=== PATIENT | female | born 1945 | race Caucasian/White ===

== ENCOUNTER 2016-10-07 13:51 | Emergency (ER) | payer MEDICARE ==
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
[2016-10-07] MEDS ORDERED: Sodium Chloride 0.9% 1,000 ML IV ONE (14:32)
[2016-10-07] MEDS ORDERED: Famotidine 20 MG/2 ML SDV IVPUSH ONE (14:32)
[2016-10-07 15:17] LABS: CHLORIDE,CL 100 mmol/L (98-110); SODIUM,NA 145 mmol/L (136-146)
[2016-10-07] MEDS ORDERED: Potassium Chloride 10% 20 MEQ/15 ML Soln 30 ML UD Cup PO ONE (15:39)
[2016-10-07] MEDS ORDERED: Potassium Chloride 20 MEQ Tab.ER PO ONE (15:46)
[2016-10-07] MEDS ORDERED: NS + KCl 20mEq/L 1,000 ML IV SCH (15:49)
[2016-10-07 18:32] VITALS: BP 179/102
--- NOTE | 2016-10-09 17:41 | CT ---
EXAM DATE: 10/07/16 PATIENT'S AGE: 71 Patient: LIANG STRONG Facility: [place], [place] Site . Site : 1945 Study: CT Abdomen/Pelvis [id number]/25/2017 3:21:50 PM Ordering Physician: Doctor Costa Final Report: Indication: Abdominal pain. Technique: A CT volumetric acquisition was performed of the abdomen and pelvis without IV contrast. Comparison: CT abdomen pelvis dated 05/19/2016. Findings: CT images demonstrate pulmonary hyperinflation. There is minimal pleural and parenchymal scarring within the inferior lingula. Lung bases are otherwise clear. Within the abdomen there is continued evidence of generalized hepatic steatosis. The spleen appears of normal size. There is no evidence mass effect or inflammation within the pancreas or stomach. The patient again has multiple small calcified stones within the gallbladder but there is no evidence of acute inflammation within the gallbladder wall or bile duct dilatation. Extensive atherosclerotic calcifications are evident within the abdominal aorta and iliac arteries. There is no evidence of aneurysm or vascular dissection. The unenhanced kidneys reveal a stable 3 mm calculus within the mid left kidney as well as a small cortical cyst laterally within the mid left kidney. There is no evidence of hydronephrosis. The small intestine appears normal. The lower pelvis is obscured secondary to spray artifact from bilateral hip arthroplasties. There are no suspicious pelvic masses. Impression: 1. Cholelithiasis but without evidence of acute cholecystitis or bile duct dilatation. 2. Generalized hepatic steatosis. Dictated by Ronaldo Blake MD @ Oct 07 2016 4:00PM (Electronic Signature) Report Signed by Proxy and Original Signed Document filed in the Medical Record. [facility] DIVISIONAddie
--- NOTE | 2016-10-09 17:42 | CR ---
EXAM DATE: 10/07/16 PATIENT'S AGE: 71 Patient: LIANG STRONG Facility: [place], [place] Site . Site : 1945 Study: XRay Chest [id number]/25/2017 3:31:12 PM Ordering Physician: Doctor Costa Final Report: INDICATION: Abdominal pain. COMPARISON: none TECHNIQUE: Two view chest. FINDINGS: There is pulmonary hyperinflation reflecting underlying COPD. Old appearing compression changes are within the lower thoracic spine. There is no evidence of a new infiltrate or suspicious mass. The heart, mediastinum and pulmonary vessels are of normal size. There is no evidence of pleural fluid. IMPRESSION: COPD Dictated by Ronaldo Blake MD @ Oct 07 2016 4:00PM (Electronic Signature) Report Signed by Proxy and Original Signed Document filed in the Medical Record. [facility]
== END 2016-10-07 18:33 | disposition home or self-care (01) ==
LOC: MW.ED 13:51
DX: K80.20 Calculus of gallbladder without cholecystitis without obstruction (principal); E87.6 Hypokalemia; F10.10 Alcohol abuse, uncomplicated; I10 Essential (primary) hypertension; K21.9 Gastro-esophageal reflux disease without esophagitis; G89.29 Other chronic pain; R10.9 Unspecified abdominal pain; M54.9 Dorsalgia, unspecified; F32.9 Major depressive disorder, single episode, unspecified; F41.9 Anxiety disorder, unspecified; M81.0 Age-related osteoporosis without current pathological fracture; Z79.899 Other long term (current) drug therapy; F17.200 Nicotine dependence, unspecified, uncomplicated
CPT/HCPCS: 36415; 71020; 74176; 80053; 81001; 83690; 83735; 85025; 85610; 96361; 96365; 96366; 96375; 99285; A9270; J3480; J7040; 93005; 99284

== ENCOUNTER 2016-10-10 10:43 | Inpatient (IN) | payer MEDICARE ==
[2016-10-10] MEDS ORDERED: Ondansetron 4 MG/2 ML SDV IVPUSH ONE (11:01)
[2016-10-10] MEDS ORDERED: Sodium Chloride 0.9% 1,000 ML IV ONE ×2 (11:01→14:40)
[2016-10-10] MEDS ORDERED: Morphine 2 MG/ML Syringe IVPUSH ONE (11:01)
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
[2016-10-10 11:57] LABS: CHLORIDE,CL 104 mmol/L (98-110); SODIUM,NA 142 mmol/L (136-146)
--- NOTE | 2016-10-10 12:02 | CR ---
EXAMINATION: Portable chest radiograph. HISTORY: Shortness of breath. FINDINGS: The trachea is midline. The cardiomediastinal silhouette is within normal limits. No pulmonary infil trates, effusions or pneumothorax. Osseous structures appear osteopenic. IMPRESSION: No acute cardiopulmonary process.
[2016-10-10] MEDS ORDERED: Potassium Chloride 20 MEQ Tab.ER PO ONE ×2 (12:06→12:56)
[2016-10-10] MEDS ORDERED: Dextrose 5%-0.9% NaCl with KCl 1,000 ML IV SCH (12:15)
[2016-10-10] MEDS ORDERED: Potassium Chloride 10% 20 MEQ/15 ML Soln 30 ML UD Cup PO ONE (12:56)
[2016-10-10] MEDS ORDERED: HYDROmorphone 2 MG/ML Syringe IVPUSH ONE (13:18)
[2016-10-10] MEDS ORDERED: Albuterol/Ipratropium 3.0-0.5 MG/3 ML Neb Soln NEB PRN (14:41)
[2016-10-10] MEDS ORDERED: Sodium Chloride 0.9% 1,000 ML IV SCH (14:45)
[2016-10-10] MEDS ORDERED: Magnesium Sulfate/Water 4 GM in Premix Bag 1 BAG IV ONE (14:51)
[2016-10-10] MEDS ORDERED: LORazepam 2 MG/ML MDV IVPUSH PRN (14:54)
[2016-10-10] MEDS ORDERED: Metoprolol Tartrate 5 MG in Sodium Chloride 0.9% 50 ML IV PRN (14:55)
[2016-10-10] MEDS ORDERED: Metoprolol Tartrate 5 MG/5 ML SDV IVPUSH PRN (14:56)
[2016-10-10] MEDS ORDERED: Thiamine 200 MG/2 ML MDV IV SCH (15:00)
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
[2016-10-10] MEDS ORDERED: SODIUM CHLORIDE IV SCH (15:15)
[2016-10-10] MEDS ORDERED: POTASSIUM PHOSPHATES IV SCH (15:15)
[2016-10-10] MEDS: Folic Acid 50 MG/10 ML MDV SUBCUT SCH (15:19)
[2016-10-10] MEDS: Pantoprazole 40 MG in Sodium Chloride 0.9% 10 ML IVPUSH SCH (15:35)
[2016-10-10] MEDS: HYDROmorphone 2 MG/ML Syringe IVPUSH PRN ×3 (15:38→21:51)
[2016-10-10] MEDS ORDERED: Magnesium Sulfate/Water 0 ML ONE (15:49)
[2016-10-10] MEDS: Thiamine 100 MG in Sodium Chloride 0.9% 50 ML IV SCH (15:58)
[2016-10-10] MEDS: SODIUM CHLORIDE IV SCH (16:07)
[2016-10-10] MEDS: POTASSIUM PHOSPHATES IV SCH (16:07)
[2016-10-10] MEDS: Sodium Chloride 0.9% 1,000 ML IV SCH (16:07)
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
[2016-10-10] MEDS: Temazepam 15 MG Cap PO PRN (21:51)
[2016-10-11] MEDS: SODIUM CHLORIDE IV SCH (02:31)
[2016-10-11] MEDS: POTASSIUM PHOSPHATES IV SCH (02:31)
[2016-10-11] MEDS: Sodium Chloride 0.9% 1,000 ML IV SCH ×4 (05:29→17:50)
[2016-10-11 05:40] LABS: CHLORIDE,CL 114 mmol/L (98-110); SODIUM,NA 144 mmol/L (136-146)
[2016-10-11] MEDS: Folic Acid 50 MG/10 ML MDV SUBCUT SCH (08:06)
[2016-10-11] MEDS ORDERED: Calcium Carbonate 500 MG Tab.Chew PO ONE (08:25)
[2016-10-11] MEDS: Ondansetron 4 MG/2 ML SDV IVPUSH PRN (09:18)
[2016-10-11] MEDS: HYDROmorphone 2 MG/ML Syringe IVPUSH PRN ×5 (09:19→20:41)
--- NOTE | 2016-10-11 10:19 | PCM.PN ---
- General Info Date of Service: 10/11/16 Admission Dx/Problem (Free Text): Acute pancreatitis Abdominal pain of several months duration. Subjective Update: Doing a little better this am, still having abdominal pain and nausea. No chest pain or SOB. at the bedside updated on plan of care. Functional Status: Reports: pain controlled, ambulating, urinating. Denies: tolerating diet - Review of Systems General: Reports: Fatigue. Denies: Fever HEENT: Reports: no symptoms. Denies: sinus congestion, sore throat Pulmonary: Reports: no symptoms. Denies: shortness of breath, cough, sputum Cardiovascular: Denies: Chest Pain, Palpitations, Edema Gastrointestinal: Reports: Abdominal pain, Nausea. Denies: Constipation, Diarrhea, Vomiting Genitourinary: Reports: no symptoms. Denies: dysuria, frequency, burning Musculoskeletal: Reports: back pain (chronic back pain) Skin: Reports: no symptoms Neurological: Reports: No Symptoms Psychiatric: Reports: no symptoms - Patient Data Vitals - most recent: Last Vital Signs Temp 99.5 F 10/11/16 08:00 Pulse 75 10/11/16 08:00 Resp 16 10/11/16 08:00 BP 174/96 H 10/11/16 08:00 Pulse Ox 94 L 10/11/16 04:00 Weight - most recent: 54.431 kg I&O - last 24 hours: Intake & Output 10/10/16 10/11/16 10/11/16 22:59 06:59 14:59 Intake Total 1260 2874 Output Total 200 2030 Balance 1060 844 Lab Results last 24 hrs: Laboratory Results - last 24 hr 10/10/16 10/10/16 10/11/16 Range/Units 17:37 23:10 04:45 WBC 5.85 (4.0-11.0) K/uL RBC 3.72 L (4.30-5.90) M/uL Hgb 13.5 (12.0-16.0) g/dL Hct 38.9 (36.0-46.0) % MCV 104.6 H (80.0-98.0) fL MCH 36.3 H (27.0-32.0) pg MCHC 34.7 (31.0-37.0) g/dL RDW Std Deviation 59.2 (28.0-62.0) fl RDW Coeff of Katerina 16 H (11.0-15.0) % Plt Count 105 L (150-400) K/uL MPV 10.00 (7.40-12.00) fL Neut % (Auto) 61.1 (48.0-80.0) % Lymph % (Auto) 25.1 (16.0-40.0) % [place] % (Auto) 12.1 (0.0-15.0) % Eos % (Auto) 1.4 (0.0-7.0) % Baso % (Auto) 0.3 (0.0-1.5) % Neut # (Auto) 3.6 (1.4-5.7) K/uL Lymph # (Auto) 1.5 (0.6-2.4) K/uL [place] # (Auto) 0.7 (0.0-0.8) K/uL Eos # (Auto) 0.1 (0.0-0.7) K/uL Baso # (Auto) 0.0 (0.0-0.1) K/uL Nucleated RBC % 0.0 /100WBC Nucleated RBCs # 0 K/uL Sodium (136-146) mmol/L Potassium (3.5-5.1) mmol/L Chloride (98-110) mmol/L Carbon Dioxide (21-31) mmol/L BUN (6.0-23.0) mg/dL Creatinine (0.6-1.5) mg/dL Est Cr Clr Drug Dosing mL/min Estimated GFR (MDRD) ml/min Glucose (60-110) mg/dL Calcium (8.8-10.8) mg/dL Phosphorus (2.4-4.7) mg/dL Magnesium (1.5-2.3) mEq/L Total Bilirubin (0.1-1.5) mg/dL AST (5-40) IU/L ALT (8-54) IU/L Alkaline Phosphatase (40-150) Troponin I < 0.10 < 0.10 (0.0-0.29) NG/ML Total Protein (6.0-8.0) g/dL Albumin (3.4-4.8) g/dL Globulin (2.0-3.5) g/dL Albumin/Globulin Ratio (1.3-2.8) Lipase (7-80) U/L 10/11/16 10/11/16 Range/Units 04:45 04:45 WBC (4.0-11.0) K/uL RBC (4.30-5.90) M/uL Hgb (12.0-16.0) g/dL Hct (36.0-46.0) % MCV (80.0-98.0) fL MCH (27.0-32.0) pg MCHC (31.0-37.0) g/dL RDW Std Deviation (28.0-62.0) fl RDW Coeff of Katerina (11.0-15.0) % Plt Count (150-400) K/uL MPV (7.40-12.00) fL Neut % (Auto) (48.0-80.0) % Lymph % (Auto) (16.0-40.0) % [place] % (Auto) (0.0-15.0) % Eos % (Auto) (0.0-7.0) % Baso % (Auto) (0.0-1.5) % Neut # (Auto) (1.4-5.7) K/uL Lymph # (Auto) (0.6-2.4) K/uL [place] # (Auto) (0.0-0.8) K/uL Eos # (Auto) (0.0-0.7) K/uL Baso # (Auto) (0.0-0.1) K/uL Nucleated RBC % /100WBC Nucleated RBCs # K/uL Sodium 144 (136-146) mmol/L Potassium 4.2 (3.5-5.1) mmol/L Chloride 114 H (98-110) mmol/L Carbon Dioxide 20 L (21-31) mmol/L BUN 5 L (6.0-23.0) mg/dL Creatinine 0.5 L (0.6-1.5) mg/dL Est Cr Clr Drug Dosing 80.13 mL/min Estimated GFR (MDRD) > 60.0 ml/min Glucose 75 (60-110) mg/dL Calcium 7.2 L (8.8-10.8) mg/dL Phosphorus 5.2 H (2.4-4.7) mg/dL Magnesium 1.6 (1.5-2.3) mEq/L Total Bilirubin 1.4 (0.1-1.5) mg/dL AST 61 H (5-40) IU/L ALT 41 (8-54) IU/L Alkaline Phosphatase 127 (40-150) Troponin I (0.0-0.29) NG/ML Total Protein 5.7 L (6.0-8.0) g/dL Albumin 3.1 L (3.4-4.8) g/dL Globulin 2.6 (2.0-3.5) g/dL Albumin/Globulin Ratio 1.2 L (1.3-2.8) Lipase 50 (7-80) U/L Med Orders - Current: Current Medications Albuterol/Ipratropium (Duoneb 3.0-0.5 Mg/3 Ml) 3 ml NEB Q4HRRT PRN PRN Reason: Shortness Of Breath/wheezing Last Admin: 10/11/16 05:29 Dose: 3 ml Folic Acid (Folic Acid) 1 mg SUBCUT DAILY [facility] Last Admin: 10/11/16 08:06 Dose: 1 mg Hydromorphone HCl (Dilaudid) 1 mg IVPUSH Q2H PRN PRN Reason: Pain (severe 7-10) Last Admin: 10/11/16 09:19 Dose: 1 mg Pantoprazole Sodium 40 mg/ (Sodium Chloride) 10 mls @ 300 mls/hr IVPUSH Q24H [facility] Last Admin: 10/10/16 15:35 Dose: 300 mls/hr Thiamine HCl 100 mg/ Sodium (Chloride) 51 mls @ 204 mls/hr IV Q24H [facility] Last Admin: 10/10/16 15:58 Dose: 204 mls/hr Sodium Chloride (Normal Saline) 1,000 mls @ 200 mls/hr IV ASDIRECTED [facility] Last Admin: 10/11/16 08:45 Dose: 200 mls/hr Lorazepam (Ativan) 0 mg IVPUSH Q4H PRN; Protocol PRN Reason: CIWAA Metoprolol Tartrate (Lopressor) 5 mg IVPUSH Q6H PRN PRN Reason: SBP >180 or DBP >110 Ondansetron HCl (Zofran) 4 mg IVPUSH Q4H PRN PRN Reason: Nausea Last Admin: 10/11/16 09:18 Dose: 4 mg Temazepam (Restoril) 15 mg PO BEDTIME PRN PRN Reason: Insomnia Last Admin: 10/10/16 21:51 Dose: 15 mg Discontinued Medications Calcium Carbonate/Glycine (Tums) 1,000 mg PO ONETIME ONE Stop: 10/11/16 08:26 Last Admin: 10/11/16 08:37 Dose: 1,000 mg Hydromorphone HCl (Dilaudid) 1 mg IVPUSH ONETIME ONE Stop: 10/10/16 13:19 Last Admin: 10/10/16 13:35 Dose: 1 mg Sodium Chloride (Normal Saline) 1,000 mls @ 999 mls/hr IV STAT ONE Stop: 10/10/16 12:01 Last Admin: 10/10/16 11:34 Dose: 999 mls/hr Potassium Chloride/Dextrose/Sod Cl (D5 Ns With 20 Meq Kcl) 1,000 mls @ 150 mls/ hr IV ASDIRECTED [facility] Last Admin: 10/10/16 13:23 Dose: 150 mls/hr Sodium Chloride (Normal Saline) 1,000 mls @ 999 mls/hr IV .BOLUS ONE Stop: 10/10/16 15:40 Last Admin: 10/10/16 15:16 Dose: 999 mls/hr Sodium Chloride (Normal Saline) 1,000 mls @ 200 mls/hr IV ASDIRECTED [facility] Magnesium Sulfate 4 gm/ Premix 100 mls @ 50 mls/hr IV ONETIME ONE Stop: 10/10/16 16:50 Last Admin: 10/10/16 15:41 Dose: 50 mls/hr Metoprolol Tartrate 5 mg/ (Sodium Chloride) 55 mls @ 100 mls/hr IV Q6H PRN PRN Reason: SBP > 180, DBP > 110 Potassium Phosphate 45 mmole/ (Sodium Chloride) 1,015 mls @ 125 mls/hr IV ASDIRECTED ELISA Stop: 10/11/16 23:23 Sodium Chloride (Normal Saline) 1,000 mls @ 75 mls/hr IV ASDIRECTED ELISA Last Admin: 10/11/16 05:29 Dose: 75 mls/hr Potassium Phosphate 45 mmole/ (Sodium Chloride) 1,015 mls @ 125 mls/hr IV Q8H ELISA Stop: 10/11/16 07:14 Last Admin: 10/11/16 02:31 Dose: 125 mls/hr Magnesium Sulfate (Magnesium Sulfate 4 Gm In Water 100 Ml) Confirm Administered Dose 100 mls @ as directed .ROUTE .STK-MED ONE Stop: 10/10/16 15:50 Last Admin: 10/10/16 16:05 Dose: Not Given Morphine Sulfate (Morphine) 2 mg IVPUSH ONETIME ONE Stop: 10/10/16 11:02 Last Admin: 10/10/16 11:31 Dose: 2 mg Ondansetron HCl (Zofran) 8 mg IVPUSH ONETIME ONE Stop: 10/10/16 11:02 Last Admin: 10/10/16 11:27 Dose: 8 mg Potassium Chloride (Klor-Con M20) 40 meq PO ONETIME ONE Stop: 10/10/16 12:07 Last Admin: 10/10/16 16:14 Dose: Not Given Potassium Chloride (Potassium Chloride) 40 meq PO ONETIME ONE Stop: 10/10/16 12:57 Last Admin: 10/10/16 13:47 Dose: 40 meq - Exam Quality Assessment: DVT prophylaxis (SCDs) General: alert, oriented Neck: supple Lungs: Clear to auscultation, Normal respiratory effort Cardiovascular: Regular Rate, Regular Rhythm Abdomen: bowel sounds present, soft, no distension, tenderness (epigastric) Extremities: no edema, normal pulses Psy/Mental Status: alert, normal affect, normal mood - Problem List & Annotations (1) Acute pancreatitis SNOMED Code(s): 931503858 Code(s): K85.90 - ACUTE PANCREATITIS WITHOUT NECROSIS OR INFECTION, UNSP Status: Acute Priority: High Current Visit: Yes Qualifiers: Pancreatitis type: alcohol induced Acute pancreatitis complication: no infection or necrosis Qualified Code(s): K85.20 - Alcohol induced acute pancreatitis without necrosis or infection (2) Alcohol abuse SNOMED Code(s): 76710288 Code(s): F10.10 - ALCOHOL ABUSE, UNCOMPLICATED Status: Acute Priority: High Current Visit: No (3) Cholelithiasis SNOMED Code(s): 427534829 Code(s): K80.20 - CALCULUS OF GALLBLADDER W/O CHOLECYSTITIS W/O OBSTRUCTION Status: Acute Priority: Low Current Visit: No Qualifiers: Cholelithiasis location: gallbladder Cholecystitis presence: without cholecystitis Biliary obstruction: without biliary obstruction Qualified Code(s): K80.20 - Calculus of gallbladder without cholecystitis without obstruction (4) Hypokalemia SNOMED Code(s): 43926423 Code(s): E87.6 - HYPOKALEMIA Status: Acute Priority: High Current Visit : No (5) Nausea and vomiting in adult SNOMED Code(s): 03250065 Code(s): R11.2 - NAUSEA WITH VOMITING, UNSPECIFIED Status: Acute Priority : Medium Current Visit: No (6) Hypomagnesemia SNOMED Code(s): 413537887 Code(s): E83.42 - HYPOMAGNESEMIA Status: Acute Priority: Medium Current Visit: Yes (7) Hypophosphatemia SNOMED Code(s): 6392208 Code(s): E83.39 - OTHER DISORDERS OF PHOSPHORUS METABOLISM Status: Acute Priority: Medium Current Visit: Yes (8) Atypical chest pain SNOMED Code(s): 614839978 Code(s): R07.89 - OTHER CHEST PAIN Status: Resolved Current Visit: No Onset Date: 09/20/14 (9) HTN (hypertension) SNOMED Code(s): 48051767 Code(s): I10 - ESSENTIAL (PRIMARY) HYPERTENSION Status: Chronic Priority : Medium Current Visit: Yes Qualifiers: Hypertension type: essential hypertension Qualified Code(s): I10 - Essential (primary) hypertension - Problem List Review Problem List Initiated/Reviewed/Updated: Yes - My Orders Last 24 Hours: My Active Orders 10/10/16 14:41 Height and Weight [RC] DAILY Intake and Output [RC] QSHIFT Oxygen Therapy [RC] PRN Telemetry Monitoring [Cardiac Monitoring] [RC] Q8H Up ad Pam [RC] ASDIRECTED VTE/DVT Education [RC] PER UNIT ROUTINE Vital Signs [RC] Q4H Albuterol/Ipratropium [DuoNeb 3.0-0.5 MG/3 ML] 3 ml NEB Q4HRRT PRN HYDROmorphone [Dilaudid] 1 mg IVPUSH Q2H PRN Ondansetron [Zofran] 4 mg IVPUSH Q4H PRN Sequential Compression Device [OM.PC] Per Unit Routine 10/10/16 14:42 Antiembolic Devices [RC] PER UNIT ROUTINE 10/10/16 14:46 RT Aerosol Therapy [RC] ASDIRECTED 10/10/16 14:54 CIWAA Assessment [RC] Q4H LORazepam [Ativan] See Protocol IVPUSH Q4H PRN 10/10/16 14:56 Metoprolol Tartrate [Lopressor] 5 mg IVPUSH Q6H PRN 10/10/16 15:00 Folic Acid 1 mg SUBCUT DAILY 10/10/16 15:05 Abdomen Ltd [US] Routine 10/10/16 15:15 Pantoprazole [Protonix IV] 40 mg Sodium Chloride 0.9% [Normal Saline] 10 ml IVPUSH Q24H Thiamine [Vitamin B-1] 100 mg Sodium Chloride 0.9% [Normal Saline] 50 ml IV Q24H 10/10/16 16:19 Notify Provider Consults [RC] ASDIRECTED Consult to Physician [CONS] Routine 10/10/16 16:22 Temazepam [Restoril] 15 mg PO BEDTIME PRN 10/10/16 Dinner Nothing per Oral Now Diet [DIET] 10/11/16 08:23 Sodium Chloride 0.9% [Normal Saline] 1,000 ml IV ASDIRECTED 10/12/16 05:11 CBC WITH AUTO DIFF [HEME] AM COMPREHENSIVE METABOLIC PN,CMP [CHEM] AM MAGNESIUM [CHEM] AM PHOSPHORUS [CHEM] AM 10/13/16 05:11 CBC WITH AUTO DIFF [HEME] AM COMPREHENSIVE METABOLIC PN,CMP [CHEM] AM MAGNESIUM [CHEM] AM PHOSPHORUS [CHEM] AM - Plan Plan:: This 71 year old female admitted with acute pancreatitis 1. Acute pancreatitis: likely secondary to alcohol. Continue NS 200. NPO, analgesia and anti-emetics. May trial CL when nausea has cleared. 2. ETOH abuse: CIWAA protocol with Ativan. Monitor CIWAA Q4h. Latest CIWAA score 1. Thiamine and Folic acid supplementation. Protonix for GI 3. Cholelithasis: Consulted Dr Alex. I appreciate his assistance with this patient. Follow up as outpatient. Encouraged sobriety. 4. HTN: Hold PO meds, Lopressor IV PRN for HTN 5. Hypomagnesemia, hypophosphatemia and hypokalemia: Improved this morning. 6. Atypical Chest pain: ACS ruled out. Troponins negative. Likely radiating pain from acute pancreatitis. 7. Chronic back pain: Hold MS contin while NPO will restart once tolerating diet. VTE: SCDs only due to high risk of bleeding with ETOH. Dispo: 2-4 days pending
--- NOTE | 2016-10-11 14:05 | US ---
EXAM DATE: 10/10/16 PATIENT'S AGE: 71 Patient: LIANG STRONG Facility: [place], [place] Site . Site : [id number] Study: US Abdomen [id number]/28/2017 4:45:55 PM Ordering Physician: Pop Forrest Final Report: CLINICAL HISTORY: Gallstones FINDINGS: Mild increased echogenicity of the liver. There is no evidence of ascites. Multiple gallstones are present. The gallbladder wall measures 1 mm in thickness. The common bile duct is of normal size and measures 2 mm in diameter at the level of the jaqueline hepatis. The visualized portions of the pancreas appears normal. There is no evidence of a stone or hydronephrosis within the right kidney. The right kidney measures 9.7 cm in length. IMPRESSION: Cholelithiasis. No findings for cholecystitis. Fatty liver. Dictated by Mima Sanabria MD @ Oct 11 2016 8:28AM (Electronic Signature) Report Signed by Proxy and Original Signed Document filed in the Medical Record. MTDD
[2016-10-11] MEDS: Pantoprazole 40 MG in Sodium Chloride 0.9% 10 ML IVPUSH SCH (14:36)
[2016-10-11] MEDS: Thiamine 100 MG in Sodium Chloride 0.9% 50 ML IV SCH (14:36)
[2016-10-11] MEDS: Nicotine 14 MG/24 Hr Patch TRDERM SCH (17:13)
[2016-10-12] MEDS: HYDROmorphone 2 MG/ML Syringe IVPUSH PRN ×5 (03:40→22:15)
[2016-10-12] MEDS: Sodium Chloride 0.9% 1,000 ML IV SCH ×3 (04:37→17:37)
[2016-10-12 06:03] LABS: CHLORIDE,CL 110 mmol/L (98-110); SODIUM,NA 139 mmol/L (136-146)
[2016-10-12] MEDS ORDERED: Magnesium Sulfate/Water 4 GM in Premix Bag 1 BAG IV ONE (08:00)
[2016-10-12] MEDS ORDERED: Calcium Carbonate 500 MG Tab.Chew PO ONE (08:03)
[2016-10-12] MEDS ORDERED: Potassium Chloride 20 MEQ Tab.ER PO ONE (08:04)
[2016-10-12] MEDS: Folic Acid 50 MG/10 ML MDV SUBCUT SCH (08:41)
--- NOTE | 2016-10-12 09:01 | PCM.PN ---
- General Info Date of Service: 10/12/16 Admission Dx/Problem (Free Text): Acute pancreatitis Abdominal pain of several months duration. Subjective Update: Doing a little better this am. No nausea and is ready to try diet. Abdominal pain is improving, 09/22 this am. No chest pain or SOB. at the bedside updated on plan of care. Functional Status: Reports: pain controlled, ambulating, urinating - Review of Systems General: Reports: No Symptoms. Denies: Fever HEENT: Reports: no symptoms. Denies: sinus congestion, sore throat Pulmonary: Reports: no symptoms. Denies: shortness of breath Cardiovascular: Reports: No Symptoms. Denies: Chest Pain, Palpitations, Edema Gastrointestinal: Reports: Abdominal pain (epigastric, improving), Flatus. Denies: Diarrhea, Nausea, Vomiting Genitourinary: Reports: no symptoms. Denies: dysuria, frequency, burning Musculoskeletal: Reports: back pain (chronic) Skin: Reports: no symptoms Neurological: Reports: No Symptoms Psychiatric: Reports: no symptoms - Patient Data Vitals - most recent: Last Vital Signs Temp 98.9 F 10/12/16 08:00 Pulse 82 10/12/16 08:00 Resp 20 10/12/16 08:00 BP 154/64 H 10/12/16 08:00 Pulse Ox 95 10/12/16 08:00 Weight - most recent: 60.5 kg I&O - last 24 hours: Intake & Output 10/11/16 10/12/16 10/12/16 22:59 06:59 14:59 Intake Total 1300 4308 Output Total 2100 1700 Balance -800 2608 Lab Results last 24 hrs: Laboratory Results - last 24 hr 10/12/16 10/12/16 Range/Units 04:53 04:53 WBC 7.06 (4.0-11.0) K/uL RBC 3.60 L (4.30-5.90) M/uL Hgb 13.0 (12.0-16.0) g/dL Hct 38.1 (36.0-46.0) % MCV 105.8 H (80.0-98.0) fL MCH 36.1 H (27.0-32.0) pg MCHC 34.1 (31.0-37.0) g/dL RDW Std Deviation 58.0 (28.0-62.0) fl RDW Coeff of Katerina 15 (11.0-15.0) % Plt Count 106 L (150-400) K/uL MPV 9.70 (7.40-12.00) fL Neut % (Auto) 70.1 (48.0-80.0) % Lymph % (Auto) 17.1 (16.0-40.0) % [place] % (Auto) 11.5 (0.0-15.0) % Eos % (Auto) 1.0 (0.0-7.0) % Baso % (Auto) 0.3 (0.0-1.5) % Neut # (Auto) 5.0 (1.4-5.7) K/uL Lymph # (Auto) 1.2 (0.6-2.4) K/uL [place] # (Auto) 0.8 (0.0-0.8) K/uL Eos # (Auto) 0.1 (0.0-0.7) K/uL Baso # (Auto) 0.0 (0.0-0.1) K/uL Nucleated RBC % 0.0 /100WBC Nucleated RBCs # 0 K/uL Sodium 139 (136-146) mmol/L Potassium 3.4 L (3.5-5.1) mmol/L Chloride 110 (98-110) mmol/L Carbon Dioxide 13 L (21-31) mmol/L BUN 6 (6.0-23.0) mg/dL Creatinine 0.5 L (0.6-1.5) mg/dL Est Cr Clr Drug Dosing 80.22 mL/min Estimated GFR (MDRD) > 60.0 ml/min Glucose 53 L (60-110) mg/dL Calcium 7.8 L (8.8-10.8) mg/dL Phosphorus 2.7 (2.4-4.7) mg/dL Magnesium 1.3 L (1.5-2.3) mEq/L Total Bilirubin 1.5 (0.1-1.5) mg/dL AST 61 H (5-40) IU/L ALT 40 (8-54) IU/L Alkaline Phosphatase 124 (40-150) Total Protein 5.5 L (6.0-8.0) g/dL Albumin 3.1 L (3.4-4.8) g/dL Globulin 2.4 (2.0-3.5) g/dL Albumin/Globulin Ratio 1.3 (1.3-2.8) Med Orders - Current: Current Medications Albuterol/Ipratropium (Duoneb 3.0-0.5 Mg/3 Ml) 3 ml NEB Q4HRRT PRN PRN Reason: Shortness Of Breath/wheezing Last Admin: 10/11/16 05:29 Dose: 3 ml Folic Acid (Folic Acid) 1 mg SUBCUT DAILY [facility] Last Admin: 10/12/16 08:41 Dose: 1 mg Hydromorphone HCl (Dilaudid) 1 mg IVPUSH Q2H PRN PRN Reason: Pain (severe 7-10) Last Admin: 10/12/16 08:41 Dose: 1 mg Pantoprazole Sodium 40 mg/ (Sodium Chloride) 10 mls @ 300 mls/hr IVPUSH Q24H [facility] Last Admin: 10/11/16 14:36 Dose: 300 mls/hr Thiamine HCl 100 mg/ Sodium (Chloride) 51 mls @ 204 mls/hr IV Q24H [facility] Last Admin: 10/11/16 14:36 Dose: 204 mls/hr Sodium Chloride (Normal Saline) 1,000 mls @ 200 mls/hr IV ASDIRECTED [facility] Last Admin: 10/12/16 04:37 Dose: 200 mls/hr Magnesium Sulfate 4 gm/ Premix 100 mls @ 50 mls/hr IV ONETIME ONE Stop: 10/12/16 09:59 Last Admin: 10/12/16 08:50 Dose: 50 mls/hr Lorazepam (Ativan) 0 mg IVPUSH Q4H PRN; Protocol PRN Reason: CIWAA Metoprolol Tartrate (Lopressor) 5 mg IVPUSH Q6H PRN PRN Reason: SBP >180 or DBP >110 Nicotine (Habitrol) 14 mg TRDERM Q24H [facility] Last Admin: 10/11/16 17:13 Dose: 14 mg Ondansetron HCl (Zofran) 4 mg IVPUSH Q4H PRN PRN Reason: Nausea Last Admin: 10/11/16 09:18 Dose: 4 mg Sodium Phosphate (Neutra-Phos) 250 mg PO QID [facility] Temazepam (Restoril) 15 mg PO BEDTIME PRN PRN Reason: Insomnia Last Admin: 10/10/16 21:51 Dose: 15 mg Discontinued Medications Calcium Carbonate/Glycine (Tums) 1,000 mg PO ONETIME ONE Stop: 10/11/16 08:26 Last Admin: 10/11/16 08:37 Dose: 1,000 mg Calcium Carbonate/Glycine (Tums) 1,000 mg PO ONETIME ONE Stop: 10/12/16 08:04 Last Admin: 10/12/16 08:41 Dose: 1,000 mg Hydromorphone HCl (Dilaudid) 1 mg IVPUSH ONETIME ONE Stop: 10/10/16 13:19 Last Admin: 10/10/16 13:35 Dose: 1 mg Sodium Chloride (Normal Saline) 1,000 mls @ 999 mls/hr IV STAT ONE Stop: 10/10/16 12:01 Last Admin: 10/10/16 11:34 Dose: 999 mls/hr Potassium Chloride/Dextrose/Sod Cl (D5 Ns With 20 Meq Kcl) 1,000 mls @ 150 mls/ hr IV ASDIRECTED [facility] Last Admin: 10/10/16 13:23 Dose: 150 mls/hr Sodium Chloride (Normal Saline) 1,000 mls @ 999 mls/hr IV .BOLUS ONE Stop: 10/10/16 15:40 Last Admin: 10/10/16 15:16 Dose: 999 mls/hr Sodium Chloride (Normal Saline) 1,000 mls @ 200 mls/hr IV ASDIRECTED [facility] Magnesium Sulfate 4 gm/ Premix 100 mls @ 50 mls/hr IV ONETIME ONE Stop: 10/10/16 16:50 Last Admin: 10/10/16 15:41 Dose: 50 mls/hr Metoprolol Tartrate 5 mg/ (Sodium Chloride) 55 mls @ 100 mls/hr IV Q6H PRN PRN Reason: SBP > 180, DBP > 110 Potassium Phosphate 45 mmole/ (Sodium Chloride) 1,015 mls @ 125 mls/hr IV ASDIRECTED ELISA Stop: 10/11/16 23:23 Sodium Chloride (Normal Saline) 1,000 mls @ 75 mls/hr IV ASDIRECTED [facility] Last Admin: 10/11/16 05:29 Dose: 75 mls/hr Potassium Phosphate 45 mmole/ (Sodium Chloride) 1,015 mls @ 125 mls/hr IV Q8H ELISA Stop: 10/11/16 07:14 Last Admin: 10/11/16 02:31 Dose: 125 mls/hr Magnesium Sulfate (Magnesium Sulfate 4 Gm In Water 100 Ml) Confirm Administered Dose 100 mls @ as directed .ROUTE .STK-MED ONE Stop: 10/10/16 15:50 Last Admin: 10/10/16 16:05 Dose: Not Given Morphine Sulfate (Morphine) 2 mg IVPUSH ONETIME ONE Stop: 10/10/16 11:02 Last Admin: 10/10/16 11:31 Dose: 2 mg Ondansetron HCl (Zofran) 8 mg IVPUSH ONETIME ONE Stop: 10/10/16 11:02 Last Admin: 10/10/16 11:27 Dose: 8 mg Potassium Chloride (Klor-Con M20) 40 meq PO ONETIME ONE Stop: 10/10/16 12:07 Last Admin: 10/10/16 16:14 Dose: Not Given Potassium Chloride (Potassium Chloride) 40 meq PO ONETIME ONE Stop: 10/10/16 12:57 Last Admin: 10/10/16 13:47 Dose: 40 meq Potassium Chloride (Klor-Con M20) 40 meq PO ONETIME ONE Stop: 10/12/16 08:05 Last Admin: 10/12/16 08:40 Dose: 40 meq - Exam General: alert, oriented, cooperative HEENT: Pupils equal, Pupils reactive, EOMI, Mucous membr. moist/pink Neck: supple Lungs: Clear to auscultation, Normal respiratory effort Cardiovascular: Regular Rate, Regular Rhythm, No Murmurs Abdomen: bowel sounds present, soft, no distension, tenderness (scant tenderness to abdomen) Extremities: no edema, normal pulses Neurological: no new focal deficit Psy/Mental Status: alert, normal affect, normal mood - Problem List & Annotations (1) Acute pancreatitis SNOMED Code(s): 937618340 Code(s): K85.90 - ACUTE PANCREATITIS WITHOUT NECROSIS OR INFECTION, UNSP Status: Acute Priority: High Current Visit: Yes Qualifiers: Pancreatitis type: alcohol induced Acute pancreatitis complication: no infection or necrosis Qualified Code(s): K85.20 - Alcohol induced acute pancreatitis without necrosis or infection (2) Alcohol abuse SNOMED Code(s): 87757939 Code(s): F10.10 - ALCOHOL ABUSE, UNCOMPLICATED Status: Acute Priority: High Current Visit: No (3) Cholelithiasis SNOMED Code(s): 593576658 Code(s): K80.20 - CALCULUS OF GALLBLADDER W/O CHOLECYSTITIS W/O OBSTRUCTION Status: Acute Priority: Low Current Visit: No Qualifiers: Cholelithiasis location: gallbladder Cholecystitis presence: without cholecystitis Biliary obstruction: without biliary obstruction Qualified Code(s): K80.20 - Calculus of gallbladder without cholecystitis without obstruction (4) Hypokalemia SNOMED Code(s): 04060190 Code(s): E87.6 - HYPOKALEMIA Status: Acute Priority: High Current Visit : No (5) Nausea and vomiting in adult SNOMED Code(s): 42761778 Code(s): R11.2 - NAUSEA WITH VOMITING, UNSPECIFIED Status: Acute Priority : Medium Current Visit: No (6) Hypomagnesemia SNOMED Code(s): 603568884 Code(s): E83.42 - HYPOMAGNESEMIA Status: Acute Priority: Medium Current Visit: Yes (7) Hypophosphatemia SNOMED Code(s): 5244966 Code(s): E83.39 - OTHER DISORDERS OF PHOSPHORUS METABOLISM Status: Acute Priority: Medium Current Visit: Yes (8) Atypical chest pain SNOMED Code(s): 074404592 Code(s): R07.89 - OTHER CHEST PAIN Status: Resolved Current Visit: No Onset Date: 09/20/14 (9) HTN (hypertension) SNOMED Code(s): 48802314 Code(s): I10 - ESSENTIAL (PRIMARY) HYPERTENSION Status: Chronic Priority : Medium Current Visit: Yes Qualifiers: Hypertension type: essential hypertension Qualified Code(s): I10 - Essential (primary) hypertension - Problem List Review Problem List Initiated/Reviewed/Updated: Yes - My Orders Last 24 Hours: My Active Orders 10/11/16 08:23 Sodium Chloride 0.9% [Normal Saline] 1,000 ml IV ASDIRECTED 10/11/16 12:03 Resuscitation Status Routine 10/11/16 17:00 Nicotine [Habitrol] 14 mg TRDERM Q24H 10/12/16 08:00 Magnesium Sulfate/Water [Magnesium Sulfate 4 GM in Water 100 ML] 4 gm Premix Bag 1 bag IV ONETIME 10/12/16 08:54 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 Acute pancreatitis: likely secondary to alcohol. Continue NS 200. Will start CL diet today. Continue analgesia and anti-emetics. 2. ETOH abuse: CIWAA protocol with Ativan. Has not needed any Ativan. Monitor CIWAA Q4h. Continue Thiamine and Folic acid supplementation. Protonix for GI 3. Cholelithasis:Follow up as outpatient. Encouraged sobriety. 4. HTN: Hold PO meds, Lopressor IV PRN for HTN 5. Hypomagnesemia, hypophosphatemia and hypokalemia: Supplemented today. 6. Chronic back pain: Hold MS contin. Will likely restart if tolerates CL diet today. VTE: SCDs only due to high risk of bleeding with ETOH. Dispo: 2-3 days pending
[2016-10-12] MEDS: Ondansetron 4 MG/2 ML SDV IVPUSH PRN (09:23)
[2016-10-12] MEDS: Phosphorus #1 250 MG Tab PO SCH ×2 (11:34→17:36)
[2016-10-12] MEDS ORDERED: Albuterol 8 GM Inhaler INH PRN (14:41)
[2016-10-12] MEDS: Pantoprazole 40 MG in Sodium Chloride 0.9% 10 ML IVPUSH SCH (14:48)
[2016-10-12] MEDS: Thiamine 100 MG in Sodium Chloride 0.9% 50 ML IV SCH (14:48)
[2016-10-12] MEDS: Sucralfate Suspension 1 GM/10 ML Cup PO SCH (16:06)
[2016-10-12] MEDS: Nicotine 14 MG/24 Hr Patch TRDERM SCH (16:06)
[2016-10-12] MEDS: Morphine 30 MG Tab.ER PO SCH (16:07)
[2016-10-13] MEDS: Phosphorus #1 250 MG Tab PO SCH ×2 (00:06→05:44)
[2016-10-13] MEDS: Sodium Chloride 0.9% 1,000 ML IV SCH ×2 (00:06→06:57)
[2016-10-13] MEDS: Temazepam 15 MG Cap PO PRN (00:07)
[2016-10-13] MEDS: HYDROmorphone 2 MG/ML Syringe IVPUSH PRN ×2 (00:16→06:58)
[2016-10-13] MEDS: Morphine 30 MG Tab.ER PO SCH (02:24)
[2016-10-13] MEDS: Sucralfate Suspension 1 GM/10 ML Cup PO SCH (06:37)
[2016-10-13 07:04] LABS: CHLORIDE,CL 109 mmol/L (98-110); SODIUM,NA 141 mmol/L (136-146)
[2016-10-13 08:16] VITALS: BP 180/90
[2016-10-13] MEDS ORDERED: oxyCODONE 5 MG Tab PO PRN (08:24)
[2016-10-13] MEDS ORDERED: Potassium Chloride 20 MEQ Tab.ER PO ONE (08:25)
[2016-10-13] MEDS ORDERED: Calcium Carbonate 500 MG Tab.Chew PO ONE (08:26)
[2016-10-13] MEDS ORDERED: Magnesium Sulfate/Water 4 GM in Premix Bag 1 BAG IV ONE (08:26)
[2016-10-13] MEDS ORDERED: Sertraline 100 MG Tab PO SCH (09:00)
[2016-10-13] MEDS: Folic Acid 50 MG/10 ML MDV SUBCUT SCH (09:20)
[2016-10-13] MEDS ORDERED: Metoprolol Tartrate 25 MG Tab PO SCH (10:32)
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
== END 2016-10-13 11:15 | disposition home or self-care (01) | DRG 439 ==
LOC: MW.ED 10:43 → MW.MS 13:05 → UNDOADMIN 14:36 → MW.MS 14:36 → UNDODISIN 10-13 11:15
PROVIDERS: ADMIT Family Medicine; ATTEND Family Medicine
DX: K85.20 Alcohol induced acute pancreatitis without necrosis or infection (principal); F10.20 Alcohol dependence, uncomplicated; E46 Unspecified protein-calorie malnutrition; F10.10 Alcohol abuse, uncomplicated; K80.20 Calculus of gallbladder without cholecystitis without obstruction; E87.6 Hypokalemia; R11.2 Nausea with vomiting, unspecified; E83.42 Hypomagnesemia; E88.09 Other disorders of plasma-protein metabolism, not elsewhere classified; R07.89 Other chest pain; E83.39 Other disorders of phosphorus metabolism; E77.8 Other disorders of glycoprotein metabolism; I10 Essential (primary) hypertension; K21.9 Gastro-esophageal reflux disease without esophagitis; F41.8 Other specified anxiety disorders; J44.9 Chronic obstructive pulmonary disease, unspecified; M54.9 Dorsalgia, unspecified; G89.29 Other chronic pain; F17.200 Nicotine dependence, unspecified, uncomplicated; Z79.899 Other long term (current) drug therapy
CPT/HCPCS: 71010; 80053; 82150; 83690; 83735; 84100; 84484; 85025; 85610; 85730; 93005; 96361; 96365; 96366; 96375; 99285; A9270; G0480; J1170; J2270; J2405; J3480; J7040; 36415; 76705; 76705-26; C9113; J3411; J3475; J7050

== ENCOUNTER 2016-11-10 16:23 | Inpatient (IN) | payer MEDICARE ==
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
[2016-11-10] MEDS ORDERED: HYDROmorphone 1 MG/ML Syringe IM ONE (16:46)
[2016-11-10] MEDS ORDERED: Sodium Chloride 0.9% 1,000 ML IV ONE (16:46)
[2016-11-10] MEDS ORDERED: Sodium Chloride 0.9% 2.5 ML Syringe FLUSH PRN (16:46)
[2016-11-10] MEDS ORDERED: Sodium Chloride 0.9% 10 ML Syringe FLUSH PRN (16:46)
[2016-11-10] MEDS ORDERED: HYDROmorphone 1 MG/ML Syringe IVPUSH ONE ×2 (17:00→18:20)
[2016-11-10 17:20] LABS: CHLORIDE,CL 99 mmol/L (98-110); SODIUM,NA 144 mmol/L (136-146)
[2016-11-10] MEDS ORDERED: HYDROmorphone 2 MG/ML Syringe IVPUSH ONE (18:00)
[2016-11-10] MEDS ORDERED: Ondansetron 4 MG/2 ML SDV IVPUSH ONE (18:00)
[2016-11-10] MEDS ORDERED: MVI, Adult with Vitamin K 10 ML, Thiamine 100 MG, Folic Acid 1 MG in Sodium Chloride 0.... IV ONE ×4 (18:51)
[2016-11-10] MEDS ORDERED: Sodium Chloride 0.9% 1,000 ML IV SCH (19:00)
[2016-11-10] MEDS ORDERED: Sodium Chloride 0.9% with KCl 1,000 ML IV ONE (19:00)
[2016-11-10] MEDS ORDERED: HYDROmorphone 1 MG/ML Syringe IVPUSH PRN (20:06)
[2016-11-10] MEDS: LORazepam 2 MG/ML MDV IVPUSH PRN (22:35)
[2016-11-11] MEDS: HYDROmorphone 1 MG/ML Syringe IVPUSH PRN ×4 (04:55→14:05)
[2016-11-11 05:33] LABS: CHLORIDE,CL 103 mmol/L (98-110); SODIUM,NA 139 mmol/L (136-146)
[2016-11-11] MEDS: LORazepam 2 MG/ML MDV IVPUSH PRN (05:47)
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
[2016-11-11 13:15] VITALS: BP 138/70
--- NOTE | 2016-11-11 13:22 | PCM.DCSUM1 ---
Discharge Summary - Hospital Course HPI Initial Comments: the patient was admitted to the hospital secondary to acute alcohol intoxication as well as chronic pancreatitis. - Discharge Data Discharge Date: 11/11/16 Discharge Disposition: Home, Self-Care 01 Condition: Fair - Discharge Diagnosis/Problem(s) (1) Pancreatitis SNOMED Code(s): 22795413 ICD Code: K85.90 - ACUTE PANCREATITIS WITHOUT NECROSIS OR INFECTION, UNSP Status: Chronic Current Visit: Yes Qualifiers: Chronicity: acute Pancreatitis type: alcohol induced Acute pancreatitis complication: no infection or necrosis Qualified Code(s): K85.20 - Alcohol induced acute pancreatitis without necrosis or infection (2) COPD (chronic obstructive pulmonary disease) SNOMED Code(s): 12375076 ICD Code: J44.9 - CHRONIC OBSTRUCTIVE PULMONARY DISEASE, UNSPECIFIED Status : Chronic Priority: High Current Visit: Yes Qualifiers: COPD type: emphysema Emphysema type: unspecified Qualified Code(s): J43.9 - Emphysema, unspecified (3) Smoker in home SNOMED Code(s): 17735383 ICD Code: Z77.29 - CONTACT W AND (SUSPECTED ) EXPOSURE TO OTH HAZARDOUS SUBSTNC Status: Acute Current Visit: Yes (4) Alcohol abuse SNOMED Code(s): 16353437 ICD Code: F10.10 - ALCOHOL ABUSE, UNCOMPLICATED Status: Chronic Priority : High Current Visit: No - Patient Summary/Data Hospital Course: The patient is a 71-year-old lady who was intoxicated yesterday evening with severe abdominal pain. She was admitted for pancreatitis secondary to alcohol usage and was kept n.p.o. The patient's pain was also controlled and she had IV fluids at 125 mL per hour. The patient was also placed on [facility] protocol for alcohol withdrawal. The patient did not experience alcohol withdrawal syndromes however, she was extremely agitated which required the use of Ativan. The patient the day after as much more interactive with the staff as well as her and her pain is essentially controlled. The patient is also taking MS Contin and oxycodone at home. She has been recommended to continue with these medications. I've also strongly counseled the patient with regards to smoking cessation. The patient's says that he is going to do what he can to keep her from drinking any more alcohol. The patient will be discharged home today to continue on her home narcotic pain medications, followup with her primary care physician in 5-7 days and have activity as tolerated. - Patient Instructions Diet: Regular Diet as Tolerated Activity: As Tolerated Notify Provider of: Fever, Increased Pain - Discharge Plan Home Medications: Home Meds Morphine [MS Contin] 60 mg PO Q12H 09/20/14 [History] Multivitamin [Multivitamins] 1 tab PO DAILY 09/20/14 [History] Sertraline [Zoloft] 100 mg PO DAILY 09/20/14 [History] oxyCODONE 10 mg PO Q6HR PRN 08/15/16 [History] Gabapentin [Neurontin] 600 mg PO TID 11/10/16 [History] Metoprolol Tartrate 25 mg PO BID 11/10/16 [History] Spironolactone [Aldactone] 12.5 mg PO BID 11/10/16 [History] Patient Handouts: Acute Pancreatitis, [id number], Alcohol Intoxication, Easy- to-Read Referrals: Nimesh Quezada MD [Physician] - (pls ff up with PCP after 1-2 weeks.) - Discharge Summary/Plan Comment DC Time >30 min.: Yes - General Info Admission Dx/Problem (Free Text: Admission Diagnosis/Problem Admission Diagnosis/Problem Pancreatitis Functional Status: Reports: pain controlled - Review of Systems General: Reports: No Symptoms HEENT: Reports: no symptoms Pulmonary: Reports: shortness of breath, cough Cardiovascular: Reports: No Symptoms Gastrointestinal: Reports: Abdominal pain Genitourinary: Reports: no symptoms Musculoskeletal: Reports: no symptoms Skin: Reports: no symptoms Neurological: Reports: No Symptoms Psychiatric: Reports: no symptoms - Patient Data Vitals - Most Recent: Last Vital Signs Temp 37.3 C 11/11/16 12:00 Pulse 68 11/11/16 12:00 Resp 18 11/11/16 12:00 BP 138/70 11/11/16 12:00 Pulse Ox 92 L 11/11/16 12:00 Weight - Most Recent: 50 kg I&O - Last 24 hours: Intake & Output 11/10/16 11/11/16 11/11/16 22:59 06:59 14:59 Intake Total 10 Output Total 150 Balance -140 Lab Results - Last 24 hrs: Laboratory Results - last 24 hr 11/10/16 11/11/16 11/11/16 Range/Units 22:27 00:45 04:40 WBC 11.07 H (4.0-11.0) K/uL RBC 3.64 L (4.30-5.90) M/uL Hgb 12.9 (12.0-16.0) g/dL Hct 37.3 (36.0-46.0) % MCV 102.5 H (80.0-98.0) fL MCH 35.4 H (27.0-32.0) pg MCHC 34.6 (31.0-37.0) g/dL RDW Std Deviation 57.4 (28.0-62.0) fl RDW Coeff of Katerina 15 (11.0-15.0) % Plt Count 141 L (150-400) K/uL MPV 9.30 (7.40-12.00) fL Neut % (Auto) 68.4 (48.0-80.0) % Lymph % (Auto) 21.6 (16.0-40.0) % [place] % (Auto) 8.6 (0.0-15.0) % Eos % (Auto) 1.0 (0.0-7.0) % Baso % (Auto) 0.4 (0.0-1.5) % Neut # (Auto) 7.6 H (1.4-5.7) K/uL Lymph # (Auto) 2.4 (0.6-2.4) K/uL [place] # (Auto) 1.0 H (0.0-0.8) K/uL Eos # (Auto) 0.1 (0.0-0.7) K/uL Baso # (Auto) 0.0 (0.0-0.1) K/uL Nucleated RBC % 0.0 /100WBC Nucleated RBCs # 0 K/uL Lactate 3.5 H (0.20-2.00) mmol/L Sodium (136-146) mmol/L Potassium (3.5-5.1) mmol/L Chloride (98-110) mmol/L Carbon Dioxide (21-31) mmol/L BUN (6.0-23.0) mg/dL Creatinine (0.6-1.5) mg/dL Est Cr Clr Drug Dosing mL/min Estimated GFR (MDRD) ml/min Glucose (60-110) mg/dL Calcium (8.8-10.8) mg/dL Magnesium (1.5-2.3) mEq/L Total Bilirubin (0.1-1.5) mg/dL AST (5-40) IU/L ALT (8-54) IU/L Alkaline Phosphatase (40-150) Ammonia (14-68) UG/DL Total Protein (6.0-8.0) g/dL Albumin (3.4-4.8) g/dL Globulin (2.0-3.5) g/dL Albumin/Globulin Ratio (1.3-2.8) Amylase (10-90) U/L Lipase (7-80) U/L Urine Color YELLOW Urine Appearance SLT CLOUDY Urine pH 7.5 (5.0-8.0) Ur Specific [place] 1.015 (1.001-1.035) Urine Protein TRACE (NEGATIVE) mg/dL Urine Glucose (UA) NEGATIVE (NEGATIVE) mg/dL Urine Ketones NEGATIVE (NEGATIVE) mg/dL Urine Occult Blood NEGATIVE (NEGATIVE) Urine Nitrite NEGATIVE (NEGATIVE) Urine Bilirubin NEGATIVE (NEGATIVE) Urine Urobilinogen 0.2 (<2.0) EU/dL Ur Leukocyte Esterase NEGATIVE (NEGATIVE) 11/11/16 11/11/16 11/11/16 Range/Units 04:40 04:40 08:23 WBC (4.0-11.0) K/uL RBC (4.30-5.90) M/uL Hgb (12.0-16.0) g/dL Hct (36.0-46.0) % MCV (80.0-98.0) fL MCH (27.0-32.0) pg MCHC (31.0-37.0) g/dL RDW Std Deviation (28.0-62.0) fl RDW Coeff of Katerina (11.0-15.0) % Plt Count (150-400) K/uL MPV (7.40-12.00) fL Neut % (Auto) (48.0-80.0) % Lymph % (Auto) (16.0-40.0) % [place] % (Auto) (0.0-15.0) % Eos % (Auto) (0.0-7.0) % Baso % (Auto) (0.0-1.5) % Neut # (Auto) (1.4-5.7) K/uL Lymph # (Auto) (0.6-2.4) K/uL [place] # (Auto) (0.0-0.8) K/uL Eos # (Auto) (0.0-0.7) K/uL Baso # (Auto) (0.0-0.1) K/uL Nucleated RBC % /100WBC Nucleated RBCs # K/uL Lactate 0.9 (0.20-2.00) mmol/L Sodium 139 (136-146) mmol/L Potassium 3.5 (3.5-5.1) mmol/L Chloride 103 (98-110) mmol/L Carbon Dioxide 28 (21-31) mmol/L BUN 3 L (6.0-23.0) mg/dL Creatinine 0.5 L (0.6-1.5) mg/dL Est Cr Clr Drug Dosing 83.82 mL/min Estimated GFR (MDRD) > 60.0 ml/min Glucose 84 (60-110) mg/dL Calcium 7.6 L (8.8-10.8) mg/dL Magnesium 1.2 L (1.5-2.3) mEq/L Total Bilirubin 1.5 (0.1-1.5) mg/dL AST 48 H (5-40) IU/L ALT 22 (8-54) IU/L Alkaline Phosphatase 196 H (40-150) Ammonia 69 H (14-68) UG/DL Total Protein 5.5 L (6.0-8.0) g/dL Albumin 2.6 L (3.4-4.8) g/dL Globulin 2.9 (2.0-3.5) g/dL Albumin/Globulin Ratio 0.9 L (1.3-2.8) Amylase 32 (10-90) U/L Lipase 27 (7-80) U/L Urine Color Urine Appearance Urine pH (5.0-8.0) Ur Specific [place] (1.001-1.035) Urine Protein (NEGATIVE) mg/dL Urine Glucose (UA) (NEGATIVE) mg/dL Urine Ketones (NEGATIVE) mg/dL Urine Occult Blood (NEGATIVE) Urine Nitrite (NEGATIVE) Urine Bilirubin (NEGATIVE) Urine Urobilinogen (<2.0) EU/dL Ur Leukocyte Esterase (NEGATIVE) Med Orders - Current: Current Medications Hydromorphone HCl (Dilaudid) 1 mg IVPUSH Q2H PRN PRN Reason: Pain Last Admin: 11/11/16 12:06 Dose: 1 mg Sodium Chloride (Normal Saline) 1,000 mls @ 75 mls/hr IV ASDIRECTED ELISA Last Admin: 11/11/16 04:55 Dose: 75 mls/hr Lorazepam (Ativan) 0 mg IVPUSH Q4H PRN; Protocol PRN Reason: Withdrawal Symptoms Last Admin: 11/11/16 05:47 Dose: 1 mg Sodium Chloride (Saline Flush) 10 ml FLUSH ASDIRECTED PRN PRN Reason: Keep Vein Open Sodium Chloride (Saline Flush) 2.5 ml FLUSH ASDIRECTED PRN PRN Reason: Keep Vein Open Discontinued Medications Hydromorphone HCl (Dilaudid) 1 mg IM ONETIME ONE Stop: 11/10/16 16:47 Last Admin: 11/10/16 16:58 Dose: 1 mg Hydromorphone HCl (Dilaudid) 1 mg IVPUSH STAT ONE Stop: 11/10/16 17:01 Last Admin: 11/10/16 17:01 Dose: 1 mg Hydromorphone HCl (Dilaudid) 1 mg IVPUSH ONETIME ONE Stop: 11/10/16 18:01 Last Admin: 11/10/16 18:22 Dose: Not Given Hydromorphone HCl (Dilaudid) 1 mg IVPUSH ONETIME ONE Stop: 11/10/16 18:21 Last Admin: 11/10/16 18:25 Dose: 1 mg Hydromorphone HCl (Dilaudid) 1 mg IVPUSH Q3H PRN PRN Reason: Pain Last Admin: 11/10/16 20:14 Dose: 1 mg Sodium Chloride (Normal Saline) 1,000 mls @ 999 mls/hr IV STAT ONE Stop: 11/10/16 17:46 Last Admin: 11/10/16 16:56 Dose: 999 mls/hr Multivitamins/Minerals 10 ml/Thiamine HCl 100 mg/ Folic Acid 1 mg/ Sodium Chloride 1,011.2 mls @ 125 mls/hr IV ONETIME ONE Stop: 11/11/16 02:56 Last Admin: 11/10/16 19:53 Dose: 125 mls/hr Potassium Chloride/Sodium Chloride (Normal Saline With 40 Meq Kcl) 1,000 mls @ 166 mls/hr IV ONETIME ONE Stop: 11/11/16 01:01 Last Admin: 11/10/16 20:16 Dose: 166 mls/hr Ondansetron HCl (Zofran) 4 mg IVPUSH ONETIME ONE Stop: 11/10/16 18:01 Last Admin: 11/10/16 18:07 Dose: 4 mg - Exam Quality Assessment: Denies: supplemental oxygen General: Reports: alert, oriented, cooperative HEENT: Reports: Pupils equal, Pupils reactive Neck: Reports: supple Lungs: Reports: Decreased breath sounds, Rales, Rhonchi, Other (increased AP diameter, lungs tympanic) Cardiovascular: Reports: Regular Rate Abdomen: Reports: bowel sounds present, soft Back Exam: Reports: decreased range of motion, other (increased kyphosis) Extremities: Reports: no edema Skin: Reports: warm, dry *Q Meaningful Use (DIS) - VTE *Q VTE Criteria *Q: VTE Mechanical Contraindications *Q: At Risk for Falls - Stroke *Q Stroke Criteria *Q: - AMI *Q AMI Criteria *Q:
--- NOTE | 2016-11-12 17:16 | CR ---
EXAM DATE: 11/10/16 PATIENT'S AGE: 71 Patient: LIANG STRONG Facility: [place], [place] Site . Site : 1945 Study: XRay Chest [id number]/28/2017 5:33:10 PM Ordering Physician: Doctor Costa Final Report: HISTORY: Vomiting, alcohol. FINDINGS: AP portable chest radiograph is compared with 10 October 2016. Cardiac silhouette is normal. Pulmonary vasculature and janell are normal. No lobar consolidation or pleural effusion is identified. IMPRESSION: No acute cardiopulmonary disease. Dictated by Yumiko Miles MD @ 11/10/2016 6:03:17 PM Dictated by: Yumiko Miles MD @ 11/10/2016 18:03:22 (Electronic Signature) Report Signed by Proxy. [facility]AVIEW HOSPITALAddie
== END 2016-11-11 14:15 | disposition home or self-care (01) | DRG 440 ==
LOC: MW.ED 16:23 → MW.MS 18:05
PROVIDERS: ADMIT Internal Medicine; ATTEND Internal Medicine
DX: K85.20 Alcohol induced acute pancreatitis without necrosis or infection (principal); K86.0 Alcohol-induced chronic pancreatitis; F10.229 Alcohol dependence with intoxication, unspecified; F10.20 Alcohol dependence, uncomplicated; J44.9 Chronic obstructive pulmonary disease, unspecified; F17.200 Nicotine dependence, unspecified, uncomplicated; Z79.899 Other long term (current) drug therapy; K21.9 Gastro-esophageal reflux disease without esophagitis; I10 Essential (primary) hypertension; M81.0 Age-related osteoporosis without current pathological fracture; G89.29 Other chronic pain; M54.9 Dorsalgia, unspecified; F32.9 Major depressive disorder, single episode, unspecified; F41.9 Anxiety disorder, unspecified; E87.6 Hypokalemia
CPT/HCPCS: 36415; 71010; 80053; 82140; 82150; 83605; 83690; 83735; 84484; 85025; 93005; 96361; 96374; 99285; G0480; J1170 ×2; J7040; 81003; 96375; 96376; 99283; J2060; J2405; J3411; J3480

== ENCOUNTER → 2016-11-21 | Outpatient (CLI) | payer MEDICARE | LOC: MW.CHFP 14:03 | PROVIDERS: ATTEND Student in an Organized Health Care Education/Training Program | DX: R53.83 Other fatigue (principal); E88.09 Other disorders of plasma-protein metabolism, not elsewhere classified; D75.89 Other specified diseases of blood and blood-forming organs; R03.1 Nonspecific low blood-pressure reading | CPT/HCPCS: 36415; 80053; 85025; 99214 ==

== ENCOUNTER → 2016-12-05 | Outpatient (CLI) | payer MEDICARE ==
[2016-12-05 10:12] LABS: CHLORIDE,CL 107 mmol/L (98-110); SODIUM,NA 141 mmol/L (136-146)
== END ==
LOC: MW.CHGS 08:54
PROVIDERS: ATTEND Surgery
DX: R10.9 Unspecified abdominal pain (principal); R11.2 Nausea with vomiting, unspecified; K80.20 Calculus of gallbladder without cholecystitis without obstruction; K85.90 Acute pancreatitis without necrosis or infection, unspecified; F10.10 Alcohol abuse, uncomplicated
CPT/HCPCS: 36415; 80053; 82150; 83690; 85025; 99214; G0480

== ENCOUNTER 2017-01-19 11:55 | Inpatient (IN) | payer MEDICARE ==
[2017-01-19] MEDS ORDERED: Ondansetron 4 MG/2 ML SDV IVPUSH ONE (11:56)
[2017-01-19] MEDS ORDERED: Ketorolac 30 MG/ML SDV IVPUSH ONE (11:56)
[2017-01-19] MEDS ORDERED: Sodium Chloride 0.9% 1,000 ML IV ONE (11:56)
[2017-01-19] MEDS ORDERED: Pantoprazole 40 MG Vial IVPUSH ONE (11:59)
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
[2017-01-19] MEDS ORDERED: MVI, Adult with Vitamin K 10 ML, Thiamine 100 MG, Folic Acid 1 MG in Sodium Chloride 0.... IV ONE ×4 (12:13)
[2017-01-19 12:56] LABS: CHLORIDE,CL 110 mmol/L (98-110); SODIUM,NA 144 mmol/L (136-146)
[2017-01-19] MEDS ORDERED: Iopamidol 755 MG/ML 500 ML Multipack Bottle IVPUSH STA (13:00)
[2017-01-19] MEDS ORDERED: Morphine 10 MG/ML Syringe IV ONE (13:02)
[2017-01-19] MEDS ORDERED: Sodium Chloride 0.9% 1,000 ML IV SCH (15:30)
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
[2017-01-19] MEDS: Sodium Chloride 0.9% 1,000 ML IV SCH ×3 (16:16→22:24)
[2017-01-19] MEDS: HYDROmorphone 2 MG/ML Syringe IVPUSH PRN ×3 (16:17→22:22)
[2017-01-19] MEDS: Thiamine 200 MG/2 ML MDV IV SCH (16:25)
[2017-01-19] MEDS: Folic Acid 50 MG/10 ML MDV SUBCUT SCH (16:38)
--- NOTE | 2017-01-19 17:44 | CR ---
EXAM DATE: 01/19/17 PATIENT'S AGE: 71 Patient: LIANG STRONG Facility: [place], [place] Site . Site : 1945 Study: XRay Chest [id number]/7/2017 12:56:55 PM Ordering Physician: Ethan Rondon Final Report: Indication: Pain and shortness of breath. Technique: AP portable chest. Comparison: Correlation is made with a report from a chest radiograph 11/10/2016. Comparison images are not available at this time. Findings: Heart size and pulmonary vessels are normal. Lungs are clear. The thoracic aorta is tortuous. Impression: There is no acute disease in the chest. Dictated by Maia Salazar MD @ Jan 19 2017 1:30PM (Electronic Signature) Report Signed by Proxy. [facility]ENTERAddie
--- NOTE | 2017-01-19 17:49 | CT ---
EXAM DATE: 01/19/17 PATIENT'S AGE: 71 Patient: LIANG STRONG Facility: [place], [place] Site . Site : 1945 Study: CT Head [id number]/7/2017 1:48:18 PM Ordering Physician: Ethan Rondon Final Report: INDICATION: PAIN/NEUROSYMPTOMS CT HEAD WITHOUT CONTRAST TECHNIQUE: Multiple axial CT images were performed through the head without intravenous contrast administration. COMPARISON: 09/17/[address] FINDINGS: No acute intracranial hemorrhage is identified. No extra-axial collections are evident and there is no mass effect or midline shift. Ventricles are normal in size and configuration. Brain parenchyma appears normal with unremarkable jurado-white differentiation. Osseous structures are within normal limits and no fractures are seen. Included portions of the paranasal sinuses and mastoid air cells are normally aerated. IMPRESSION: Normal non-contrast head CT. CARA SALDANA MD [employer] Dictated by: Davis Saldana MD @ 01/19/2017 13:56:09 (Electronic Signature) Report Signed by Proxy. [facility]
--- NOTE | 2017-01-19 17:50 | CT ---
EXAM DATE: 01/19/17 PATIENT'S AGE: 71 Patient: LIANG STRONG Facility: [place], [place] Site . Site : 1945 Study: CT Abdomen/Pelvis [id number]/7/2017 2:23:38 PM Ordering Physician: Ethan Rondon Final Report: INDICATION: PAIN CT ABDOMEN AND PELVIS WITH CONTRAST TECHNIQUE: Multidetector CT imaging was performed through the abdomen and pelvis following intravenous contrast administration using 100 mL Isovue 370. Coronal and sagittal reconstructions were generated. COMPARISON: 10/07/2016 CT abdomen and pelvis. FINDINGS: Lower chest: Lung bases are clear aside from linear scarring or atelectasis in the inferior lingula. Liver: Diffuse fatty infiltration of the liver. Gallbladder and bile ducts: Partially contracted gallbladder containing multiple calcified gallstones. No definite evidence of cholecystitis. No biliary dilation identified. Pancreas: Unremarkable. Spleen: Normal. Adrenals: No nodules or masses. Kidneys, ureters, and urinary bladder: Unchanged small nonobstructing left intrarenal stone and small left renal cysts. No suspicious renal masses or hydronephrosis. The urinary bladder is obscured by artifact from hip prostheses. Gastrointestinal tract: Normal caliber bowel without obstruction or definite wall thickening. Appendix not identified. Vascular structures: Normal caliber abdominal aorta. Moderate aortoiliac atherosclerotic calcifications. Peritoneum: No free air, abscess, or significant free fluid. Lymph nodes: No pathologically enlarged nodes identified. Reproductive organs: Limited evaluation due to artifact from hip prostheses. No obvious pelvic masses. Bones: Diffuse osteopenia and multiple vertebral body compression fractures, similar to the previous exam. Bilateral hip prostheses. IMPRESSION: 1. No definite acute abnormality identified. No cause for the patient`s symptoms is demonstrated. 2. Multiple nonacute findings as detailed above. CARA SALDANA MD [employer] Dictated by Davis Saldana MD @ 01/19/2017 2:55:15 PM Dictated by: Davis Saldana MD @ 01/19/2017 15:00:48 (Electronic Signature) Report Signed by Proxy. [facility]
--- NOTE | 2017-01-19 17:55 | US ---
EXAM DATE: 01/19/17 PATIENT'S AGE: 71 Patient: LIANG STRONG Facility: [place], [place] Site . Site : 1945 Study: US Abdomen [id number]/7/2017 4:51:27 PM Ordering Physician: Norman Hernandez Final Report: INDICATION: PANCREATITIS AND GALLSTONES ABDOMEN ULTRASOUND Technique: Multiple sonographic images of the upper abdomen were performed. Comparison: 01/19/[address] Findings: The liver appears normal in size and contour and is homogeneous with no focal abnormality. There is diffuse prominence of liver echogenicity consistent with fatty infiltration. The gallbladder contains multiple shadowing echogenic foci consistent with gallstones. No gallbladder wall thickening is evident. There was a positive sonographic Addison`s sign according to the technologist. No intrahepatic biliary dilatation is identified and the common bile duct is slightly dilated, measuring up to 8 mm in diameter. The pancreas is partially obscured. The pancreas as visualized appears normal. The abdominal aorta shows no aneurysm. The kidneys appear normal bilaterally with no mass or hydronephrosis. The spleen is unremarkable. IMPRESSION: 1. Cholelithiasis. Positive sonographic Addison`s sign without other evidence of cholecystitis. 2. Mild dilation of the common bile duct measuring 8 millimeters in diameter. 3. Fatty infiltration of the liver. 4. No sonographic evidence of acute pancreatitis. CARA SALDANA MD [employer] Dictated by Davis Saldana MD @ 01/19/2017 5:07:40 PM Dictated by: Davis Saldana MD @ 01/19/2017 17:07:59 (Electronic Signature) Report Signed by Proxy. [facility]
[2017-01-19] MEDS ORDERED: Magnesium Sulfate/Water 2 GM in Premix Bag 1 BAG IV ONE (19:05)
[2017-01-19] MEDS: LORazepam 2 MG/ML MDV IV PRN (19:22)
[2017-01-20] MEDS: HYDROmorphone 2 MG/ML Syringe IVPUSH PRN ×6 (02:41→23:25)
[2017-01-20] MEDS: Sodium Chloride 0.9% 1,000 ML IV SCH ×2 (03:15→20:50)
[2017-01-20] MEDS: LORazepam 2 MG/ML MDV IV PRN ×4 (03:37→22:12)
[2017-01-20 06:31] LABS: CHLORIDE,CL 103 mmol/L (98-110); SODIUM,NA 134 mmol/L (136-146)
[2017-01-20] MEDS: Pantoprazole 40 MG in Sodium Chloride 0.9% 10 ML IVPUSH SCH (09:38)
[2017-01-20] MEDS: Thiamine 200 MG/2 ML MDV IV SCH (09:38)
[2017-01-20] MEDS: Folic Acid 50 MG/10 ML MDV SUBCUT SCH (09:38)
[2017-01-20] MEDS ORDERED: Magnesium Sulfate/Water 2 GM in Premix Bag 1 BAG IV ONE (12:26)
[2017-01-20] MEDS ORDERED: Sodium Chloride 0.9% with KCl 1,000 ML IV SCH (12:30)
[2017-01-20] MEDS ORDERED: NS + KCl 20mEq/L 1,000 ML IV SCH (12:30)
[2017-01-20] MEDS: Ondansetron 4 MG/2 ML SDV IVPUSH PRN ×2 (13:00→21:13)
--- NOTE | 2017-01-20 13:28 | PCM.PN ---
- General Info Date of Service: 01/20/17 Admission Dx/Problem (Free Text): acute on chronic pancreatitis Also with alcohol withdrawal, cholelithiasis Functional Status: Reports: pain controlled, other (MPO) - Review of Systems General: Reports: Weakness, Fatigue HEENT: Reports: no symptoms Pulmonary: Reports: no symptoms Cardiovascular: Reports: No Symptoms Gastrointestinal: Reports: Abdominal pain, Decreased appetite, Nausea Genitourinary: Reports: no symptoms Musculoskeletal: Reports: no symptoms Skin: Reports: no symptoms Neurological: Reports: No Symptoms Psychiatric: Reports: cravings - Patient Data Vitals - most recent: Last Vital Signs Temp 36.5 C 01/20/17 12:00 Pulse 82 01/20/17 12:00 Resp 20 01/20/17 12:00 BP 171/82 H 01/20/17 12:00 Pulse Ox 92 L 01/20/17 12:00 Weight - most recent: 58.468 kg I&O - last 24 hours: Intake & Output 01/19/17 01/20/17 01/20/17 22:59 06:59 14:59 Intake Total 1050 959 Output Total 900 Balance 1050 59 Lab Results last 24 hrs: Laboratory Results - last 24 hr 01/20/17 01/20/17 01/20/17 Range/Units 05:55 05:55 05:55 WBC 7.37 (4.0-11.0) K/uL RBC 3.55 L (4.30-5.90) M/uL Hgb 12.3 (12.0-16.0) g/dL Hct 36.4 (36.0-46.0) % MCV 102.5 H (80.0-98.0) fL MCH 34.6 H (27.0-32.0) pg MCHC 33.8 (31.0-37.0) g/dL RDW Std Deviation 54.5 (28.0-62.0) fl RDW Coeff of Katerina 15 (11.0-15.0) % Plt Count 147 L (150-400) K/uL MPV 9.80 (7.40-12.00) fL Neut % (Auto) 62.8 (48.0-80.0) % Lymph % (Auto) 26.3 (16.0-40.0) % [place] % (Auto) 9.5 (0.0-15.0) % Eos % (Auto) 0.9 (0.0-7.0) % Baso % (Auto) 0.5 (0.0-1.5) % Neut # (Auto) 4.6 (1.4-5.7) K/uL Lymph # (Auto) 1.9 (0.6-2.4) K/uL [place] # (Auto) 0.7 (0.0-0.8) K/uL Eos # (Auto) 0.1 (0.0-0.7) K/uL Baso # (Auto) 0.0 (0.0-0.1) K/uL Nucleated RBC % 0.0 /100WBC Nucleated RBCs # 0 K/uL Sodium 134 L (136-146) mmol/L Potassium 3.1 L (3.5-5.1) mmol/L Chloride 103 (98-110) mmol/L Carbon Dioxide 21 (21-31) mmol/L BUN 6 (6.0-23.0) mg/dL Creatinine 0.4 L (0.6-1.5) mg/dL Est Cr Clr Drug Dosing 114.62 mL/min Estimated GFR (MDRD) > 60.0 ml/min Glucose 74 (60-110) mg/dL Calcium 7.4 L (8.8-10.8) mg/dL Phosphorus 2.1 L (2.4-4.7) mg/dL Magnesium 1.4 L (1.5-2.3) mEq/L Total Bilirubin 1.6 H (0.1-1.5) mg/dL AST 46 H (5-40) IU/L ALT 23 (8-54) IU/L Alkaline Phosphatase 123 (40-150) Total Protein 6.0 (6.0-8.0) g/dL Albumin 3.2 L (3.4-4.8) g/dL Globulin 2.8 (2.0-3.5) g/dL Albumin/Globulin Ratio 1.1 L (1.3-2.8) Med Orders - Current: Current Medications Folic Acid (Folic Acid) 1 mg SUBCUT DAILY [facility] Last Admin: 01/20/17 09:38 Dose: 1 mg Hydromorphone HCl (Dilaudid) 1 mg IVPUSH Q2H PRN PRN Reason: Pain (severe 7-10) Last Admin: 01/20/17 11:55 Dose: 1 mg Pantoprazole Sodium 40 mg/ (Sodium Chloride) 10 mls @ 300 mls/hr IVPUSH DAILY [facility] Last Admin: 01/20/17 09:38 Dose: 300 mls/hr Sodium Chloride (Normal Saline) 1,000 mls @ 999 mls/hr IV .BOLUS [facility] Last Admin: 01/19/17 16:23 Dose: 999 mls/hr Sodium Chloride (Normal Saline) 1,000 mls @ 200 mls/hr IV ASDIRECTED [facility] Last Admin: 01/20/17 03:15 Dose: 200 mls/hr Magnesium Sulfate 2 gm/ Premix 50 mls @ 50 mls/hr IV ONETIME ONE Stop: 01/20/17 13:25 Last Admin: 01/20/17 13:00 Dose: 50 mls/hr Potassium Chloride/Sodium Chloride (Normal Saline With 40 Meq Kcl) 1,000 mls @ 150 mls/hr IV ASDIRECTED [facility] Stop: 01/20/17 19:09 Last Admin: 01/20/17 13:01 Dose: 150 mls/hr Lorazepam (Ativan) 0 mg IV Q4H PRN; Protocol PRN Reason: CIWAA Last Admin: 01/20/17 13:03 Dose: 1 mg Ondansetron HCl (Zofran) 4 mg IVPUSH Q4H PRN PRN Reason: Nausea Last Admin: 01/20/17 13:00 Dose: 4 mg Thiamine HCl (Vitamin B-1) 100 mg IV DAILY [facility] Last Admin: 01/20/17 09:38 Dose: 100 mg Discontinued Medications Sodium Chloride (Normal Saline) 1,000 mls @ 999 mls/hr IV STAT ONE Stop: 01/19/17 12:56 Last Admin: 01/19/17 12:29 Dose: 999 mls/hr Multivitamins/Minerals 10 ml/Thiamine HCl 100 mg/ Folic Acid 1 mg/ Sodium Chloride 1,011.2 mls @ 999 mls/hr IV ONETIME ONE Stop: 01/19/17 13:13 Last Admin: 01/19/17 12:34 Dose: 999 mls/hr Magnesium Sulfate 2 gm/ Premix 50 mls @ 25 mls/hr IV ONETIME ONE Stop: 01/19/17 21:04 Last Admin: 01/19/17 19:41 Dose: 25 mls/hr Iopamidol (Isovue Multipack-370 (76%)) 100 ml IVPUSH ONETIME STA Stop: 01/19/17 13:01 Last Admin: 01/19/17 13:00 Dose: 100 ml Ketorolac Tromethamine (Toradol) 30 mg IVPUSH ONETIME ONE Stop: 01/19/17 11:57 Last Admin: 01/19/17 12:29 Dose: 30 mg Morphine Sulfate (Morphine) 2 mg IV ONETIME ONE Stop: 01/19/17 13:03 Last Admin: 01/19/17 13:46 Dose: 2 mg Ondansetron HCl (Zofran) 8 mg IVPUSH ONETIME ONE Stop: 01/19/17 11:57 Last Admin: 01/19/17 12:29 Dose: 8 mg Pantoprazole Sodium (Protonix Iv) 80 mg IVPUSH .BOLUS ONE Stop: 01/19/17 12:00 Last Admin: 01/19/17 12:30 Dose: 80 mg - Exam Quality Assessment: No: supplemental oxygen General: alert, oriented, cooperative, mild distress HEENT: Pupils equal, EOMI Neck: supple, trachea midline. No: lymphadenopathy Lungs: Clear to auscultation, Normal respiratory effort Cardiovascular: Regular Rate, Regular Rhythm Abdomen: soft, tenderness. No: rigidity Back Exam: Normal Inspection Extremities: no edema Skin: warm, dry, intact Neurological: no new focal deficit Psy/Mental Status: alert, normal affect - Problem List & Annotations (1) Pancreatitis SNOMED Code(s): 67347075 Code(s): K85.90 - ACUTE PANCREATITIS WITHOUT NECROSIS OR INFECTION, UNSP Status: Chronic Priority: High Current Visit: Yes Qualifiers: Chronicity: acute Pancreatitis type: alcohol induced (2) Alcohol intoxication SNOMED Code(s): 23182077 Code(s): F10.929 - ALCOHOL USE, UNSPECIFIED WITH INTOXICATION, UNSPECIFIED Status: Chronic Priority: High Current Visit: Yes (3) Cholelithiasis SNOMED Code(s): 966222382 Code(s): K80.20 - CALCULUS OF GALLBLADDER W/O CHOLECYSTITIS W/O OBSTRUCTION Status: Chronic Priority: Medium Current Visit: No Qualifiers: Cholelithiasis location: gallbladder Cholecystitis presence: without cholecystitis Biliary obstruction: without biliary obstruction Qualified Code(s): K80.20 - Calculus of gallbladder without cholecystitis without obstruction (4) Hypokalemia SNOMED Code(s): 54767128 Code(s): E87.6 - HYPOKALEMIA Status: Chronic Priority: High Current Visit: Yes (5) Hypomagnesemia SNOMED Code(s): 993103078 Code(s): E83.42 - HYPOMAGNESEMIA Status: Chronic Priority: High Current Visit: Yes - Problem List Review Problem List Initiated/Reviewed/Updated: Yes - My Orders Last 24 Hours: My Active Orders 01/20/17 12:26 Magnesium Sulfate/Water [Magnesium Sulfate 2 GM in Water 50 ML] 2 gm Premix Bag 1 bag IV ONETIME 01/20/17 12:30 Sodium Chloride 0.9% with KCl [Normal Saline with 40 mEq KCl] 1,000 ml IV ASDIRECTED - Plan Plan:: This 71 year old female admitted with suspected alcohol vs biliary induced acute on chronic pancreatitis 1. Acute pancreatitis: Bowel rest, IV fluid resuscitation, Analgesia with dilaudid PRN, anti-emetics PRN. Will obtain lipid panel and abdominal US. 2. Alcohol abuse: Currently intoxicated. Will add CIWAA protocol with Ativan Q4hrs. Supplement with Folate and Thiamine. Protonix IV daily. 3. HTN: Monitor will add Lopressor IV PRN, hold PO meds for now. 4. Malnutrition: Due to alcohol abuse, reports not eating well for last 2 weeks. Monitor mag and phos. Supplement as needed VTE prophylaxis: SCDs only due to GI bleeding risk Dispo: 2-4 days. January 20, 2017:The patient is a 71-year-old lady who was admitted primarily for hypertension, EtOH abuse, cholelithiasis and mild recurrent pancreatitis. Patient had presented on January 19, 2017 and was admitted accordingly. The patient had been admitted for similar situation on November 11, 2016. The patient had been remanded to stop drinking and unfortunately she still continues to consume a pint plus of whiskey per day. Patient also has been noted to have cholelithiasis and until the patient's pancreatitis and alcohol consumption is under control she is a poor candidate for cholecystectomy. The patient was previously evaluated by a surgeon on December 05, 2016. The patient today says that she has been having mid to right upper quadrant abdominal pain and she has been kept nothing by mouth. The patient is on IV fluids at 200 mL per hour of normal saline. This will be continued. I suspect that the patient's hypertension is likely secondary to pain and alcohol withdrawal and this will be controlled with medications that she is currently on.The patient's pain is being controlled with the use of narcotic Dilaudid. She's also being kept on alcohol withdrawal protocol. On admission the patient's alcohol level was 0.276. The patient's potassium and magnesium have been replaced by IV. I've encouraged patient ambulate. The patient likely without complications may be able to be discharged in 1-2 days. Patient's treatment plan will be adjusted accordingly.
[2017-01-21] MEDS: LORazepam 2 MG/ML MDV IV PRN ×4 (02:13→21:36)
[2017-01-21] MEDS: Sodium Chloride 0.9% 1,000 ML IV SCH ×3 (03:16→19:54)
[2017-01-21 06:37] LABS: CHLORIDE,CL 109 mmol/L (98-110); SODIUM,NA 139 mmol/L (136-146)
[2017-01-21] MEDS: Folic Acid 50 MG/10 ML MDV SUBCUT SCH (08:30)
[2017-01-21] MEDS: Thiamine 200 MG/2 ML MDV IV SCH (08:31)
[2017-01-21] MEDS: Pantoprazole 40 MG in Sodium Chloride 0.9% 10 ML IVPUSH SCH (08:31)
[2017-01-21] MEDS ORDERED: Magnesium Sulfate/Water 2 GM in Premix Bag 1 BAG IV ONE (11:36)
[2017-01-21] MEDS ORDERED: Sodium Chloride 0.9% with KCl 1,000 ML IV SCH (11:45)
[2017-01-21] MEDS ORDERED: Phosphorus #1 250 MG Tab PO ONE (11:55)
[2017-01-21] MEDS: HYDROmorphone 2 MG/ML Syringe IVPUSH PRN ×4 (12:54→23:08)
--- NOTE | 2017-01-21 13:52 | PCM.PN ---
- General Info Date of Service: 01/21/17 Admission Dx/Problem (Free Text): acute on chronic pancreatitis Also with alcohol withdrawal, cholelithiasis Subjective Update: The patient today is still having pain. Functional Status: Denies: pain controlled, tolerating diet, ambulating Pain Score: 5 - Review of Systems General: Reports: Weakness, Fatigue. Denies: Appetite HEENT: Reports: no symptoms Pulmonary: Reports: no symptoms Cardiovascular: Reports: No Symptoms Gastrointestinal: Reports: Abdominal pain, Decreased appetite Genitourinary: Reports: no symptoms Musculoskeletal: Reports: no symptoms Skin: Reports: no symptoms Neurological: Reports: No Symptoms Psychiatric: Reports: no symptoms - Patient Data Vitals - most recent: Last Vital Signs Temp 36.4 C 01/21/17 12:00 Pulse 89 01/21/17 12:00 Resp 20 01/21/17 12:00 BP 159/91 H 01/21/17 12:00 Pulse Ox 96 01/21/17 12:00 Weight - most recent: 58.468 kg I&O - last 24 hours: Intake & Output 01/20/17 01/21/17 01/21/17 22:59 06:59 14:59 Intake Total 1000 1000 Output Total 800 1650 Balance 200 -650 Lab Results last 24 hrs: Laboratory Results - last 24 hr 01/21/17 01/21/17 01/21/17 Range/Units 06:00 06:00 06:00 WBC 5.87 (4.0-11.0) K/uL RBC 3.70 L (4.30-5.90) M/uL Hgb 13.3 (12.0-16.0) g/dL Hct 37.5 (36.0-46.0) % MCV 101.4 H (80.0-98.0) fL MCH 35.9 H (27.0-32.0) pg MCHC 35.5 (31.0-37.0) g/dL RDW Std Deviation 52.5 (28.0-62.0) fl RDW Coeff of Katerina 14 (11.0-15.0) % Plt Count 126 L (150-400) K/uL MPV 10.00 (7.40-12.00) fL Neut % (Auto) 62.4 (48.0-80.0) % Lymph % (Auto) 23.3 (16.0-40.0) % [place] % (Auto) 11.8 (0.0-15.0) % Eos % (Auto) 2.0 (0.0-7.0) % Baso % (Auto) 0.5 (0.0-1.5) % Neut # (Auto) 3.7 (1.4-5.7) K/uL Lymph # (Auto) 1.4 (0.6-2.4) K/uL [place] # (Auto) 0.7 (0.0-0.8) K/uL Eos # (Auto) 0.1 (0.0-0.7) K/uL Baso # (Auto) 0.0 (0.0-0.1) K/uL Nucleated RBC % 0.0 /100WBC Nucleated RBCs # 0 K/uL Sodium 139 (136-146) mmol/L Potassium 2.7 L (3.5-5.1) mmol/L Chloride 109 (98-110) mmol/L Carbon Dioxide 19 L (21-31) mmol/L BUN 5 L (6.0-23.0) mg/dL Creatinine 0.5 L (0.6-1.5) mg/dL Est Cr Clr Drug Dosing 91.70 mL/min Estimated GFR (MDRD) > 60.0 ml/min Glucose 61 (60-110) mg/dL Calcium 7.9 L (8.8-10.8) mg/dL Phosphorus 1.9 L (2.4-4.7) mg/dL Magnesium 1.4 L (1.5-2.3) mEq/L Total Bilirubin 1.5 (0.1-1.5) mg/dL AST 43 H (5-40) IU/L ALT 22 (8-54) IU/L Alkaline Phosphatase 118 (40-150) Total Protein 5.9 L (6.0-8.0) g/dL Albumin 3.0 L (3.4-4.8) g/dL Globulin 2.9 (2.0-3.5) g/dL Albumin/Globulin Ratio 1.0 L (1.3-2.8) Med Orders - Current: Current Medications Folic Acid (Folic Acid) 1 mg SUBCUT DAILY [facility] Last Admin: 01/21/17 08:30 Dose: 1 mg Hydromorphone HCl (Dilaudid) 1 mg IVPUSH Q2H PRN PRN Reason: Pain (severe 7-10) Last Admin: 01/21/17 12:54 Dose: 1 mg Pantoprazole Sodium 40 mg/ (Sodium Chloride) 10 mls @ 300 mls/hr IVPUSH DAILY [facility] Last Admin: 01/21/17 08:31 Dose: 300 mls/hr Sodium Chloride (Normal Saline) 1,000 mls @ 999 mls/hr IV .BOLUS [facility] Last Admin: 01/19/17 16:23 Dose: 999 mls/hr Sodium Chloride (Normal Saline) 1,000 mls @ 200 mls/hr IV ASDIRECTED [facility] Last Admin: 01/21/17 08:32 Dose: 200 mls/hr Potassium Chloride/Sodium Chloride (Normal Saline With 40 Meq Kcl) 1,000 mls @ 150 mls/hr IV ASDIRECTED [facility] Stop: 01/21/17 18:24 Last Admin: 01/21/17 12:04 Dose: 150 mls/hr Lorazepam (Ativan) 0 mg IV Q4H PRN; Protocol PRN Reason: CIWAA Last Admin: 01/21/17 02:13 Dose: 2 mg Ondansetron HCl (Zofran) 4 mg IVPUSH Q4H PRN PRN Reason: Nausea Last Admin: 01/20/17 21:13 Dose: 4 mg Thiamine HCl (Vitamin B-1) 100 mg IV DAILY [facility] Last Admin: 01/21/17 08:31 Dose: 100 mg Discontinued Medications Sodium Chloride (Normal Saline) 1,000 mls @ 999 mls/hr IV STAT ONE Stop: 01/19/17 12:56 Last Admin: 01/19/17 12:29 Dose: 999 mls/hr Multivitamins/Minerals 10 ml/Thiamine HCl 100 mg/ Folic Acid 1 mg/ Sodium Chloride 1,011.2 mls @ 999 mls/hr IV ONETIME ONE Stop: 01/19/17 13:13 Last Admin: 01/19/17 12:34 Dose: 999 mls/hr Magnesium Sulfate 2 gm/ Premix 50 mls @ 25 mls/hr IV ONETIME ONE Stop: 01/19/17 21:04 Last Admin: 01/19/17 19:41 Dose: 25 mls/hr Magnesium Sulfate 2 gm/ Premix 50 mls @ 50 mls/hr IV ONETIME ONE Stop: 01/20/17 13:25 Last Admin: 01/20/17 13:00 Dose: 50 mls/hr Potassium Chloride/Sodium Chloride (Normal Saline With 40 Meq Kcl) 1,000 mls @ 150 mls/hr IV ASDIRECTED [facility] Stop: 01/20/17 19:09 Last Admin: 01/20/17 13:01 Dose: 150 mls/hr Magnesium Sulfate 2 gm/ Premix 50 mls @ 50 mls/hr IV ONETIME ONE Stop: 01/21/17 12:35 Last Admin: 01/21/17 12:02 Dose: 50 mls/hr Iopamidol (Isovue Multipack-370 (76%)) 100 ml IVPUSH ONETIME [facility] Stop: 01/19/17 13:01 Last Admin: 01/19/17 13:00 Dose: 100 ml Ketorolac Tromethamine (Toradol) 30 mg IVPUSH ONETIME ONE Stop: 01/19/17 11:57 Last Admin: 01/19/17 12:29 Dose: 30 mg Morphine Sulfate (Morphine) 2 mg IV ONETIME ONE Stop: 01/19/17 13:03 Last Admin: 01/19/17 13:46 Dose: 2 mg Ondansetron HCl (Zofran) 8 mg IVPUSH ONETIME ONE Stop: 01/19/17 11:57 Last Admin: 01/19/17 12:29 Dose: 8 mg Pantoprazole Sodium (Protonix Iv) 80 mg IVPUSH .BOLUS ONE Stop: 01/19/17 12:00 Last Admin: 01/19/17 12:30 Dose: 80 mg Sodium Phosphate (Neutra-Phos) 250 mg PO ONETIME ONE Stop: 01/21/17 11:56 Last Admin: 01/21/17 12:04 Dose: 250 mg - Exam Quality Assessment: No: supplemental oxygen General: alert, oriented, mild distress HEENT: Pupils equal, Pupils reactive. No: Scleral icterus Neck: supple, trachea midline, no thyromegaly Lungs: Clear to auscultation, Normal respiratory effort Cardiovascular: Regular Rate, Regular Rhythm Abdomen: bowel sounds present, tenderness. No: rigidity, guarding Back Exam: Decreased Range of Motion Extremities: no edema Skin: warm, dry, intact Neurological: no new focal deficit Psy/Mental Status: alert, normal affect, normal mood - Problem List & Annotations (1) Pancreatitis SNOMED Code(s): 10520517 Code(s): K85.90 - ACUTE PANCREATITIS WITHOUT NECROSIS OR INFECTION, UNSP Status: Chronic Priority: High Current Visit: Yes Qualifiers: Chronicity: acute Pancreatitis type: alcohol induced Acute pancreatitis complication: no infection or necrosis Qualified Code(s): K85.20 - Alcohol induced acute pancreatitis without necrosis or infection (2) Alcohol intoxication SNOMED Code(s): 82394378 Code(s): F10.929 - ALCOHOL USE, UNSPECIFIED WITH INTOXICATION, UNSPECIFIED Status: Chronic Priority: High Current Visit: Yes Qualifiers: Complication of substance-induced condition: with unspecified complication Qualified Code(s): F10.929 - Alcohol use, unspecified with intoxication, unspecified (3) Cholelithiasis SNOMED Code(s): 690542764 Code(s): K80.20 - CALCULUS OF GALLBLADDER W/O CHOLECYSTITIS W/O OBSTRUCTION Status: Chronic Priority: Medium Current Visit: No Qualifiers: Cholelithiasis location: gallbladder Cholecystitis presence: without cholecystitis Biliary obstruction: without biliary obstruction Qualified Code(s): K80.20 - Calculus of gallbladder without cholecystitis without obstruction (4) Hypokalemia SNOMED Code(s): 62209471 Code(s): E87.6 - HYPOKALEMIA Status: Chronic Priority: High Current Visit: Yes Annotation/Comment:: Replaced by IV (5) Hypomagnesemia SNOMED Code(s): 175103939 Code(s): E83.42 - HYPOMAGNESEMIA Status: Chronic Priority: High Current Visit: Yes Annotation/Comment:: Replaced by IV - Problem List Review Problem List Initiated/Reviewed/Updated: Yes - My Orders Last 24 Hours: My Active Orders 01/21/17 11:45 Sodium Chloride 0.9% with KCl [Normal Saline with 40 mEq KCl] 1,000 ml IV ASDIRECTED 01/21/17 12:44 Consult to Physical Therapy [PT Evaluation and Treatment] [CONS] Routine - Plan Plan:: This 71 year old female admitted with suspected alcohol vs biliary induced acute on chronic pancreatitis 1. Acute pancreatitis: Bowel rest, IV fluid resuscitation, Analgesia with dilaudid PRN, anti-emetics PRN. Will obtain lipid panel and abdominal US. 2. Alcohol abuse: Currently intoxicated. Will add CIWAA protocol with Ativan Q4hrs. Supplement with Folate and Thiamine. Protonix IV daily. 3. HTN: Monitor will add Lopressor IV PRN, hold PO meds for now. 4. Malnutrition: Due to alcohol abuse, reports not eating well for last 2 weeks. Monitor mag and phos. Supplement as needed VTE prophylaxis: SCDs only due to GI bleeding risk Dispo: 2-4 days. January 20, 2017:The patient is a 71-year-old lady who was admitted primarily for hypertension, EtOH abuse, cholelithiasis and mild recurrent pancreatitis. Patient had presented on January 19, 2017 and was admitted accordingly. The patient had been admitted for similar situation on November 11, 2016. The patient had been remanded to stop drinking and unfortunately she still continues to consume a pint plus of whiskey per day. Patient also has been noted to have cholelithiasis and until the patient's pancreatitis and alcohol consumption is under control she is a poor candidate for cholecystectomy. The patient was previously evaluated by a surgeon on December 05, 2016. The patient today says that she has been having mid to right upper quadrant abdominal pain and she has been kept nothing by mouth. The patient is on IV fluids at 200 mL per hour of normal saline. This will be continued. I suspect that the patient's hypertension is likely secondary to pain and alcohol withdrawal and this will be controlled with medications that she is currently on.The patient's pain is being controlled with the use of narcotic Dilaudid. She's also being kept on alcohol withdrawal protocol. On admission the patient's alcohol level was 0.276. The patient's potassium and magnesium have been replaced by IV. I've encouraged patient ambulate. The patient likely without complications may be able to be discharged in 1-2 days. Patient's treatment plan will be adjusted accordingly. January 21, 2017: The patient is a 71-year-old lady who was admitted secondary to alcoholic pancreatitis. Patient was admitted on January 20, 2017 and also has been watched for alcohol withdrawal. Patient does have a history of cholelithiasis and currently is not a surgical candidate secondary to pancreatitis and her alcohol consumption. Today the patient says that she is still having mid abdominal pain and she rates it about a 5 out of 10. Patient also has been nothing by mouth and she has been maintained on fluids. The patient has denied any nausea or vomiting today. The patient also is hypokalemic at this time and her magnesium was also low. The patient's alkaline phosphatase has normalized and her AST has dropped down to 43. The patient has not been able to ambulate yet and she feels weak. The patient still has hypokalemia as well as hypomagnesemia. The patient's potassium today is 2.7 mmol per liter and her magnesium is 1.4 mmol per liter. Both of these been replaced IV. They will be continued to be monitored. Also the patient will be continued on CIWAA protocol for alcohol withdrawal. The patient may be appropriate for discharge in 1-2 days depending upon her overall physical condition. I had a long discussion with the patient and her and of informed both of them that she absolutely cannot drink ever again. I have my doubts with this patient for continued sobriety.
[2017-01-22] MEDS: Sodium Chloride 0.9% 1,000 ML IV SCH ×4 (00:59→20:21)
[2017-01-22] MEDS: LORazepam 2 MG/ML MDV IV PRN ×5 (01:26→22:31)
[2017-01-22] MEDS: HYDROmorphone 2 MG/ML Syringe IVPUSH PRN ×4 (03:11→19:22)
[2017-01-22 06:22] LABS: CHLORIDE,CL 107 mmol/L (98-110); SODIUM,NA 137 mmol/L (136-146)
[2017-01-22] MEDS: Folic Acid 50 MG/10 ML MDV SUBCUT SCH (08:21)
[2017-01-22] MEDS: Thiamine 200 MG/2 ML MDV IV SCH (08:21)
[2017-01-22] MEDS: Pantoprazole 40 MG in Sodium Chloride 0.9% 10 ML IVPUSH SCH (08:22)
[2017-01-22] MEDS ORDERED: Magnesium Sulfate/Water 2 GM in Premix Bag 1 BAG IV ONE (09:07)
--- NOTE | 2017-01-22 10:05 | PCM.PN ---
<Marian Moreno - Last Filed: 01/22/17 10:13> - General Info Date of Service: 01/22/17 Functional Status: Reports: pain controlled, urinating - Review of Systems General: Reports: Fatigue HEENT: Reports: no symptoms Pulmonary: Reports: no symptoms Cardiovascular: Reports: No Symptoms Gastrointestinal: Reports: No symptoms Genitourinary: Reports: no symptoms Musculoskeletal: Reports: no symptoms Skin: Reports: no symptoms Neurological: Reports: No Symptoms Psychiatric: Reports: no symptoms - Patient Data Vitals - most recent: Last Vital Signs Temp 97.9 F 01/22/17 08:00 Pulse 75 01/22/17 08:00 Resp 20 01/22/17 08:00 BP 176/86 H 01/22/17 08:00 Pulse Ox 96 01/22/17 08:00 Weight - most recent: 58.468 kg I&O - last 24 hours: Intake & Output 01/21/17 01/22/17 01/22/17 22:59 06:59 14:59 Intake Total 1100 2000 Output Total 1800 1700 Balance -700 300 Lab Results last 24 hrs: Laboratory Results - last 24 hr 01/22/17 01/22/17 01/22/17 Range/Units 05:53 05:53 05:53 WBC 6.55 (4.0-11.0) K/uL RBC 3.74 L (4.30-5.90) M/uL Hgb 13.0 (12.0-16.0) g/dL Hct 37.6 (36.0-46.0) % MCV 100.5 H (80.0-98.0) fL MCH 34.8 H (27.0-32.0) pg MCHC 34.6 (31.0-37.0) g/dL RDW Std Deviation 51.8 (28.0-62.0) fl RDW Coeff of Katerina 14 (11.0-15.0) % Plt Count 140 L (150-400) K/uL MPV 9.80 (7.40-12.00) fL Neut % (Auto) 63.8 (48.0-80.0) % Lymph % (Auto) 24.1 (16.0-40.0) % Fergus % (Auto) 10.1 (0.0-15.0) % Eos % (Auto) 1.7 (0.0-7.0) % Baso % (Auto) 0.3 (0.0-1.5) % Neut # (Auto) 4.2 (1.4-5.7) K/uL Lymph # (Auto) 1.6 (0.6-2.4) K/uL Fergus # (Auto) 0.7 (0.0-0.8) K/uL Eos # (Auto) 0.1 (0.0-0.7) K/uL Baso # (Auto) 0.0 (0.0-0.1) K/uL Nucleated RBC % 0.0 /100WBC Nucleated RBCs # 0 K/uL Sodium 137 (136-146) mmol/L Potassium 2.6 L (3.5-5.1) mmol/L Chloride 107 (98-110) mmol/L Carbon Dioxide 17 L (21-31) mmol/L BUN 4 L (6.0-23.0) mg/dL Creatinine 0.5 L (0.6-1.5) mg/dL Est Cr Clr Drug Dosing 91.70 mL/min Estimated GFR (MDRD) > 60.0 ml/min Glucose 63 (60-110) mg/dL Calcium 7.8 L (8.8-10.8) mg/dL Phosphorus 1.4 L (2.4-4.7) mg/dL Magnesium 1.3 L (1.5-2.3) mEq/L Total Bilirubin 1.9 H (0.1-1.5) mg/dL AST 47 H (5-40) IU/L ALT 27 (8-54) IU/L Alkaline Phosphatase 130 (40-150) Total Protein 6.4 (6.0-8.0) g/dL Albumin 3.4 (3.4-4.8) g/dL Globulin 3.0 (2.0-3.5) g/dL Albumin/Globulin Ratio 1.1 L (1.3-2.8) Med Orders - Current: Current Medications Folic Acid (Folic Acid) 1 mg SUBCUT DAILY [facility] Last Admin: 01/22/17 08:21 Dose: 1 mg Hydromorphone HCl (Dilaudid) 1 mg IVPUSH Q2H PRN PRN Reason: Pain (severe 7-10) Last Admin: 01/22/17 03:11 Dose: 1 mg Pantoprazole Sodium 40 mg/ (Sodium Chloride) 10 mls @ 300 mls/hr IVPUSH DAILY ELISA Last Admin: 01/22/17 08:22 Dose: 300 mls/hr Sodium Chloride (Normal Saline) 1,000 mls @ 999 mls/hr IV .BOLUS ELISA Last Admin: 01/19/17 16:23 Dose: 999 mls/hr Sodium Chloride (Normal Saline) 1,000 mls @ 200 mls/hr IV ASDIRECTED ELISA Last Admin: 01/22/17 06:08 Dose: 200 mls/hr Magnesium Sulfate 2 gm/ Premix 50 mls @ 50 mls/hr IV ONETIME ONE Stop: 01/22/17 10:06 Lorazepam (Ativan) 0 mg IV Q4H PRN; Protocol PRN Reason: CIWAA Last Admin: 01/22/17 06:08 Dose: 1 mg Ondansetron HCl (Zofran) 4 mg IVPUSH Q4H PRN PRN Reason: Nausea Last Admin: 01/20/17 21:13 Dose: 4 mg Potassium Chloride (Klor-Con M20) 40 meq PO DAILY ELISA Thiamine HCl (Vitamin B-1) 100 mg IV DAILY ELISA Last Admin: 01/22/17 08:21 Dose: 100 mg Discontinued Medications Sodium Chloride (Normal Saline) 1,000 mls @ 999 mls/hr IV STAT ONE Stop: 01/19/17 12:56 Last Admin: 01/19/17 12:29 Dose: 999 mls/hr Multivitamins/Minerals 10 ml/Thiamine HCl 100 mg/ Folic Acid 1 mg/ Sodium Chloride 1,011.2 mls @ 999 mls/hr IV ONETIME ONE Stop: 01/19/17 13:13 Last Admin: 01/19/17 12:34 Dose: 999 mls/hr Magnesium Sulfate 2 gm/ Premix 50 mls @ 25 mls/hr IV ONETIME ONE Stop: 01/19/17 21:04 Last Admin: 01/19/17 19:41 Dose: 25 mls/hr Magnesium Sulfate 2 gm/ Premix 50 mls @ 50 mls/hr IV ONETIME ONE Stop: 01/20/17 13:25 Last Admin: 01/20/17 13:00 Dose: 50 mls/hr Potassium Chloride/Sodium Chloride (Normal Saline With 40 Meq Kcl) 1,000 mls @ 150 mls/hr IV ASDIRECTED [facility] Stop: 01/20/17 19:09 Last Admin: 01/20/17 13:01 Dose: 150 mls/hr Magnesium Sulfate 2 gm/ Premix 50 mls @ 50 mls/hr IV ONETIME ONE Stop: 01/21/17 12:35 Last Admin: 01/21/17 12:02 Dose: 50 mls/hr Potassium Chloride/Sodium Chloride (Normal Saline With 40 Meq Kcl) 1,000 mls @ 150 mls/hr IV ASDIRECTED [facility] Stop: 01/21/17 18:24 Last Admin: 01/21/17 12:04 Dose: 150 mls/hr Iopamidol (Isovue Multipack-370 (76%)) 100 ml IVPUSH ONETIME STA Stop: 01/19/17 13:01 Last Admin: 01/19/17 13:00 Dose: 100 ml Ketorolac Tromethamine (Toradol) 30 mg IVPUSH ONETIME ONE Stop: 01/19/17 11:57 Last Admin: 01/19/17 12:29 Dose: 30 mg Morphine Sulfate (Morphine) 2 mg IV ONETIME ONE Stop: 01/19/17 13:03 Last Admin: 01/19/17 13:46 Dose: 2 mg Ondansetron HCl (Zofran) 8 mg IVPUSH ONETIME ONE Stop: 01/19/17 11:57 Last Admin: 01/19/17 12:29 Dose: 8 mg Pantoprazole Sodium (Protonix Iv) 80 mg IVPUSH .BOLUS ONE Stop: 01/19/17 12:00 Last Admin: 01/19/17 12:30 Dose: 80 mg Sodium Phosphate (Neutra-Phos) 250 mg PO ONETIME ONE Stop: 01/21/17 11:56 Last Admin: 01/21/17 12:04 Dose: 250 mg - Exam General: alert, oriented HEENT: Pupils equal, EOMI Neck: supple Lungs: Clear to auscultation, Normal respiratory effort Cardiovascular: Regular Rate, Regular Rhythm Abdomen: bowel sounds present, soft Extremities: no edema Neurological: no new focal deficit Psy/Mental Status: alert, normal affect, normal mood - Problem List Review Problem List Initiated/Reviewed/Updated: Yes - My Orders Last 24 Hours: My Active Orders 01/22/17 09:07 Magnesium Sulfate/Water [Magnesium Sulfate 2 GM in Water 50 ML] 2 gm Premix Bag 1 bag IV ONETIME 01/22/17 09:15 Potassium Chloride [Klor-Con M20] 40 meq PO DAILY 01/22/17 Lunch Clear Liquid Diet [DIET] - Plan Plan:: This 71 year old female admitted with suspected alcohol vs biliary induced acute on chronic pancreatitis 1. Acute pancreatitis: Bowel rest, IV fluid resuscitation, Analgesia with dilaudid PRN, anti-emetics PRN. Will obtain lipid panel and abdominal US. 2. Alcohol abuse: Currently intoxicated. Will add CIWAA protocol with Ativan Q4hrs. Supplement with Folate and Thiamine. Protonix IV daily. 3. HTN: Monitor will add Lopressor IV PRN, hold PO meds for now. 4. Malnutrition: Due to alcohol abuse, reports not eating well for last 2 weeks. Monitor mag and phos. Supplement as needed VTE prophylaxis: SCDs only due to GI bleeding risk Dispo: 2-4 days. January 20, 2017:The patient is a 71-year-old lady who was admitted primarily for hypertension, EtOH abuse, cholelithiasis and mild recurrent pancreatitis. Patient had presented on January 19, 2017 and was admitted accordingly. The patient had been admitted for similar situation on November 11, 2016. The patient had been remanded to stop drinking and unfortunately she still continues to consume a pint plus of whiskey per day. Patient also has been noted to have cholelithiasis and until the patient's pancreatitis and alcohol consumption is under control she is a poor candidate for cholecystectomy. The patient was previously evaluated by a surgeon on December 05, 2016. The patient today says that she has been having mid to right upper quadrant abdominal pain and she has been kept nothing by mouth. The patient is on IV fluids at 200 mL per hour of normal saline. This will be continued. I suspect that the patient's hypertension is likely secondary to pain and alcohol withdrawal and this will be controlled with medications that she is currently on.The patient's pain is being controlled with the use of narcotic Dilaudid. She's also being kept on alcohol withdrawal protocol. On admission the patient's alcohol level was 0.276. The patient's potassium and magnesium have been replaced by IV. I've encouraged patient ambulate. The patient likely without complications may be able to be discharged in 1-2 days. Patient's treatment plan will be adjusted accordingly. January 21, 2017: The patient is a 71-year-old lady who was admitted secondary to alcoholic pancreatitis. Patient was admitted on January 20, 2017 and also has been watched for alcohol withdrawal. Patient does have a history of cholelithiasis and currently is not a surgical candidate secondary to pancreatitis and her alcohol consumption. Today the patient says that she is still having mid abdominal pain and she rates it about a 5 out of 10. Patient also has been nothing by mouth and she has been maintained on fluids. The patient has denied any nausea or vomiting today. The patient also is hypokalemic at this time and her magnesium was also low. The patient's alkaline phosphatase has normalized and her AST has dropped down to 43. The patient has not been able to ambulate yet and she feels weak. The patient still has hypokalemia as well as hypomagnesemia. The patient's potassium today is 2.7 mmol per liter and her magnesium is 1.4 mmol per liter. Both of these been replaced IV. They will be continued to be monitored. Also the patient will be continued on CIWAA protocol for alcohol withdrawal. The patient may be appropriate for discharge in 1-2 days depending upon her overall physical condition. I had a long discussion with the patient and her and of informed both of them that she absolutely cannot drink ever again. I have my doubts with this patient for continued sobriety. January 22, 2017 Alcoholic pancreatitis: slowly improving, start clear liquid diet today. Cholelithiasis: Not a surgical candidate 2/2 alcohol and acute pancreatitis. Hypokalemia, Hypomagnesium, Hypophos: replaced 3 in I.V along with PO KCL HTN: stable Alcohol abuse: On CIWAA protocol. VTE prophylaxis: SCD <Brian Fitch - Last Filed: 01/22/17 18:20> - General Info Subjective Update: I was present with the resident during history and examination. I discussed the case with the resident and agree with the findings and plan as documented in the residents note. - Patient Data Vitals - most recent: Last Vital Signs Temp 36.3 C 01/22/17 15:51 Pulse 75 01/22/17 15:51 Resp 16 01/22/17 15:51 BP 149/90 H 01/22/17 15:51 Pulse Ox 97 01/22/17 15:51 I&O - last 24 hours: Intake & Output 01/22/17 01/22/17 01/22/17 06:59 14:59 22:59 Intake Total 19990 Output Total 170 2450 Balance 300 -120 Lab Results last 24 hrs: Laboratory Results - last 24 hr 01/22/17 01/22/17 01/22/17 Range/Units 05:53 05:53 05:53 WBC 6.55 (4.0-11.0) K/uL RBC 3.74 L (4.30-5.90) M/uL Hgb 13.0 (12.0-16.0) g/dL Hct 37.6 (36.0-46.0) % MCV 100.5 H (80.0-98.0) fL MCH 34.8 H (27.0-32.0) pg MCHC 34.6 (31.0-37.0) g/dL RDW Std Deviation 51.8 (28.0-62.0) fl RDW Coeff of Katerina 14 (11.0-15.0) % Plt Count 140 L (150-400) K/uL MPV 9.80 (7.40-12.00) fL Neut % (Auto) 63.8 (48.0-80.0) % Lymph % (Auto) 24.1 (16.0-40.0) % Fergus % (Auto) 10.1 (0.0-15.0) % Eos % (Auto) 1.7 (0.0-7.0) % Baso % (Auto) 0.3 (0.0-1.5) % Neut # (Auto) 4.2 (1.4-5.7) K/uL Lymph # (Auto) 1.6 (0.6-2.4) K/uL Fergus # (Auto) 0.7 (0.0-0.8) K/uL Eos # (Auto) 0.1 (0.0-0.7) K/uL Baso # (Auto) 0.0 (0.0-0.1) K/uL Nucleated RBC % 0.0 /100WBC Nucleated RBCs # 0 K/uL Sodium 137 (136-146) mmol/L Potassium 2.6 L (3.5-5.1) mmol/L Chloride 107 (98-110) mmol/L Carbon Dioxide 17 L (21-31) mmol/L BUN 4 L (6.0-23.0) mg/dL Creatinine 0.5 L (0.6-1.5) mg/dL Est Cr Clr Drug Dosing 91.70 mL/min Estimated GFR (MDRD) > 60.0 ml/min Glucose 63 (60-110) mg/dL Calcium 7.8 L (8.8-10.8) mg/dL Phosphorus 1.4 L (2.4-4.7) mg/dL Magnesium 1.3 L (1.5-2.3) mEq/L Total Bilirubin 1.9 H (0.1-1.5) mg/dL AST 47 H (5-40) IU/L ALT 27 (8-54) IU/L Alkaline Phosphatase 130 (40-150) Total Protein 6.4 (6.0-8.0) g/dL Albumin 3.4 (3.4-4.8) g/dL Globulin 3.0 (2.0-3.5) g/dL Albumin/Globulin Ratio 1.1 L (1.3-2.8) Med Orders - Current: Current Medications Folic Acid (Folic Acid) 1 mg SUBCUT DAILY [facility] Last Admin: 01/22/17 08:21 Dose: 1 mg Hydromorphone HCl (Dilaudid) 1 mg IVPUSH Q2H PRN PRN Reason: Pain (severe 7-10) Last Admin: 01/22/17 16:46 Dose: 1 mg Pantoprazole Sodium 40 mg/ (Sodium Chloride) 10 mls @ 300 mls/hr IVPUSH DAILY [facility] Last Admin: 01/22/17 08:22 Dose: 300 mls/hr Sodium Chloride (Normal Saline) 1,000 mls @ 999 mls/hr IV .BOLUS [facility] Last Admin: 01/19/17 16:23 Dose: 999 mls/hr Sodium Chloride (Normal Saline) 1,000 mls @ 200 mls/hr IV ASDIRECTED [facility] Last Admin: 01/22/17 15:16 Dose: 200 mls/hr Lorazepam (Ativan) 0 mg IV Q4H PRN; Protocol PRN Reason: CIWAA Last Admin: 01/22/17 15:22 Dose: 1 mg Ondansetron HCl (Zofran) 4 mg IVPUSH Q4H PRN PRN Reason: Nausea Last Admin: 01/22/17 13:28 Dose: 4 mg Potassium Chloride (Klor-Con M20) 40 meq PO DAILY [facility] Last Admin: 01/22/17 11:06 Dose: 40 meq Thiamine HCl (Vitamin B-1) 100 mg IV DAILY [facility] Last Admin: 01/22/17 08:21 Dose: 100 mg Discontinued Medications Sodium Chloride (Normal Saline) 1,000 mls @ 999 mls/hr IV STAT ONE Stop: 01/19/17 12:56 Last Admin: 01/19/17 12:29 Dose: 999 mls/hr Multivitamins/Minerals 10 ml/Thiamine HCl 100 mg/ Folic Acid 1 mg/ Sodium Chloride 1,011.2 mls @ 999 mls/hr IV ONETIME ONE Stop: 01/19/17 13:13 Last Admin: 01/19/17 12:34 Dose: 999 mls/hr Magnesium Sulfate 2 gm/ Premix 50 mls @ 25 mls/hr IV ONETIME ONE Stop: 01/19/17 21:04 Last Admin: 01/19/17 19:41 Dose: 25 mls/hr Magnesium Sulfate 2 gm/ Premix 50 mls @ 50 mls/hr IV ONETIME ONE Stop: 01/20/17 13:25 Last Admin: 01/20/17 13:00 Dose: 50 mls/hr Potassium Chloride/Sodium Chloride (Normal Saline With 40 Meq Kcl) 1,000 mls @ 150 mls/hr IV ASDIRECTED [facility] Stop: 01/20/17 19:09 Last Admin: 01/20/17 13:01 Dose: 150 mls/hr Magnesium Sulfate 2 gm/ Premix 50 mls @ 50 mls/hr IV ONETIME ONE Stop: 01/21/17 12:35 Last Admin: 01/21/17 12:02 Dose: 50 mls/hr Potassium Chloride/Sodium Chloride (Normal Saline With 40 Meq Kcl) 1,000 mls @ 150 mls/hr IV ASDIRECTED [facility] Stop: 01/21/17 18:24 Last Admin: 01/21/17 12:04 Dose: 150 mls/hr Magnesium Sulfate 2 gm/ Premix 50 mls @ 50 mls/hr IV ONETIME ONE Stop: 01/22/17 10:06 Last Admin: 01/22/17 11:09 Dose: Not Given Potassium Chloride 40 meq/Magnesium Sulfate 2 gm/Potassium Phosphate 5 mmole/ Sodium Chloride 525.6667 mls @ 125 mls/hr IV ONETIME ONE Stop: 01/22/17 14:24 Last Admin: 01/22/17 11:09 Dose: Not Given Potassium Chloride 40 meq/Magnesium Sulfate 2 gm/Potassium Phosphate 5 mmole/ Sodium Chloride 525.6667 mls @ 125 mls/hr IV ONETIME ONE Stop: 01/22/17 14:24 Last Admin: 01/22/17 11:07 Dose: 125 mls/hr Iopamidol (Isovue Multipack-370 (76%)) 100 ml IVPUSH ONETIME STA Stop: 01/19/17 13:01 Last Admin: 01/19/17 13:00 Dose: 100 ml Ketorolac Tromethamine (Toradol) 30 mg IVPUSH ONETIME ONE Stop: 01/19/17 11:57 Last Admin: 01/19/17 12:29 Dose: 30 mg Morphine Sulfate (Morphine) 2 mg IV ONETIME ONE Stop: 01/19/17 13:03 Last Admin: 01/19/17 13:46 Dose: 2 mg Ondansetron HCl (Zofran) 8 mg IVPUSH ONETIME ONE Stop: 01/19/17 11:57 Last Admin: 01/19/17 12:29 Dose: 8 mg Pantoprazole Sodium (Protonix Iv) 80 mg IVPUSH .BOLUS ONE Stop: 01/19/17 12:00 Last Admin: 01/19/17 12:30 Dose: 80 mg Sodium Phosphate (Neutra-Phos) 250 mg PO ONETIME ONE Stop: 01/21/17 11:56 Last Admin: 01/21/17 12:04 Dose: 250 mg - Problem List & Annotations (1) Pancreatitis SNOMED Code(s): 55911341 Code(s): K85.90 - ACUTE PANCREATITIS WITHOUT NECROSIS OR INFECTION, UNSP Status: Chronic Priority: High Current Visit: Yes Qualifiers: Chronicity: acute Pancreatitis type: alcohol induced Acute pancreatitis complication: no infection or necrosis Qualified Code(s): K85.20 - Alcohol induced acute pancreatitis without necrosis or infection (2) Alcohol intoxication SNOMED Code(s): 05952206 Code(s): F10.929 - ALCOHOL USE, UNSPECIFIED WITH INTOXICATION, UNSPECIFIED Status: Chronic Priority: High Current Visit: Yes Qualifiers: Complication of substance-induced condition: with unspecified complication Qualified Code(s): F10.929 - Alcohol use, unspecified with intoxication, unspecified (3) Cholelithiasis SNOMED Code(s): 354255796 Code(s): K80.20 - CALCULUS OF GALLBLADDER W/O CHOLECYSTITIS W/O OBSTRUCTION Status: Chronic Priority: Medium Current Visit: No Qualifiers: Cholelithiasis location: gallbladder Cholecystitis presence: without cholecystitis Biliary obstruction: without biliary obstruction Qualified Code(s): K80.20 - Calculus of gallbladder without cholecystitis without obstruction (4) Hypokalemia SNOMED Code(s): 47158649 Code(s): E87.6 - HYPOKALEMIA Status: Chronic Priority: High Current Visit: Yes Annotation/Comment:: Replaced by IV (5) Hypomagnesemia SNOMED Code(s): 734887016 Code(s): E83.42 - HYPOMAGNESEMIA Status: Chronic Priority: High Current Visit: Yes Annotation/Comment:: Replaced by IV
[2017-01-22] MEDS ORDERED: [UNRECOGNIZED DRUG - OTHER] IV ONE ×2 (10:12→10:18)
[2017-01-22] MEDS ORDERED: POTASSIUM CHLORIDE IV ONE ×2 (10:12→10:18)
[2017-01-22] MEDS ORDERED: MAGNESIUM SULFATE IV ONE ×2 (10:12→10:18)
[2017-01-22] MEDS ORDERED: POTASSIUM PHOSPHATES IV ONE ×2 (10:12→10:18)
[2017-01-22] MEDS: Potassium Chloride 20 MEQ Tab.ER PO SCH (11:06)
[2017-01-22] MEDS: Ondansetron 4 MG/2 ML SDV IVPUSH PRN ×2 (13:28→17:45)
[2017-01-23] MEDS: HYDROmorphone 2 MG/ML Syringe IVPUSH PRN ×5 (01:11→19:18)
[2017-01-23] MEDS: Sodium Chloride 0.9% 1,000 ML IV SCH ×5 (01:36→23:49)
[2017-01-23 06:17] LABS: CHLORIDE,CL 112 mmol/L (98-110); SODIUM,NA 140 mmol/L (136-146)
--- NOTE | 2017-01-23 07:36 | PCM.PN ---
<Marian Moreno - Last Filed: 01/23/17 09:18> - General Info Date of Service: 01/23/17 Subjective Update: She was not able to tolerate clear liquid diet yesterday. She is still experiencing epigastric discomfort and nausea. - Review of Systems General: Reports: Weakness, Fatigue HEENT: Reports: no symptoms Pulmonary: Reports: no symptoms Cardiovascular: Reports: No Symptoms Gastrointestinal: Reports: Abdominal pain Genitourinary: Reports: no symptoms Musculoskeletal: Reports: no symptoms Skin: Reports: no symptoms Neurological: Reports: No Symptoms Psychiatric: Reports: no symptoms - Patient Data Vitals - most recent: Last Vital Signs Temp 97.4 F 01/23/17 04:00 Pulse 90 01/23/17 04:00 Resp 14 01/23/17 04:00 BP 149/96 H 01/23/17 04:00 Pulse Ox 96 01/23/17 04:00 Weight - most recent: 58.468 kg I&O - last 24 hours: Intake & Output 01/22/17 01/23/17 01/23/17 22:59 06:59 14:59 Intake Total 3330 1010 1000 Output Total 2450 2200 Balance 880 -1190 1000 Lab Results last 24 hrs: Laboratory Results - last 24 hr 01/23/17 01/23/17 Range/Units 05:38 05:38 WBC 7.00 (4.0-11.0) K/uL RBC 3.65 L (4.30-5.90) M/uL Hgb 12.5 (12.0-16.0) g/dL Hct 36.4 (36.0-46.0) % MCV 99.7 H (80.0-98.0) fL MCH 34.2 H (27.0-32.0) pg MCHC 34.3 (31.0-37.0) g/dL RDW Std Deviation 51.6 (28.0-62.0) fl RDW Coeff of Katerina 14 (11.0-15.0) % Plt Count 150 (150-400) K/uL MPV 9.60 (7.40-12.00) fL Neut % (Auto) 56.0 (48.0-80.0) % Lymph % (Auto) 28.9 (16.0-40.0) % Ward % (Auto) 11.6 (0.0-15.0) % Eos % (Auto) 3.1 (0.0-7.0) % Baso % (Auto) 0.4 (0.0-1.5) % Neut # (Auto) 3.9 (1.4-5.7) K/uL Lymph # (Auto) 2.0 (0.6-2.4) K/uL Ward # (Auto) 0.8 (0.0-0.8) K/uL Eos # (Auto) 0.2 (0.0-0.7) K/uL Baso # (Auto) 0.0 (0.0-0.1) K/uL Nucleated RBC % 0.0 /100WBC Nucleated RBCs # 0 K/uL Sodium 140 (136-146) mmol/L Potassium 2.8 L (3.5-5.1) mmol/L Chloride 112 H (98-110) mmol/L Carbon Dioxide 18 L (21-31) mmol/L BUN 3 L (6.0-23.0) mg/dL Creatinine 0.5 L (0.6-1.5) mg/dL Est Cr Clr Drug Dosing 91.70 mL/min Estimated GFR (MDRD) > 60.0 ml/min Glucose 90 (60-110) mg/dL Calcium 7.7 L (8.8-10.8) mg/dL Total Bilirubin 2.0 H (0.1-1.5) mg/dL AST 39 (5-40) IU/L ALT 27 (8-54) IU/L Alkaline Phosphatase 129 (40-150) Total Protein 5.8 L (6.0-8.0) g/dL Albumin 3.2 L (3.4-4.8) g/dL Globulin 2.6 (2.0-3.5) g/dL Albumin/Globulin Ratio 1.2 L (1.3-2.8) Med Orders - Current: Current Medications Folic Acid (Folic Acid) 1 mg SUBCUT DAILY [facility] Last Admin: 01/22/17 08:21 Dose: 1 mg Hydromorphone HCl (Dilaudid) 1 mg IVPUSH Q2H PRN PRN Reason: Pain (severe 7-10) Last Admin: 01/23/17 01:11 Dose: 1 mg Pantoprazole Sodium 40 mg/ (Sodium Chloride) 10 mls @ 300 mls/hr IVPUSH DAILY ELISA Last Admin: 01/22/17 08:22 Dose: 300 mls/hr Sodium Chloride (Normal Saline) 1,000 mls @ 999 mls/hr IV .BOLUS [facility] Last Admin: 01/19/17 16:23 Dose: 999 mls/hr Sodium Chloride (Normal Saline) 1,000 mls @ 200 mls/hr IV ASDIRECTED [facility] Last Admin: 01/23/17 07:02 Dose: 200 mls/hr Lorazepam (Ativan) 0 mg IV Q4H PRN; Protocol PRN Reason: CIWAA Last Admin: 01/22/17 22:31 Dose: 2 mg Ondansetron HCl (Zofran) 4 mg IVPUSH Q4H PRN PRN Reason: Nausea Last Admin: 01/22/17 17:45 Dose: 4 mg Potassium Chloride (Klor-Con M20) 40 meq PO DAILY [facility] Last Admin: 01/22/17 11:06 Dose: 40 meq Thiamine HCl (Vitamin B-1) 100 mg IV DAILY [facility] Last Admin: 01/22/17 08:21 Dose: 100 mg Discontinued Medications Sodium Chloride (Normal Saline) 1,000 mls @ 999 mls/hr IV STAT ONE Stop: 01/19/17 12:56 Last Admin: 01/19/17 12:29 Dose: 999 mls/hr Multivitamins/Minerals 10 ml/Thiamine HCl 100 mg/ Folic Acid 1 mg/ Sodium Chloride 1,011.2 mls @ 999 mls/hr IV ONETIME ONE Stop: 01/19/17 13:13 Last Admin: 01/19/17 12:34 Dose: 999 mls/hr Magnesium Sulfate 2 gm/ Premix 50 mls @ 25 mls/hr IV ONETIME ONE Stop: 01/19/17 21:04 Last Admin: 01/19/17 19:41 Dose: 25 mls/hr Magnesium Sulfate 2 gm/ Premix 50 mls @ 50 mls/hr IV ONETIME ONE Stop: 01/20/17 13:25 Last Admin: 01/20/17 13:00 Dose: 50 mls/hr Potassium Chloride/Sodium Chloride (Normal Saline With 40 Meq Kcl) 1,000 mls @ 150 mls/hr IV ASDIRECTED [facility] Stop: 01/20/17 19:09 Last Admin: 01/20/17 13:01 Dose: 150 mls/hr Magnesium Sulfate 2 gm/ Premix 50 mls @ 50 mls/hr IV ONETIME ONE Stop: 01/21/17 12:35 Last Admin: 01/21/17 12:02 Dose: 50 mls/hr Potassium Chloride/Sodium Chloride (Normal Saline With 40 Meq Kcl) 1,000 mls @ 150 mls/hr IV ASDIRECTED ELISA Stop: 01/21/17 18:24 Last Admin: 01/21/17 12:04 Dose: 150 mls/hr Magnesium Sulfate 2 gm/ Premix 50 mls @ 50 mls/hr IV ONETIME ONE Stop: 01/22/17 10:06 Last Admin: 01/22/17 11:09 Dose: Not Given Potassium Chloride 40 meq/Magnesium Sulfate 2 gm/Potassium Phosphate 5 mmole/ Sodium Chloride 525.6667 mls @ 125 mls/hr IV ONETIME ONE Stop: 01/22/17 14:24 Last Admin: 01/22/17 11:09 Dose: Not Given Potassium Chloride 40 meq/Magnesium Sulfate 2 gm/Potassium Phosphate 5 mmole/ Sodium Chloride 525.6667 mls @ 125 mls/hr IV ONETIME ONE Stop: 01/22/17 14:24 Last Admin: 01/22/17 11:07 Dose: 125 mls/hr Iopamidol (Isovue Multipack-370 (76%)) 100 ml IVPUSH ONETIME STA Stop: 01/19/17 13:01 Last Admin: 01/19/17 13:00 Dose: 100 ml Ketorolac Tromethamine (Toradol) 30 mg IVPUSH ONETIME ONE Stop: 01/19/17 11:57 Last Admin: 01/19/17 12:29 Dose: 30 mg Morphine Sulfate (Morphine) 2 mg IV ONETIME ONE Stop: 01/19/17 13:03 Last Admin: 01/19/17 13:46 Dose: 2 mg Ondansetron HCl (Zofran) 8 mg IVPUSH ONETIME ONE Stop: 01/19/17 11:57 Last Admin: 01/19/17 12:29 Dose: 8 mg Pantoprazole Sodium (Protonix Iv) 80 mg IVPUSH .BOLUS ONE Stop: 01/19/17 12:00 Last Admin: 01/19/17 12:30 Dose: 80 mg Sodium Phosphate (Neutra-Phos) 250 mg PO ONETIME ONE Stop: 01/21/17 11:56 Last Admin: 01/21/17 12:04 Dose: 250 mg - Exam General: alert, mild distress HEENT: Pupils equal, EOMI Neck: supple, trachea midline Lungs: Decreased breath sounds Cardiovascular: Regular Rate, Regular Rhythm Abdomen: bowel sounds present, soft, no tenderness Back Exam: Normal Inspection Extremities: no edema Skin: warm, dry, intact Neurological: no new focal deficit Psy/Mental Status: alert, normal affect, normal mood - Problem List Review Problem List Initiated/Reviewed/Updated: Yes - My Orders Last 24 Hours: My Active Orders 01/22/17 09:15 Potassium Chloride [Klor-Con M20] 40 meq PO DAILY 01/23/17 07:33 MAGNESIUM [CHEM] Routine PHOSPHORUS [CHEM] Routine - Plan Plan:: This 71 year old female admitted with suspected alcohol vs biliary induced acute on chronic pancreatitis 1. Acute pancreatitis: Bowel rest, IV fluid resuscitation, Analgesia with dilaudid PRN, anti-emetics PRN. Will obtain lipid panel and abdominal US. 2. Alcohol abuse: Currently intoxicated. Will add CIWAA protocol with Ativan Q4hrs. Supplement with Folate and Thiamine. Protonix IV daily. 3. HTN: Monitor will add Lopressor IV PRN, hold PO meds for now. 4. Malnutrition: Due to alcohol abuse, reports not eating well for last 2 weeks. Monitor mag and phos. Supplement as needed VTE prophylaxis: SCDs only due to GI bleeding risk Dispo: 2-4 days. January 20, 2017:The patient is a 71-year-old lady who was admitted primarily for hypertension, EtOH abuse, cholelithiasis and mild recurrent pancreatitis. Patient had presented on January 19, 2017 and was admitted accordingly. The patient had been admitted for similar situation on November 11, 2016. The patient had been remanded to stop drinking and unfortunately she still continues to consume a pint plus of whiskey per day. Patient also has been noted to have cholelithiasis and until the patient's pancreatitis and alcohol consumption is under control she is a poor candidate for cholecystectomy. The patient was previously evaluated by a surgeon on December 05, 2016. The patient today says that she has been having mid to right upper quadrant abdominal pain and she has been kept nothing by mouth. The patient is on IV fluids at 200 mL per hour of normal saline. This will be continued. I suspect that the patient's hypertension is likely secondary to pain and alcohol withdrawal and this will be controlled with medications that she is currently on.The patient's pain is being controlled with the use of narcotic Dilaudid. She's also being kept on alcohol withdrawal protocol. On admission the patient's alcohol level was 0.276. The patient's potassium and magnesium have been replaced by IV. I've encouraged patient ambulate. The patient likely without complications may be able to be discharged in 1-2 days. Patient's treatment plan will be adjusted accordingly. January 21, 2017: The patient is a 71-year-old lady who was admitted secondary to alcoholic pancreatitis. Patient was admitted on January 20, 2017 and also has been watched for alcohol withdrawal. Patient does have a history of cholelithiasis and currently is not a surgical candidate secondary to pancreatitis and her alcohol consumption. Today the patient says that she is still having mid abdominal pain and she rates it about a 5 out of 10. Patient also has been nothing by mouth and she has been maintained on fluids. The patient has denied any nausea or vomiting today. The patient also is hypokalemic at this time and her magnesium was also low. The patient's alkaline phosphatase has normalized and her AST has dropped down to 43. The patient has not been able to ambulate yet and she feels weak. The patient still has hypokalemia as well as hypomagnesemia. The patient's potassium today is 2.7 mmol per liter and her magnesium is 1.4 mmol per liter. Both of these been replaced IV. They will be continued to be monitored. Also the patient will be continued on CIWAA protocol for alcohol withdrawal. The patient may be appropriate for discharge in 1-2 days depending upon her overall physical condition. I had a long discussion with the patient and her and of informed both of them that she absolutely cannot drink ever again. I have my doubts with this patient for continued sobriety. January 22, 2017 Alcoholic pancreatitis: slowly improving, start clear liquid diet today. Cholelithiasis: Not a surgical candidate 2/2 alcohol and acute pancreatitis. Hypokalemia, Hypomagnesium, Hypophos: replaced 3 in I.V along with PO KCL HTN: stable Alcohol abuse: On CIWAA protocol. VTE prophylaxis: SCD January 23, 2017 Alcoholic Pancreatitis: still experiencing epigastric discomfort. NPO. she is not able to tolerate fluids yesterday Cholelithiasis: monitor Hypokalemia, hypomagnesemia, hypophosphatemia: Replaced with by mouth medication. Alcohol abuse: CIWAA HTN: stable VTE prophylaxis: SCD boots Nicotine withdrawal: Nicoderm patch 21 mg daily <Brian Fitch - Last Filed: 01/23/17 16:51> - Patient Data Vitals - most recent: Last Vital Signs Temp 35.4 C 01/23/17 16:00 Pulse 89 01/23/17 16:00 Resp 18 01/23/17 16:00 BP 180/105 H 01/23/17 16:00 Pulse Ox 97 01/23/17 16:00 I&O - last 24 hours: Intake & Output 01/23/17 01/23/17 01/23/17 06:59 14:59 22:59 Intake Total 1010 1000 Output Total 2200 Balance -1190 1000 Lab Results last 24 hrs: Laboratory Results - last 24 hr 01/23/17 01/23/17 01/23/17 Range/Units 05:38 05:38 05:38 WBC 7.00 (4.0-11.0) K/uL RBC 3.65 L (4.30-5.90) M/uL Hgb 12.5 (12.0-16.0) g/dL Hct 36.4 (36.0-46.0) % MCV 99.7 H (80.0-98.0) fL MCH 34.2 H (27.0-32.0) pg MCHC 34.3 (31.0-37.0) g/dL RDW Std Deviation 51.6 (28.0-62.0) fl RDW Coeff of Katerina 14 (11.0-15.0) % Plt Count 150 (150-400) K/uL MPV 9.60 (7.40-12.00) fL Neut % (Auto) 56.0 (48.0-80.0) % Lymph % (Auto) 28.9 (16.0-40.0) % Ward % (Auto) 11.6 (0.0-15.0) % Eos % (Auto) 3.1 (0.0-7.0) % Baso % (Auto) 0.4 (0.0-1.5) % Neut # (Auto) 3.9 (1.4-5.7) K/uL Lymph # (Auto) 2.0 (0.6-2.4) K/uL Ward # (Auto) 0.8 (0.0-0.8) K/uL Eos # (Auto) 0.2 (0.0-0.7) K/uL Baso # (Auto) 0.0 (0.0-0.1) K/uL Nucleated RBC % 0.0 /100WBC Nucleated RBCs # 0 K/uL Sodium 140 (136-146) mmol/L Potassium 2.8 L (3.5-5.1) mmol/L Chloride 112 H (98-110) mmol/L Carbon Dioxide 18 L (21-31) mmol/L BUN 3 L (6.0-23.0) mg/dL Creatinine 0.5 L (0.6-1.5) mg/dL Est Cr Clr Drug Dosing 91.70 mL/min Estimated GFR (MDRD) > 60.0 ml/min Glucose 90 (60-110) mg/dL Calcium 7.7 L (8.8-10.8) mg/dL Phosphorus 1.6 L (2.4-4.7) mg/dL Magnesium 1.3 L (1.5-2.3) mEq/L Total Bilirubin 2.0 H (0.1-1.5) mg/dL AST 39 (5-40) IU/L ALT 27 (8-54) IU/L Alkaline Phosphatase 129 (40-150) Total Protein 5.8 L (6.0-8.0) g/dL Albumin 3.2 L (3.4-4.8) g/dL Globulin 2.6 (2.0-3.5) g/dL Albumin/Globulin Ratio 1.2 L (1.3-2.8) Med Orders - Current: Current Medications Folic Acid (Folic Acid) 1 mg SUBCUT DAILY [facility] Last Admin: 01/23/17 10:08 Dose: 1 mg Hydromorphone HCl (Dilaudid) 1 mg IVPUSH Q2H PRN PRN Reason: Pain (severe 7-10) Last Admin: 01/23/17 14:34 Dose: 1 mg Pantoprazole Sodium 40 mg/ (Sodium Chloride) 10 mls @ 300 mls/hr IVPUSH DAILY [facility] Last Admin: 01/23/17 10:12 Dose: 300 mls/hr Sodium Chloride (Normal Saline) 1,000 mls @ 999 mls/hr IV .BOLUS [facility] Last Admin: 01/19/17 16:23 Dose: 999 mls/hr Sodium Chloride (Normal Saline) 1,000 mls @ 200 mls/hr IV ASDIRECTED [facility] Last Admin: 01/23/17 13:26 Dose: 200 mls/hr Lorazepam (Ativan) 0 mg IV Q4H PRN; Protocol PRN Reason: CIWAA Last Admin: 01/22/17 22:31 Dose: 2 mg Nicotine (Habitrol) 21 mg TRDERM DAILY [facility] Last Admin: 01/23/17 10:09 Dose: 21 mg Ondansetron HCl (Zofran) 4 mg IVPUSH Q4H PRN PRN Reason: Nausea Last Admin: 01/23/17 12:37 Dose: 4 mg Potassium Chloride (Potassium Chloride) 40 meq PO DAILY [facility] Last Admin: 01/23/17 10:09 Dose: 40 meq Sodium Phosphate (Neutra-Phos) 250 mg PO QID [facility] Last Admin: 01/23/17 11:19 Dose: 250 mg Thiamine HCl (Vitamin B-1) 100 mg IV DAILY [facility] Last Admin: 01/23/17 10:08 Dose: 100 mg Discontinued Medications Sodium Chloride (Normal Saline) 1,000 mls @ 999 mls/hr IV STAT ONE Stop: 01/19/17 12:56 Last Admin: 01/19/17 12:29 Dose: 999 mls/hr Multivitamins/Minerals 10 ml/Thiamine HCl 100 mg/ Folic Acid 1 mg/ Sodium Chloride 1,011.2 mls @ 999 mls/hr IV ONETIME ONE Stop: 01/19/17 13:13 Last Admin: 01/19/17 12:34 Dose: 999 mls/hr Magnesium Sulfate 2 gm/ Premix 50 mls @ 25 mls/hr IV ONETIME ONE Stop: 01/19/17 21:04 Last Admin: 01/19/17 19:41 Dose: 25 mls/hr Magnesium Sulfate 2 gm/ Premix 50 mls @ 50 mls/hr IV ONETIME ONE Stop: 01/20/17 13:25 Last Admin: 01/20/17 13:00 Dose: 50 mls/hr Potassium Chloride/Sodium Chloride (Normal Saline With 40 Meq Kcl) 1,000 mls @ 150 mls/hr IV ASDIRECTED [facility] Stop: 01/20/17 19:09 Last Admin: 01/20/17 13:01 Dose: 150 mls/hr Magnesium Sulfate 2 gm/ Premix 50 mls @ 50 mls/hr IV ONETIME ONE Stop: 01/21/17 12:35 Last Admin: 01/21/17 12:02 Dose: 50 mls/hr Potassium Chloride/Sodium Chloride (Normal Saline With 40 Meq Kcl) 1,000 mls @ 150 mls/hr IV ASDIRECTED [facility] Stop: 01/21/17 18:24 Last Admin: 01/21/17 12:04 Dose: 150 mls/hr Magnesium Sulfate 2 gm/ Premix 50 mls @ 50 mls/hr IV ONETIME ONE Stop: 01/22/17 10:06 Last Admin: 01/22/17 11:09 Dose: Not Given Potassium Chloride 40 meq/Magnesium Sulfate 2 gm/Potassium Phosphate 5 mmole/ Sodium Chloride 525.6667 mls @ 125 mls/hr IV ONETIME ONE Stop: 01/22/17 14:24 Last Admin: 01/22/17 11:09 Dose: Not Given Potassium Chloride 40 meq/Magnesium Sulfate 2 gm/Potassium Phosphate 5 mmole/ Sodium Chloride 525.6667 mls @ 125 mls/hr IV ONETIME ONE Stop: 01/22/17 14:24 Last Admin: 01/22/17 11:07 Dose: 125 mls/hr Magnesium Sulfate 2 gm/ Premix 50 mls @ 50 mls/hr IV ONETIME ONE Stop: 01/23/17 10:04 Last Admin: 01/23/17 10:08 Dose: 50 mls/hr Iopamidol (Isovue Multipack-370 (76%)) 100 ml IVPUSH ONETIME STA Stop: 01/19/17 13:01 Last Admin: 01/19/17 13:00 Dose: 100 ml Ketorolac Tromethamine (Toradol) 30 mg IVPUSH ONETIME ONE Stop: 01/19/17 11:57 Last Admin: 01/19/17 12:29 Dose: 30 mg Morphine Sulfate (Morphine) 2 mg IV ONETIME ONE Stop: 01/19/17 13:03 Last Admin: 01/19/17 13:46 Dose: 2 mg Ondansetron HCl (Zofran) 8 mg IVPUSH ONETIME ONE Stop: 01/19/17 11:57 Last Admin: 01/19/17 12:29 Dose: 8 mg Pantoprazole Sodium (Protonix Iv) 80 mg IVPUSH .BOLUS ONE Stop: 01/19/17 12:00 Last Admin: 01/19/17 12:30 Dose: 80 mg Potassium Chloride (Klor-Con M20) 40 meq PO DAILY ELISA Last Admin: 01/23/17 09:43 Dose: Not Given Sodium Phosphate (Neutra-Phos) 250 mg PO ONETIME ONE Stop: 01/21/17 11:56 Last Admin: 01/21/17 12:04 Dose: 250 mg - Problem List & Annotations (1) Pancreatitis SNOMED Code(s): 06305239 Code(s): K85.90 - ACUTE PANCREATITIS WITHOUT NECROSIS OR INFECTION, UNSP Status: Chronic Priority: High Current Visit: Yes Qualifiers: Chronicity: acute Pancreatitis type: alcohol induced Acute pancreatitis complication: no infection or necrosis Qualified Code(s): K85.20 - Alcohol induced acute pancreatitis without necrosis or infection (2) Alcohol intoxication SNOMED Code(s): 32134383 Code(s): F10.929 - ALCOHOL USE, UNSPECIFIED WITH INTOXICATION, UNSPECIFIED Status: Chronic Priority: High Current Visit: Yes Qualifiers: Complication of substance-induced condition: with unspecified complication Qualified Code(s): F10.929 - Alcohol use, unspecified with intoxication, unspecified (3) Cholelithiasis SNOMED Code(s): 362712302 Code(s): K80.20 - CALCULUS OF GALLBLADDER W/O CHOLECYSTITIS W/O OBSTRUCTION Status: Chronic Priority: Medium Current Visit: No Qualifiers: Cholelithiasis location: gallbladder Cholecystitis presence: without cholecystitis Biliary obstruction: without biliary obstruction Qualified Code(s): K80.20 - Calculus of gallbladder without cholecystitis without obstruction (4) Hypokalemia SNOMED Code(s): 21374911 Code(s): E87.6 - HYPOKALEMIA Status: Chronic Priority: High Current Visit: Yes Annotation/Comment:: Replaced by IV (5) Hypomagnesemia SNOMED Code(s): 710717282 Code(s): E83.42 - HYPOMAGNESEMIA Status: Chronic Priority: High Current Visit: Yes Annotation/Comment:: Replaced by IV - Plan Plan:: January 23, 2017: The patient's potassium is also been replaced on a daily basis. I was present with the resident during history and examination. I discussed the case with the resident and agree with the findings and plan as documented in the residents note.
[2017-01-23] MEDS ORDERED: Magnesium Sulfate/Water 2 GM in Premix Bag 1 BAG IV ONE (09:05)
[2017-01-23] MEDS: Potassium Chloride 20 MEQ Tab.ER PO SCH (09:43)
[2017-01-23] MEDS: Thiamine 200 MG/2 ML MDV IV SCH (10:08)
[2017-01-23] MEDS: Folic Acid 50 MG/10 ML MDV SUBCUT SCH (10:08)
[2017-01-23] MEDS: Nicotine 21 MG/24 Hr Patch TRDERM SCH (10:09)
[2017-01-23] MEDS: Potassium Chloride 10% 20 MEQ/15 ML Soln 30 ML UD Cup PO SCH (10:09)
[2017-01-23] MEDS: Pantoprazole 40 MG in Sodium Chloride 0.9% 10 ML IVPUSH SCH (10:12)
[2017-01-23] MEDS: Phosphorus #1 250 MG Tab PO SCH ×3 (11:19→23:16)
[2017-01-23] MEDS: Ondansetron 4 MG/2 ML SDV IVPUSH PRN (12:37)
[2017-01-23] MEDS: LORazepam 2 MG/ML MDV IV PRN (23:14)
[2017-01-24] MEDS: HYDROmorphone 2 MG/ML Syringe IVPUSH PRN ×5 (00:26→20:44)
[2017-01-24] MEDS: LORazepam 2 MG/ML MDV IV PRN ×2 (03:55→20:42)
[2017-01-24] MEDS: Sodium Chloride 0.9% 1,000 ML IV SCH ×3 (05:27→16:06)
[2017-01-24] MEDS: Phosphorus #1 250 MG Tab PO SCH ×3 (06:47→17:45)
[2017-01-24] MEDS: Nicotine 21 MG/24 Hr Patch TRDERM SCH (09:35)
[2017-01-24] MEDS: Thiamine 200 MG/2 ML MDV IV SCH (09:35)
[2017-01-24] MEDS: Folic Acid 50 MG/10 ML MDV SUBCUT SCH (09:35)
[2017-01-24] MEDS: Potassium Chloride 10% 20 MEQ/15 ML Soln 30 ML UD Cup PO SCH ×2 (09:36→11:07)
[2017-01-24] MEDS: Pantoprazole 40 MG in Sodium Chloride 0.9% 10 ML IVPUSH SCH (09:38)
[2017-01-24 10:26] LABS: CHLORIDE,CL 110 mmol/L (98-110); SODIUM,NA 142 mmol/L (136-146)
[2017-01-24] MEDS ORDERED: Magnesium Sulfate/Water 2 GM in Premix Bag 1 BAG IV ONE (14:12)
[2017-01-24] MEDS: Sertraline 100 MG Tab PO SCH (16:00)
[2017-01-24] MEDS: Spironolactone 25 MG Tab PO SCH ×2 (16:00→20:40)
--- NOTE | 2017-01-24 16:01 | PCM.PN ---
- General Info Date of Service: 01/24/17 Subjective Update: she is tolerating clear liquids. Functional Status: Reports: pain controlled, tolerating diet, urinating - Review of Systems General: Reports: Fatigue HEENT: Reports: no symptoms Pulmonary: Reports: no symptoms Cardiovascular: Reports: No Symptoms Gastrointestinal: Reports: Abdominal pain (improving ) Musculoskeletal: Reports: no symptoms Skin: Reports: no symptoms Neurological: Reports: No Symptoms Psychiatric: Reports: no symptoms - Patient Data Vitals - most recent: Last Vital Signs Temp 96.9 F 01/24/17 12:00 Pulse 79 01/24/17 12:00 Resp 20 01/24/17 12:00 BP 170/95 H 01/24/17 12:00 Pulse Ox 100 01/24/17 15:00 Weight - most recent: 58.468 kg I&O - last 24 hours: Intake & Output 01/24/17 01/24/17 01/24/17 06:59 14:59 22:59 Intake Total 1945 Output Total 1200 Balance 745 Lab Results last 24 hrs: Laboratory Results - last 24 hr 01/24/17 01/24/17 01/24/17 Range/Units 04:48 09:36 09:36 WBC 5.16 (4.0-11.0) K/uL RBC 3.71 L (4.30-5.90) M/uL Hgb 12.9 (12.0-16.0) g/dL Hct 36.7 (36.0-46.0) % MCV 98.9 H (80.0-98.0) fL MCH 34.8 H (27.0-32.0) pg MCHC 35.1 (31.0-37.0) g/dL RDW Std Deviation 51.3 (28.0-62.0) fl RDW Coeff of Katerina 14 (11.0-15.0) % Plt Count 118 L (150-400) K/uL MPV 9.50 (7.40-12.00) fL Neut % (Auto) 49.6 (48.0-80.0) % Lymph % (Auto) 33.3 (16.0-40.0) % [place] % (Auto) 13.6 (0.0-15.0) % Eos % (Auto) 2.9 (0.0-7.0) % Baso % (Auto) 0.6 (0.0-1.5) % Neut # (Auto) 2.6 (1.4-5.7) K/uL Lymph # (Auto) 1.7 (0.6-2.4) K/uL [place] # (Auto) 0.7 (0.0-0.8) K/uL Eos # (Auto) 0.2 (0.0-0.7) K/uL Baso # (Auto) 0.0 (0.0-0.1) K/uL Nucleated RBC % 0.0 /100WBC Nucleated RBCs # 0 K/uL Sodium 142 (136-146) mmol/L Potassium 2.3 L* (3.5-5.1) mmol/L Chloride 110 (98-110) mmol/L Carbon Dioxide 22 (21-31) mmol/L BUN 1 L (6.0-23.0) mg/dL Creatinine 0.4 L (0.6-1.5) mg/dL Est Cr Clr Drug Dosing 114.62 mL/min Estimated GFR (MDRD) > 60.0 ml/min Glucose 100 (60-110) mg/dL Calcium 7.6 L (8.8-10.8) mg/dL Phosphorus 2.6 (2.4-4.7) mg/dL Magnesium 1.4 L (1.5-2.3) mEq/L Med Orders - Current: Current Medications Folic Acid (Folic Acid) 1 mg SUBCUT DAILY [facility] Last Admin: 01/24/17 09:35 Dose: 1 mg Hydromorphone HCl (Dilaudid) 1 mg IVPUSH Q2H PRN PRN Reason: Pain (severe 7-10) Last Admin: 01/24/17 02:14 Dose: 1 mg Pantoprazole Sodium 40 mg/ (Sodium Chloride) 10 mls @ 300 mls/hr IVPUSH DAILY [facility] Last Admin: 01/24/17 09:38 Dose: 300 mls/hr Sodium Chloride (Normal Saline) 1,000 mls @ 999 mls/hr IV .BOLUS [facility] Last Admin: 01/19/17 16:23 Dose: 999 mls/hr Sodium Chloride (Normal Saline) 1,000 mls @ 200 mls/hr IV ASDIRECTED [facility] Last Admin: 01/24/17 10:32 Dose: 200 mls/hr Lorazepam (Ativan) 0 mg IV Q4H PRN; Protocol PRN Reason: CIWAA Last Admin: 01/24/17 03:55 Dose: 1 mg Metoprolol Tartrate (Lopressor) 25 mg PO BID [facility] Nicotine (Habitrol) 21 mg TRDERM DAILY [facility] Last Admin: 01/24/17 09:35 Dose: 21 mg Ondansetron HCl (Zofran) 4 mg IVPUSH Q4H PRN PRN Reason: Nausea Last Admin: 01/23/17 12:37 Dose: 4 mg Potassium Chloride (Potassium Chloride) 40 meq PO DAILY [facility] Last Admin: 01/24/17 09:36 Dose: 40 meq Potassium Chloride (Potassium Chloride) 40 meq PO DAILY [facility] Last Admin: 01/24/17 11:07 Dose: 40 meq Sertraline HCl (Zoloft) 100 mg PO DAILY [facility] Sodium Phosphate (Neutra-Phos) 250 mg PO QID [facility] Last Admin: 01/24/17 11:07 Dose: 250 mg Spironolactone (Aldactone) 25 mg PO BID [facility] Thiamine HCl (Vitamin B-1) 100 mg IV DAILY [facility] Last Admin: 01/24/17 09:35 Dose: 100 mg Discontinued Medications Sodium Chloride (Normal Saline) 1,000 mls @ 999 mls/hr IV STAT ONE Stop: 01/19/17 12:56 Last Admin: 01/19/17 12:29 Dose: 999 mls/hr Multivitamins/Minerals 10 ml/Thiamine HCl 100 mg/ Folic Acid 1 mg/ Sodium Chloride 1,011.2 mls @ 999 mls/hr IV ONETIME ONE Stop: 01/19/17 13:13 Last Admin: 01/19/17 12:34 Dose: 999 mls/hr Magnesium Sulfate 2 gm/ Premix 50 mls @ 25 mls/hr IV ONETIME ONE Stop: 01/19/17 21:04 Last Admin: 01/19/17 19:41 Dose: 25 mls/hr Magnesium Sulfate 2 gm/ Premix 50 mls @ 50 mls/hr IV ONETIME ONE Stop: 01/20/17 13:25 Last Admin: 01/20/17 13:00 Dose: 50 mls/hr Potassium Chloride/Sodium Chloride (Normal Saline With 40 Meq Kcl) 1,000 mls @ 150 mls/hr IV ASDIRECTED [facility] Stop: 01/20/17 19:09 Last Admin: 01/20/17 13:01 Dose: 150 mls/hr Magnesium Sulfate 2 gm/ Premix 50 mls @ 50 mls/hr IV ONETIME ONE Stop: 01/21/17 12:35 Last Admin: 01/21/17 12:02 Dose: 50 mls/hr Potassium Chloride/Sodium Chloride (Normal Saline With 40 Meq Kcl) 1,000 mls @ 150 mls/hr IV ASDIRECTED [facility] Stop: 01/21/17 18:24 Last Admin: 01/21/17 12:04 Dose: 150 mls/hr Magnesium Sulfate 2 gm/ Premix 50 mls @ 50 mls/hr IV ONETIME ONE Stop: 01/22/17 10:06 Last Admin: 01/22/17 11:09 Dose: Not Given Potassium Chloride 40 meq/Magnesium Sulfate 2 gm/Potassium Phosphate 5 mmole/ Sodium Chloride 525.6667 mls @ 125 mls/hr IV ONETIME ONE Stop: 01/22/17 14:24 Last Admin: 01/22/17 11:09 Dose: Not Given Potassium Chloride 40 meq/Magnesium Sulfate 2 gm/Potassium Phosphate 5 mmole/ Sodium Chloride 525.6667 mls @ 125 mls/hr IV ONETIME ONE Stop: 01/22/17 14:24 Last Admin: 01/22/17 11:07 Dose: 125 mls/hr Magnesium Sulfate 2 gm/ Premix 50 mls @ 50 mls/hr IV ONETIME ONE Stop: 01/23/17 10:04 Last Admin: 01/23/17 10:08 Dose: 50 mls/hr Magnesium Sulfate 2 gm/ Premix 50 mls @ 50 mls/hr IV ONETIME ONE Stop: 01/24/17 15:11 Last Admin: 01/24/17 14:25 Dose: 50 mls/hr Iopamidol (Isovue Multipack-370 (76%)) 100 ml IVPUSH ONETIME STA Stop: 01/19/17 13:01 Last Admin: 01/19/17 13:00 Dose: 100 ml Ketorolac Tromethamine (Toradol) 30 mg IVPUSH ONETIME ONE Stop: 01/19/17 11:57 Last Admin: 01/19/17 12:29 Dose: 30 mg Morphine Sulfate (Morphine) 2 mg IV ONETIME ONE Stop: 01/19/17 13:03 Last Admin: 01/19/17 13:46 Dose: 2 mg Ondansetron HCl (Zofran) 8 mg IVPUSH ONETIME ONE Stop: 01/19/17 11:57 Last Admin: 01/19/17 12:29 Dose: 8 mg Pantoprazole Sodium (Protonix Iv) 80 mg IVPUSH .BOLUS ONE Stop: 01/19/17 12:00 Last Admin: 01/19/17 12:30 Dose: 80 mg Potassium Chloride (Klor-Con M20) 40 meq PO DAILY [facility] Last Admin: 01/23/17 09:43 Dose: Not Given Sodium Phosphate (Neutra-Phos) 250 mg PO ONETIME ONE Stop: 01/21/17 11:56 Last Admin: 01/21/17 12:04 Dose: 250 mg - Exam General: alert, cooperative HEENT: Pupils equal, EOMI Neck: supple, trachea midline Lungs: Decreased breath sounds Cardiovascular: Regular Rate, Regular Rhythm - Problem List Review Problem List Initiated/Reviewed/Updated: Yes - My Orders Last 24 Hours: My Active Orders 01/24/17 10:45 Potassium Chloride 40 meq PO DAILY 01/24/17 15:45 Metoprolol Tartrate [Lopressor] 25 mg PO BID Sertraline [Zoloft] 100 mg PO DAILY Spironolactone [Aldactone] 25 mg PO BID 01/24/17 Dinner Regular Diet [DIET] 01/25/17 05:11 MAGNESIUM [CHEM] AM PHOSPHORUS [CHEM] AM 01/26/17 05:11 MAGNESIUM [CHEM] AM PHOSPHORUS [CHEM] AM - Plan Plan:: Hypokalemia: potassium is 2.3: she is receiving daily i.v potasium and an additional dose was replaced Hypomagnesimia; replaced I.V mag 2 g x1 Phosphate wnl continue to monitor electrolytes ADAT resume her home blood pressure medications and zoloft.
[2017-01-24] MEDS: Metoprolol Tartrate 25 MG Tab PO SCH ×2 (16:03→20:40)
[2017-01-24] MEDS: Ondansetron 4 MG/2 ML SDV IVPUSH PRN (20:41)
[2017-01-25] MEDS: Ondansetron 4 MG/2 ML SDV IVPUSH PRN (00:09)
[2017-01-25] MEDS: HYDROmorphone 2 MG/ML Syringe IVPUSH PRN ×2 (00:09→08:39)
[2017-01-25] MEDS: LORazepam 2 MG/ML MDV IV PRN (00:12)
[2017-01-25] MEDS: Phosphorus #1 250 MG Tab PO SCH ×3 (00:13→12:21)
[2017-01-25 05:53] LABS: CHLORIDE,CL 113 mmol/L (98-110); SODIUM,NA 143 mmol/L (136-146)
[2017-01-25] MEDS ORDERED: Magnesium Sulfate/Water 2 GM in Premix Bag 1 BAG IV ONE (08:03)
[2017-01-25] MEDS: Thiamine 200 MG/2 ML MDV IV SCH (08:41)
[2017-01-25] MEDS: Folic Acid 50 MG/10 ML MDV SUBCUT SCH (08:42)
[2017-01-25] MEDS: Nicotine 21 MG/24 Hr Patch TRDERM SCH (08:43)
[2017-01-25] MEDS: Potassium Chloride 10% 20 MEQ/15 ML Soln 30 ML UD Cup PO SCH ×2 (08:44→08:51)
[2017-01-25] MEDS: Spironolactone 25 MG Tab PO SCH (08:45)
[2017-01-25] MEDS: Sertraline 100 MG Tab PO SCH (08:45)
[2017-01-25] MEDS: Metoprolol Tartrate 25 MG Tab PO SCH (08:46)
[2017-01-25] MEDS: Pantoprazole 40 MG in Sodium Chloride 0.9% 10 ML IVPUSH SCH (09:08)
--- NOTE | 2017-01-25 10:50 | PCM.PN ---
- General Info Date of Service: 01/25/17 Subjective Update: she is tolerating regular diet. Still feels nauseous with mild epigastric discomfort. Functional Status: Reports: pain controlled, tolerating diet, urinating - Review of Systems General: Reports: No Symptoms HEENT: Reports: no symptoms Pulmonary: Reports: no symptoms Cardiovascular: Reports: No Symptoms Gastrointestinal: Reports: Abdominal pain (improving) Genitourinary: Reports: no symptoms Musculoskeletal: Reports: no symptoms Skin: Reports: no symptoms Neurological: Reports: No Symptoms Psychiatric: Reports: no symptoms - Patient Data Vitals - most recent: Last Vital Signs Temp 96.9 F 01/25/17 08:00 Pulse 79 01/25/17 08:46 Resp 20 01/25/17 08:00 BP 141/71 H 01/25/17 08:46 Pulse Ox 97 01/25/17 08:00 Weight - most recent: 58.468 kg I&O - last 24 hours: Intake & Output 01/24/17 01/25/17 01/25/17 22:59 06:59 14:59 Intake Total 1800 1500 Output Total 1300 775 Balance 500 725 Lab Results last 24 hrs: Laboratory Results - last 24 hr 01/25/17 01/25/17 Range/Units 05:04 05:04 WBC 7.71 (4.0-11.0) K/uL RBC 3.59 L (4.30-5.90) M/uL Hgb 12.6 (12.0-16.0) g/dL Hct 35.8 L (36.0-46.0) % MCV 99.7 H (80.0-98.0) fL MCH 35.1 H (27.0-32.0) pg MCHC 35.2 (31.0-37.0) g/dL RDW Std Deviation 53.9 (28.0-62.0) fl RDW Coeff of Katerina 15 (11.0-15.0) % Plt Count 121 L (150-400) K/uL MPV 9.70 (7.40-12.00) fL Neut % (Auto) 46.6 L (48.0-80.0) % Lymph % (Auto) 35.0 (16.0-40.0) % [place] % (Auto) 14.4 (0.0-15.0) % Eos % (Auto) 3.5 (0.0-7.0) % Baso % (Auto) 0.5 (0.0-1.5) % Neut # (Auto) 3.6 (1.4-5.7) K/uL Lymph # (Auto) 2.7 H (0.6-2.4) K/uL [place] # (Auto) 1.1 H (0.0-0.8) K/uL Eos # (Auto) 0.3 (0.0-0.7) K/uL Baso # (Auto) 0.0 (0.0-0.1) K/uL Nucleated RBC % 0.0 /100WBC Nucleated RBCs # 0 K/uL Sodium 143 (136-146) mmol/L Potassium 2.6 L (3.5-5.1) mmol/L Chloride 113 H (98-110) mmol/L Carbon Dioxide 23 (21-31) mmol/L BUN 2 L (6.0-23.0) mg/dL Creatinine 0.5 L (0.6-1.5) mg/dL Est Cr Clr Drug Dosing 91.70 mL/min Estimated GFR (MDRD) > 60.0 ml/min Glucose 95 (60-110) mg/dL Calcium 8.0 L (8.8-10.8) mg/dL Phosphorus 3.7 (2.4-4.7) mg/dL Magnesium 1.4 L (1.5-2.3) mEq/L Med Orders - Current: Current Medications Folic Acid (Folic Acid) 1 mg SUBCUT DAILY [facility] Last Admin: 01/25/17 08:42 Dose: 1 mg Hydromorphone HCl (Dilaudid) 1 mg IVPUSH Q2H PRN PRN Reason: Pain (severe 7-10) Last Admin: 01/25/17 08:39 Dose: 1 mg Pantoprazole Sodium 40 mg/ (Sodium Chloride) 10 mls @ 300 mls/hr IVPUSH DAILY [facility] Last Admin: 01/25/17 09:08 Dose: 300 mls/hr Sodium Chloride (Normal Saline) 1,000 mls @ 999 mls/hr IV .BOLUS [facility] Last Admin: 01/19/17 16:23 Dose: 999 mls/hr Lorazepam (Ativan) 0 mg IV Q4H PRN; Protocol PRN Reason: CIWAA Last Admin: 01/25/17 00:12 Dose: 2 mg Metoprolol Tartrate (Lopressor) 25 mg PO BID [facility] Last Admin: 01/25/17 08:46 Dose: 25 mg Nicotine (Habitrol) 21 mg TRDERM DAILY [facility] Last Admin: 01/25/17 08:43 Dose: 21 mg Ondansetron HCl (Zofran) 4 mg IVPUSH Q4H PRN PRN Reason: Nausea Last Admin: 01/25/17 00:09 Dose: 4 mg Potassium Chloride (Potassium Chloride) 40 meq PO DAILY [facility] Last Admin: 01/25/17 08:44 Dose: 40 meq Potassium Chloride (Potassium Chloride) 40 meq PO DAILY [facility] Last Admin: 01/25/17 08:51 Dose: Not Given Sertraline HCl (Zoloft) 100 mg PO DAILY [facility] Last Admin: 01/25/17 08:45 Dose: 100 mg Sodium Phosphate (Neutra-Phos) 250 mg PO QID [facility] Last Admin: 01/25/17 05:18 Dose: 250 mg Spironolactone (Aldactone) 25 mg PO BID [facility] Last Admin: 01/25/17 08:45 Dose: 25 mg Thiamine HCl (Vitamin B-1) 100 mg IV DAILY [facility] Last Admin: 01/25/17 08:41 Dose: 100 mg Discontinued Medications Sodium Chloride (Normal Saline) 1,000 mls @ 999 mls/hr IV STAT ONE Stop: 01/19/17 12:56 Last Admin: 01/19/17 12:29 Dose: 999 mls/hr Multivitamins/Minerals 10 ml/Thiamine HCl 100 mg/ Folic Acid 1 mg/ Sodium Chloride 1,011.2 mls @ 999 mls/hr IV ONETIME ONE Stop: 01/19/17 13:13 Last Admin: 01/19/17 12:34 Dose: 999 mls/hr Sodium Chloride (Normal Saline) 1,000 mls @ 200 mls/hr IV ASDIRECTED [facility] Last Admin: 01/24/17 16:06 Dose: 200 mls/hr Magnesium Sulfate 2 gm/ Premix 50 mls @ 25 mls/hr IV ONETIME ONE Stop: 01/19/17 21:04 Last Admin: 01/19/17 19:41 Dose: 25 mls/hr Magnesium Sulfate 2 gm/ Premix 50 mls @ 50 mls/hr IV ONETIME ONE Stop: 01/20/17 13:25 Last Admin: 01/20/17 13:00 Dose: 50 mls/hr Potassium Chloride/Sodium Chloride (Normal Saline With 40 Meq Kcl) 1,000 mls @ 150 mls/hr IV ASDIRECTED [facility] Stop: 01/20/17 19:09 Last Admin: 01/20/17 13:01 Dose: 150 mls/hr Magnesium Sulfate 2 gm/ Premix 50 mls @ 50 mls/hr IV ONETIME ONE Stop: 01/21/17 12:35 Last Admin: 01/21/17 12:02 Dose: 50 mls/hr Potassium Chloride/Sodium Chloride (Normal Saline With 40 Meq Kcl) 1,000 mls @ 150 mls/hr IV ASDIRECTED [facility] Stop: 01/21/17 18:24 Last Admin: 01/21/17 12:04 Dose: 150 mls/hr Magnesium Sulfate 2 gm/ Premix 50 mls @ 50 mls/hr IV ONETIME ONE Stop: 01/22/17 10:06 Last Admin: 01/22/17 11:09 Dose: Not Given Potassium Chloride 40 meq/Magnesium Sulfate 2 gm/Potassium Phosphate 5 mmole/ Sodium Chloride 525.6667 mls @ 125 mls/hr IV ONETIME ONE Stop: 01/22/17 14:24 Last Admin: 01/22/17 11:09 Dose: Not Given Potassium Chloride 40 meq/Magnesium Sulfate 2 gm/Potassium Phosphate 5 mmole/ Sodium Chloride 525.6667 mls @ 125 mls/hr IV ONETIME ONE Stop: 01/22/17 14:24 Last Admin: 01/22/17 11:07 Dose: 125 mls/hr Magnesium Sulfate 2 gm/ Premix 50 mls @ 50 mls/hr IV ONETIME ONE Stop: 01/23/17 10:04 Last Admin: 01/23/17 10:08 Dose: 50 mls/hr Magnesium Sulfate 2 gm/ Premix 50 mls @ 50 mls/hr IV ONETIME ONE Stop: 01/24/17 15:11 Last Admin: 01/24/17 14:25 Dose: 50 mls/hr Magnesium Sulfate 2 gm/ Premix 50 mls @ 25 mls/hr IV ONETIME ONE Stop: 01/25/17 10:02 Last Admin: 01/25/17 08:43 Dose: 25 mls/hr Iopamidol (Isovue Multipack-370 (76%)) 100 ml IVPUSH ONETIME STA Stop: 01/19/17 13:01 Last Admin: 01/19/17 13:00 Dose: 100 ml Ketorolac Tromethamine (Toradol) 30 mg IVPUSH ONETIME ONE Stop: 01/19/17 11:57 Last Admin: 01/19/17 12:29 Dose: 30 mg Morphine Sulfate (Morphine) 2 mg IV ONETIME ONE Stop: 01/19/17 13:03 Last Admin: 01/19/17 13:46 Dose: 2 mg Ondansetron HCl (Zofran) 8 mg IVPUSH ONETIME ONE Stop: 01/19/17 11:57 Last Admin: 01/19/17 12:29 Dose: 8 mg Pantoprazole Sodium (Protonix Iv) 80 mg IVPUSH .BOLUS ONE Stop: 01/19/17 12:00 Last Admin: 01/19/17 12:30 Dose: 80 mg Potassium Chloride (Klor-Con M20) 40 meq PO DAILY [facility] Last Admin: 01/23/17 09:43 Dose: Not Given Sodium Phosphate (Neutra-Phos) 250 mg PO ONETIME ONE Stop: 01/21/17 11:56 Last Admin: 01/21/17 12:04 Dose: 250 mg - Exam General: alert, oriented, cooperative HEENT: Pupils equal, EOMI Neck: supple, trachea midline Lungs: Decreased breath sounds Cardiovascular: Regular Rate, Regular Rhythm Abdomen: bowel sounds present, soft Back Exam: Normal Inspection, Full Range of Motion Extremities: no edema Skin: warm, dry, intact Neurological: no new focal deficit Psy/Mental Status: alert, normal affect, normal mood - Problem List Review Problem List Initiated/Reviewed/Updated: Yes - My Orders Last 24 Hours: My Active Orders 01/24/17 10:45 Potassium Chloride 40 meq PO DAILY 01/24/17 15:45 Metoprolol Tartrate [Lopressor] 25 mg PO BID Sertraline [Zoloft] 100 mg PO DAILY Spironolactone [Aldactone] 25 mg PO BID 01/24/17 Dinner Regular Diet [DIET] 01/26/17 05:11 BASIC METABOLIC PANEL,BMP [CHEM] AM CBC WITH AUTO DIFF [HEME] AM MAGNESIUM [CHEM] AM PHOSPHORUS [CHEM] AM 01/27/17 05:11 BASIC METABOLIC PANEL,BMP [CHEM] AM CBC WITH AUTO DIFF [HEME] AM 01/28/17 05:11 BASIC METABOLIC PANEL,BMP [CHEM] AM CBC WITH AUTO DIFF [HEME] AM 01/29/17 05:11 BASIC METABOLIC PANEL,BMP [CHEM] AM CBC WITH AUTO DIFF [HEME] AM - Plan Plan:: Hypokalemia: potassium is 2.3: she is receiving daily i.v potasium and an additional dose was replaced Hypomagnesimia; replaced I.V mag 2 g x1 Phosphate wnl continue to monitor electrolytes ADAT resume her home blood pressure medications and zoloft. Her pain is improving and tolerating diet: DC dilaudid and start oxycode 5 mg prn ETOH withdrawal: On CIWAA protocol anticipate discharge tomorrow.
[2017-01-25] MEDS: oxyCODONE 5 MG Tab PO PRN ×2 (11:34→15:22)
[2017-01-25 12:48] VITALS: BP 154/83
--- NOTE | 2017-01-25 14:46 | PCM.DCSUM1 ---
Discharge Summary - Hospital Course Free Text/Narrative:: 71 yo female with history of alcohol use admitted for pancreatitis, cholelithiasis, and alcohol withdrawal. She was kept NPO, given IVF, placed on CIWAA protocol. During hospitalization her electrolytes were monitored and replaced. She is malnourished where thiamine and folic acid were replaced as well. she has improved slowly and able to tolerate regular diet and her pain has subsided. She is to follow up with surgery for cholecystectomy. She agreed to refrain from alcohol and she was prescribed nicotine patches. She is to followup with PCP within one week. All appointments made - Discharge Data Discharge Date: 01/25/17 Discharge Disposition: Home, Self-Care 01 Condition: Fair - Patient Summary/Data Consults: Consultations 01/21/17 12:44 Consult to Physical Therapy [PT Evaluation and Treatment] [CONS] Routine - Patient Instructions Diet: No Alcoholic Beverages Activity: As Tolerated Driving: Do Not Drive Showering/Bathing: May Shower Notify Provider of: Fever, Increased Pain, Swelling and Redness, Drainage, Nausea and/or Vomiting - Discharge Plan Prescriptions/Med Rec: Nicotine [Habitrol] 21 mg TRDERM DAILY #30 patch Home Medications: Home Meds Morphine [MS Contin] 60 mg PO Q12H 09/20/14 [History] Multivitamin [Multivitamins] 1 tab PO DAILY 09/20/14 [History] Sertraline [Zoloft] 100 mg PO DAILY 09/20/14 [History] oxyCODONE 10 mg PO Q6HR PRN 08/15/16 [History] Gabapentin [Neurontin] 600 mg PO TID 11/10/16 [History] Metoprolol Tartrate 25 mg PO BID 11/10/16 [History] Spironolactone [Aldactone] 25 mg PO BID 11/10/16 [History] Nicotine [Habitrol] 21 mg TRDERM DAILY #30 patch 01/25/17 [Rx] Patient Handouts: Acute Pancreatitis, [id number], Nicotine skin patches Referrals: Nimesh Quezada MD [Primary Care Provider] - 02/02/17 10:30 am - General Info Date of Service: 01/25/17 Functional Status: Reports: pain controlled, tolerating diet, ambulating, urinating - Review of Systems General: Reports: No Symptoms HEENT: Reports: no symptoms Pulmonary: Reports: no symptoms Cardiovascular: Reports: No Symptoms Gastrointestinal: Reports: No symptoms Genitourinary: Reports: no symptoms Musculoskeletal: Reports: no symptoms Skin: Reports: no symptoms Neurological: Reports: No Symptoms Psychiatric: Reports: no symptoms - Patient Data Vitals - Most Recent: Last Vital Signs Temp 97.6 F 01/25/17 12:00 Pulse 70 01/25/17 12:00 Resp 18 01/25/17 12:00 BP 154/83 H 01/25/17 12:00 Pulse Ox 97 01/25/17 12:00 Weight - Most Recent: 58.468 kg I&O - Last 24 hours: Intake & Output 01/24/17 01/25/17 01/25/17 22:59 06:59 14:59 Intake Total 1800 1500 50 Output Total 1300 775 Balance 500 725 50 Lab Results - Last 24 hrs: Laboratory Results - last 24 hr 01/25/17 01/25/17 Range/Units 05:04 05:04 WBC 7.71 (4.0-11.0) K/uL RBC 3.59 L (4.30-5.90) M/uL Hgb 12.6 (12.0-16.0) g/dL Hct 35.8 L (36.0-46.0) % MCV 99.7 H (80.0-98.0) fL MCH 35.1 H (27.0-32.0) pg MCHC 35.2 (31.0-37.0) g/dL RDW Std Deviation 53.9 (28.0-62.0) fl RDW Coeff of Katerina 15 (11.0-15.0) % Plt Count 121 L (150-400) K/uL MPV 9.70 (7.40-12.00) fL Neut % (Auto) 46.6 L (48.0-80.0) % Lymph % (Auto) 35.0 (16.0-40.0) % Grundy % (Auto) 14.4 (0.0-15.0) % Eos % (Auto) 3.5 (0.0-7.0) % Baso % (Auto) 0.5 (0.0-1.5) % Neut # (Auto) 3.6 (1.4-5.7) K/uL Lymph # (Auto) 2.7 H (0.6-2.4) K/uL [place]undy # (Auto) 1.1 H (0.0-0.8) K/uL Eos # (Auto) 0.3 (0.0-0.7) K/uL Baso # (Auto) 0.0 (0.0-0.1) K/uL Nucleated RBC % 0.0 /100WBC Nucleated RBCs # 0 K/uL Sodium 143 (136-146) mmol/L Potassium 2.6 L (3.5-5.1) mmol/L Chloride 113 H (98-110) mmol/L Carbon Dioxide 23 (21-31) mmol/L BUN 2 L (6.0-23.0) mg/dL Creatinine 0.5 L (0.6-1.5) mg/dL Est Cr Clr Drug Dosing 91.70 mL/min Estimated GFR (MDRD) > 60.0 ml/min Glucose 95 (60-110) mg/dL Calcium 8.0 L (8.8-10.8) mg/dL Phosphorus 3.7 (2.4-4.7) mg/dL Magnesium 1.4 L (1.5-2.3) mEq/L Med Orders - Current: Current Medications Folic Acid (Folic Acid) 1 mg SUBCUT DAILY [facility] Last Admin: 01/25/17 08:42 Dose: 1 mg Pantoprazole Sodium 40 mg/ (Sodium Chloride) 10 mls @ 300 mls/hr IVPUSH DAILY [facility] Last Admin: 01/25/17 09:08 Dose: 300 mls/hr Sodium Chloride (Normal Saline) 1,000 mls @ 999 mls/hr IV .BOLUS [facility] Last Admin: 01/19/17 16:23 Dose: 999 mls/hr Lorazepam (Ativan) 0 mg IV Q4H PRN; Protocol PRN Reason: CIWAA Last Admin: 01/25/17 00:12 Dose: 2 mg Metoprolol Tartrate (Lopressor) 25 mg PO BID [facility] Last Admin: 01/25/17 08:46 Dose: 25 mg Nicotine (Habitrol) 21 mg TRDERM DAILY [facility] Last Admin: 01/25/17 08:43 Dose: 21 mg Ondansetron HCl (Zofran) 4 mg IVPUSH Q4H PRN PRN Reason: Nausea Last Admin: 01/25/17 00:09 Dose: 4 mg Oxycodone HCl (Oxycodone) 5 mg PO Q4H PRN PRN Reason: Pain Last Admin: 01/25/17 11:34 Dose: 5 mg Potassium Chloride (Potassium Chloride) 40 meq PO DAILY [facility] Last Admin: 01/25/17 08:44 Dose: 40 meq Potassium Chloride (Potassium Chloride) 40 meq PO DAILY [facility] Last Admin: 01/25/17 08:51 Dose: Not Given Sertraline HCl (Zoloft) 100 mg PO DAILY [facility] Last Admin: 01/25/17 08:45 Dose: 100 mg Sodium Phosphate (Neutra-Phos) 250 mg PO QID [facility] Last Admin: 01/25/17 12:21 Dose: 250 mg Spironolactone (Aldactone) 25 mg PO BID [facility] Last Admin: 01/25/17 08:45 Dose: 25 mg Thiamine HCl (Vitamin B-1) 100 mg IV DAILY [facility] Last Admin: 01/25/17 08:41 Dose: 100 mg Discontinued Medications Hydromorphone HCl (Dilaudid) 1 mg IVPUSH Q2H PRN PRN Reason: Pain (severe 7-10) Last Admin: 01/25/17 08:39 Dose: 1 mg Sodium Chloride (Normal Saline) 1,000 mls @ 999 mls/hr IV STAT ONE Stop: 01/19/17 12:56 Last Admin: 01/19/17 12:29 Dose: 999 mls/hr Multivitamins/Minerals 10 ml/Thiamine HCl 100 mg/ Folic Acid 1 mg/ Sodium Chloride 1,011.2 mls @ 999 mls/hr IV ONETIME ONE Stop: 01/19/17 13:13 Last Admin: 01/19/17 12:34 Dose: 999 mls/hr Sodium Chloride (Normal Saline) 1,000 mls @ 200 mls/hr IV ASDIRECTED [facility] Last Admin: 01/24/17 16:06 Dose: 200 mls/hr Magnesium Sulfate 2 gm/ Premix 50 mls @ 25 mls/hr IV ONETIME ONE Stop: 01/19/17 21:04 Last Admin: 01/19/17 19:41 Dose: 25 mls/hr Magnesium Sulfate 2 gm/ Premix 50 mls @ 50 mls/hr IV ONETIME ONE Stop: 01/20/17 13:25 Last Admin: 01/20/17 13:00 Dose: 50 mls/hr Potassium Chloride/Sodium Chloride (Normal Saline With 40 Meq Kcl) 1,000 mls @ 150 mls/hr IV ASDIRECTED [facility] Stop: 01/20/17 19:09 Last Admin: 01/20/17 13:01 Dose: 150 mls/hr Magnesium Sulfate 2 gm/ Premix 50 mls @ 50 mls/hr IV ONETIME ONE Stop: 01/21/17 12:35 Last Admin: 01/21/17 12:02 Dose: 50 mls/hr Potassium Chloride/Sodium Chloride (Normal Saline With 40 Meq Kcl) 1,000 mls @ 150 mls/hr IV ASDIRECTED [facility] Stop: 01/21/17 18:24 Last Admin: 01/21/17 12:04 Dose: 150 mls/hr Magnesium Sulfate 2 gm/ Premix 50 mls @ 50 mls/hr IV ONETIME ONE Stop: 01/22/17 10:06 Last Admin: 01/22/17 11:09 Dose: Not Given Potassium Chloride 40 meq/Magnesium Sulfate 2 gm/Potassium Phosphate 5 mmole/ Sodium Chloride 525.6667 mls @ 125 mls/hr IV ONETIME ONE Stop: 01/22/17 14:24 Last Admin: 01/22/17 11:09 Dose: Not Given Potassium Chloride 40 meq/Magnesium Sulfate 2 gm/Potassium Phosphate 5 mmole/ Sodium Chloride 525.6667 mls @ 125 mls/hr IV ONETIME ONE Stop: 01/22/17 14:24 Last Admin: 01/22/17 11:07 Dose: 125 mls/hr Magnesium Sulfate 2 gm/ Premix 50 mls @ 50 mls/hr IV ONETIME ONE Stop: 01/23/17 10:04 Last Admin: 01/23/17 10:08 Dose: 50 mls/hr Magnesium Sulfate 2 gm/ Premix 50 mls @ 50 mls/hr IV ONETIME ONE Stop: 01/24/17 15:11 Last Admin: 01/24/17 14:25 Dose: 50 mls/hr Magnesium Sulfate 2 gm/ Premix 50 mls @ 25 mls/hr IV ONETIME ONE Stop: 01/25/17 10:02 Last Admin: 01/25/17 08:43 Dose: 25 mls/hr Iopamidol (Isovue Multipack-370 (76%)) 100 ml IVPUSH ONETIME STA Stop: 01/19/17 13:01 Last Admin: 01/19/17 13:00 Dose: 100 ml Ketorolac Tromethamine (Toradol) 30 mg IVPUSH ONETIME ONE Stop: 01/19/17 11:57 Last Admin: 01/19/17 12:29 Dose: 30 mg Morphine Sulfate (Morphine) 2 mg IV ONETIME ONE Stop: 01/19/17 13:03 Last Admin: 01/19/17 13:46 Dose: 2 mg Ondansetron HCl (Zofran) 8 mg IVPUSH ONETIME ONE Stop: 01/19/17 11:57 Last Admin: 01/19/17 12:29 Dose: 8 mg Pantoprazole Sodium (Protonix Iv) 80 mg IVPUSH .BOLUS ONE Stop: 01/19/17 12:00 Last Admin: 01/19/17 12:30 Dose: 80 mg Potassium Chloride (Klor-Con M20) 40 meq PO DAILY ELISA Last Admin: 01/23/17 09:43 Dose: Not Given Sodium Phosphate (Neutra-Phos) 250 mg PO ONETIME ONE Stop: 01/21/17 11:56 Last Admin: 01/21/17 12:04 Dose: 250 mg - Exam General: Reports: alert, oriented HEENT: Reports: Pupils equal, EOMI Neck: Reports: supple, trachea midline Lungs: Reports: Clear to auscultation, Normal respiratory effort Cardiovascular: Reports: Regular Rate, Regular Rhythm Abdomen: Reports: bowel sounds present, soft, no tenderness Back Exam: Reports: Normal Inspection, Full Range of Motion Extremities: Reports: no edema Skin: Reports: warm, dry Neurological: Reports: no new focal deficit Psy/Mental Status: Reports: alert, normal affect, normal mood *Q Meaningful Use (DIS) - VTE *Q VTE Criteria *Q: VTE Pharmacological Contraindications *Q: Risk of Bleeding - Stroke *Q Stroke Criteria *Q: - AMI *Q AMI Criteria *Q:
== END 2017-01-25 15:30 | disposition home or self-care (01) | DRG 439 ==
LOC: MW.ED 11:55 → MW.MS 15:18
PROVIDERS: ADMIT Internal Medicine; ATTEND Internal Medicine
PROC: HZ2ZZZZ Detoxification Services for Substance Abuse Treatment (ICD-10-PCS; principal; 2017-01-19)
DX: K85.90 Acute pancreatitis without necrosis or infection, unspecified (principal); K85.20 Alcohol induced acute pancreatitis without necrosis or infection; E86.0 Dehydration; R41.0 Disorientation, unspecified; E46 Unspecified protein-calorie malnutrition; K86.0 Alcohol-induced chronic pancreatitis; K80.20 Calculus of gallbladder without cholecystitis without obstruction; F10.229 Alcohol dependence with intoxication, unspecified; I10 Essential (primary) hypertension; K21.9 Gastro-esophageal reflux disease without esophagitis; M54.9 Dorsalgia, unspecified; G89.29 Other chronic pain; F41.8 Other specified anxiety disorders; F17.210 Nicotine dependence, cigarettes, uncomplicated; R74.8 Abnormal levels of other serum enzymes; J44.9 Chronic obstructive pulmonary disease, unspecified; E87.6 Hypokalemia; E83.42 Hypomagnesemia; Y90.8 Blood alcohol level of 240 mg/100 ml or more
CPT/HCPCS: 36415; 70450; 71010; 74177; 80053; 80061; 81001; 82150; 83690; 83735; 84100; 84484; 85025; 87040 ×2; 93005; 96365; 96366; 96375; 99285; C9113; G0480; J1885; J2270; J2405; J3411 ×2; J7040 ×3; Q9967; 76700; 76700-26; 80048; 97161-GP; 99283; A9270-GY; J1170; J2060; J3475; J3480

== ENCOUNTER 2017-05-17 18:21 | Inpatient (IN) | payer MEDICARE ==
[2017-05-17] MEDS ORDERED: Sodium Chloride 0.9% 2.5 ML Syringe FLUSH PRN (19:05)
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
[2017-05-17] MEDS ORDERED: Sodium Chloride 0.9% 1,000 ML IV SCH (19:15)
[2017-05-17] MEDS: Sodium Chloride 0.9% 10 ML Syringe FLUSH PRN (19:15)
[2017-05-17 20:01] LABS: CHLORIDE,CL 81 mmol/L (98-110); SODIUM,NA 123 mmol/L (136-146)
[2017-05-17] MEDS ORDERED: Sodium Chloride 0.9% with KCl 1,000 ML IV SCH (20:30)
[2017-05-17] MEDS ORDERED: Potassium Chloride 20 MEQ Tab.ER PO ONE (21:00)
[2017-05-17] MEDS ORDERED: Magnesium Sulfate/Water 2 GM in Premix Bag 1 BAG IV ONE (21:01)
[2017-05-17] MEDS ORDERED: Ondansetron 4 MG/2 ML SDV IVPUSH PRN (21:29)
[2017-05-17] MEDS ORDERED: Morphine 10 MG/ML Syringe IVPUSH PRN (21:29)
[2017-05-17] MEDS: Folic Acid 1 MG Tab PO SCH (22:10)
[2017-05-17] MEDS: Thiamine 100 MG Tab PO SCH (22:10)
[2017-05-17] MEDS: Nicotine 14 MG/24 Hr Patch TRDERM SCH (23:05)
[2017-05-17] MEDS: LORazepam 2 MG/ML SDV IVPUSH PRN (23:05)
[2017-05-17] MEDS: Docusate Sodium 100 MG Cap PO PRN (23:06)
[2017-05-18] MEDS: Sodium Chloride 0.9% 1,000 ML IV SCH ×3 (04:49→23:57)
[2017-05-18 06:26] LABS: CHLORIDE,CL 98 mmol/L (98-110); SODIUM,NA 134 mmol/L (136-146)
[2017-05-18] MEDS ORDERED: Potassium Chloride 20 MEQ Tab.ER PO ONE (07:57)
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
[2017-05-18] MEDS: Nicotine 14 MG/24 Hr Patch TRDERM SCH (08:04)
[2017-05-18] MEDS: Enoxaparin 40 MG/0.4 ML Syringe SUBCUT SCH (08:07)
[2017-05-18] MEDS ORDERED: Magnesium Sulfate/Water 2 GM in Premix Bag 1 BAG IV ONE (08:58)
[2017-05-18] MEDS: Phosphorus #1 250 MG Tab PO SCH ×4 (09:36→23:52)
[2017-05-18] MEDS: Morphine 60 MG Tab.ER PO SCH ×2 (12:20→23:53)
--- NOTE | 2017-05-18 14:11 | CT ---
EXAM DATE: 05/17/17 PATIENT'S AGE: 71 Patient: LIANG STRONG Facility: [place], [place] Site . Site : 1945 Study: CT Head [id number]/2017 8:11:54 PM Ordering Physician: Sara Higgins Final Report: INDICATION: FELL CT HEAD WITHOUT CONTRAST TECHNIQUE: Multiple axial CT images were performed through the head without intravenous contrast administration. COMPARISON: 01/19/[address] FINDINGS: No acute intracranial hemorrhage is identified. No extra-axial collections are evident and there is no mass effect or midline shift. There is mild diffuse age-related brain atrophy, as before. Ventricular size and configuration are within normal limits for the patient`s age. Coles-white differentiation is within normal limits. There is unchanged mild patchy hypodensity in the periventricular white matter, a nonspecific finding which most likely reflects chronic small vessel ischemic change. Intracranial atherosclerotic vascular calcifications are noted. Osseous structures are within normal limits and no fractures are seen. Included portions of the paranasal sinuses and mastoid air cells are normally aerated except for trace amount of fluid within the maxillary sinuses bilaterally which is most likely inflammatory (sinusitis) although blood from occult facial fracture is not entirely excluded. IMPRESSION: 1. No acute intracranial abnormality identified. No fracture is seen. 2. Mild age-related brain atrophy, white matter hypodensity consistent with chronic small vessel ischemic change, and intracranial atherosclerotic vascular calcifications. 3. Minimal fluid in the maxillary sinuses bilaterally as noted above. CARA SALDANA MD [employer] Dictated by Davis Saldana MD @ 05/17/2017 8:39:17 PM Dictated by: Davis Saldana MD @ 05/17/2017 20:48:42 (Electronic Signature) Report Signed by Proxy. [facility]ATRIC HOSPITALAddie
--- NOTE | 2017-05-18 14:16 | CR ---
EXAM DATE: 05/17/17 PATIENT'S AGE: 71 Patient: LIANG STRONG Facility: [place], [place] Site . Site : 1945 Study: XRay Chest [id number]/[id number] 8:12:40 PM Ordering Physician: Sara Higgins Final Report: INDICATION: Fall. Bilateral rib pain. COMPARISON: 01/19/2017 chest radiograph. FINDINGS/IMPRESSION: No definite acute infiltrates are identified and there is no pneumothorax or pleural fluid collection. Cardiomediastinal contour is within normal limits. Included bones are diffusely demineralized, as before. There are several age- indeterminate mid and lower thoracic vertebral compression fractures. Dictated by Davis Jones MD @ 05/17/2017 8:30:56 PM Dictated by: Davis Jones MD @ 05/17/2017 20:31:06 (Electronic Signature) Report Signed by Proxy. IVETTE
[2017-05-18] MEDS: Thiamine 100 MG Tab PO SCH (20:44)
[2017-05-18] MEDS: Folic Acid 1 MG Tab PO SCH (20:44)
[2017-05-18] MEDS: LORazepam 2 MG/ML SDV IVPUSH PRN (23:53)
[2017-05-18] MEDS: Docusate Sodium 100 MG Cap PO PRN (23:53)
[2017-05-19] MEDS: Phosphorus #1 250 MG Tab PO SCH ×4 (06:23→23:34)
[2017-05-19 07:19] LABS: CHLORIDE,CL 103 mmol/L (98-110); SODIUM,NA 136 mmol/L (136-146)
[2017-05-19] MEDS: Enoxaparin 40 MG/0.4 ML Syringe SUBCUT SCH (08:14)
[2017-05-19] MEDS: Sertraline 100 MG Tab PO SCH (08:14)
[2017-05-19] MEDS: Nicotine 14 MG/24 Hr Patch TRDERM SCH (08:15)
[2017-05-19] MEDS: Sodium Chloride 0.9% 1,000 ML IV SCH (10:06)
[2017-05-19] MEDS ORDERED: Potassium Chloride 20 MEQ Tab.ER PO ONE (10:13)
[2017-05-19] MEDS ORDERED: Magnesium Sulfate/Water 2 GM in Premix Bag 1 BAG IV ONE (10:14)
[2017-05-19] MEDS ORDERED: Sodium Chloride 0.9% with KCl 1,000 ML IV SCH (10:15)
--- NOTE | 2017-05-19 10:18 | PCM.PN ---
- Patient Data Vitals - Most Recent: Last Vital Signs Temp 36.4 C 05/19/17 08:00 Pulse 112 H 05/19/17 08:00 Resp 18 05/19/17 08:00 BP 121/72 05/19/17 08:00 Pulse Ox 93 L 05/19/17 08:00 Weight - Most Recent: 47 kg I&O - Last 24 Hours: Intake & Output 05/18/17 05/19/17 05/19/17 22:59 06:59 14:59 Intake Total 1406 2183 Output Total 500 300 Balance 906 [id number] Lab Results Last 24 Hours: Laboratory Results - last 24 hr 05/19/17 05/19/17 Range/Units 06:42 06:42 WBC 11.03 H (4.0-11.0) K/uL RBC 3.69 L (4.30-5.90) M/uL Hgb 12.9 (12.0-16.0) g/dL Hct 36.3 (36.0-46.0) % MCV 98.4 H (80.0-98.0) fL MCH 35.0 H (27.0-32.0) pg MCHC 35.5 (31.0-37.0) g/dL RDW Std Deviation 45.2 (28.0-62.0) fl RDW Coeff of Katerina 13 (11.0-15.0) % Plt Count 161 (150-400) K/uL MPV 9.40 (7.40-12.00) fL Neut % (Auto) 60.7 (48.0-80.0) % Lymph % (Auto) 21.8 (16.0-40.0) % [place] % (Auto) 15.5 H (0.0-15.0) % Eos % (Auto) 1.7 (0.0-7.0) % Baso % (Auto) 0.3 (0.0-1.5) % Neut # (Auto) 6.7 H (1.4-5.7) K/uL Lymph # (Auto) 2.4 (0.6-2.4) K/uL [place] # (Auto) 1.7 H (0.0-0.8) K/uL Eos # (Auto) 0.2 (0.0-0.7) K/uL Baso # (Auto) 0.0 (0.0-0.1) K/uL Nucleated RBC % 0.0 /100WBC Nucleated RBCs # 0 K/uL Sodium 136 (136-146) mmol/L Potassium 3.0 L (3.5-5.1) mmol/L Chloride 103 (98-110) mmol/L Carbon Dioxide 27 (21-31) mmol/L BUN 4 L (6.0-23.0) mg/dL Creatinine 0.4 L (0.6-1.5) mg/dL Est Cr Clr Drug Dosing 98.49 mL/min Estimated GFR (MDRD) > 60.0 ml/min Glucose 113 H (60-110) mg/dL Calcium 7.7 L (8.8-10.8) mg/dL Phosphorus < 1.0 L (2.4-4.7) mg/dL Magnesium 1.4 L (1.5-2.3) mEq/L Total Bilirubin 1.3 (0.1-1.5) mg/dL AST 64 H (5-40) IU/L ALT 34 (8-54) IU/L Alkaline Phosphatase 162 H (40-150) Total Protein 4.8 L (6.0-8.0) g/dL Albumin 2.5 L (3.4-4.8) g/dL Globulin 2.3 (2.0-3.5) g/dL Albumin/Globulin Ratio 1.1 L (1.3-2.8) Med Orders - Current: Current Medications Docusate Sodium (Colace) 100 mg PO DAILY PRN PRN Reason: Constipation Last Admin: 05/18/17 23:53 Dose: 100 mg Enoxaparin Sodium (Lovenox) 40 mg SUBCUT DAILY [facility] Last Admin: 05/19/17 08:14 Dose: 40 mg Folic Acid (Folic Acid) 1 mg PO BEDTIME ELISA Last Admin: 05/18/17 20:44 Dose: 1 mg Sodium Chloride (Normal Saline) 1,000 mls @ 100 mls/hr IV ASDIRECTED [facility] Last Admin: 05/19/17 10:06 Dose: 100 mls/hr Lorazepam (Ativan) 0 mg IVPUSH Q4H PRN; Protocol PRN Reason: Agitation Last Admin: 05/18/17 23:53 Dose: 1 mg Morphine Sulfate (Ms Contin) 60 mg PO Q12H [facility] Last Admin: 05/18/17 23:53 Dose: 60 mg Nicotine (Habitrol) 14 mg TRDERM DAILY [facility] Last Admin: 05/19/17 08:15 Dose: 14 mg Ondansetron HCl (Zofran) 4 mg IVPUSH Q4H PRN PRN Reason: Nausea Oxycodone HCl (Oxycodone) 10 mg PO Q6HR PRN PRN Reason: Pain Sertraline HCl (Zoloft) 100 mg PO DAILY [facility] Last Admin: 05/19/17 08:14 Dose: 100 mg Sodium Chloride (Saline Flush) 10 ml FLUSH ASDIRECTED PRN PRN Reason: Keep Vein Open Last Admin: 05/17/17 19:15 Dose: 10 ml Sodium Chloride (Saline Flush) 2.5 ml FLUSH ASDIRECTED PRN PRN Reason: Keep Vein Open Last Admin: 05/17/17 19:15 Dose: 2.5 ml Sodium Phosphate (Neutra-Phos) 250 mg PO QID [facility] Last Admin: 05/19/17 06:23 Dose: 250 mg Thiamine HCl (Vitamin B-1) 100 mg PO BEDTIME [facility] Last Admin: 05/18/17 20:44 Dose: 100 mg Discontinued Medications Sodium Chloride (Normal Saline) 1,000 mls @ 125 mls/hr IV STAT [facility] Last Admin: 05/17/17 19:20 Dose: 125 mls/hr Potassium Chloride/Sodium Chloride (Normal Saline With 40 Meq Kcl) 1,000 mls @ 250 mls/hr IV ASDIRECTED [facility] Last Admin: 05/17/17 20:31 Dose: 250 mls/hr Magnesium Sulfate 2 gm/ Premix 50 mls @ 50 mls/hr IV ONETIME ONE Stop: 05/17/17 22:00 Last Admin: 05/17/17 21:17 Dose: 50 mls/hr Magnesium Sulfate 2 gm/ Premix 50 mls @ 50 mls/hr IV ONETIME ONE Stop: 05/18/17 09:57 Last Admin: 05/18/17 09:23 Dose: 50 mls/hr Morphine Sulfate (Morphine) 2 mg IVPUSH Q4H PRN PRN Reason: Pain (severe 7-10) Stop: 05/18/17 21:30 Potassium Chloride (Klor-Con M20) 40 meq PO ONETIME ONE Stop: 05/17/17 21:01 Last Admin: 05/17/17 22:10 Dose: 40 meq Potassium Chloride (Klor-Con M20) 40 meq PO ONETIME ONE Stop: 05/18/17 07:58 Last Admin: 05/18/17 08:13 Dose: 40 meq - Exam General: Lethargic Lungs: Clear to Auscultation, Normal Respiratory Effort Cardiovascular: Regular Rate, Regular Rhythm GI/Abdominal Exam: Soft, Non-Tender Extremities: Non-Tender, No Pedal Edema Skin: Warm, Dry, Intact Neurological: No New Focal Deficit - Problem List Review Problem List Initiated/Reviewed/Updated: Yes - Plan Plan:: This 71 year old female admitted for generalized weakness, dehydration, ETOH abuse,acute on chronic pancreatitis, and mutliple electrolyte abnormalitites. Hypomagnesemia, hypokalemia, and hypophosphatemia: replacing again today ETOH abuse: CIWAA score with ativan protocol PRN. received ativan last night for CIWA score of 8
[2017-05-19] MEDS ORDERED: Sodium Phosphate 30 MMOLE in Sodium Chloride 0.9% 250 ML IV ONE (11:00)
[2017-05-19] MEDS: Docusate Sodium 100 MG Cap PO PRN (11:11)
[2017-05-19] MEDS: Morphine 60 MG Tab.ER PO SCH ×2 (11:14→23:34)
[2017-05-19] MEDS: Folic Acid 1 MG Tab PO SCH (20:31)
[2017-05-19] MEDS: Thiamine 100 MG Tab PO SCH (20:31)
[2017-05-20] MEDS: oxyCODONE 5 MG Tab PO PRN ×2 (01:58→17:45)
[2017-05-20] MEDS: Phosphorus #1 250 MG Tab PO SCH ×4 (05:47→23:21)
[2017-05-20 07:00] LABS: CHLORIDE,CL 103 mmol/L (98-110); SODIUM,NA 138 mmol/L (136-146)
[2017-05-20] MEDS ORDERED: Magnesium Sulfate/Water 2 GM in Premix Bag 1 BAG IV ONE (07:15)
[2017-05-20] MEDS ORDERED: Potassium Chloride 20 MEQ Tab.ER PO ONE (07:16)
[2017-05-20] MEDS: Enoxaparin 40 MG/0.4 ML Syringe SUBCUT SCH (08:36)
[2017-05-20] MEDS: Nicotine 14 MG/24 Hr Patch TRDERM SCH (08:36)
[2017-05-20] MEDS: Sertraline 100 MG Tab PO SCH (08:36)
--- NOTE | 2017-05-20 09:38 | PCM.PN ---
- Review of Systems Systems Review Comment:: more alert today. - Patient Data Vitals - Most Recent: Last Vital Signs Temp 36.3 C 05/20/17 04:00 Pulse 91 05/20/17 04:00 Resp 18 05/20/17 04:00 BP 129/71 05/20/17 04:00 Pulse Ox 99 05/20/17 04:00 Weight - Most Recent: 47 kg I&O - Last 24 Hours: Intake & Output 05/19/17 05/20/17 05/20/17 23:59 06:59 14:59 Intake Total Output Total Balance Lab Results Last 24 Hours: Laboratory Results - last 24 hr 05/19/17 05/20/17 05/20/17 Range/Units 12:00 06:16 06:16 WBC 10.61 (4.0-11.0) K/uL RBC 3.86 L (4.30-5.90) M/uL Hgb 13.7 (12.0-16.0) g/dL Hct 38.7 (36.0-46.0) % MCV 100.3 H (80.0-98.0) fL MCH 35.5 H (27.0-32.0) pg MCHC 35.4 (31.0-37.0) g/dL RDW Std Deviation 47.0 (28.0-62.0) fl RDW Coeff of Katerina 13 (11.0-15.0) % Plt Count 204 (150-400) K/uL MPV 9.40 (7.40-12.00) fL Add Manual Diff YES Neutrophils % (Manual) 59 (48.0-80.0) % Band Neutrophils % 5 % Lymphocytes % (Manual) 24 (16.0-40.0) % Monocytes % (Manual) 9 (0.0-15.0) % Eosinophils % (Manual) 3 (0.0-7.0) % Nucleated RBC % 0.0 /100WBC Absolute Seg Neuts 6.3 H (1.4-5.7) Band Neutrophils # 0.5 Lymphocytes # (Manual) 2.5 H (0.6-2.4) Monocytes # (Manual) 1.0 H (0.0-0.8) Eosinophils # (Manual) 0.3 (0.0-0.7) Nucleated RBCs # 0 K/uL ABG pH 7.472 H (7.35-7.45) ABG pCO2 39 (35-45) mmHG ABG pO2 51 L (75-100) mmHG ABG HCO3 29 H (22-26) mEq/L ABG Total CO2 25.3 ABG Base Excess 4.8 H (-2.0-2.0) Sodium 138 (136-146) mmol/L Potassium 3.7 (3.5-5.1) mmol/L Chloride 103 (98-110) mmol/L Carbon Dioxide 28 (21-31) mmol/L BUN 5 L (6.0-23.0) mg/dL Creatinine 0.4 L (0.6-1.5) mg/dL Est Cr Clr Drug Dosing 98.49 mL/min Estimated GFR (MDRD) > 60.0 ml/min Glucose 115 H (60-110) mg/dL Calcium 7.7 L (8.8-10.8) mg/dL Phosphorus 2.5 (2.4-4.7) mg/dL Magnesium 1.5 (1.5-2.3) mEq/L Total Bilirubin 1.2 (0.1-1.5) mg/dL AST 72 H (5-40) IU/L ALT 43 (8-54) IU/L Alkaline Phosphatase 198 H (40-150) Total Protein 5.1 L (6.0-8.0) g/dL Albumin 2.6 L (3.4-4.8) g/dL Globulin 2.5 (2.0-3.5) g/dL Albumin/Globulin Ratio 1.0 L (1.3-2.8) Med Orders - Current: Current Medications Docusate Sodium (Colace) 100 mg PO DAILY PRN PRN Reason: Constipation Last Admin: 05/19/17 11:11 Dose: 100 mg Enoxaparin Sodium (Lovenox) 40 mg SUBCUT DAILY [facility] Last Admin: 05/20/17 08:36 Dose: 40 mg Folic Acid (Folic Acid) 1 mg PO BEDTIME ELISA Last Admin: 05/19/17 20:31 Dose: 1 mg Lorazepam (Ativan) 0 mg IVPUSH Q4H PRN; Protocol PRN Reason: Agitation Last Admin: 05/18/17 23:53 Dose: 1 mg Morphine Sulfate (Ms Contin) 60 mg PO Q12H ELISA Last Admin: 05/19/17 23:34 Dose: 60 mg Nicotine (Habitrol) 14 mg TRDERM DAILY [facility] Last Admin: 05/20/17 08:36 Dose: 14 mg Ondansetron HCl (Zofran) 4 mg IVPUSH Q4H PRN PRN Reason: Nausea Oxycodone HCl (Oxycodone) 10 mg PO Q6HR PRN PRN Reason: Pain Last Admin: 05/20/17 01:58 CDT Dose: 10 mg Sertraline HCl (Zoloft) 100 mg PO DAILY [facility] Last Admin: 05/20/17 08:36 Dose: 100 mg Sodium Chloride (Saline Flush) 10 ml FLUSH ASDIRECTED PRN PRN Reason: Keep Vein Open Last Admin: 05/17/17 19:15 Dose: 10 ml Sodium Chloride (Saline Flush) 2.5 ml FLUSH ASDIRECTED PRN PRN Reason: Keep Vein Open Last Admin: 05/17/17 19:15 Dose: 2.5 ml Sodium Phosphate (Neutra-Phos) 250 mg PO QID [facility] Last Admin: 05/20/17 05:47 Dose: 250 mg Thiamine HCl (Vitamin B-1) 100 mg PO BEDTIME [facility] Last Admin: 05/19/17 20:31 Dose: 100 mg Discontinued Medications Sodium Chloride (Normal Saline) 1,000 mls @ 125 mls/hr IV STAT [facility] Last Admin: 05/17/17 19:20 Dose: 125 mls/hr Potassium Chloride/Sodium Chloride (Normal Saline With 40 Meq Kcl) 1,000 mls @ 250 mls/hr IV ASDIRECTED [facility] Last Admin: 05/17/17 20:31 Dose: 250 mls/hr Magnesium Sulfate 2 gm/ Premix 50 mls @ 50 mls/hr IV ONETIME ONE Stop: 05/17/17 22:00 Last Admin: 05/17/17 21:17 Dose: 50 mls/hr Sodium Chloride (Normal Saline) 1,000 mls @ 100 mls/hr IV ASDIRECTED [facility] Last Admin: 05/19/17 10:06 Dose: 100 mls/hr Magnesium Sulfate 2 gm/ Premix 50 mls @ 50 mls/hr IV ONETIME ONE Stop: 05/18/17 09:57 Last Admin: 05/18/17 09:23 Dose: 50 mls/hr Magnesium Sulfate 2 gm/ Premix 50 mls @ 50 mls/hr IV ONETIME ONE Stop: 05/19/17 11:13 Last Admin: 05/19/17 10:50 Dose: 50 mls/hr Potassium Chloride/Sodium Chloride (Normal Saline With 40 Meq Kcl) 1,000 mls @ 150 mls/hr IV ASDIRECTED ELISA Stop: 05/19/17 16:54 Last Admin: 05/19/17 11:07 Dose: 150 mls/hr Sodium Phosphate 30 mmole/ (Sodium Chloride) 260 mls @ 65 mls/hr IV ONETIME ONE Stop: 05/19/17 14:59 Last Admin: 05/19/17 12:00 Dose: 65 mls/hr Magnesium Sulfate 2 gm/ Premix 50 mls @ 50 mls/hr IV ONETIME ONE Stop: 05/20/17 08:14 Last Admin: 05/20/17 07:49 Dose: 50 mls/hr Morphine Sulfate (Morphine) 2 mg IVPUSH Q4H PRN PRN Reason: Pain (severe 7-10) Stop: 05/18/17 21:30 Potassium Chloride (Klor-Con M20) 40 meq PO ONETIME ONE Stop: 05/17/17 21:01 Last Admin: 05/17/17 22:10 Dose: 40 meq Potassium Chloride (Klor-Con M20) 40 meq PO ONETIME ONE Stop: 05/18/17 07:58 Last Admin: 05/18/17 08:13 Dose: 40 meq Potassium Chloride (Klor-Con M20) 40 meq PO ONETIME ONE Stop: 05/19/17 10:14 Last Admin: 05/19/17 11:04 Dose: 40 meq Potassium Chloride (Klor-Con M20) 40 meq PO ONETIME ONE Stop: 05/20/17 07:17 Last Admin: 05/20/17 07:49 Dose: 40 meq - Exam General: Alert, Oriented Lungs: Clear to Auscultation, Normal Respiratory Effort Cardiovascular: Regular Rate, Regular Rhythm GI/Abdominal Exam: Soft. No: Distended, Guarding Extremities: No Pedal Edema - Problem List Review Problem List Initiated/Reviewed/Updated: Yes - Plan Plan:: This 71 year old female admitted for generalized weakness, dehydration, ETOH abuse,acute on chronic pancreatitis, and mutliple electrolyte abnormalitites. Hypomagnesemia, hypokalemia, and hypophosphatemia:electrolytes on low end of normal replacing again today due to concerns of refeeding syndrome ETOH abuse: CIWAA score with ativan protocol PRN, thiamine and folic acid Patient was lethargic yesterday but more awake this morning, will decrease MS contin
[2017-05-20] MEDS: Morphine 30 MG Tab.ER PO SCH ×2 (10:32→21:20)
[2017-05-20] MEDS: Bisacodyl 5 MG Tab PO SCH (12:21)
[2017-05-20] MEDS: Polyethylene Glycol 3350 Powder 17 GM Packet PO SCH ×2 (12:21→21:22)
[2017-05-20] MEDS: Folic Acid 1 MG Tab PO SCH (21:20)
[2017-05-20] MEDS: Thiamine 100 MG Tab PO SCH (21:20)
[2017-05-21] MEDS: oxyCODONE 5 MG Tab PO PRN
[2017-05-21 06:22] LABS: CHLORIDE,CL 107 mmol/L (98-110); SODIUM,NA 136 mmol/L (136-146)
[2017-05-21] MEDS: Phosphorus #1 250 MG Tab PO SCH (06:45)
[2017-05-21] MEDS: Nicotine 14 MG/24 Hr Patch TRDERM SCH (08:09)
[2017-05-21] MEDS: Polyethylene Glycol 3350 Powder 17 GM Packet PO SCH (08:09)
[2017-05-21] MEDS: Bisacodyl 5 MG Tab PO SCH (08:10)
[2017-05-21] MEDS: Enoxaparin 40 MG/0.4 ML Syringe SUBCUT SCH (08:10)
[2017-05-21] MEDS: Sertraline 100 MG Tab PO SCH (08:10)
[2017-05-21] MEDS: Morphine 30 MG Tab.ER PO SCH (08:35)
[2017-05-21] MEDS: Docusate Sodium 100 MG Cap PO PRN (08:38)
[2017-05-21 09:23] VITALS: BP 128/73
--- NOTE | 2017-05-21 10:29 | PCM.DCSUM1 ---
Discharge Summary - Hospital Course Brief History: This 71 year old female with pmh of alcohol abuse, HTN, cholelithiases, COPD, chronic back pain and recurrent pancreatitis presented to the ED with concerns of generalized weakness. She reports she feels very congested in her sinuses, no sore throat, no fever, no nausea or vomiting. She actually feels hungry this morning. She denies abdominal pain, chest pain or urinary symptoms. In the ED slight leukocytosis noted at 13,590, Hgb 15.2, platelets 143, Na 123, K+ 2.2 Cl 81 BUN 10, 0.5, troponin negative. Ammonia 54, AST 42, ALT 26, Alk phos 142, Lipase 176. Mag 1.6. CXR negative for infiltrate, head CT negative for acute intracranial process. - Discharge Data Discharge Date: 05/21/17 Discharge Disposition: Home, [facility] Condition: Good - Discharge Diagnosis/Problem(s) (1) Weakness SNOMED Code(s): 28608659 ICD Code: R53.1 - WEAKNESS Status: Acute Current Visit: Yes (2) Dehydration SNOMED Code(s): 86733049 ICD Code: E86.0 - DEHYDRATION Status: Acute Current Visit: Yes (3) Protein malnutrition SNOMED Code(s): 562891991 ICD Code: E46 - UNSPECIFIED PROTEIN-CALORIE MALNUTRITION Status: Acute Current Visit: Yes (4) Hypomagnesemia SNOMED Code(s): 988474712 ICD Code: E83.42 - HYPOMAGNESEMIA Status: Chronic Priority: High Current Visit: No Problem Details: Replaced by IV (5) Hyponatremia SNOMED Code(s): 92062649 ICD Code: E87.1 - HYPO-OSMOLALITY AND HYPONATREMIA Status: Acute Current Visit: Yes (6) Hypokalemia SNOMED Code(s): 29373836 ICD Code: E87.6 - HYPOKALEMIA Status: Acute Priority: High Current Visit: Yes (7) Chronic pancreatitis SNOMED Code(s): 230340469 ICD Code: K86.1 - OTHER CHRONIC PANCREATITIS Status: Chronic Current Visit: Yes Qualifiers: Pancreatitis type: alcohol induced Qualified Code(s): K86.0 - Alcohol- induced chronic pancreatitis (8) Alcohol abuse SNOMED Code(s): 03843314 ICD Code: F10.10 - ALCOHOL ABUSE, UNCOMPLICATED Status: Chronic Current Visit: No (9) COPD (chronic obstructive pulmonary disease) SNOMED Code(s): 94743589 ICD Code: J44.9 - CHRONIC OBSTRUCTIVE PULMONARY DISEASE, UNSPECIFIED Status : Chronic Priority: High Current Visit: No Qualifiers: COPD type: emphysema Emphysema type: unspecified Qualified Code(s): J43.9 - Emphysema, unspecified (10) Cholelithiasis SNOMED Code(s): 793358139 ICD Code: K80.20 - CALCULUS OF GALLBLADDER W/O CHOLECYSTITIS W/O OBSTRUCTION Status: Chronic Priority: Medium Current Visit: No Qualifiers: Cholelithiasis location: gallbladder Cholecystitis presence: without cholecystitis Biliary obstruction: without biliary obstruction Qualified Code(s): K80.20 - Calculus of gallbladder without cholecystitis without obstruction (11) HTN (hypertension) SNOMED Code(s): 66184575 ICD Code: I10 - ESSENTIAL (PRIMARY) HYPERTENSION Status: Chronic Priority : Medium Current Visit: No Qualifiers: Hypertension type: essential hypertension Qualified Code(s): I10 - Essential (primary) hypertension - Patient Summary/Data Consults: Consultations 05/17/17 21:29 PT Evaluation and Treatment [CONS] Routine - Patient Instructions Diet: Heart Healthy Diet Diet, Other: No alcohol intake. Activity: As Tolerated Showering/Bathing: November Shower Notify Provider of: Fever, Increased Pain, Swelling and Redness, Drainage, Nausea and/or Vomiting - Discharge Plan Prescriptions/Med Rec: Morphine [MS Contin] 30 mg PO Q12H #10 tab.er Home Medications: Home Meds Multivitamin [Multivitamins] 1 tab PO DAILY 09/20/14 [History] Sertraline [Zoloft] 100 mg PO DAILY 09/20/14 [History] oxyCODONE 10 mg PO Q6HR PRN 08/15/16 [History] Metoprolol Tartrate 25 mg PO BID 11/10/16 [History] Spironolactone [Aldactone] 25 mg PO BID 11/10/16 [History] Bisacodyl [Dulcolax] 10 mg PO DAILY tablet 05/21/17 [Rx] Docusate Sodium [Colace] 100 mg PO BID cap 05/21/17 [Rx] Morphine [MS Contin] 30 mg PO Q12H #10 tab.er 11/06/17 [Rx] Polyethylene Glycol 3350 [MiraLAX] 17 gm PO DAILY PRN packet 05/21/17 [Rx] Patient Handouts: Morphine sustained-release tablets, Weakness, [id number], Dehydration, Adult, [id number], Flank Pain, [id number] Referrals: Nimesh Quezada MD [Physician] - 05/28/17 12:00 pm - Discharge Summary/Plan Comment DC Time >30 min.: No Discharge Summary/Plan Comment: Discharge Diagnoses: Generalized weakness- improved Dehydration- resolved Protein malnutrition hypomagnesemia Hypokalemia hyponatremia ETOH abuse Chronic pancreatitis Chronic cholelithiasis COPD HTN Chronic back pain on MS contin Collete was admitted and treated for multiple electrolyte abnormalities and monitored for refeeding syndrome. Family reports she is eating very little at home and has cut down the amount of alcohol she is drinking. Reports a couple beers a day with some Whiskey. She wsa seen by physical therapy, who recommended FWW for ambulation. She has chronic back pain and is on MS contin BID, this was lowered from 60 mg BID to 30 mg BID due to increased sedation. She has appointment with GI specialist regarding chronic cholelithiasis for surgical options, General surgery here has requested she see a GI specialist due to her multiple co-morbidities and likely needing close observation after surgery. Electrolyte abnormalities corrected. Today she is feeling better, having some RUQ pain, but it is at baseline and chronic back pain. She is eager for discharge. She is up ambulating with FWW in hallways and doing well. Family is at home with her and agrees to be there to provide close care. Sobriety highly encouraged and continuing to increase oral intake of high protein foods due to protein malnutrition. at bedside and agrees with discharge. I will send home 5 days worth of MS contin at lower dose and they need to contact PCP for further prescriptions. She is scheduled to see PCP, Dr. Quezada in 1 week and Flavia Justice, GI specialist [employer], in [place] in June. She is to return to ED or clinic if concerns should arise. She will be sent home with Home Health due to the need for skilled wide load escort for medication administration and assessment of nutritional status. She would also benefit from PT/OT evaluation for generalized weakness, gait instability, and ADLs needs. She is homebound, unable to drive herself and needs assistance of critical care transport nurse for ambulation along with assistance of a walker. He PCP Dr. Heather Quezada will monitor plan of care upon discharge. - General Info Date of Service: 05/21/17 Admission Dx/Problem (Free Text: Admission Diagnosis/Problem Admission Diagnosis/Problem Weakness Subjective Update: Sitting up in chair eaiting scant breakfast, really wanting to go home. Encouraged sobreity. at bedside and agrees they will have family to help with care at home. Functional Status: Reports: Pain Controlled, Tolerating Diet, Ambulating, Urinating - Review of Systems General: Reports: No Symptoms. Denies: Fever Pulmonary: Reports: No Symptoms. Denies: Shortness of Breath Cardiovascular: Reports: No Symptoms. Denies: Chest Pain Gastrointestinal: Reports: Abdominal Pain (RUQ, baseline), Constipation. Denies : Diarrhea, Nausea, Vomiting Genitourinary: Reports: No Symptoms. Denies: Dysuria, Frequency, Burning Musculoskeletal: Reports: Back Pain (chronic) Skin: Reports: No Symptoms Neurological: Reports: No Symptoms. Denies: Confusion Psychiatric: Reports: No Symptoms. Denies: Confusion - Patient Data Vitals - Most Recent: Last Vital Signs Temp 97.9 F 05/21/17 08:00 Pulse 108 H 05/21/17 08:00 Resp 16 05/21/17 08:00 BP 128/73 05/21/17 08:00 Pulse Ox 94 L 05/21/17 08:00 Weight - Most Recent: 47 kg I&O - Last 24 hours: Intake & Output 05/20/17 05/21/17 05/21/17 22:59 06:59 14:59 Intake Total 515 400 Output Total 400 950 Balance 115 -550 Lab Results - Last 24 hrs: Laboratory Results - last 24 hr 05/21/17 05/21/17 Range/Units 05:25 05:25 WBC 7.83 (4.0-11.0) K/uL RBC 3.61 L (4.30-5.90) M/uL Hgb 12.7 (12.0-16.0) g/dL Hct 36.0 (36.0-46.0) % MCV 99.7 H (80.0-98.0) fL MCH 35.2 H (27.0-32.0) pg MCHC 35.3 (31.0-37.0) g/dL RDW Std Deviation 47.3 (28.0-62.0) fl RDW Coeff of Katerina 13 (11.0-15.0) % Plt Count 247 (150-400) K/uL MPV 9.30 (7.40-12.00) fL Neut % (Auto) 51.2 (48.0-80.0) % Lymph % (Auto) 26.6 (16.0-40.0) % [place] % (Auto) 19.9 H (0.0-15.0) % Eos % (Auto) 1.9 (0.0-7.0) % Baso % (Auto) 0.4 (0.0-1.5) % Neut # (Auto) 4.0 (1.4-5.7) K/uL Lymph # (Auto) 2.1 (0.6-2.4) K/uL [place] # (Auto) 1.6 H (0.0-0.8) K/uL Eos # (Auto) 0.2 (0.0-0.7) K/uL Baso # (Auto) 0.0 (0.0-0.1) K/uL Nucleated RBC % 0.0 /100WBC Nucleated RBCs # 0 K/uL Sodium 136 (136-146) mmol/L Potassium 3.7 (3.5-5.1) mmol/L Chloride 107 (98-110) mmol/L Carbon Dioxide 22 (21-31) mmol/L BUN 6 (6.0-23.0) mg/dL Creatinine 0.4 L (0.6-1.5) mg/dL Est Cr Clr Drug Dosing 98.49 mL/min Estimated GFR (MDRD) > 60.0 ml/min Glucose 113 H (60-110) mg/dL Calcium 8.3 L (8.8-10.8) mg/dL Phosphorus 3.3 (2.4-4.7) mg/dL Magnesium 1.4 L (1.5-2.3) mEq/L Total Bilirubin 0.9 (0.1-1.5) mg/dL AST 72 H (5-40) IU/L ALT 46 (8-54) IU/L Alkaline Phosphatase 205 H (40-150) Total Protein 5.4 L (6.0-8.0) g/dL Albumin 2.5 L (3.4-4.8) g/dL Globulin 2.9 (2.0-3.5) g/dL Albumin/Globulin Ratio 0.9 L (1.3-2.8) Med Orders - Current: Current Medications Bisacodyl (Dulcolax) 10 mg PO DAILY [facility] Last Admin: 05/21/17 08:10 Dose: 10 mg Docusate Sodium (Colace) 100 mg PO DAILY PRN PRN Reason: Constipation Last Admin: 05/21/17 08:38 Dose: 100 mg Enoxaparin Sodium (Lovenox) 40 mg SUBCUT DAILY [facility] Last Admin: 05/21/17 08:10 Dose: 40 mg Folic Acid (Folic Acid) 1 mg PO BEDTIME [facility] Last Admin: 05/20/17 21:20 Dose: 1 mg Lorazepam (Ativan) 0 mg IVPUSH Q4H PRN; Protocol PRN Reason: Agitation Last Admin: 05/18/17 23:53 Dose: 1 mg Morphine Sulfate (Ms Contin) 30 mg PO Q12H [facility] Last Admin: 05/21/17 08:35 Dose: 30 mg Nicotine (Habitrol) 14 mg TRDERM DAILY [facility] Last Admin: 05/21/17 08:09 Dose: 14 mg Ondansetron HCl (Zofran) 4 mg IVPUSH Q4H PRN PRN Reason: Nausea Oxycodone HCl (Oxycodone) 10 mg PO Q6HR PRN PRN Reason: Pain Last Admin: 05/21/17 00:00 Dose: 10 mg Polyethylene Glycol (Miralax) 17 gm PO BID [facility] Last Admin: 05/21/17 08:09 Dose: 17 gm Sertraline HCl (Zoloft) 100 mg PO DAILY [facility] Last Admin: 05/21/17 08:10 Dose: 100 mg Sodium Chloride (Saline Flush) 10 ml FLUSH ASDIRECTED PRN PRN Reason: Keep Vein Open Last Admin: 05/17/17 19:15 Dose: 10 ml Sodium Chloride (Saline Flush) 2.5 ml FLUSH ASDIRECTED PRN PRN Reason: Keep Vein Open Last Admin: 05/17/17 19:15 Dose: 2.5 ml Sodium Phosphate (Neutra-Phos) 250 mg PO QID [facility] Last Admin: 05/21/17 06:45 Dose: 250 mg Thiamine HCl (Vitamin B-1) 100 mg PO BEDTIME [facility] Last Admin: 05/20/17 21:20 Dose: 100 mg Discontinued Medications Sodium Chloride (Normal Saline) 1,000 mls @ 125 mls/hr IV STAT [facility] Last Admin: 05/17/17 19:20 Dose: 125 mls/hr Potassium Chloride/Sodium Chloride (Normal Saline With 40 Meq Kcl) 1,000 mls @ 250 mls/hr IV ASDIRECTED [facility] Last Admin: 05/17/17 20:31 Dose: 250 mls/hr Magnesium Sulfate 2 gm/ Premix 50 mls @ 50 mls/hr IV ONETIME ONE Stop: 05/17/17 22:00 Last Admin: 05/17/17 21:17 Dose: 50 mls/hr Sodium Chloride (Normal Saline) 1,000 mls @ 100 mls/hr IV ASDIRECTED [facility] Last Admin: 05/19/17 10:06 Dose: 100 mls/hr Magnesium Sulfate 2 gm/ Premix 50 mls @ 50 mls/hr IV ONETIME ONE Stop: 05/18/17 09:57 Last Admin: 05/18/17 09:23 Dose: 50 mls/hr Magnesium Sulfate 2 gm/ Premix 50 mls @ 50 mls/hr IV ONETIME ONE Stop: 05/19/17 11:13 Last Admin: 05/19/17 10:50 Dose: 50 mls/hr Potassium Chloride/Sodium Chloride (Normal Saline With 40 Meq Kcl) 1,000 mls @ 150 mls/hr IV ASDIRECTED [facility] Stop: 05/19/17 16:54 Last Admin: 05/19/17 11:07 Dose: 150 mls/hr Sodium Phosphate 30 mmole/ (Sodium Chloride) 260 mls @ 65 mls/hr IV ONETIME ONE Stop: 05/19/17 14:59 Last Admin: 05/19/17 12:00 Dose: 65 mls/hr Magnesium Sulfate 2 gm/ Premix 50 mls @ 50 mls/hr IV ONETIME ONE Stop: 05/20/17 08:14 Last Admin: 05/20/17 07:49 Dose: 50 mls/hr Morphine Sulfate (Morphine) 2 mg IVPUSH Q4H PRN PRN Reason: Pain (severe 7-10) Stop: 05/18/17 21:30 Morphine Sulfate (Ms Contin) 60 mg PO Q12H [facility] Last Admin: 05/19/17 23:34 Dose: 60 mg Potassium Chloride (Klor-Con M20) 40 meq PO ONETIME ONE Stop: 05/17/17 21:01 Last Admin: 05/17/17 22:10 Dose: 40 meq Potassium Chloride (Klor-Con M20) 40 meq PO ONETIME ONE Stop: 05/18/17 07:58 Last Admin: 05/18/17 08:13 Dose: 40 meq Potassium Chloride (Klor-Con M20) 40 meq PO ONETIME ONE Stop: 05/19/17 10:14 Last Admin: 05/19/17 11:04 Dose: 40 meq Potassium Chloride (Klor-Con M20) 40 meq PO ONETIME ONE Stop: 05/20/17 07:17 Last Admin: 05/20/17 07:49 Dose: 40 meq - Exam General: Reports: Alert, Oriented, Cooperative, No Acute Distress Lungs: Reports: Clear to Auscultation, Normal Respiratory Effort Cardiovascular: Reports: Regular Rate, Regular Rhythm GI/Abdominal Exam: Normal Bowel Sounds, Soft, No Organomegaly, No Distention, No Abnormal Bruit, No Mass, Pelvis Stable, Tender (scant tenderness to RUQ) Extremities: Normal Inspection, Normal Range of Motion, Non-Tender, No Pedal Edema, Normal Capillary Refill Skin: Reports: Warm, Dry, Intact Neurological: Reports: No New Focal Deficit Psy/Mental Status: Reports: Alert, Normal Affect, Normal Mood *Q Meaningful Use (DIS) - VTE *Q VTE Criteria *Q: - Stroke *Q Stroke Criteria *Q: - AMI *Q AMI Criteria *Q:
== END 2017-05-21 11:00 | disposition home health service (06) | DRG 948 ==
LOC: MW.ED 18:21 → MW.MS 20:48
PROVIDERS: ADMIT Internal Medicine; ATTEND Internal Medicine
DX: R53.1 Weakness (principal); E86.0 Dehydration; E87.6 Hypokalemia; E46 Unspecified protein-calorie malnutrition; E87.1 Hypo-osmolality and hyponatremia; F10.11 Alcohol abuse, in remission; K86.0 Alcohol-induced chronic pancreatitis; F41.8 Other specified anxiety disorders; F17.200 Nicotine dependence, unspecified, uncomplicated; F10.239 Alcohol dependence with withdrawal, unspecified; E83.42 Hypomagnesemia; I10 Essential (primary) hypertension; J44.9 Chronic obstructive pulmonary disease, unspecified; K80.20 Calculus of gallbladder without cholecystitis without obstruction; M54.9 Dorsalgia, unspecified; G89.29 Other chronic pain; Z79.899 Other long term (current) drug therapy
CPT/HCPCS: 70450; 71020; 80053; 80305; 81001; 82140; 83605; 83690; 83735; 83880; 84484; 85025; 85610; 87040 ×2; 87086; 96361; 96365; 99285; G0480; J3480; J7040; 36415; 36600; 82803; 84100; 93005; 97161-GP; 99284; A9270-GY; J1650; J2060; J3475; J7050

== ENCOUNTER 2017-09-14 19:34 | Inpatient (IN) | payer MEDICARE ==
[2017-09-14] MEDS ORDERED: Aspirin 81 MG Tab.Chew PO ONE (19:40)
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
[2017-09-14] MEDS ORDERED: Sodium Chloride 0.9% 1,000 ML IV SCH (19:45)
[2017-09-14] MEDS ORDERED: Pantoprazole 40 MG Vial IVPUSH ONE (19:55)
[2017-09-14] MEDS ORDERED: MVI, Adult with Vitamin K 10 ML, Thiamine 100 MG, Folic Acid 1 MG in Sodium Chloride 0.... IV ONE ×4 (20:04)
[2017-09-14 20:50] LABS: CHLORIDE,CL 96 mmol/L (98-107); SODIUM,NA 138 mmol/L (136-145)
[2017-09-14] MEDS ORDERED: Sodium Chloride 0.9% 1,000 ML IV ONE (22:06)
[2017-09-14] MEDS ORDERED: Piperacillin/Tazobactam 3.375 GM in Sodium Chloride 0.9% 50 ML IV ONE (22:39)
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
[2017-09-15] MEDS: LORazepam 2 MG/ML SDV IVPUSH PRN ×2 (00:48→21:18)
[2017-09-15] MEDS: Sodium Chloride 0.9% 1,000 ML IV SCH ×2 (07:13→23:09)
[2017-09-15 08:37] LABS: CHLORIDE,CL 101 mmol/L (98-107); SODIUM,NA 137 mmol/L (136-145)
[2017-09-15] MEDS: Acetaminophen 325 MG Tab PO PRN ×2 (09:22→19:29)
[2017-09-15] MEDS ORDERED: Magnesium Sulfate/Water 4 GM in Premix Bag 1 BAG IV ONE (09:37)
[2017-09-15] MEDS: Docusate Sodium 100 MG Cap PO SCH (10:02)
[2017-09-15] MEDS ORDERED: Sodium Chloride 0.9% 10 ML Syringe FLUSH PRN (13:26)
[2017-09-15] MEDS ORDERED: Sodium Chloride 0.9% 2.5 ML Syringe FLUSH PRN (13:26)
[2017-09-15] MEDS ORDERED: Sodium Chloride 0.9% 1,000 ML IV SCH (13:30)
[2017-09-15] MEDS ORDERED: Morphine 30 MG Tab.ER PO PRN (13:35)
[2017-09-15] MEDS: oxyCODONE 5 MG Tab PO PRN ×2 (13:57→20:03)
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
[2017-09-15] MEDS: Ondansetron 4 MG/2 ML SDV IVPUSH PRN (13:59)
[2017-09-15] MEDS: Enoxaparin 40 MG/0.4 ML Syringe SUBCUT SCH (14:37)
[2017-09-15] MEDS: Levofloxacin/Dextrose 5%-Water 750 MG in Premix Bag 1 BAG IV SCH (17:29)
[2017-09-15] MEDS ORDERED: Sodium Chloride 0.9% 500 ML IV SCH (19:00)
[2017-09-15] MEDS: Folic Acid 1 MG Tab PO SCH (20:03)
[2017-09-15] MEDS: Sertraline 100 MG Tab PO SCH (20:03)
[2017-09-15] MEDS: Thiamine 100 MG Tab PO SCH (20:03)
[2017-09-15] MEDS: metroNIDAZOLE/Normal Saline 500 MG in Premix Bag 1 BAG IV SCH (20:05)
[2017-09-16] MEDS: metroNIDAZOLE/Normal Saline 500 MG in Premix Bag 1 BAG IV SCH ×3 (03:31→20:14)
[2017-09-16 07:29] LABS: CHLORIDE,CL 103 mmol/L (98-107); SODIUM,NA 136 mmol/L (136-145)
[2017-09-16] MEDS ORDERED: Magnesium Sulfate/Water 4 GM in Premix Bag 1 BAG IV ONE (08:13)
[2017-09-16] MEDS ORDERED: Potassium Chloride 20 MEQ Tab.ER PO ONE (08:13)
[2017-09-16] MEDS ORDERED: Sodium Chloride 0.9% with KCl 1,000 ML IV SCH (08:15)
[2017-09-16] MEDS: Sertraline 100 MG Tab PO SCH ×2 (08:45→20:14)
[2017-09-16] MEDS: Docusate Sodium 100 MG Cap PO SCH (08:51)
--- NOTE | 2017-09-16 08:53 | PCM.PN ---
- Review of Systems Systems Review Comment:: abdominal pain improving, did not sleep well last night - Patient Data Vitals - Most Recent: Last Vital Signs Temp 37.1 C 09/16/17 08:00 Pulse 113 H 09/16/17 08:00 Resp 16 09/16/17 08:00 BP 149/93 H 09/16/17 08:00 Pulse Ox 95 09/16/17 08:00 Weight - Most Recent: 44.497 kg I&O - Last 24 Hours: Intake & Output 09/15/17 09/16/17 09/16/17 22:59 06:59 14:59 Intake Total 3720 2480 Output Total 1300 1850 Balance 2420 630 Lab Results Last 24 Hours: Laboratory Results - last 24 hr 09/15/17 09/15/17 09/15/17 Range/Units 11:51 11:51 18:10 WBC 7.83 (4.0-11.0) K/uL RBC 3.71 L (4.30-5.90) M/uL Hgb 13.2 (12.0-16.0) g/dL Hct 38.3 (36.0-46.0) % MCV 103.2 H (80.0-98.0) fL MCH 35.6 H (27.0-32.0) pg MCHC 34.5 (31.0-37.0) g/dL RDW Std Deviation 50.9 (28.0-62.0) fl RDW Coeff of Katerina 14 (11.0-15.0) % Plt Count 126 L (150-400) K/uL MPV 9.60 (7.40-12.00) fL Neut % (Auto) 81.4 H (48.0-80.0) % Lymph % (Auto) 10.0 L (16.0-40.0) % Taylor % (Auto) 8.2 (0.0-15.0) % Eos % (Auto) 0.0 (0.0-7.0) % Baso % (Auto) 0.4 (0.0-1.5) % Neut # (Auto) 6.4 H (1.4-5.7) K/uL Lymph # (Auto) 0.8 (0.6-2.4) K/uL Taylor # (Auto) 0.6 (0.0-0.8) K/uL Eos # (Auto) 0.0 (0.0-0.7) K/uL Baso # (Auto) 0.0 (0.0-0.1) K/uL Nucleated RBC % 0.0 /100WBC Nucleated RBCs # 0 K/uL Lactate 2.9 H 4.4 H (0.20-2.00) mmol/L Sodium (136-145) mmol/L Potassium (3.5-5.1) mmol/L Chloride (98-107) mmol/L Carbon Dioxide (21.0-32.0) mmol/L BUN (7.0-18.0) mg/dL Creatinine (0.6-1.0) mg/dL Est Cr Clr Drug Dosing mL/min Estimated GFR (MDRD) ml/min Glucose (74-106) mg/dL Calcium (8.5-10.1) mg/dL Magnesium (1.5-2.0) mg/dL Total Bilirubin (0.2-1.0) mg/dL AST (15-37) U/L ALT (14-63) U/L Alkaline Phosphatase (46-116) U/L Total Protein (6.4-8.2) g/dL Albumin (3.4-5.0) g/dL Globulin (2.0-3.5) g/dL Albumin/Globulin Ratio (1.3-2.8) 09/16/17 09/16/17 09/16/17 Range/Units 00:20 06:23 06:23 WBC 4.64 (4.0-11.0) K/uL RBC 3.38 L (4.30-5.90) M/uL Hgb 12.0 (12.0-16.0) g/dL Hct 33.8 L (36.0-46.0) % MCV 100.0 H (80.0-98.0) fL MCH 35.5 H (27.0-32.0) pg MCHC 35.5 (31.0-37.0) g/dL RDW Std Deviation 48.6 (28.0-62.0) fl RDW Coeff of Katerina 13 (11.0-15.0) % Plt Count 120 L (150-400) K/uL MPV 9.50 (7.40-12.00) fL Neut % (Auto) 55.3 (48.0-80.0) % Lymph % (Auto) 26.9 (16.0-40.0) % Taylor % (Auto) 17.2 H (0.0-15.0) % Eos % (Auto) 0.4 (0.0-7.0) % Baso % (Auto) 0.2 (0.0-1.5) % Neut # (Auto) 2.6 (1.4-5.7) K/uL Lymph # (Auto) 1.3 (0.6-2.4) K/uL Taylor # (Auto) 0.8 (0.0-0.8) K/uL Eos # (Auto) 0.0 (0.0-0.7) K/uL Baso # (Auto) 0.0 (0.0-0.1) K/uL Nucleated RBC % 0.0 /100WBC Nucleated RBCs # 0 K/uL Lactate 3.4 H 3.7 H (0.20-2.00) mmol/L Sodium (136-145) mmol/L Potassium (3.5-5.1) mmol/L Chloride (98-107) mmol/L Carbon Dioxide (21.0-32.0) mmol/L BUN (7.0-18.0) mg/dL Creatinine (0.6-1.0) mg/dL Est Cr Clr Drug Dosing mL/min Estimated GFR (MDRD) ml/min Glucose (74-106) mg/dL Calcium (8.5-10.1) mg/dL Magnesium (1.5-2.0) mg/dL Total Bilirubin (0.2-1.0) mg/dL AST (15-37) U/L ALT (14-63) U/L Alkaline Phosphatase (46-116) U/L Total Protein (6.4-8.2) g/dL Albumin (3.4-5.0) g/dL Globulin (2.0-3.5) g/dL Albumin/Globulin Ratio (1.3-2.8) 09/16/17 Range/Units 06:23 WBC (4.0-11.0) K/uL RBC (4.30-5.90) M/uL Hgb (12.0-16.0) g/dL Hct (36.0-46.0) % MCV (80.0-98.0) fL MCH (27.0-32.0) pg MCHC (31.0-37.0) g/dL RDW Std Deviation (28.0-62.0) fl RDW Coeff of Katerina (11.0-15.0) % Plt Count (150-400) K/uL MPV (7.40-12.00) fL Neut % (Auto) (48.0-80.0) % Lymph % (Auto) (16.0-40.0) % Taylor % (Auto) (0.0-15.0) % Eos % (Auto) (0.0-7.0) % Baso % (Auto) (0.0-1.5) % Neut # (Auto) (1.4-5.7) K/uL Lymph # (Auto) (0.6-2.4) K/uL Taylor # (Auto) (0.0-0.8) K/uL Eos # (Auto) (0.0-0.7) K/uL Baso # (Auto) (0.0-0.1) K/uL Nucleated RBC % /100WBC Nucleated RBCs # K/uL Lactate (0.20-2.00) mmol/L Sodium 136 (136-145) mmol/L Potassium 2.7 L (3.5-5.1) mmol/L Chloride 103 (98-107) mmol/L Carbon Dioxide 20.4 L (21.0-32.0) mmol/L BUN 3 L (7.0-18.0) mg/dL Creatinine 0.5 L (0.6-1.0) mg/dL Est Cr Clr Drug Dosing 73.54 mL/min Estimated GFR (MDRD) > 60.0 ml/min Glucose 235 H (74-106) mg/dL Calcium 8.2 L (8.5-10.1) mg/dL Magnesium 1.2 L (1.5-2.0) mg/dL Total Bilirubin 2.5 H (0.2-1.0) mg/dL AST 143 H (15-37) U/L ALT 51 (14-63) U/L Alkaline Phosphatase 212 H (46-116) U/L Total Protein 5.7 L (6.4-8.2) g/dL Albumin 2.6 L (3.4-5.0) g/dL Globulin 3.1 (2.0-3.5) g/dL Albumin/Globulin Ratio 0.8 L (1.3-2.8) Med Orders - Current: Current Medications Acetaminophen (Tylenol) 650 mg PO Q4H PRN PRN Reason: Pain Last Admin: 09/15/17 19:29 Dose: 650 mg Docusate Sodium (Colace) 100 mg PO DAILY [facility] Last Admin: 09/15/17 10:02 Dose: Not Given Enoxaparin Sodium (Lovenox) 40 mg SUBCUT Q24H [facility] Last Admin: 09/15/17 14:37 Dose: 40 mg Folic Acid (Folic Acid) 1 mg PO BEDTIME [facility] Last Admin: 09/15/17 20:03 Dose: 1 mg Sodium Chloride (Normal Saline) 1,000 mls @ 125 mls/hr IV ASDIRECTED [facility] Last Admin: 09/15/17 23:09 Dose: 125 mls/hr Levofloxacin/Dextrose 750 mg/ (Premix) 150 mls @ 100 mls/hr IV Q24H [facility] Last Admin: 09/15/17 17:29 Dose: 100 mls/hr Metronidazole 500 mg/ Premix 100 mls @ 100 mls/hr IV Q8H [facility] Last Infusion: 09/16/17 04:35 Dose: Infused Magnesium Sulfate 4 gm/ Premix 100 mls @ 50 mls/hr IV ONETIME ONE Stop: 09/16/17 10:12 Potassium Chloride/Sodium Chloride (Normal Saline With 40 Meq Kcl) 1,000 mls @ 150 mls/hr IV ASDIRECTED [facility] Stop: 09/16/17 14:54 Last Admin: 09/16/17 08:34 Dose: 150 mls/hr Lorazepam (Ativan) 0 mg IVPUSH Q4H PRN; Protocol PRN Reason: Other Last Admin: 09/15/17 21:18 Dose: 1 mg Morphine Sulfate (Ms Contin) 30 mg PO Q12H PRN PRN Reason: Pain Last Admin: 09/16/17 03:26 Dose: 30 mg Ondansetron HCl (Zofran) 4 mg IVPUSH Q4H PRN PRN Reason: Nausea/Vomiting Last Admin: 09/15/17 13:59 Dose: 4 mg Oxycodone HCl (Oxycodone) 10 mg PO Q6H PRN PRN Reason: Pain Last Admin: 09/15/17 20:03 Dose: 10 mg Sertraline HCl (Zoloft) 100 mg PO BID [facility] Last Admin: 09/16/17 08:45 Dose: 100 mg Sodium Chloride (Saline Flush) 10 ml FLUSH ASDIRECTED PRN PRN Reason: Keep Vein Open Sodium Chloride (Saline Flush) 2.5 ml FLUSH ASDIRECTED PRN PRN Reason: Keep Vein Open Thiamine HCl (Vitamin B-1) 100 mg PO BEDTIME [facility] Last Admin: 09/15/17 20:03 Dose: 100 mg Discontinued Medications Aspirin (Aspirin) 324 mg PO ONETIME ONE Stop: 09/14/17 19:41 Last Admin: 09/14/17 20:04 Dose: 324 mg Sodium Chloride (Normal Saline) 1,000 mls @ 125 mls/hr IV STAT [facility] Last Infusion: 09/15/17 07:06 Dose: Infused Multivitamins/Minerals 10 ml/Thiamine HCl 100 mg/ Folic Acid 1 mg/ Sodium Chloride 1,011.2 mls @ 999 mls/hr IV ONETIME ONE Stop: 09/14/17 21:04 Last Admin: 09/14/17 20:44 Dose: 999 mls/hr Sodium Chloride (Normal Saline) 1,000 mls @ 999 mls/hr IV STAT ONE Stop: 09/14/17 23:06 Last Admin: 09/14/17 22:07 Dose: 999 mls/hr Piperacillin Sod/Tazobactam (Sod 3.375 gm/ Sodium Chloride) 50 mls @ 100 mls/ hr IV ONETIME ONE Stop: 09/14/17 23:08 Last Admin: 09/14/17 22:47 Dose: 100 mls/hr Magnesium Sulfate 4 gm/ Premix 100 mls @ 25 mls/hr IV ONETIME ONE Stop: 09/15/17 13:36 Last Admin: 09/15/17 10:24 Dose: 25 mls/hr Sodium Chloride (Normal Saline) 1,000 mls @ 125 mls/hr IV ASDIRECTED ELISA Sodium Chloride (Normal Saline) 500 mls @ 500 mls/hr IV .BOLUS [facility] Last Infusion: 09/15/17 20:20 Dose: Infused Pantoprazole Sodium (Protonix Iv) 80 mg IVPUSH .BOLUS ONE Stop: 09/14/17 19:56 Last Admin: 09/14/17 20:47 Dose: 80 mg Potassium Chloride (Klor-Con M20) 40 meq PO ONETIME ONE Stop: 09/16/17 08:14 Last Admin: 09/16/17 08:45 Dose: 40 meq - Exam General: Cooperative Lungs: Clear to Auscultation, Normal Respiratory Effort Cardiovascular: Regular Rate, Regular Rhythm GI/Abdominal Exam: Soft, Non-Tender, No Distention Extremities: No Pedal Edema Skin: Warm, Dry, Intact - Problem List Review Problem List Initiated/Reviewed/Updated: Yes - My Orders Last 24 Hours: My Active Orders 09/15/17 09:00 Docusate Sodium [Colace] 100 mg PO DAILY 09/15/17 20:00 metroNIDAZOLE/Normal Saline [Flagyl 500 MG in NS 100 ML] 500 mg Premix Bag 1 bag IV Q8H 09/16/17 08:13 Magnesium Sulfate/Water [Magnesium Sulfate 4 GM in Water 100 ML] 4 gm Premix Bag 1 bag IV ONETIME 09/16/17 08:15 Sodium Chloride 0.9% with KCl [Normal Saline with 40 mEq KCl] 1,000 ml IV ASDIRECTED 09/16/17 12:15 LACTIC ACID,WHOLE BLOOD [BG] Q6H - Plan Plan:: 72-year-old female admitted with ETOH abuse and abdominal pain. CT abdomen reported liver cirrhosis, possible atypical lung infection and colonic wall thickening. ETOH withdrawal: requiring ativan prn, continue thiamin and folic acid Chronic abdominal pain: will resume MS contin and oxycodone prn. On levaquin and flagyl to cover possible infectious process Hypokalemia/hypomagnesia
[2017-09-16] MEDS: LORazepam 2 MG/ML SDV IVPUSH PRN ×3 (09:28→22:39)
[2017-09-16] MEDS ORDERED: Sodium Chloride 0.9% 500 ML IV SCH (13:45)
[2017-09-16] MEDS: Enoxaparin 40 MG/0.4 ML Syringe SUBCUT SCH (14:24)
[2017-09-16] MEDS: Levofloxacin/Dextrose 5%-Water 750 MG in Premix Bag 1 BAG IV SCH (17:41)
[2017-09-16] MEDS: Folic Acid 1 MG Tab PO SCH (20:14)
[2017-09-16] MEDS: Thiamine 100 MG Tab PO SCH (20:14)
[2017-09-16] MEDS: Sodium Chloride 0.9% 1,000 ML IV SCH (21:06)
[2017-09-17] MEDS: metroNIDAZOLE/Normal Saline 500 MG in Premix Bag 1 BAG IV SCH ×3 (03:21→20:36)
--- NOTE | 2017-09-17 05:40 | CR ---
EXAM DATE: 09/14/17 PATIENT'S AGE: 72 Patient: LIANG STRONG Facility: [place], [place] Site . Site : 1945 Study: XRay Chest [id number]/2/2018 10:29:17 PM Ordering Physician: Ethan Rondon Final Report: INDICATION: Decreasing blood pressure TECHNIQUE: Chest radiograph 1 view COMPARISON: 05/17/17 FINDINGS: Mediastinum: The heart silhouette is normal in size and morphology. The mediastinum is normal in appearance. A small hiatal hernia is noted. Lungs: Both lungs are unremarkable in appearance. No sign of pleural effusion seen. No pneumothorax is identified. Bones and soft tissue: Unremarkable for age. Moderate diffuse osteopenia is noted. IMPRESSION: 1. No acute cardiopulmonary disease is seen. 2. A small hiatal hernia is noted. Dictated by: Magdaleno Griffin MD @ 09/14/2017 22:46:57 (Electronic Signature) Report Signed by Proxy. [facility] MEDICAL CENTERAddie
--- NOTE | 2017-09-17 05:54 | CT ---
EXAM DATE: 09/14/17 PATIENT'S AGE: 72 Patient: LIANG STRONG Facility: [place], [place] Site . Site : 1945 Study: CT Abdomen/Pelvis [id number]/3/2018 9:17:20 AM Ordering Physician: Norman Hernandez Final Report: INDICATION: Mid abdominal pain. History of COPD, cholelithiasis, and pancreatitis. TECHNIQUE: CT abdomen and pelvis without contrast. COMPARISON: 01/19/2017. FINDINGS: Lower chest: Small nodular infiltrates are present in the right middle lobe, right lower lobe, and lingula. Liver: The liver is normal in caliber. Liver contour is somewhat nodular. There is severe diffuse fatty infiltration. No focal lesion. Gallbladder and bile ducts: Multiple gallbladder stones are present. No sign of acute inflammation or biliary dilatation. Pancreas: Unremarkable. No mass or inflammation. Spleen: Normal in size. No masses. Adrenal glands: Normal in size. No nodules. Kidneys: Single tiny nonobstructing stone is in the left kidney. No hydronephrosis. Kidneys are otherwise unremarkable. GI tract: There is questionable wall thickening and edema in the colon. GI tract is otherwise within normal limits in caliber and appearance. Vasculature: Aortic atherosclerosis without aneurysm. Lymph nodes: No lymphadenopathy. Abdominal wall/Omentum/Peritoneum: Unremarkable. No sign of mass or infiltration. No free air or significant free fluid. Pelvis: Assessment is limited by marked beam hardening artifact from bilateral hip arthroplasty hardware. No significant finding evident. Bones: Severe chronic appearing compression fracture is seen in the T12 vertebral body. Multiple compression deformities are present in the lumbar spine. Multiple small round lytic lesions are present in the posterior elements and vertebral body at L4. IMPRESSION: 1. Small nodular infiltrates are present in both lung bases consistent with an acute infectious process. 2. Cirrhotic morphology of the liver and views severe hepatic steatosis. 3. Cholelithiasis. No CT evidence of cholecystitis. 4. Questionable colitis. However, this possible colonic wall thickening may be exaggerated by nondistention. 5. Multiple compression fractures appear chronic in the lower thoracic and lumbar spine. Small lytic lesions at L4 are indeterminate. Dictated by Wilbert Burton MD @ 09/15/2017 4:24:52 PM Dictated by: Wilbert Burton MD @ 09/15/2017 16:25:01 (Electronic Signature) Report Signed by Proxy. MTDD
[2017-09-17 06:33] LABS: CHLORIDE,CL 106 mmol/L (98-107); SODIUM,NA 141 mmol/L (136-145)
[2017-09-17] MEDS: Sodium Chloride 0.9% 1,000 ML IV SCH ×2 (08:04→23:40)
[2017-09-17] MEDS: oxyCODONE 5 MG Tab PO PRN ×2 (08:14→20:41)
[2017-09-17] MEDS: Sertraline 100 MG Tab PO SCH ×2 (08:14→20:36)
[2017-09-17] MEDS: Docusate Sodium 100 MG Cap PO SCH (08:15)
[2017-09-17] MEDS ORDERED: Magnesium Sulfate/Water 4 GM in Premix Bag 1 BAG IV ONE (09:10)
[2017-09-17] MEDS ORDERED: Potassium Chloride 20 MEQ Tab.ER PO ONE (09:14)
[2017-09-17] MEDS: Acetaminophen 325 MG Tab PO PRN (09:51)
[2017-09-17] MEDS: Spironolactone 25 MG Tab PO SCH ×2 (13:06→20:36)
[2017-09-17] MEDS: Metoprolol Tartrate 25 MG Tab PO SCH ×2 (13:06→20:36)
[2017-09-17] MEDS: Enoxaparin 40 MG/0.4 ML Syringe SUBCUT SCH (13:57)
[2017-09-17] MEDS: Levofloxacin/Dextrose 5%-Water 750 MG in Premix Bag 1 BAG IV SCH (16:22)
--- NOTE | 2017-09-17 18:18 | PCM.PN ---
- General Info Date of Service: 09/17/17 Subjective Update: Patient was seen today, appeared to be less confused, stating her abdominal pain had improved. Patient however does have low mag and low potassium still. Her CIWA scores are between 2-4. - Patient Data Vitals - Most Recent: Last Vital Signs Temp 36.4 C 09/17/17 15:50 Pulse 72 09/17/17 15:50 Resp 20 09/17/17 15:50 BP 125/87 09/17/17 15:50 Pulse Ox 97 09/17/17 15:50 Weight - Most Recent: 44.497 kg I&O - Last 24 Hours: Intake & Output 09/17/17 09/17/17 09/17/17 06:59 14:59 22:59 Intake Total 100 570 Output Total 1030 Balance 100 -460 Med Orders - Current: Current Medications Acetaminophen (Tylenol) 650 mg PO Q4H PRN PRN Reason: Pain Last Admin: 09/17/17 09:51 Dose: 650 mg Docusate Sodium (Colace) 100 mg PO DAILY [facility] Last Admin: 09/17/17 08:15 Dose: Not Given Enoxaparin Sodium (Lovenox) 40 mg SUBCUT Q24H [facility] Last Admin: 09/17/17 13:57 Dose: 40 mg Folic Acid (Folic Acid) 1 mg PO BEDTIME [facility] Last Admin: 09/16/17 20:14 Dose: 1 mg Sodium Chloride (Normal Saline) 1,000 mls @ 125 mls/hr IV ASDIRECTED [facility] Last Admin: 09/17/17 08:04 Dose: 125 mls/hr Levofloxacin/Dextrose 750 mg/ (Premix) 150 mls @ 100 mls/hr IV Q24H [facility] Last Admin: 09/17/17 16:22 Dose: 100 mls/hr Metronidazole 500 mg/ Premix 100 mls @ 100 mls/hr IV Q8H [facility] Last Admin: 09/17/17 13:02 Dose: 100 mls/hr Sodium Chloride (Normal Saline) 500 mls @ 500 mls/hr IV .BOLUS [facility] Last Admin: 09/16/17 14:15 Dose: 500 mls/hr Lorazepam (Ativan) 0 mg IVPUSH Q4H PRN; Protocol PRN Reason: Other Last Admin: 09/16/17 22:39 Dose: 1 mg Metoprolol Tartrate (Lopressor) 25 mg PO BID [facility] Last Admin: 09/17/17 13:06 Dose: 25 mg Morphine Sulfate (Ms Contin) 30 mg PO Q12H PRN PRN Reason: Pain Last Admin: 09/16/17 03:26 Dose: 30 mg Ondansetron HCl (Zofran) 4 mg IVPUSH Q4H PRN PRN Reason: Nausea/Vomiting Last Admin: 09/15/17 13:59 Dose: 4 mg Oxycodone HCl (Oxycodone) 10 mg PO Q6H PRN PRN Reason: Pain Last Admin: 09/17/17 08:14 Dose: 10 mg Sertraline HCl (Zoloft) 100 mg PO BID [facility] Last Admin: 09/17/17 08:14 Dose: 100 mg Sodium Chloride (Saline Flush) 10 ml FLUSH ASDIRECTED PRN PRN Reason: Keep Vein Open Sodium Chloride (Saline Flush) 2.5 ml FLUSH ASDIRECTED PRN PRN Reason: Keep Vein Open Spironolactone (Aldactone) 25 mg PO BID [facility] Last Admin: 09/17/17 13:06 Dose: 25 mg Thiamine HCl (Vitamin B-1) 100 mg PO BEDTIME [facility] Last Admin: 09/16/17 20:14 Dose: 100 mg Discontinued Medications Aspirin (Aspirin) 324 mg PO ONETIME ONE Stop: 09/14/17 19:41 Last Admin: 09/14/17 20:04 Dose: 324 mg Sodium Chloride (Normal Saline) 1,000 mls @ 125 mls/hr IV STAT [facility] Last Infusion: 09/15/17 07:06 Dose: Infused Multivitamins/Minerals 10 ml/Thiamine HCl 100 mg/ Folic Acid 1 mg/ Sodium Chloride 1,011.2 mls @ 999 mls/hr IV ONETIME ONE Stop: 09/14/17 21:04 Last Admin: 09/14/17 20:44 Dose: 999 mls/hr Sodium Chloride (Normal Saline) 1,000 mls @ 999 mls/hr IV STAT ONE Stop: 09/14/17 23:06 Last Admin: 09/14/17 22:07 Dose: 999 mls/hr Piperacillin Sod/Tazobactam (Sod 3.375 gm/ Sodium Chloride) 50 mls @ 100 mls/ hr IV ONETIME ONE Stop: 09/14/17 23:08 Last Admin: 09/14/17 22:47 Dose: 100 mls/hr Magnesium Sulfate 4 gm/ Premix 100 mls @ 25 mls/hr IV ONETIME ONE Stop: 09/15/17 13:36 Last Admin: 09/15/17 10:24 Dose: 25 mls/hr Sodium Chloride (Normal Saline) 1,000 mls @ 125 mls/hr IV ASDIRECTED ELISA Sodium Chloride (Normal Saline) 500 mls @ 500 mls/hr IV .BOLUS ELISA Last Infusion: 09/15/17 20:20 Dose: Infused Magnesium Sulfate 4 gm/ Premix 100 mls @ 50 mls/hr IV ONETIME ONE Stop: 09/16/17 10:12 Last Admin: 09/16/17 08:55 Dose: 50 mls/hr Potassium Chloride/Sodium Chloride (Normal Saline With 40 Meq Kcl) 1,000 mls @ 150 mls/hr IV ASDIRECTED ELISA Stop: 09/16/17 14:54 Last Infusion: 09/16/17 21:05 Dose: Infused Magnesium Sulfate 4 gm/ Premix 100 mls @ 25 mls/hr IV ONETIME ONE Stop: 09/17/17 13:09 Last Admin: 09/17/17 09:51 Dose: 25 mls/hr Pantoprazole Sodium (Protonix Iv) 80 mg IVPUSH .BOLUS ONE Stop: 09/14/17 19:56 Last Admin: 09/14/17 20:47 Dose: 80 mg Potassium Chloride (Klor-Con M20) 40 meq PO ONETIME ONE Stop: 09/16/17 08:14 Last Admin: 09/16/17 08:45 Dose: 40 meq Potassium Chloride (Klor-Con M20) 40 meq PO ONETIME ONE Stop: 09/17/17 09:15 Last Admin: 09/17/17 09:50 Dose: 40 meq - Exam General: Alert, Oriented, Cooperative Lungs: Clear to Auscultation, Normal Respiratory Effort Cardiovascular: Regular Rate, Regular Rhythm GI/Abdominal Exam: Tender Extremities: Normal Inspection - Problem List Review Problem List Initiated/Reviewed/Updated: Yes - My Orders Last 24 Hours: My Active Orders 09/17/17 12:15 Metoprolol Tartrate [Lopressor] 25 mg PO BID Spironolactone [Aldactone] 25 mg PO BID - Plan Plan:: 72-year-old female admitted with ETOH abuse and abdominal pain. CT abdomen reported liver cirrhosis, possible atypical lung infection and colonic wall thickening. ETOH withdrawal: requiring ativan prn, continue thiamin and folic acid Chronic abdominal pain: will resume MS contin and oxycodone prn. On levaquin and flagyl to cover possible infectious process Hypokalemia/hypomagnesia patient's potassiums 3.3, patient's magnesium is 1.1, patient to receive 40 mEq of potassium daily oral tablet as well as 4 g IV mag. Since electrolytes are within normal limits and patient continues to remain stable anticipated discharge showed be tomorrow.
[2017-09-17 19:41] LABS: CHLORIDE,CL 106 mmol/L (98-107); SODIUM,NA 140 mmol/L (136-145)
[2017-09-17] MEDS: Thiamine 100 MG Tab PO SCH (20:36)
[2017-09-17] MEDS: Folic Acid 1 MG Tab PO SCH (20:36)
[2017-09-18] MEDS: LORazepam 2 MG/ML SDV IVPUSH PRN (00:49)
[2017-09-18] MEDS: metroNIDAZOLE/Normal Saline 500 MG in Premix Bag 1 BAG IV SCH ×2 (03:54→12:43)
[2017-09-18 05:57] LABS: CHLORIDE,CL 110 mmol/L (98-107); SODIUM,NA 143 mmol/L (136-145)
[2017-09-18] MEDS: Metoprolol Tartrate 25 MG Tab PO SCH (08:21)
[2017-09-18] MEDS: Spironolactone 25 MG Tab PO SCH (08:21)
[2017-09-18] MEDS: Sertraline 100 MG Tab PO SCH (08:22)
[2017-09-18] MEDS: Docusate Sodium 100 MG Cap PO SCH (08:22)
[2017-09-18] MEDS ORDERED: Loperamide 2 MG Cap PO PRN (09:17)
[2017-09-18] MEDS ORDERED: Potassium Chloride 10% 20 MEQ/15 ML Soln 30 ML UD Cup PO ONE (09:17)
[2017-09-18] MEDS ORDERED: Magnesium Sulfate/Water 4 GM in Premix Bag 1 BAG IV ONE (09:21)
[2017-09-18] MEDS: Sodium Chloride 0.9% 1,000 ML IV SCH (09:25)
[2017-09-18] MEDS: Ondansetron 4 MG/2 ML SDV IVPUSH PRN (10:16)
[2017-09-18] MEDS ORDERED: Phosphorus #1 250 MG Tab PO ONE (12:20)
--- NOTE | 2017-09-18 12:25 | PCM.DCSUM1 ---
<James Vanessa Z - Last Filed: 09/18/17 22:40> Discharge Summary - Hospital Course HPI Initial Comments: Discharge Summary Date of admission: 09/14/17 Date of discharge: 09/18/17 Admitting diagnosis: #1. Alcohol intoxication #2. Hypertension, elevated lactic acid levels secondary to sepsis #3. Abdominal pain, acute on chronic in nature #4. Difficult past medical history of alcohol abuse, alcohol withdrawal, recent pancreatitis, traumatic vertebral compression fractures, #5. Discharge diagnoses: #1. Alcohol intoxication now resolved, alcohol withdrawal symptoms resolving, patient still having mild memory relapse #2. Intra-abdominal infection on home antibiotics #3. Electrolyte abnormalities now resolving #4. #5. Consultations: None Procedures: None Hospitalization course: Patient was admitted on 09/14/2017 secondary to acute alcohol intoxication, memory impairment, altered mental status, hypotension secondary to elevated lactic acid level due to sepsis. Patient had an abdominal CT which showed possible intra-abdominal infection etiology, patient was placed upon antibiotics metronidazole and Levaquin. Patient's lactic acid levels were trended and after fluid resuscitation was done, patient's lactic acid levels did normalize. Patient after her alcohol levels had normalized started to have withdrawal symptoms, including agitation and tremors. Patient's CIWA scores were as high as 15-16. On the day of discharge patient had right away scores between 2-8. Patient still has mild memory relapse, and confusion. Patient is being sent home on home health to the fact that patient is homebound as they are unable to move it without being unsteady and have risk for fall. Patient is unable to safely navigate stairs without assistance of another person due to safety reasons, they have pain that is limiting the ability to ambulate more than a household distance. As well due to the weakness and deconditioning secondary to their alcohol withdrawal stay here in the hospital. The patient needs skilled services including an RN to monitor medication education due to new/changed medications, assessment effectiveness of medication changes. Patient requires physical therapy for strengthening secondary to weakness from recent hospitalization, deconditioning due to disease process, gait instability and high risk for fall. Dr. Fraser continue to follow the patient for home health once discharged from the hospital. Disposition on discharge: home Condition on discharge: Stable Discharge medications: Continuation of home medication, folic acid 1 mg at bedtime, thiamine at bedtime, magnesium 1 time daily, 7 days of Levaquin and metronidazole Follow-up instructions: With Dr. Fraser and home health - Discharge Data Discharge Date: 09/18/17 Discharge Disposition: Home, Self-Care 01 Condition: Fair - Discharge Plan Prescriptions/Med Rec: Folic Acid 1 mg PO BEDTIME 30 Days #30 tablet Levofloxacin [Levaquin] 750 mg PO DAILY 7 Days #7 tablet Loperamide [Imodium] 2 mg PO Q6H PRN 10 Days #30 cap PRN Reason: Diarrhea Magnesium 200 mg PO DAILY 30 Days #30 tablet metroNIDAZOLE [Metronidazole] 500 mg PO Q6H 7 Days #28 tablet Thiamine [Vitamin B-1] 100 mg PO BEDTIME 30 Days #30 tablet Home Medications: Home Meds Multivitamin [Multivitamins] 0 mg PO DAILY 09/20/14 [History] Sertraline [Zoloft] 100 mg PO BID 09/20/14 [History] oxyCODONE 10 mg PO Q6HR PRN 08/15/16 [History] Metoprolol Tartrate 25 mg PO BID 11/10/16 [History] Spironolactone [Aldactone] 25 mg PO BID 11/10/16 [History] Gabapentin [Gralise] 600 mg PO TID 09/14/17 [History] Morphine [MS Contin] 60 mg PO Q12H 09/14/17 [History] Folic Acid 1 mg PO BEDTIME 30 Days #30 tablet 09/18/17 [Rx] Levofloxacin [Levaquin] 750 mg PO DAILY 7 Days #7 tablet 09/18/17 [Rx] Loperamide [Imodium] 2 mg PO Q6H PRN 10 Days #30 cap 09/18/17 [Rx] Magnesium 200 mg PO DAILY 30 Days #30 tablet 09/18/17 [Rx] Thiamine [Vitamin B-1] 100 mg PO BEDTIME 30 Days #30 tablet 09/18/17 [Rx] metroNIDAZOLE [Metronidazole] 500 mg PO Q6H 7 Days #28 tablet 09/18/17 [Rx] Patient Handouts: Hypotension, [id number], Thiamine, Vitamin B1 tablets, Dehydration, Adult, [id number], Levofloxacin tablets, Magnesium Hydroxide chewable tablets, Folic Acid, Vitamin B9 tablets, Metronidazole tablets or capsules Referrals: Nimesh Quezada MD [Primary Care Provider] - 03/19/18 8:30 am - Discharge Summary/Plan Comment DC Time >30 min.: No - Patient Data Vitals - Most Recent: Last Vital Signs Temp 35.6 C 09/18/17 11:48 Pulse 77 09/18/17 11:48 Resp 20 09/18/17 11:48 BP 127/86 09/18/17 11:48 Pulse Ox 97 09/18/17 11:48 Weight - Most Recent: 44.497 kg I&O - Last 24 hours: Intake & Output 09/17/17 09/18/17 09/18/17 22:59 06:59 14:59 Intake Total 670 1750 Output Total 1030 900 Balance -360 850 Lab Results - Last 24 hrs: Laboratory Results - last 24 hr 09/17/17 09/18/17 Range/Units 19:09 05:11 Sodium 140 143 (136-145) mmol/L Potassium 3.4 L 3.3 L (3.5-5.1) mmol/L Chloride 106 110 H (98-107) mmol/L Carbon Dioxide 26.2 25.7 (21.0-32.0) mmol/L BUN 3 L 3 L (7.0-18.0) mg/dL Creatinine 0.3 L 0.3 L (0.6-1.0) mg/dL Est Cr Clr Drug Dosing 122.57 122.57 mL/min Estimated GFR (MDRD) > 60.0 > 60.0 ml/min Glucose 90 99 (74-106) mg/dL Calcium 7.9 L 7.7 L (8.5-10.1) mg/dL Phosphorus 1.5 L (2.6-4.7) mg/dL Magnesium 1.7 1.3 L (1.5-2.0) mg/dL Total Bilirubin 1.5 H (0.2-1.0) mg/dL AST 57 H (15-37) U/L ALT 36 (14-63) U/L Alkaline Phosphatase 150 H (46-116) U/L Total Protein 4.9 L (6.4-8.2) g/dL Albumin 2.3 L (3.4-5.0) g/dL Globulin 2.6 (2.0-3.5) g/dL Albumin/Globulin Ratio 0.9 L (1.3-2.8) Med Orders - Current: Current Medications Acetaminophen (Tylenol) 650 mg PO Q4H PRN PRN Reason: Pain Last Admin: 09/17/17 09:51 Dose: 650 mg Docusate Sodium (Colace) 100 mg PO DAILY [facility] Last Admin: 09/18/17 08:22 Dose: 100 mg Enoxaparin Sodium (Lovenox) 40 mg SUBCUT Q24H [facility] Last Admin: 09/17/17 13:57 Dose: 40 mg Folic Acid (Folic Acid) 1 mg PO BEDTIME [facility] Last Admin: 09/17/17 20:36 Dose: 1 mg Sodium Chloride (Normal Saline) 1,000 mls @ 125 mls/hr IV ASDIRECTED [facility] Last Admin: 09/18/17 09:25 Dose: 125 mls/hr Levofloxacin/Dextrose 750 mg/ (Premix) 150 mls @ 100 mls/hr IV Q24H [facility] Last Admin: 09/17/17 16:22 Dose: 100 mls/hr Metronidazole 500 mg/ Premix 100 mls @ 100 mls/hr IV Q8H [facility] Last Admin: 09/18/17 03:54 Dose: 100 mls/hr Sodium Chloride (Normal Saline) 500 mls @ 500 mls/hr IV .BOLUS [facility] Last Admin: 09/16/17 14:15 Dose: 500 mls/hr Magnesium Sulfate 4 gm/ Premix 100 mls @ 25 mls/hr IV ONETIME ONE Stop: 09/18/17 13:20 Last Admin: 09/18/17 09:44 Dose: 25 mls/hr Loperamide HCl (Imodium) 2 mg PO Q6H PRN PRN Reason: Diarrhea Lorazepam (Ativan) 0 mg IVPUSH Q4H PRN; Protocol PRN Reason: Other Last Admin: 09/18/17 00:49 Dose: 1 mg Metoprolol Tartrate (Lopressor) 25 mg PO BID [facility] Last Admin: 09/18/17 08:21 Dose: 25 mg Morphine Sulfate (Ms Contin) 30 mg PO Q12H PRN PRN Reason: Pain Last Admin: 09/16/17 03:26 Dose: 30 mg Ondansetron HCl (Zofran) 4 mg IVPUSH Q4H PRN PRN Reason: Nausea/Vomiting Last Admin: 09/18/17 10:16 Dose: 4 mg Oxycodone HCl (Oxycodone) 10 mg PO Q6H PRN PRN Reason: Pain Last Admin: 09/17/17 20:41 Dose: 10 mg Sertraline HCl (Zoloft) 100 mg PO BID [facility] Last Admin: 09/18/17 08:22 Dose: 100 mg Sodium Chloride (Saline Flush) 10 ml FLUSH ASDIRECTED PRN PRN Reason: Keep Vein Open Sodium Chloride (Saline Flush) 2.5 ml FLUSH ASDIRECTED PRN PRN Reason: Keep Vein Open Sodium Phosphate (Neutra-Phos) 500 mg PO ONETIME ONE Stop: 09/18/17 12:21 Spironolactone (Aldactone) 25 mg PO BID [facility] Last Admin: 09/18/17 08:21 Dose: 25 mg Thiamine HCl (Vitamin B-1) 100 mg PO BEDTIME [facility] Last Admin: 09/17/17 20:36 Dose: 100 mg Discontinued Medications Aspirin (Aspirin) 324 mg PO ONETIME ONE Stop: 09/14/17 19:41 Last Admin: 09/14/17 20:04 Dose: 324 mg Sodium Chloride (Normal Saline) 1,000 mls @ 125 mls/hr IV STAT [facility] Last Infusion: 09/15/17 07:06 Dose: Infused Multivitamins/Minerals 10 ml/Thiamine HCl 100 mg/ Folic Acid 1 mg/ Sodium Chloride 1,011.2 mls @ 999 mls/hr IV ONETIME ONE Stop: 09/14/17 21:04 Last Admin: 09/14/17 20:44 Dose: 999 mls/hr Sodium Chloride (Normal Saline) 1,000 mls @ 999 mls/hr IV STAT ONE Stop: 09/14/17 23:06 Last Admin: 09/14/17 22:07 Dose: 999 mls/hr Piperacillin Sod/Tazobactam (Sod 3.375 gm/ Sodium Chloride) 50 mls @ 100 mls/ hr IV ONETIME ONE Stop: 09/14/17 23:08 Last Admin: 09/14/17 22:47 Dose: 100 mls/hr Magnesium Sulfate 4 gm/ Premix 100 mls @ 25 mls/hr IV ONETIME ONE Stop: 09/15/17 13:36 Last Admin: 09/15/17 10:24 Dose: 25 mls/hr Sodium Chloride (Normal Saline) 1,000 mls @ 125 mls/hr IV ASDIRECTED ELISA Sodium Chloride (Normal Saline) 500 mls @ 500 mls/hr IV .BOLUS ELISA Last Infusion: 09/15/17 20:20 Dose: Infused Magnesium Sulfate 4 gm/ Premix 100 mls @ 50 mls/hr IV ONETIME ONE Stop: 09/16/17 10:12 Last Admin: 09/16/17 08:55 Dose: 50 mls/hr Potassium Chloride/Sodium Chloride (Normal Saline With 40 Meq Kcl) 1,000 mls @ 150 mls/hr IV ASDIRECTED ELISA Stop: 09/16/17 14:54 Last Infusion: 09/16/17 21:05 Dose: Infused Magnesium Sulfate 4 gm/ Premix 100 mls @ 25 mls/hr IV ONETIME ONE Stop: 09/17/17 13:09 Last Admin: 09/17/17 09:51 Dose: 25 mls/hr Pantoprazole Sodium (Protonix Iv) 80 mg IVPUSH .BOLUS ONE Stop: 09/14/17 19:56 Last Admin: 09/14/17 20:47 Dose: 80 mg Potassium Chloride (Klor-Con M20) 40 meq PO ONETIME ONE Stop: 09/16/17 08:14 Last Admin: 09/16/17 08:45 Dose: 40 meq Potassium Chloride (Klor-Con M20) 40 meq PO ONETIME ONE Stop: 09/17/17 09:15 Last Admin: 09/17/17 09:50 Dose: 40 meq Potassium Chloride (Potassium Chloride) 40 meq PO ONETIME ONE Stop: 09/18/17 09:18 Last Admin: 09/18/17 09:44 Dose: 40 meq *Q Meaningful Use (DIS) - VTE *Q VTE Criteria *Q: - Stroke *Q Stroke Criteria *Q: - AMI *Q AMI Criteria *Q: <David Austin - Last Filed: 09/19/17 11:30> - Patient Data Vitals - Most Recent: Last Vital Signs Temp 36.3 C 09/18/17 16:00 Pulse 89 09/18/17 16:00 Resp 22 H 09/18/17 16:00 BP 128/83 09/18/17 16:00 Pulse Ox 95 09/18/17 16:00 I&O - Last 24 hours: Intake & Output 09/18/17 09/19/17 09/19/17 22:59 06:59 14:59 Intake Total 5858 Output Total 1001 Balance 4857 Lab Results - Last 24 hrs: Laboratory Results - last 24 hr 09/18/17 09/18/17 Range/Units 17:02 17:02 Sodium 140 (136-145) mmol/L Potassium 4.1 (3.5-5.1) mmol/L Chloride 106 (98-107) mmol/L Carbon Dioxide 26.9 (21.0-32.0) mmol/L BUN 5 L (7.0-18.0) mg/dL Creatinine 0.4 L (0.6-1.0) mg/dL Est Cr Clr Drug Dosing 91.93 mL/min Estimated GFR (MDRD) > 60.0 ml/min Glucose 120 H (74-106) mg/dL Calcium 7.8 L (8.5-10.1) mg/dL Phosphorus 3.2 (2.6-4.7) mg/dL Magnesium 1.6 (1.5-2.0) mg/dL Med Orders - Current: Current Medications Discontinued Medications Acetaminophen (Tylenol) 650 mg PO Q4H PRN PRN Reason: Pain Last Admin: 09/17/17 09:51 Dose: 650 mg Aspirin (Aspirin) 324 mg PO ONETIME ONE Stop: 09/14/17 19:41 Last Admin: 09/14/17 20:04 Dose: 324 mg Docusate Sodium (Colace) 100 mg PO DAILY [facility] Last Admin: 09/18/17 08:22 Dose: 100 mg Enoxaparin Sodium (Lovenox) 40 mg SUBCUT Q24H [facility] Last Admin: 09/18/17 14:35 Dose: Not Given Folic Acid (Folic Acid) 1 mg PO BEDTIME [facility] Last Admin: 09/17/17 20:36 Dose: 1 mg Sodium Chloride (Normal Saline) 1,000 mls @ 125 mls/hr IV STAT [facility] Last Infusion: 09/15/17 07:06 Dose: Infused Multivitamins/Minerals 10 ml/Thiamine HCl 100 mg/ Folic Acid 1 mg/ Sodium Chloride 1,011.2 mls @ 999 mls/hr IV ONETIME ONE Stop: 09/14/17 21:04 Last Admin: 09/14/17 20:44 Dose: 999 mls/hr Sodium Chloride (Normal Saline) 1,000 mls @ 999 mls/hr IV STAT ONE Stop: 09/14/17 23:06 Last Admin: 09/14/17 22:07 Dose: 999 mls/hr Piperacillin Sod/Tazobactam (Sod 3.375 gm/ Sodium Chloride) 50 mls @ 100 mls/ hr IV ONETIME ONE Stop: 09/14/17 23:08 Last Admin: 09/14/17 22:47 Dose: 100 mls/hr Sodium Chloride (Normal Saline) 1,000 mls @ 125 mls/hr IV ASDIRECTED [facility] Last Admin: 09/18/17 09:25 Dose: 125 mls/hr Magnesium Sulfate 4 gm/ Premix 100 mls @ 25 mls/hr IV ONETIME ONE Stop: 09/15/17 13:36 Last Admin: 09/15/17 10:24 Dose: 25 mls/hr Sodium Chloride (Normal Saline) 1,000 mls @ 125 mls/hr IV ASDIRECTED [facility] Levofloxacin/Dextrose 750 mg/ (Premix) 150 mls @ 100 mls/hr IV Q24H [facility] Last Admin: 09/18/17 16:38 Dose: 100 mls/hr Sodium Chloride (Normal Saline) 500 mls @ 500 mls/hr IV .BOLUS [facility] Last Infusion: 09/15/17 20:20 Dose: Infused Metronidazole 500 mg/ Premix 100 mls @ 100 mls/hr IV Q8H [facility] Last Admin: 09/18/17 12:43 Dose: 100 mls/hr Magnesium Sulfate 4 gm/ Premix 100 mls @ 50 mls/hr IV ONETIME ONE Stop: 09/16/17 10:12 Last Admin: 09/16/17 08:55 Dose: 50 mls/hr Potassium Chloride/Sodium Chloride (Normal Saline With 40 Meq Kcl) 1,000 mls @ 150 mls/hr IV ASDIRECTED [facility] Stop: 09/16/17 14:54 Last Infusion: 09/16/17 21:05 Dose: Infused Sodium Chloride (Normal Saline) 500 mls @ 500 mls/hr IV .BOLUS [facility] Last Admin: 09/16/17 14:15 Dose: 500 mls/hr Magnesium Sulfate 4 gm/ Premix 100 mls @ 25 mls/hr IV ONETIME ONE Stop: 09/17/17 13:09 Last Admin: 09/17/17 09:51 Dose: 25 mls/hr Magnesium Sulfate 4 gm/ Premix 100 mls @ 25 mls/hr IV ONETIME ONE Stop: 09/18/17 13:20 Last Admin: 09/18/17 09:44 Dose: 25 mls/hr Loperamide HCl (Imodium) 2 mg PO Q6H PRN PRN Reason: Diarrhea Lorazepam (Ativan) 0 mg IVPUSH Q4H PRN; Protocol PRN Reason: Other Last Admin: 09/18/17 00:49 Dose: 1 mg Metoprolol Tartrate (Lopressor) 25 mg PO BID [facility] Last Admin: 09/18/17 08:21 Dose: 25 mg Morphine Sulfate (Ms Contin) 30 mg PO Q12H PRN PRN Reason: Pain Last Admin: 09/16/17 03:26 Dose: 30 mg Ondansetron HCl (Zofran) 4 mg IVPUSH Q4H PRN PRN Reason: Nausea/Vomiting Last Admin: 09/18/17 10:16 Dose: 4 mg Oxycodone HCl (Oxycodone) 10 mg PO Q6H PRN PRN Reason: Pain Last Admin: 09/18/17 12:42 Dose: 10 mg Pantoprazole Sodium (Protonix Iv) 80 mg IVPUSH .BOLUS ONE Stop: 09/14/17 19:56 Last Admin: 09/14/17 20:47 Dose: 80 mg Potassium Chloride (Klor-Con M20) 40 meq PO ONETIME ONE Stop: 09/16/17 08:14 Last Admin: 09/16/17 08:45 Dose: 40 meq Potassium Chloride (Klor-Con M20) 40 meq PO ONETIME ONE Stop: 09/17/17 09:15 Last Admin: 09/17/17 09:50 Dose: 40 meq Potassium Chloride (Potassium Chloride) 40 meq PO ONETIME ONE Stop: 09/18/17 09:18 Last Admin: 09/18/17 09:44 Dose: 40 meq Sertraline HCl (Zoloft) 100 mg PO BID [facility] Last Admin: 09/18/17 08:22 Dose: 100 mg Sodium Chloride (Saline Flush) 10 ml FLUSH ASDIRECTED PRN PRN Reason: Keep Vein Open Sodium Chloride (Saline Flush) 2.5 ml FLUSH ASDIRECTED PRN PRN Reason: Keep Vein Open Sodium Phosphate (Neutra-Phos) 500 mg PO ONETIME ONE Stop: 09/18/17 12:21 Last Admin: 09/18/17 12:41 Dose: 500 mg Spironolactone (Aldactone) 25 mg PO BID [facility] Last Admin: 09/18/17 08:21 Dose: 25 mg Thiamine HCl (Vitamin B-1) 100 mg PO BEDTIME [facility] Last Admin: 09/17/17 20:36 Dose: 100 mg *Q Meaningful Use (DIS) - VTE *Q VTE Criteria *Q: - Stroke *Q Stroke Criteria *Q: - AMI *Q AMI Criteria *Q: - Free Text/Narrative Note: 23 yo female with pmh of IV meth use and asthma who presents with worsening right armpit abscess and cellulitis. Several days ago she noticed a bump in her armpit. While she was sleeping a friend used a razor to drain the abscess. Since then she has noticed increasing erythema of the right arm. She was seen in the ED yesterday and given invanz and bactrim. She came back to day with complaints of fever and the cellulitis growing in size.
[2017-09-18] MEDS: oxyCODONE 5 MG Tab PO PRN (12:42)
[2017-09-18] MEDS: Enoxaparin 40 MG/0.4 ML Syringe SUBCUT SCH (14:35)
[2017-09-18 16:31] VITALS: BP 128/83
[2017-09-18] MEDS: Levofloxacin/Dextrose 5%-Water 750 MG in Premix Bag 1 BAG IV SCH (16:38)
[2017-09-18 17:23] LABS: CHLORIDE,CL 106 mmol/L (98-107); SODIUM,NA 140 mmol/L (136-145)
== END 2017-09-18 19:10 | disposition home or self-care (01) | DRG 872 ==
LOC: MW.ED 19:34 → MW.MS 23:05 → OBSVTOIN 09-17 10:54
PROVIDERS: ADMIT Internal Medicine; ATTEND Internal Medicine
DX: I95.9 Hypotension, unspecified (principal); E86.0 Dehydration; A41.9 Sepsis, unspecified organism; F10.239 Alcohol dependence with withdrawal, unspecified; F10.229 Alcohol dependence with intoxication, unspecified; I95.89 Other hypotension; E83.42 Hypomagnesemia; E87.6 Hypokalemia; E87.8 Other disorders of electrolyte and fluid balance, not elsewhere classified; B99.8 Other infectious disease; R10.9 Unspecified abdominal pain; R41.3 Other amnesia; R53.1 Weakness; R26.81 Unsteadiness on feet; I10 Essential (primary) hypertension; J44.9 Chronic obstructive pulmonary disease, unspecified; F41.8 Other specified anxiety disorders; K74.60 Unspecified cirrhosis of liver; F17.200 Nicotine dependence, unspecified, uncomplicated; Z91.81 History of falling; Z79.899 Other long term (current) drug therapy
CPT/HCPCS: 36415 ×3; 71045; 74176; 80053 ×4; 81001; 82550; 82553; 83605 ×10; 83690; 83735 ×3; 83880; 84100; 84484; 85025 ×4; 85610; 87040 ×2; 93005; 96361; 96365; 96367; 96375; 99285; A9270 ×19; C9113; G0480; J1650 ×2; J1956 ×2; J2060 ×5; J2405; J2543; J3411; J3475 ×3; J3480; J7040 ×9; J7050; 80048; 96366; 96372; 96376; 99284; G0378

== ENCOUNTER 2018-08-27 20:53 | Emergency (ER) | payer MEDICARE ==
[2018-08-27] MEDS ORDERED: Ondansetron 4 MG/2 ML SDV IVPUSH ONE (21:09)
[2018-08-27] MEDS ORDERED: Sodium Chloride 0.9% 10 ML Syringe FLUSH PRN (21:09)
[2018-08-27] MEDS ORDERED: Morphine 2 MG/ML Syringe IVPUSH ONE (21:09)
[2018-08-27] MEDS ORDERED: Sodium Chloride 0.9% 1,000 ML IV ONE (21:09)
[2018-08-27] MEDS ORDERED: Sodium Chloride 0.9% 2.5 ML Syringe FLUSH PRN (21:09)
[2018-08-27] MEDS ORDERED: Pantoprazole 40 MG Vial IVPUSH ONE (21:13)
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
[2018-08-27] MEDS ORDERED: Sodium Chloride 0.9% 20 ML ONE (21:18)
[2018-08-27 22:05] LABS: CHLORIDE,CL 90 mmol/L (98-107); SODIUM,NA 131 mmol/L (136-145)
--- NOTE | 2018-08-27 22:36 | CR ---
Indication: Chest pain Technique: Chest 1 view Comparison: 09/14/2017. Findings/Impression: Cardiovascular and mediastinum: Grossly stable cardiomediastinal silhouette, allowing for differences in technique. Lungs and pleural space: The medial aspect of the right apex is obscured by the patient`s chin. Low lung volumes. A mildly elevated right hemidiaphragm. No gross consolidation or pleural effusions. Bones and soft tissues: No significant change. Dictated by Chris Vann MD @ 08/27/2018 10:33:50 PM Dictated by: Chris Vann MD @ 08/27/2018 22:34:52 (Electronically Signed)
[2018-08-27] MEDS ORDERED: Iopamidol 755 Mg/ML 100 ML Bottle IVPUSH ONE (22:58)
--- NOTE | 2018-08-27 23:29 | CT ---
INDICATION: Abdominal pain TECHNIQUE: CT abdomen and pelvis acquired with 100 cc Isovue 370 intravenous contrast. COMPARISON: Abdomen and pelvis CT 09/15/2017 FINDINGS: Lower chest: Bandlike atelectasis within the lower lungs. Liver: Diffusely decreased sense of the liver consistent with fatty infiltration. Nodular contour consistent with a cirrhotic morphology. Gallbladder and bile ducts: Cholelithiasis without gallbladder wall thickening or pericholecystic inflammation. Mildly dilated common duct measuring 9 millimeters although similar to the 2018 exam. Pancreas: Unremarkable. No mass or inflammation. Spleen: Unremarkable. Normal in size. No masses. Adrenal glands: Unremarkable. No nodules. Kidneys: Symmetric renal enhancement without hydronephrosis. Subcentimeter hypodensities within the left kidney, likely renal cysts. GI tract: The stomach is decompressed with small gastric varices. No dilated loops of large or small intestine. Vasculature: Atherosclerosis without abdominal aortic aneurysm. Lymph nodes: No lymphadenopathy. Pelvis: Limited evaluation secondary to beam hardening artifact from the patient`s hip replacements. No gross focal inflammation. Bones: Status post bilateral total hip replacements. Osteopenia with decreased height from T10 through L5, likely old compression type fractures. IMPRESSION: 1. Cholelithiasis without CT evidence of cholecystitis. 2. Cirrhotic morphology of the liver with diffuse fatty infiltration. 3. Numerous chronic appearing lower thoracic and lumbar compression type fractures re- demonstrated. Please note that all CT scans at this facility use dose modulation, iterative reconstruction, and/or weight-based dosing when appropriate to reduce radiation dose to as low as reasonably achievable. Dictated by Stiven Marcum MD @ Aug 27 2018 11:13PM Signed by Dr. Stiven Marcum @ Aug 27 2018 11:27PM
[2018-08-28] MEDS ORDERED: Potassium Chloride 20 MEQ Tab.ER PO ONE (00:17)
[2018-08-28 01:01] VITALS: BP 128/89
== END 2018-08-28 01:12 | disposition home or self-care (01) ==
LOC: MW.ED 20:53
DX: R10.10 Upper abdominal pain, unspecified (principal); E86.0 Dehydration; E87.6 Hypokalemia; F10.10 Alcohol abuse, uncomplicated; I10 Essential (primary) hypertension; F32.9 Major depressive disorder, single episode, unspecified; F41.9 Anxiety disorder, unspecified; Z79.899 Other long term (current) drug therapy
CPT/HCPCS: 71045; 74177; 80053; 81001; 82140; 82150; 83605; 83690; 85025; 85610; 86677; 87804; 93005; 96361; 96374; 96375; 99285; A9270; C9113; G0480; J2270; J2405; J7040; Q9967

== ENCOUNTER 2018-09-12 02:05 | Emergency (ER) | payer MEDICARE ==
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
[2018-09-12] MEDS: Sodium Chloride 0.9% 1,000 ML IV ONE (02:33)
[2018-09-12 02:48] LABS: CHLORIDE,CL 95 mmol/L (98-107); SODIUM,NA 135 mmol/L (136-145)
--- NOTE | 2018-09-12 03:50 | CR ---
INDICATION: Cough TECHNIQUE: Chest 1 views COMPARISON: Chest x-ray 08/27/2018 FINDINGS: Cardiovascular and mediastinum: Normal heart size with prominent aortic tortuosity. Lungs and pleural spaces: No pleural effusion or pneumothorax. No focal consolidation. Bones and soft tissues: Osteopenia. IMPRESSION: No acute cardiopulmonary abnormality. Dictated by Stiven Marcum MD @ Sep 12 2018 3:46AM Signed by Dr. Stiven Marcum @ Sep 12 2018 3:48AM
--- NOTE | 2018-09-12 04:05 | CT ---
INDICATION: Lower mid abdominal pain TECHNIQUE: CT abdomen and pelvis acquired with 100 cc Isovue 370 intravenous contrast. COMPARISON: Abdomen and pelvis CT 08/27/2018 FINDINGS: Lower chest: Bandlike atelectasis in the lower lungs with subsegmental atelectasis in the right middle lobe. Liver: Diffusely decreased density of the liver consistent with fatty infiltration. Mildly nodular contour consistent with cirrhotic morphology. Recanalization of paraumbilical vein. Gallbladder and bile ducts: Cholelithiasis without gallbladder wall thickening. Pancreas: Unremarkable. No mass or inflammation. Spleen: Unremarkable. Normal in size. No masses. Adrenal glands: Unremarkable. No nodules. Kidneys: Symmetric renal enhancement without hydronephrosis. Nonobstructing 3 millimeter stone within the left kidney. Sub centimeter left renal hypodensities, likely cysts. GI tract: Upper abdominal varices noted. The stomach is decompressed and unremarkable. There are no dilated loops of large or small intestine. No localizing inflammation. Vasculature: Atherosclerosis without abdominal aortic aneurysm. Lymph nodes: No lymphadenopathy. Pelvis: Beam hardening artifact from the hip replacements limits evaluation. Bones: Status post bilateral total hip replacements. Multiple old thoracolumbar compression fractures, similar to the prior exam. IMPRESSION: 1. No dilated bowel or focal inflammation. No significant interval change compared to the prior exam. 2. Cirrhotic morphology of the liver with fatty infiltration. Portal hypertension with multiple upper abdominal varices. 3. Cholelithiasis without CT evidence of cholecystitis. Please note that all CT scans at this facility use dose modulation, iterative reconstruction, and/or weight-based dosing when appropriate to reduce radiation dose to as low as reasonably achievable. Dictated by Stiven Marcum MD @ Sep 12 2018 3:53AM Signed by Dr. Stiven Marcum @ Sep 12 2018 4:03AM
[2018-09-12 04:26] VITALS: BP 130/87
== END 2018-09-12 04:20 | disposition home or self-care (01) ==
LOC: MW.ED 02:05
DX: K74.60 Unspecified cirrhosis of liver (principal); F10.10 Alcohol abuse, uncomplicated; Y90.3 Blood alcohol level of 60-79 mg/100 ml; E87.6 Hypokalemia; Z91.19 Patient's noncompliance with other medical treatment and regimen; F17.210 Nicotine dependence, cigarettes, uncomplicated; I10 Essential (primary) hypertension; F41.9 Anxiety disorder, unspecified; F32.9 Major depressive disorder, single episode, unspecified; Z79.899 Other long term (current) drug therapy
CPT/HCPCS: 36415; 71045; 74177; 80053; 81003; 82140; 82150; 83690; 83880; 84484; 85025; 85610; 93005; 96360; 96361; 99284; G0480; J7040

== ENCOUNTER 2018-09-19 08:52 | Inpatient (IN) | payer MEDICARE ==
[2018-09-19] MEDS ORDERED: Sodium Chloride 0.9% 2.5 ML Syringe FLUSH PRN (09:04)
[2018-09-19] MEDS ORDERED: Sodium Chloride 0.9% 10 ML Syringe FLUSH PRN (09:04)
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
[2018-09-19] MEDS ORDERED: Morphine 2 MG/ML Syringe IVPUSH ONE (09:10)
[2018-09-19] MEDS ORDERED: Sodium Chloride 0.9% 1,000 ML IV ONE ×2 (09:10→13:46)
[2018-09-19] MEDS ORDERED: Ondansetron 4 MG/2 ML SDV IVPUSH ONE (09:10)
[2018-09-19 09:57] LABS: CHLORIDE,CL 98 mmol/L (98-107); SODIUM,NA 139 mmol/L (136-145)
[2018-09-19] MEDS ORDERED: HYDROmorphone 2 MG/ML Syringe IVPUSH ONE (10:25)
[2018-09-19] MEDS ORDERED: HYDROmorphone 1 MG/ML Syringe IVPUSH ONE (12:27)
[2018-09-19] MEDS ORDERED: Iopamidol 755 MG/ML 500 ML Multipack Bottle IVPUSH STA (12:55)
[2018-09-19] MEDS ORDERED: LORazepam 2 MG/ML SDV IVPUSH ONE (13:15)
[2018-09-19] MEDS ORDERED: Ketorolac 30 MG/ML SDV IVPUSH ONE (13:15)
--- NOTE | 2018-09-19 13:40 | CT ---
Indication: Abdominal pain Technique: Routine post-contrast CT abdomen and pelvis performed after the uneventful administration of intravenous contrast. Repeat imaging acquired due to motion. Please note that all CT scans at this facility use dose modulation, iterative reconstruction, and/or weight-based dosing when appropriate to reduce radiation dose to as low as reasonably achievable. Comparison: CT September 12, 2017 Findings: In the lung bases, there is no pleural effusion. No suspicious nodule. Diffuse fatty infiltration of the liver is again noted. The gallbladder is markedly distended and extends into the right lower quadrant. Multiple layering calcified gallstones are present within the gallbladder lumen, measuring up to 4 millimeters. The gallbladder measures up to 11 centimeters. The common bile duct is prominent and measures up to 12 millimeters. The size of the gallbladder and common bile duct have increased since the prior exam. Upper abdominal varices are similar. The spleen is not enlarged. Thickening of the adrenal glands without nodularity. Simple renal cortical cysts measuring up to 12 millimeters. No hydronephrosis. Small stones within each kidney measuring up to 3 millimeters. Dense vascular calcifications. No pancreatic mass. No bowel obstruction or free air. No free fluid or abscess. The pelvis is obscured by beam hardening artifact from bilateral total hip arthroplasty hardware. Chronic sigmoid diverticulosis. Chronic compression deformities throughout the thoracolumbar spine. Impression: Increased gallbladder distention up to 11 centimeters and increased common bile duct dilation up to 12 millimeters. Multiple layering gallstones within the gallbladder lumen. Findings may represent cholecystitis. Diffuse hepatic steatosis. Small nonobstructing renal stones. No bowel obstruction or free air. Chronic sigmoid diverticulosis. Please note that all CT scans at this facility use dose modulation, iterative reconstruction, and/or weight-based dosing when appropriate to reduce radiation dose to as low as reasonably achievable. Dictated by Nimesh Felton MD @ Sep 19 2018 1:30PM Signed by Dr. Nimesh Felton @ Sep 19 2018 1:39PM
[2018-09-19] MEDS ORDERED: Piperacillin/Tazobactam 3.375 GM in Sodium Chloride 0.9% 50 ML IV ONE (13:50)
--- NOTE | 2018-09-19 14:35 | US ---
Indication: Abdominal pain Technique: Targeted right upper quadrant ultrasound performed Comparison: CT same day and CT September 12, 2018 Findings: Liver echotexture is diffusely coarsened and increased in echogenicity consistent with fatty infiltration. No intrahepatic mass. The gallbladder is distended. Layering dependent stones are noted within the gallbladder lumen. The pancreas is not well evaluated. The common bile duct measures 9 millimeters by sonography. The gallbladder wall measures 2-3 millimeters. No pericholecystic fluid. Impression: Diffuse hepatic steatosis. Distended gallbladder containing layering sludge and stones with distension of the common bile duct. Dictated by Nimesh Felton MD @ Sep 19 2018 2:29PM Signed by Dr. Nimesh Felton @ Sep 19 2018 2:33PM
--- NOTE | 2018-09-19 14:48 | PCM.HP ---
Addendum entered and electronically signed by Ana Rodriguez NP 09/19/18 15:41 : Lactic acid improved with IVF resuscitation, 2.1. Will recheck in 5 hrs. Original Note: H&P History of Present Illness - General Date of Service: 09/19/18 Admit Problem/Dx: Admission Diagnosis/Problem Admission Diagnosis/Problem Acute cholecystitis Source of Information: Patient, Family History Limitations: Reports: No Limitations - History of Present Illness Initial Comments - Free Text/Narative: This 73 year old female with pmh of alcohol abuse, hx of pancreatitis and gallstones, chronic back pain on opioids and mild dementia presented to the ED today with 3 days of worsening abdominal pain. Her and daughter are at bedside to help with history since Pilar has mild dementia and is unclear of her medical history. They report she started complaining of abdominal pain that was worsening from her normal pain 3 days ago with associated nausea and the inability to keep fluids or food down. They report she has had gallstones and abdominal pain for "years". They deny fevers or chills. No diarrhea, but is passing gas and had a BM yesterday. No chest pain. Reports some shortness of breath because of the pain. No urinary symptoms. She continues to drink alcohol , 4-6 drinks daily and does withdrawl when alcohol is withheld. Her last drink was last evening. Per family she tends to drink more alcohol when pain is not controlled with Morphine and Oxycodone at home. She continues to smoke 1 ppd as well. In the ED no leukocytosis noted. Hgb 16.2, HCt 46.5. Lactate 3.3. K+ 3.0 BUN 5 Cr 0.6. AST 110, ALT 67. Alk phose 221. Bilirubin 1.0. CT of abdomen pelvis reveals increased gallbladder distention up to 11 cm and increased common bile duct up to 12 mm, multiple layering gallstones within the gallbladder lumen, may represent cholecystitis, diffuse hepatic steatosis. Dr Alex, consult in the ED, recommended admission to Hospitalist team for IV antibiotics and he will see patient. Abdomen Pain Score (Numeric/FACES): 10 - Related Data Allergies/Adverse Reactions: Allergies Allergy/AdvReac Type Severity Reaction Status Date / Time No Known Allergies Allergy Verified 09/12/18 02:15 Home Medications: Home Meds Multivitamin [Multivitamins] 0 mg PO DAILY 09/20/14 [History] Sertraline [Zoloft] 100 mg PO BID 09/20/14 [History] oxyCODONE 10 mg PO Q6HR PRN 08/15/16 [History] Metoprolol Tartrate 25 mg PO BID 11/10/16 [History] Spironolactone [Aldactone] 25 mg PO BID 11/10/16 [History] Gabapentin [Gralise] 600 mg PO TID 09/14/17 [History] Morphine [MS Contin] 60 mg PO Q12H 09/14/17 [History] Folic Acid 1 mg PO BEDTIME 30 Days #30 tablet 09/18/17 [Rx] Levofloxacin [Levaquin] 750 mg PO DAILY 7 Days #7 tablet 09/18/17 [Rx] Loperamide [Imodium] 2 mg PO Q6H PRN 10 Days #30 cap 09/18/17 [Rx] Magnesium 200 mg PO DAILY 30 Days #30 tablet 09/18/17 [Rx] Thiamine [Vitamin B-1] 100 mg PO BEDTIME 30 Days #30 tablet 09/18/17 [Rx] metroNIDAZOLE [Metronidazole] 500 mg PO Q6H 7 Days #28 tablet 09/18/17 [Rx] Past Medical History HEENT History: Reports: None Cardiovascular History: Reports: Angina, Hypertension Respiratory History: Reports: COPD Gastrointestinal History: Reports: Cholelithiasis, Pancreatitis, Other (See Below) Other Gastrointestinal History: chronic abdominal pain Genitourinary History: Reports: None [employer]ARTMENT [employer]ING [employer]IST History: Reports: Musculoskeletal History: Reports: Back Pain, Chronic, Osteoporosis Other Musculoskeletal History: back injury Neurological History: Reports: Other (See Below) Other Neuro History: mild cognitive impairment Psychiatric History: Reports: Addiction, Anxiety, Dementia, Depression Endocrine/Metabolic History: Reports: None. Denies: Diabetes, Type II Hematologic History: Reports: None Immunologic History: Reports: None Oncologic (Cancer) History: Reports: None Dermatologic History: Reports: None - Infectious Disease History Infectious Disease History: Reports: None - Past Surgical History HEENT Surgical History: Reports: None Cardiovascular Surgical History: Reports: None Respiratory Surgical History: Reports: None GI Surgical History: Reports: None Neurological Surgical History: Reports: Lumbar Spine, Thoracic Spine Musculoskeletal Surgical History: Reports: None Social & Family History - Family History Family Medical History: Noncontributory - Tobacco Use Smoking Status *Q: Current Every Day Smoker Years of Tobacco use: 55 Packs/Tins Daily: 1 - Caffeine Use Caffeine Use: Reports: None Caffeine Use Comment: 2drinks/day - Alcohol Use Alcohol Use History: Yes Days Per Week of Alcohol Use: 7 Number of Drinks Per Day: 6 Total Drinks Per Week: 42 Alcohol Use Frequency: Daily Desires Substance Cessation Medication: Refuses FDA Approved Med - Recreational Drug Use Recreational Drug Use: No - Living Situation & Occupation Living situation: Reports: Occupation: Unemployed H&P Review of Systems - Review of Systems: Review Of Systems: See Below General: Reports: Malaise. Denies: Fever, Chills HEENT: Reports: No Symptoms. Denies: Headaches, Sinus Congestion, Visual Changes Pulmonary: Reports: Shortness of Breath (due to abdominal pain). Denies: Cough , Sputum Cardiovascular: Reports: No Symptoms. Denies: Chest Pain, Edema Gastrointestinal: Reports: Abdominal Pain, Decreased Appetite, Flatus, Nausea, Vomiting. Denies: Black Stool, Bloody Stool, Diarrhea Genitourinary: Reports: No Symptoms. Denies: Dysuria, Frequency, Burning, Pain Musculoskeletal: Reports: Back Pain (chronic back pain) Skin: Reports: No Symptoms Psychiatric: Reports: No Symptoms Neurological: Reports: No Symptoms Hematologic/Lymphatic: Reports: No Symptoms Immunologic: Reports: No Symptoms Exam - Exam Exam: See Below - Vital Signs Vital Signs: Last Vital Signs Temp 98.2 F 09/19/18 14:18 Pulse 110 H 09/19/18 14:18 Resp 18 09/19/18 14:18 BP 124/88 09/19/18 14:18 Pulse Ox 92 L 09/19/18 14:18 Weight: 54.431 kg - Exam General: Alert, Oriented, Cooperative HEENT: Conjunctiva Clear, Posterior Pharynx Clear Lungs: Normal Respiratory Effort, Wheezing (scant throughout), Other (congested cough) Cardiovascular: Regular Rhythm, Normal S1, Normal S2, Tachycardia. No: Systolic Murmur GI/Abdominal Exam: Normal Bowel Sounds, Soft, No Organomegaly, Tender (RUQ and diffuse) Back Exam: Normal Inspection, Full Range of Motion Extremities: Normal Inspection, Normal Range of Motion, Non-Tender, No Pedal Edema Neuro Extensive - Mental Status: Alert, Oriented x3, Normal Mood/Affect, Memory Loss-Remote Events, Memory Loss-Recent Events. No: Memory Intact Neuro Extensive - Motor, Sensory, Reflexes: CN II-XII Intact Psychiatric: Alert, Normal Affect, Anxious - Patient Data Lab Results Last 24 hrs: Laboratory Results - last 24 hr 09/19/18 09/19/18 09/19/18 Range/Units 09:11 09:21 09:21 WBC 6.21 (4.0-11.0) K/uL RBC 5.31 (4.30-5.90) M/uL Hgb 16.2 H (12.0-16.0) g/dL Hct 46.5 H (36.0-46.0) % MCV 87.6 (80.0-98.0) fL MCH 30.5 (27.0-32.0) pg MCHC 34.8 (31.0-37.0) g/dL RDW Std Deviation 55.4 (28.0-62.0) fl RDW Coeff of Katerina 18 H (11.0-15.0) % Plt Count 224 (150-400) K/uL MPV 9.10 (7.40-12.00) fL Neut % (Auto) 42.7 L (48.0-80.0) % Lymph % (Auto) 41.9 H (16.0-40.0) % [place] % (Auto) 12.9 (0.0-15.0) % Eos % (Auto) 1.9 (0.0-7.0) % Baso % (Auto) 0.6 (0.0-1.5) % Neut # (Auto) 2.7 (1.4-5.7) K/uL Lymph # (Auto) 2.6 H (0.6-2.4) K/uL [place] # (Auto) 0.8 (0.0-0.8) K/uL Eos # (Auto) 0.1 (0.0-0.7) K/uL Baso # (Auto) 0.0 (0.0-0.1) K/uL Lactate 3.3 H (0.20-2.00) mmol/L Sodium (136-145) mmol/L Potassium (3.5-5.1) mmol/L Chloride (98-107) mmol/L Carbon Dioxide (21.0-32.0) mmol/L BUN (7.0-18.0) mg/dL Creatinine (0.6-1.0) mg/dL Est Cr Clr Drug Dosing mL/min Estimated GFR (MDRD) ml/min Glucose (74-106) mg/dL Calcium (8.5-10.1) mg/dL Total Bilirubin (0.2-1.0) mg/dL AST (15-37) IU/L ALT (14-63) IU/L Alkaline Phosphatase (46-116) U/L Total Protein (6.4-8.2) g/dL Albumin (3.4-5.0) g/dL Globulin (2.6-4.0) g/dL Albumin/Globulin Ratio (0.9-1.6) Lipase (73-393) U/L Urine Color YELLOW Urine Appearance CLEAR Urine pH 6.0 (5.0-8.0) Ur Specific [place] 1.015 (1.001-1.035) Urine Protein NEGATIVE (NEGATIVE) mg/dL Urine Glucose (UA) NEGATIVE (NEGATIVE) mg/dL Urine Ketones 15 H (NEGATIVE) mg/dL Urine Occult Blood NEGATIVE (NEGATIVE) Urine Nitrite NEGATIVE (NEGATIVE) Urine Bilirubin SMALL H (NEGATIVE) Urine Ictotest Urine Urobilinogen 4.0 H (<2.0) EU/dL Ur Leukocyte Esterase NEGATIVE (NEGATIVE) Urine RBC 0-2 (0-2/HPF) Urine WBC 0-2 (0-5/HPF) Ur Epithelial Cells MODERATE (NONE-FEW) Urine Bacteria FEW (NEGATIVE) Urinalysis Comment 09/19/18 Range/Units 09:21 WBC (4.0-11.0) K/uL RBC (4.30-5.90) M/uL Hgb (12.0-16.0) g/dL Hct (36.0-46.0) % MCV (80.0-98.0) fL MCH (27.0-32.0) pg MCHC (31.0-37.0) g/dL RDW Std Deviation (28.0-62.0) fl RDW Coeff of Katerina (11.0-15.0) % Plt Count (150-400) K/uL MPV (7.40-12.00) fL Neut % (Auto) (48.0-80.0) % Lymph % (Auto) (16.0-40.0) % [place] % (Auto) (0.0-15.0) % Eos % (Auto) (0.0-7.0) % Baso % (Auto) (0.0-1.5) % Neut # (Auto) (1.4-5.7) K/uL Lymph # (Auto) (0.6-2.4) K/uL [place] # (Auto) (0.0-0.8) K/uL Eos # (Auto) (0.0-0.7) K/uL Baso # (Auto) (0.0-0.1) K/uL Lactate (0.20-2.00) mmol/L Sodium 139 (136-145) mmol/L Potassium 3.0 L (3.5-5.1) mmol/L Chloride 98 (98-107) mmol/L Carbon Dioxide 27.2 (21.0-32.0) mmol/L BUN 5 L (7.0-18.0) mg/dL Creatinine 0.6 (0.6-1.0) mg/dL Est Cr Clr Drug Dosing 68.02 mL/min Estimated GFR (MDRD) > 60.0 ml/min Glucose 79 (74-106) mg/dL Calcium 8.9 (8.5-10.1) mg/dL Total Bilirubin 1.0 (0.2-1.0) mg/dL AST 110 H (15-37) IU/L ALT 67 H (14-63) IU/L Alkaline Phosphatase 221 H (46-116) U/L Total Protein 7.6 (6.4-8.2) g/dL Albumin 3.5 (3.4-5.0) g/dL Globulin 4.1 H (2.6-4.0) g/dL Albumin/Globulin Ratio 0.9 (0.9-1.6) Lipase 85 (73-393) U/L Urine Color Urine Appearance Urine pH (5.0-8.0) Ur Specific [place] (1.001-1.035) Urine Protein (NEGATIVE) mg/dL Urine Glucose (UA) (NEGATIVE) mg/dL Urine Ketones (NEGATIVE) mg/dL Urine Occult Blood (NEGATIVE) Urine Nitrite (NEGATIVE) Urine Bilirubin (NEGATIVE) Urine Ictotest Urine Urobilinogen (<2.0) EU/dL Ur Leukocyte Esterase (NEGATIVE) Urine RBC (0-2/HPF) Urine WBC (0-5/HPF) Ur Epithelial Cells (NONE-FEW) Urine Bacteria (NEGATIVE) Urinalysis Comment Result Diagrams: 09/19/18 09:21 09/19/18 09:21 - Problem List (1) Cholelithiasis SNOMED Code(s): 345276632 ICD Code: K80.20 - CALCULUS OF GALLBLADDER W/O CHOLECYSTITIS W/O OBSTRUCTION Status: Acute Priority: Medium Current Visit: No Qualifiers: Cholelithiasis location: gallbladder Cholecystitis presence: with cholecystitis Biliary obstruction: without biliary obstruction (2) Cholecystitis SNOMED Code(s): 42553987 ICD Code: K81.9 - CHOLECYSTITIS, UNSPECIFIED Status: Acute Current Visit : Yes (3) Abdominal pain SNOMED Code(s): 65880754 ICD Code: R10.9 - UNSPECIFIED ABDOMINAL PAIN Status: Acute Current Visit : No Qualifiers: Abdominal location: right upper quadrant Qualified Code(s): R10.11 - Right upper quadrant pain (4) Hypokalemia SNOMED Code(s): 24440848 ICD Code: E87.6 - HYPOKALEMIA Status: Acute Priority: High Current Visit: No (5) Hypomagnesemia SNOMED Code(s): 471341825 ICD Code: E83.42 - HYPOMAGNESEMIA Status: Acute Priority: High Current Visit: No (6) Protein malnutrition SNOMED Code(s): 195046093 ICD Code: E46 - UNSPECIFIED PROTEIN-CALORIE MALNUTRITION Status: Chronic Current Visit: No (7) Alcohol abuse SNOMED Code(s): 58678289 ICD Code: F10.10 - ALCOHOL ABUSE, UNCOMPLICATED Status: Chronic Current Visit: No (8) COPD (chronic obstructive pulmonary disease) SNOMED Code(s): 25948919 ICD Code: J44.9 - CHRONIC OBSTRUCTIVE PULMONARY DISEASE, UNSPECIFIED Status : Chronic Priority: High Current Visit: No Qualifiers: COPD type: emphysema Emphysema type: unspecified Qualified Code(s): J43.9 - Emphysema, unspecified (9) HTN (hypertension) SNOMED Code(s): 56716281 ICD Code: I10 - ESSENTIAL (PRIMARY) HYPERTENSION Status: Chronic Priority : Medium Current Visit: No Qualifiers: Hypertension type: essential hypertension Qualified Code(s): I10 - Essential (primary) hypertension (10) Chronic back pain SNOMED Code(s): 062517190 ICD Code: M54.9 - DORSALGIA, UNSPECIFIED; G89.29 - OTHER CHRONIC PAIN Status: Chronic Current Visit: Yes (11) Smoker SNOMED Code(s): 12792424 ICD Code: F17.200 - NICOTINE DEPENDENCE, UNSPECIFIED, UNCOMPLICATED Status : Chronic Current Visit: Yes Problem List Initiated/Reviewed/Updated: Yes Orders Last 24hrs: Active Orders 24 hr Category Date Time Status Patient Status [ADT] Stat ADT 09/19/18 13:58 Active Sodium Chloride 0.9% [Normal Saline] 1,000 ml Med 09/19/18 13:46 Active IV .Bolus Sodium Chloride 0.9% [Saline Flush] Med 09/19/18 09:04 Active 10 ml FLUSH ASDIRECTED PRN Sodium Chloride 0.9% [Saline Flush] Med 09/19/18 09:04 Active 2.5 ml FLUSH ASDIRECTED PRN Saline Lock Insert [OM.PC] Stat Oth 09/19/18 09:04 Ordered Medication Orders Sodium Chloride (Normal Saline) 1,000 mls @ 999 mls/hr IV .Bolus ONE Stop: 09/19/18 14:46 Last Infusion: 09/19/18 14:38 Dose: 999 mls/hr Infusion: 09/19/18 14:00 Dose: 100 mls/hr Admin: 09/19/18 13:58 Dose: 999 mls/hr Sodium Chloride (Saline Flush) 10 ml FLUSH ASDIRECTED PRN PRN Reason: Keep Vein Open Last Admin: 09/19/18 09:33 Dose: 10 ml Sodium Chloride (Saline Flush) 2.5 ml FLUSH ASDIRECTED PRN PRN Reason: Keep Vein Open Last Admin: 09/19/18 09:33 Dose: 2.5 ml Assessment/Plan Comment:: THis 73 year old female admitted with cholecystitis with cholelithiasis 1. Cholecystitis: Continue Zosyn. Monitor labwork in am. Keep NPO for now. Dr Alex, consulted in ED. Will see patient. Dilaudid for pain PRN. Anti emetics PRN. Lactic acid elevated, monitor after fluid resuscitation. 2. Alcohol abuse: Will place on CIWAA protocol with Ativan PRN. Thiamine and folic acid supplementation. Will monitor electrolytes and replace as needed. 3. Hypokalemia: replace via IVF. Monitor other electrolytes as well. 4. Chronic pain: Opioid dependent with Morphine and Oxycodone at home. 5. HTN: Stable. will monitor. VTE prophylaxis: Will hold pharmacologic therapy due to noted varices on CT and history of alcohol abuse. SCDs only for now. Dispo: 2-4 days pending improvement.
[2018-09-19] MEDS ORDERED: Albuterol/Ipratropium 3.0-0.5 MG/3 ML Neb Soln NEB PRN (15:00)
[2018-09-19] MEDS ORDERED: Ondansetron 4 MG/2 ML SDV IVPUSH PRN (15:00)
[2018-09-19] MEDS ORDERED: Magnesium Sulfate/Water 2 GM in Premix Bag 1 BAG IV ONE (15:22)
[2018-09-19] MEDS ORDERED: Potassium Chloride 40 MEQ in Sodium Chloride 0.9% 500 ML IV ONE (15:45)
[2018-09-19] MEDS: HYDROmorphone 1 MG/ML Syringe IVPUSH PRN ×3 (16:12→19:58)
[2018-09-19] MEDS: Nicotine 21 MG/24 Hr Patch TRDERM SCH (16:57)
--- NOTE | 2018-09-19 18:44 | PCM.CONS ---
H&P History of Present Illness - General Date of Service: 09/19/18 Admit Problem/Dx: Admission Diagnosis/Problem Admission Diagnosis/Problem Acute cholecystitis Source of Information: Patient (No family present tonight when I saw her) History Limitations: Reports: Altered Mental Status - History of Present Illness Initial Comments - Free Text/Narative: 73 y/o female with a history of alcohol and tobacco abuse, multiple episodes of pancreatitis and mild/moderate dementia. Patient is not a reliable historian and states her can give us all the details. Duration of Symptoms: Reports: Day(s): (3-4 days ago), Chronic, Constant, Getting Worse, Recurring Location: Reports: Abdomen Quality: Reports: Ache, Pressure, Throbbing Severity: Moderate Improves with: Reports: Rest Worsens with: Reports: None Context: Reports: Sick Contact Associated Symptoms: Reports: Confusion, Loss of Appetite. Denies: Chest Pain, Cough Abdomen Pain Score (Numeric/FACES): 10 - Related Data Allergies/Adverse Reactions: Allergies Allergy/AdvReac Type Severity Reaction Status Date / Time No Known Allergies Allergy Verified 09/12/18 02:15 Home Medications: Home Meds oxyCODONE 10 mg PO BID 08/15/16 [History] Gabapentin [Gralise] 600 mg PO BID 09/14/17 [History] Morphine [MS Contin] 60 mg PO Q12H 09/14/17 [History] Albuterol Sulfate [Proair Hfa] 2 puff INH QID PRN 09/19/18 [History] Furosemide 20 mg PO DAILY 09/19/18 [History] Lansoprazole [Prevacid] 30 mg PO ACBREAKFAST 09/19/18 [History] Memantine [Namenda] 10 mg PO BID 09/19/18 [History] Metoprolol Succinate [Toprol XL] 25 mg PO BEDTIME 09/19/18 [History] Mirtazapine 15 mg PO BEDTIME 09/19/18 [History] Potassium Chloride 10 meq PO BID 09/19/18 [History] Sucralfate [Carafate] 10 ml PO BIDAC 09/19/18 [History] amLODIPine [Norvasc] 5 mg PO DAILY 09/19/18 [History] Past Medical History HEENT History: Reports: None Cardiovascular History: Reports: Angina, Hypertension Respiratory History: Reports: COPD Gastrointestinal History: Reports: Cholelithiasis, Pancreatitis, Other (See Below) Other Gastrointestinal History: chronic abdominal pain Genitourinary History: Reports: None 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 Denies: Diabetes, Type II Hematologic History: Reports: None Immunologic History: Reports: None Oncologic (Cancer) History: Reports: None Dermatologic History: Reports: None - Infectious Disease History Infectious Disease History: Reports: None - Past Surgical History HEENT Surgical History: Reports: None Cardiovascular Surgical History: Reports: None Respiratory Surgical History: Reports: None GI Surgical History: Reports: Appendectomy Neurological Surgical History: Reports: Lumbar Spine, Thoracic Spine Musculoskeletal Surgical History: Reports: None Social & Family History - Family History Family Medical History: Noncontributory - Tobacco Use Smoking Status *Q: Current Every Day Smoker Years of Tobacco use: 55 Packs/Tins Daily: 1 Second Hand Smoke Exposure: Yes - Caffeine Use Caffeine Use: Reports: None Caffeine Use Comment: 2drinks/day - Alcohol Use Days Per Week of Alcohol Use: 7 Number of Drinks Per Day: 6 Total Drinks Per Week: 42 - Recreational Drug Use Recreational Drug Use: No - Living Situation & Occupation Living situation: Reports: Occupation: Unemployed H&P Review of Systems - Review of Systems: Review Of Systems: See Below General: Reports: Malaise, Weakness, Fatigue, Decreased Appetite. Denies: Fever , Chills HEENT: Reports: No Symptoms Pulmonary: Reports: Shortness of Breath, Wheezing Cardiovascular: Denies: Chest Pain, Palpitations Gastrointestinal: Reports: Abdominal Pain, Anorexia, Decreased Appetite, Flatus. Denies: Black Stool, Bloody Stool, Constipation, Diarrhea, Distension, Hematemesis, Hematochezia, Melena Genitourinary: Denies: Dysuria, Frequency, Burning, Pain, Urgency Musculoskeletal: Reports: Back Pain Skin: Reports: Cyanosis. Denies: Jaundice, Mottled, Pallor, Diaphoresis, Bruising, Erythema, Wound Psychiatric: Reports: Confusion, Agitation. Denies: Depression, Mood Lability, Anxiety Neurological: Reports: Confusion. Denies: Dizziness, Headache, Numbness Hematologic/Lymphatic: Denies: Anemia, Easy Bleeding, Easy Bruising Immunologic: Reports: No Symptoms Exam - Exam Exam: See Below - Vital Signs Vital Signs: Last Vital Signs Temp 97.5 F 09/19/18 16:00 Pulse 124 H 09/19/18 16:00 Resp 16 09/19/18 16:00 BP 141/83 H 09/19/18 16:00 Pulse Ox 91 L 09/19/18 16:00 Weight: 120 lb - Exam Quality Assessment: No: Urinary Catheter General: Alert, Mild Distress HEENT: Conjunctiva Clear, Pupils Equal, Pupils Reactive. No: Scleral Icterus Neck: Supple, Trachea Midline Lungs: Decreased Breath Sounds, Crackles, Rhonchi, Wheezing Cardiovascular: Regular Rate, Regular Rhythm, Tachycardia GI/Abdominal Exam: Normal Bowel Sounds, Soft, Non-Tender, No Distention, No Mass (despite gallbladder size on CT scan, it was not palpable tonight.). No: Guarding, Rigid, Rebound (Female) Exam: Deferred Rectal (Female) Exam: Deferred Back Exam: Normal Inspection. No: CVA Tenderness (L), CVA Tenderness (R) Extremities: No Pedal Edema, Normal Capillary Refill. No: Mottled, Pallor, Redness Peripheral Pulses: 4+: Posterior Tibial (L), Posterior Tibial (R), Dorsalis Pedis (L), Dorsalis Pedis (R) Skin: Warm, Dry, Intact Neuro Extensive - Mental Status: Alert, Memory Loss-Recent Events Psychiatric: Alert, Labile Mood, Anxious, Agitated - Patient Data Lab Results Last 24 hrs: Laboratory Results - last 24 hr 09/19/18 09/19/18 09/19/18 Range/Units 09:05 09:11 09:21 WBC 6.21 (4.0-11.0) K/uL RBC 5.31 (4.30-5.90) M/uL Hgb 16.2 H (12.0-16.0) g/dL Hct 46.5 H (36.0-46.0) % MCV 87.6 (80.0-98.0) fL MCH 30.5 (27.0-32.0) pg MCHC 34.8 (31.0-37.0) g/dL RDW Std Deviation 55.4 (28.0-62.0) fl RDW Coeff of Katerina 18 H (11.0-15.0) % Plt Count 224 (150-400) K/uL MPV 9.10 (7.40-12.00) fL Neut % (Auto) 42.7 L (48.0-80.0) % Lymph % (Auto) 41.9 H (16.0-40.0) % Grainger % (Auto) 12.9 (0.0-15.0) % Eos % (Auto) 1.9 (0.0-7.0) % Baso % (Auto) 0.6 (0.0-1.5) % Neut # (Auto) 2.7 (1.4-5.7) K/uL Lymph # (Auto) 2.6 H (0.6-2.4) K/uL Grainger # (Auto) 0.8 (0.0-0.8) K/uL Eos # (Auto) 0.1 (0.0-0.7) K/uL Baso # (Auto) 0.0 (0.0-0.1) K/uL INR Lactate (0.20-2.00) mmol/L Sodium (136-145) mmol/L Potassium (3.5-5.1) mmol/L Chloride (98-107) mmol/L Carbon Dioxide (21.0-32.0) mmol/L BUN (7.0-18.0) mg/dL Creatinine (0.6-1.0) mg/dL Est Cr Clr Drug Dosing mL/min Estimated GFR (MDRD) ml/min Glucose (74-106) mg/dL Calcium (8.5-10.1) mg/dL Phosphorus 3.3 (2.6-4.7) mg/dL Magnesium 1.6 L (1.8-2.4) mg/dL Total Bilirubin (0.2-1.0) mg/dL AST (15-37) IU/L ALT (14-63) IU/L Alkaline Phosphatase (46-116) U/L Total Protein (6.4-8.2) g/dL Albumin (3.4-5.0) g/dL Globulin (2.6-4.0) g/dL Albumin/Globulin Ratio (0.9-1.6) Lipase (73-393) U/L Urine Color YELLOW Urine Appearance CLEAR Urine pH 6.0 (5.0-8.0) Ur Specific [place] 1.015 (1.001-1.035) Urine Protein NEGATIVE (NEGATIVE) mg/dL Urine Glucose (UA) NEGATIVE (NEGATIVE) mg/dL Urine Ketones 15 H (NEGATIVE) mg/dL Urine Occult Blood NEGATIVE (NEGATIVE) Urine Nitrite NEGATIVE (NEGATIVE) Urine Bilirubin SMALL H (NEGATIVE) Urine Ictotest Urine Urobilinogen 4.0 H (<2.0) EU/dL Ur Leukocyte Esterase NEGATIVE (NEGATIVE) Urine RBC 0-2 (0-2/HPF) Urine WBC 0-2 (0-5/HPF) Ur Epithelial Cells MODERATE (NONE-FEW) Urine Bacteria FEW (NEGATIVE) Urinalysis Comment 09/19/18 09/19/18 09/19/18 Range/Units 09:21 09:21 15:34 WBC (4.0-11.0) K/uL RBC (4.30-5.90) M/uL Hgb (12.0-16.0) g/dL Hct (36.0-46.0) % MCV (80.0-98.0) fL MCH (27.0-32.0) pg MCHC (31.0-37.0) g/dL RDW Std Deviation (28.0-62.0) fl RDW Coeff of Katerina (11.0-15.0) % Plt Count (150-400) K/uL MPV (7.40-12.00) fL Neut % (Auto) (48.0-80.0) % Lymph % (Auto) (16.0-40.0) % Grainger % (Auto) (0.0-15.0) % Eos % (Auto) (0.0-7.0) % Baso % (Auto) (0.0-1.5) % Neut # (Auto) (1.4-5.7) K/uL Lymph # (Auto) (0.6-2.4) K/uL Grainger # (Auto) (0.0-0.8) K/uL Eos # (Auto) (0.0-0.7) K/uL Baso # (Auto) (0.0-0.1) K/uL INR 1.13 Lactate 3.3 H (0.20-2.00) mmol/L Sodium 139 (136-145) mmol/L Potassium 3.0 L (3.5-5.1) mmol/L Chloride 98 (98-107) mmol/L Carbon Dioxide 27.2 (21.0-32.0) mmol/L BUN 5 L (7.0-18.0) mg/dL Creatinine 0.6 (0.6-1.0) mg/dL Est Cr Clr Drug Dosing 68.02 mL/min Estimated GFR (MDRD) > 60.0 ml/min Glucose 79 (74-106) mg/dL Calcium 8.9 (8.5-10.1) mg/dL Phosphorus (2.6-4.7) mg/dL Magnesium (1.8-2.4) mg/dL Total Bilirubin 1.0 (0.2-1.0) mg/dL AST 110 H (15-37) IU/L ALT 67 H (14-63) IU/L Alkaline Phosphatase 221 H (46-116) U/L Total Protein 7.6 (6.4-8.2) g/dL Albumin 3.5 (3.4-5.0) g/dL Globulin 4.1 H (2.6-4.0) g/dL Albumin/Globulin Ratio 0.9 (0.9-1.6) Lipase 85 (73-393) U/L Urine Color Urine Appearance Urine pH (5.0-8.0) Ur Specific [place] (1.001-1.035) Urine Protein (NEGATIVE) mg/dL Urine Glucose (UA) (NEGATIVE) mg/dL Urine Ketones (NEGATIVE) mg/dL Urine Occult Blood (NEGATIVE) Urine Nitrite (NEGATIVE) Urine Bilirubin (NEGATIVE) Urine Ictotest Urine Urobilinogen (<2.0) EU/dL Ur Leukocyte Esterase (NEGATIVE) Urine RBC (0-2/HPF) Urine WBC (0-5/HPF) Ur Epithelial Cells (NONE-FEW) Urine Bacteria (NEGATIVE) Urinalysis Comment 09/19/18 09/19/18 Range/Units 15:34 16:00 WBC (4.0-11.0) K/uL RBC (4.30-5.90) M/uL Hgb (12.0-16.0) g/dL Hct (36.0-46.0) % MCV (80.0-98.0) fL MCH (27.0-32.0) pg MCHC (31.0-37.0) g/dL RDW Std Deviation (28.0-62.0) fl RDW Coeff of Katerina (11.0-15.0) % Plt Count (150-400) K/uL MPV (7.40-12.00) fL Neut % (Auto) (48.0-80.0) % Lymph % (Auto) (16.0-40.0) % Grainger % (Auto) (0.0-15.0) % Eos % (Auto) (0.0-7.0) % Baso % (Auto) (0.0-1.5) % Neut # (Auto) (1.4-5.7) K/uL Lymph # (Auto) (0.6-2.4) K/uL Grainger # (Auto) (0.0-0.8) K/uL Eos # (Auto) (0.0-0.7) K/uL Baso # (Auto) (0.0-0.1) K/uL INR Lactate 2.1 H (0.20-2.00) mmol/L Sodium (136-145) mmol/L Potassium (3.5-5.1) mmol/L Chloride (98-107) mmol/L Carbon Dioxide (21.0-32.0) mmol/L BUN (7.0-18.0) mg/dL Creatinine (0.6-1.0) mg/dL Est Cr Clr Drug Dosing mL/min Estimated GFR (MDRD) ml/min Glucose (74-106) mg/dL Calcium (8.5-10.1) mg/dL Phosphorus (2.6-4.7) mg/dL Magnesium (1.8-2.4) mg/dL Total Bilirubin (0.2-1.0) mg/dL AST (15-37) IU/L ALT (14-63) IU/L Alkaline Phosphatase (46-116) U/L Total Protein (6.4-8.2) g/dL Albumin (3.4-5.0) g/dL Globulin (2.6-4.0) g/dL Albumin/Globulin Ratio (0.9-1.6) Lipase (73-393) U/L Urine Color YELLOW Urine Appearance SLT CLOUDY Urine pH 6.0 (5.0-8.0) Ur Specific [place] <= 1.005 (1.001-1.035) Urine Protein NEGATIVE (NEGATIVE) mg/dL Urine Glucose (UA) NEGATIVE (NEGATIVE) mg/dL Urine Ketones 15 H (NEGATIVE) mg/dL Urine Occult Blood TRACE-INTACT H (NEGATIVE) Urine Nitrite NEGATIVE (NEGATIVE) Urine Bilirubin NEGATIVE (NEGATIVE) Urine Ictotest Urine Urobilinogen 1.0 (<2.0) EU/dL Ur Leukocyte Esterase NEGATIVE (NEGATIVE) Urine RBC 0-1 (0-2/HPF) Urine WBC 0-2 (0-5/HPF) Ur Epithelial Cells MODERATE (NONE-FEW) Urine Bacteria RARE (NEGATIVE) Urinalysis Comment Result Diagrams: 09/19/18 09:21 09/19/18 09:21 Imaging Impressions Last 24 hrs: CT scan has been personally reviewed. The gallbladder is markedly distended with multiple small gallstones. I do not appreciate significant gallbladder wall thickening or pericholecystic fluid. The common bile duct is significantly dilated at 1.2 cm, however her bilirubin is normal. The radiologist did comment on the presence of varices--this makes her an extremely high risk for any surgical intervention, especially in a critical access hospital. Consult PN Assessment/Plan Procedures: Procedures ASSAY OF AMMONIA (09/12/18) ASSAY OF AMYLASE (09/12/18) ASSAY OF CK (CPK) (09/17/17) ASSAY OF FOLIC ACID SERUM (05/30/17) ASSAY OF FREE THYROXINE (05/21/18) ASSAY OF LACTIC ACID (08/27/18) ASSAY OF LIPASE (09/12/18) ASSAY OF MAGNESIUM (09/17/17) ASSAY OF NATRIURETIC PEPTIDE (09/12/18) ASSAY OF PHOSPHORUS (09/17/17) ASSAY OF TROPONIN QUANT (09/12/18) ASSAY THYROID STIM HORMONE (05/21/18) BLOOD CULTURE FOR BACTERIA (09/17/17) BLOOD GASES ANY COMBINATION (05/17/17) CHEST X-RAY 1 VIEW FRONTAL (01/19/17) CHEST X-RAY 2VW FRONTAL&LATL (05/17/17) COMPLETE CBC AUTOMATED (05/29/17) COMPLETE CBC W/AUTO DIFF WBC (09/12/18) COMPREHEN METABOLIC PANEL (09/12/18) CREATINE MB FRACTION (09/17/17) CT ABD & PELV W/CONTRAST (09/12/18) CT ABD & PELVIS W/O CONTRAST (09/17/17) CT ANGIOGRAPHY CHEST (09/20/14) CT HEAD/BRAIN W/O DYE (05/17/17) DRUG TEST PRSMV DIR OPT OBS (05/17/17) DXA BONE DENSITY AXIAL (07/04/16) ECHO EXAM OF ABDOMEN (10/10/16) ELECTROCARDIOGRAM TRACING (09/12/18) EMERGENCY DEPT VISIT (09/12/18) EMERGENCY DEPT VISIT (08/27/18) EMERGENCY DEPT VISIT (04/08/16) EMERGENCY DEPT VISIT (03/31/15) EMERGENCY DEPT VISIT (09/20/14) EMERGENCY DEPT VISIT (05/08/14) FIBRIN DEGRADATION QUANT (09/20/14) GLYCOSYLATED HEMOGLOBIN TEST (01/17/18) HELICOBACTER PYLORI ANTIBODY (08/27/18) HYDRATE IV INFUSION ADD-ON (09/12/18) HYDRATION IV INFUSION INIT (09/12/18) INFLUENZA ASSAY W/OPTIC (08/27/18) LIPID PANEL (01/17/18) METABOLIC PANEL TOTAL CA (09/17/17) MRI ABDOMEN W/O DYE (09/20/17) OCCULT BLOOD FECES (10/18/15) OFFICE/OUTPATIENT VISIT EST (05/29/17) OFFICE/OUTPATIENT VISIT EST (10/12/14) OFFICE/OUTPATIENT VISIT EST (10/29/13) OFFICE/OUTPATIENT VISIT NEW (01/17/18) PROTHROMBIN TIME (09/12/18) PT EVAL LOW COMPLEX 20 MIN (05/17/17) ROUTINE VENIPUNCTURE (09/12/18) THER/PROPH/DIAG INJ IV PUSH (08/27/18) THER/PROPH/DIAG INJ SC/IM (09/17/17) THER/PROPH/DIAG IV INF ADDON (09/17/17) THER/PROPH/DIAG IV INF INIT (09/17/17) THROMBOPLASTIN TIME PARTIAL (10/10/16) TX/PRO/DX INJ NEW DRUG ADDON (08/27/18) TX/PRO/DX INJ SAME DRUG LUMBER PILER (09/17/17) TX/PROPH/DG ADDL SEQ IV INF (09/17/17) URINALYSIS AUTO W/O SCOPE (09/12/18) URINALYSIS AUTO W/SCOPE (08/27/18) URINE CULTURE/COLONY COUNT (05/17/17) US EXAM ABDOM COMPLETE (01/19/17) VITAMIN B-12 (05/30/17) WITHDRAWAL OF ARTERIAL BLOOD (05/17/17) X-RAY EXAM CHEST 1 VIEW (09/12/18) (1) Cholelithiasis and acute cholecystitis without obstruction SNOMED Code(s): 28843794 Code(s): K80.00 - CALCULUS OF GALLBLADDER W ACUTE CHOLECYST W/O OBSTRUCTION Priority: High Current Visit: Yes (2) Acute cholecystitis SNOMED Code(s): 36798202 Code(s): K81.0 - ACUTE CHOLECYSTITIS Priority: High Current Visit: Yes (3) Chronic back pain SNOMED Code(s): 234142734 Code(s): M54.9 - DORSALGIA, UNSPECIFIED; G89.29 - OTHER CHRONIC PAIN Priority: Low Current Visit: Yes (4) Smoker SNOMED Code(s): 87317035 Code(s): F17.200 - NICOTINE DEPENDENCE, UNSPECIFIED, UNCOMPLICATED Priority : High Current Visit: Yes (5) Bronchitis SNOMED Code(s): 71074600 Code(s): J40 - BRONCHITIS, NOT SPECIFIED ACUTE OR CHRONIC Priority: Medium Current Visit: No (6) Hepatic cirrhosis SNOMED Code(s): 94623888 Code(s): K74.60 - UNSPECIFIED CIRRHOSIS OF LIVER Priority: Medium Current Visit: No Qualifiers: Hepatic cirrhosis type: alcoholic cirrhosis (7) Alcohol abuse SNOMED Code(s): 87828646 Code(s): F10.10 - ALCOHOL ABUSE, UNCOMPLICATED Priority: High Current Visit: No (8) COPD (chronic obstructive pulmonary disease) SNOMED Code(s): 26782110 Code(s): J44.9 - CHRONIC OBSTRUCTIVE PULMONARY DISEASE, UNSPECIFIED Priority: High Current Visit: No Qualifiers: COPD type: emphysema Emphysema type: unspecified Qualified Code(s): J43.9 - Emphysema, unspecified (9) Chronic pancreatitis SNOMED Code(s): 997633403 Code(s): K86.1 - OTHER CHRONIC PANCREATITIS Priority: Medium Current Visit: No Qualifiers: Pancreatitis type: alcohol induced Qualified Code(s): K86.0 - Alcohol- induced chronic pancreatitis (10) HTN (hypertension) SNOMED Code(s): 31042721 Code(s): I10 - ESSENTIAL (PRIMARY) HYPERTENSION Priority: Medium Current Visit: No Qualifiers: Hypertension type: essential hypertension Qualified Code(s): I10 - Essential (primary) hypertension Problem List Initiated/Reviewed/Updated: Yes Plan: I am surprised her gallbladder is not palpable given the CT findings. Her WBC is normal with a slight lymphocytosis. She is a very high risk surgical candidate given her smoking, COPD, alcohol abuse, recurrent pancreatitis and possible varices. Given the size of her gallbladder, I doubt this could currently be removed laparoscopically. If she were to require an open cholecystectomy, she would be at very high risk for pulmonary complications and possibly ventilator dependence. The best procedure may be a cholecystostomy tube placed by an interventional radiologist in a larger facility. Given her CBD dilatation, consideration should also be given to an MRCP to r/o a CBD stone --I think this is unlikely as she has no elevation of her bilirubin although slight elevation of her LFT's and an elevated Lactate on arrival to the ER today.
[2018-09-19] MEDS: LORazepam 2 MG/ML SDV IV PRN (19:57)
[2018-09-19] MEDS ORDERED: NS + KCl 20mEq/L 1,000 ML IV SCH (20:00)
[2018-09-19] MEDS ORDERED: Metoprolol Tartrate 25 MG Tab PO SCH (21:00)
[2018-09-19] MEDS: Piperacillin/Tazobactam 3.375 GM in Sodium Chloride 0.9% 50 ML IV SCH (21:13)
[2018-09-20] MEDS: Piperacillin/Tazobactam 3.375 GM in Sodium Chloride 0.9% 50 ML IV SCH ×4 (03:29→21:12)
[2018-09-20] MEDS: HYDROmorphone 1 MG/ML Syringe IVPUSH PRN ×2 (05:17→12:27)
[2018-09-20 06:18] LABS: CHLORIDE,CL 107 mmol/L (98-107); SODIUM,NA 146 mmol/L (136-145)
[2018-09-20] MEDS: Morphine 30 MG Tab.ER PO SCH ×2 (08:27→20:50)
[2018-09-20] MEDS: Nicotine 21 MG/24 Hr Patch TRDERM SCH (08:44)
[2018-09-20] MEDS: Memantine 10 MG Tab PO SCH ×2 (08:51→20:50)
[2018-09-20] MEDS: Potassium Chloride 10 MEQ Tab.ER PO SCH ×2 (08:54→20:50)
[2018-09-20] MEDS: oxyCODONE ER 10 MG TAB.ER PO SCH ×2 (08:55→20:48)
--- NOTE | 2018-09-20 08:57 | PCM.PN ---
- General Info Date of Service: 09/20/18 Admission Dx/Problem (Free Text): Admission Diagnosis/Problem Admission Diagnosis/Problem Acute cholecystitis Subjective Update: Feeling somewhat better today. Pain is more in back today, chronic back pain. No chest pain or SOB. Wanting liquids to drink. Functional Status: Reports: Pain Controlled, Tolerating Diet, Ambulating, Urinating - Review of Systems General: Reports: No Symptoms. Denies: Fever, Weakness, Fatigue HEENT: Reports: No Symptoms Pulmonary: Reports: No Symptoms. Denies: Shortness of Breath, Cough, Sputum Cardiovascular: Reports: No Symptoms. Denies: Chest Pain, Orthopnea, Edema Gastrointestinal: Reports: Abdominal Pain (RUQ, improved). Denies: Nausea, Vomiting Genitourinary: Reports: No Symptoms. Denies: Dysuria, Frequency, Burning Musculoskeletal: Reports: Back Pain Skin: Reports: No Symptoms Neurological: Reports: No Symptoms Psychiatric: Reports: No Symptoms - Patient Data Vitals - Most Recent: Last Vital Signs Temp 98.7 F 09/20/18 07:00 Pulse 94 09/20/18 07:00 Resp 18 09/20/18 07:00 BP 141/71 H 09/20/18 07:00 Pulse Ox 93 L 09/20/18 07:00 Weight - Most Recent: 54.431 kg I&O - Last 24 Hours: Intake & Output 09/19/18 09/20/18 09/20/18 22:59 06:59 14:59 Intake Total 1550 170 50 Output Total 400 Balance 1150 170 50 Lab Results Last 24 Hours: Laboratory Results - last 24 hr 09/19/18 09/19/18 09/19/18 Range/Units 09:05 09:11 09:21 WBC 6.21 (4.0-11.0) K/uL RBC 5.31 (4.30-5.90) M/uL Hgb 16.2 H (12.0-16.0) g/dL Hct 46.5 H (36.0-46.0) % MCV 87.6 (80.0-98.0) fL MCH 30.5 (27.0-32.0) pg MCHC 34.8 (31.0-37.0) g/dL RDW Std Deviation 55.4 (28.0-62.0) fl RDW Coeff of Katerina 18 H (11.0-15.0) % Plt Count 224 (150-400) K/uL MPV 9.10 (7.40-12.00) fL Neut % (Auto) 42.7 L (48.0-80.0) % Lymph % (Auto) 41.9 H (16.0-40.0) % [place] % (Auto) 12.9 (0.0-15.0) % Eos % (Auto) 1.9 (0.0-7.0) % Baso % (Auto) 0.6 (0.0-1.5) % Neut # (Auto) 2.7 (1.4-5.7) K/uL Lymph # (Auto) 2.6 H (0.6-2.4) K/uL [place] # (Auto) 0.8 (0.0-0.8) K/uL Eos # (Auto) 0.1 (0.0-0.7) K/uL Baso # (Auto) 0.0 (0.0-0.1) K/uL Nucleated RBC % /100WBC Nucleated RBCs # K/uL INR Lactate (0.20-2.00) mmol/L Sodium (136-145) mmol/L Potassium (3.5-5.1) mmol/L Chloride (98-107) mmol/L Carbon Dioxide (21.0-32.0) mmol/L BUN (7.0-18.0) mg/dL Creatinine (0.6-1.0) mg/dL Est Cr Clr Drug Dosing mL/min Estimated GFR (MDRD) ml/min Glucose (74-106) mg/dL Calcium (8.5-10.1) mg/dL Phosphorus 3.3 (2.6-4.7) mg/dL Magnesium 1.6 L (1.8-2.4) mg/dL Total Bilirubin (0.2-1.0) mg/dL AST (15-37) IU/L ALT (14-63) IU/L Alkaline Phosphatase (46-116) U/L Total Protein (6.4-8.2) g/dL Albumin (3.4-5.0) g/dL Globulin (2.6-4.0) g/dL Albumin/Globulin Ratio (0.9-1.6) Lipase (73-393) U/L Urine Color YELLOW Urine Appearance CLEAR Urine pH 6.0 (5.0-8.0) Ur Specific [place] 1.015 (1.001-1.035) Urine Protein NEGATIVE (NEGATIVE) mg/dL Urine Glucose (UA) NEGATIVE (NEGATIVE) mg/dL Urine Ketones 15 H (NEGATIVE) mg/dL Urine Occult Blood NEGATIVE (NEGATIVE) Urine Nitrite NEGATIVE (NEGATIVE) Urine Bilirubin SMALL H (NEGATIVE) Urine Ictotest Urine Urobilinogen 4.0 H (<2.0) EU/dL Ur Leukocyte Esterase NEGATIVE (NEGATIVE) Urine RBC 0-2 (0-2/HPF) Urine WBC 0-2 (0-5/HPF) Ur Epithelial Cells MODERATE (NONE-FEW) Urine Bacteria FEW (NEGATIVE) Urinalysis Comment 09/19/18 09/19/18 09/19/18 Range/Units 09:21 09:21 15:34 WBC (4.0-11.0) K/uL RBC (4.30-5.90) M/uL Hgb (12.0-16.0) g/dL Hct (36.0-46.0) % MCV (80.0-98.0) fL MCH (27.0-32.0) pg MCHC (31.0-37.0) g/dL RDW Std Deviation (28.0-62.0) fl RDW Coeff of Katerina (11.0-15.0) % Plt Count (150-400) K/uL MPV (7.40-12.00) fL Neut % (Auto) (48.0-80.0) % Lymph % (Auto) (16.0-40.0) % [place] % (Auto) (0.0-15.0) % Eos % (Auto) (0.0-7.0) % Baso % (Auto) (0.0-1.5) % Neut # (Auto) (1.4-5.7) K/uL Lymph # (Auto) (0.6-2.4) K/uL [place] # (Auto) (0.0-0.8) K/uL Eos # (Auto) (0.0-0.7) K/uL Baso # (Auto) (0.0-0.1) K/uL Nucleated RBC % /100WBC Nucleated RBCs # K/uL INR 1.13 Lactate 3.3 H (0.20-2.00) mmol/L Sodium 139 (136-145) mmol/L Potassium 3.0 L (3.5-5.1) mmol/L Chloride 98 (98-107) mmol/L Carbon Dioxide 27.2 (21.0-32.0) mmol/L BUN 5 L (7.0-18.0) mg/dL Creatinine 0.6 (0.6-1.0) mg/dL Est Cr Clr Drug Dosing 68.02 mL/min Estimated GFR (MDRD) > 60.0 ml/min Glucose 79 (74-106) mg/dL Calcium 8.9 (8.5-10.1) mg/dL Phosphorus (2.6-4.7) mg/dL Magnesium (1.8-2.4) mg/dL Total Bilirubin 1.0 (0.2-1.0) mg/dL AST 110 H (15-37) IU/L ALT 67 H (14-63) IU/L Alkaline Phosphatase 221 H (46-116) U/L Total Protein 7.6 (6.4-8.2) g/dL Albumin 3.5 (3.4-5.0) g/dL Globulin 4.1 H (2.6-4.0) g/dL Albumin/Globulin Ratio 0.9 (0.9-1.6) Lipase 85 (73-393) U/L Urine Color Urine Appearance Urine pH (5.0-8.0) Ur Specific [place] (1.001-1.035) Urine Protein (NEGATIVE) mg/dL Urine Glucose (UA) (NEGATIVE) mg/dL Urine Ketones (NEGATIVE) mg/dL Urine Occult Blood (NEGATIVE) Urine Nitrite (NEGATIVE) Urine Bilirubin (NEGATIVE) Urine Ictotest Urine Urobilinogen (<2.0) EU/dL Ur Leukocyte Esterase (NEGATIVE) Urine RBC (0-2/HPF) Urine WBC (0-5/HPF) Ur Epithelial Cells (NONE-FEW) Urine Bacteria (NEGATIVE) Urinalysis Comment 09/19/18 09/19/18 09/19/18 Range/Units 15:34 16:00 20:40 WBC (4.0-11.0) K/uL RBC (4.30-5.90) M/uL Hgb (12.0-16.0) g/dL Hct (36.0-46.0) % MCV (80.0-98.0) fL MCH (27.0-32.0) pg MCHC (31.0-37.0) g/dL RDW Std Deviation (28.0-62.0) fl RDW Coeff of Katerina (11.0-15.0) % Plt Count (150-400) K/uL MPV (7.40-12.00) fL Neut % (Auto) (48.0-80.0) % Lymph % (Auto) (16.0-40.0) % [place] % (Auto) (0.0-15.0) % Eos % (Auto) (0.0-7.0) % Baso % (Auto) (0.0-1.5) % Neut # (Auto) (1.4-5.7) K/uL Lymph # (Auto) (0.6-2.4) K/uL [place] # (Auto) (0.0-0.8) K/uL Eos # (Auto) (0.0-0.7) K/uL Baso # (Auto) (0.0-0.1) K/uL Nucleated RBC % /100WBC Nucleated RBCs # K/uL INR Lactate 2.1 H 1.2 (0.20-2.00) mmol/L Sodium (136-145) mmol/L Potassium (3.5-5.1) mmol/L Chloride (98-107) mmol/L Carbon Dioxide (21.0-32.0) mmol/L BUN (7.0-18.0) mg/dL Creatinine (0.6-1.0) mg/dL Est Cr Clr Drug Dosing mL/min Estimated GFR (MDRD) ml/min Glucose (74-106) mg/dL Calcium (8.5-10.1) mg/dL Phosphorus (2.6-4.7) mg/dL Magnesium (1.8-2.4) mg/dL Total Bilirubin (0.2-1.0) mg/dL AST (15-37) IU/L ALT (14-63) IU/L Alkaline Phosphatase (46-116) U/L Total Protein (6.4-8.2) g/dL Albumin (3.4-5.0) g/dL Globulin (2.6-4.0) g/dL Albumin/Globulin Ratio (0.9-1.6) Lipase (73-393) U/L Urine Color YELLOW Urine Appearance SLT CLOUDY Urine pH 6.0 (5.0-8.0) Ur Specific [place] <= 1.005 (1.001-1.035) Urine Protein NEGATIVE (NEGATIVE) mg/dL Urine Glucose (UA) NEGATIVE (NEGATIVE) mg/dL Urine Ketones 15 H (NEGATIVE) mg/dL Urine Occult Blood TRACE-INTACT H (NEGATIVE) Urine Nitrite NEGATIVE (NEGATIVE) Urine Bilirubin NEGATIVE (NEGATIVE) Urine Ictotest Urine Urobilinogen 1.0 (<2.0) EU/dL Ur Leukocyte Esterase NEGATIVE (NEGATIVE) Urine RBC 0-1 (0-2/HPF) Urine WBC 0-2 (0-5/HPF) Ur Epithelial Cells MODERATE (NONE-FEW) Urine Bacteria RARE (NEGATIVE) Urinalysis Comment 09/20/18 09/20/18 Range/Units 05:15 05:15 WBC 5.66 (4.0-11.0) K/uL RBC 4.58 (4.30-5.90) M/uL Hgb 13.6 (12.0-16.0) g/dL Hct 40.8 (36.0-46.0) % MCV 89.1 (80.0-98.0) fL MCH 29.7 (27.0-32.0) pg MCHC 33.3 (31.0-37.0) g/dL RDW Std Deviation 57.5 (28.0-62.0) fl RDW Coeff of Katerina 18 H (11.0-15.0) % Plt Count 207 (150-400) K/uL MPV 9.20 (7.40-12.00) fL Neut % (Auto) 51.5 (48.0-80.0) % Lymph % (Auto) 32.5 (16.0-40.0) % [place] % (Auto) 13.4 (0.0-15.0) % Eos % (Auto) 1.9 (0.0-7.0) % Baso % (Auto) 0.7 (0.0-1.5) % Neut # (Auto) 2.9 (1.4-5.7) K/uL Lymph # (Auto) 1.8 (0.6-2.4) K/uL [place] # (Auto) 0.8 (0.0-0.8) K/uL Eos # (Auto) 0.1 (0.0-0.7) K/uL Baso # (Auto) 0.0 (0.0-0.1) K/uL Nucleated RBC % 0.0 /100WBC Nucleated RBCs # 0 K/uL INR Lactate (0.20-2.00) mmol/L Sodium 146 H (136-145) mmol/L Potassium 3.5 (3.5-5.1) mmol/L Chloride 107 (98-107) mmol/L Carbon Dioxide 23.0 (21.0-32.0) mmol/L BUN 6 L (7.0-18.0) mg/dL Creatinine 0.5 L (0.6-1.0) mg/dL Est Cr Clr Drug Dosing 81.62 mL/min Estimated GFR (MDRD) > 60.0 ml/min Glucose 74 (74-106) mg/dL Calcium 8.4 L (8.5-10.1) mg/dL Phosphorus 2.7 (2.6-4.7) mg/dL Magnesium 2.0 (1.8-2.4) mg/dL Total Bilirubin 1.5 H (0.2-1.0) mg/dL AST 78 H (15-37) IU/L ALT 50 (14-63) IU/L Alkaline Phosphatase 178 H (46-116) U/L Total Protein 6.4 (6.4-8.2) g/dL Albumin 3.0 L (3.4-5.0) g/dL Globulin 3.4 (2.6-4.0) g/dL Albumin/Globulin Ratio 0.9 (0.9-1.6) Lipase (73-393) U/L Urine Color Urine Appearance Urine pH (5.0-8.0) Ur Specific [place] (1.001-1.035) Urine Protein (NEGATIVE) mg/dL Urine Glucose (UA) (NEGATIVE) mg/dL Urine Ketones (NEGATIVE) mg/dL Urine Occult Blood (NEGATIVE) Urine Nitrite (NEGATIVE) Urine Bilirubin (NEGATIVE) Urine Ictotest Urine Urobilinogen (<2.0) EU/dL Ur Leukocyte Esterase (NEGATIVE) Urine RBC (0-2/HPF) Urine WBC (0-5/HPF) Ur Epithelial Cells (NONE-FEW) Urine Bacteria (NEGATIVE) Urinalysis Comment Med Orders - Current: Current Medications Albuterol/Ipratropium (Duoneb 3.0-0.5 Mg/3 Ml) 3 ml NEB Q4HRRT PRN PRN Reason: Shortness Of Breath/wheezing Amlodipine Besylate (Norvasc) 5 mg PO DAILY [facility] Folic Acid (Folic Acid) 1 mg SUBCUT DAILY [facility] Gabapentin (Neurontin) 600 mg PO BID [facility] Hydromorphone HCl (Dilaudid) 0.5 mg IVPUSH Q2H PRN PRN Reason: Pain (severe 7-10) Last Admin: 09/20/18 05:17 Dose: 0.5 mg Piperacillin Sod/Tazobactam (Sod 3.375 gm/ Sodium Chloride) 50 mls @ 100 mls/ hr IV Q6H [facility] Last Admin: 09/20/18 08:30 Dose: 100 mls/hr Lorazepam (Ativan) 0 mg IV Q4H PRN; Protocol PRN Reason: CIWAA Last Admin: 09/19/18 19:57 Dose: 2 mg Memantine (Namenda) 10 mg PO BID [facility] Metoprolol Succinate (Toprol Xl) 25 mg PO BEDTIME [facility] Mirtazapine (Remeron) 15 mg PO BEDTIME [facility] Morphine Sulfate (Ms Contin) 60 mg PO Q12H [facility] Last Admin: 09/20/18 08:27 Dose: 60 mg Nicotine (Habitrol) 21 mg TRDERM DAILY [facility] Last Admin: 09/20/18 08:44 Dose: 21 mg Omeprazole (Omeprazole) 40 mg PO ACBREAKFAST [facility] Ondansetron HCl (Zofran) 4 mg IVPUSH Q4H PRN PRN Reason: Nausea Oxycodone HCl (Oxycontin) 10 mg PO BID [facility] Potassium Chloride (Klor-Con 10) 10 meq PO BID [facility] Sodium Chloride (Saline Flush) 10 ml FLUSH ASDIRECTED PRN PRN Reason: Keep Vein Open Last Admin: 09/19/18 09:33 Dose: 10 ml Sodium Chloride (Saline Flush) 2.5 ml FLUSH ASDIRECTED PRN PRN Reason: Keep Vein Open Last Admin: 09/19/18 09:33 Dose: 2.5 ml Sucralfate (Carafate) 1 gm PO BIDAC ELISA Thiamine HCl (Vitamin B-1) 100 mg IV DAILY ELISA Discontinued Medications Hydromorphone HCl (Dilaudid) 0.5 mg IVPUSH ONETIME ONE Stop: 09/19/18 10:26 Last Admin: 09/19/18 10:35 Dose: 0.5 mg Hydromorphone HCl (Dilaudid) 0.5 mg IVPUSH ONETIME ONE Stop: 09/19/18 12:28 Last Admin: 09/19/18 12:34 Dose: 0.5 mg Sodium Chloride (Normal Saline) 1,000 mls @ 999 mls/hr IV .Bolus ONE Stop: 09/19/18 10:10 Last Admin: 09/19/18 09:33 Dose: 999 mls/hr Sodium Chloride (Normal Saline) 1,000 mls @ 999 mls/hr IV .Bolus ONE Stop: 09/19/18 14:46 Last Infusion: 09/19/18 14:38 Dose: 999 mls/hr Piperacillin Sod/Tazobactam (Sod 3.375 gm/ Sodium Chloride) 50 mls @ 100 mls/ hr IV ONETIME ONE Stop: 09/19/18 14:19 Last Admin: 09/19/18 13:58 Dose: 100 mls/hr Potassium Chloride 40 meq/ (Sodium Chloride) 520 mls @ 130 mls/hr IV ONETIME ONE Stop: 09/19/18 19:44 Last Admin: 09/19/18 15:48 Dose: 130 mls/hr Potassium Chloride/Sodium Chloride (Normal Saline With 20 Meq Kcl) 1,000 mls @ 125 mls/hr IV ASDIRECTED ELISA Last Admin: 09/19/18 21:13 Dose: 125 mls/hr Magnesium Sulfate 2 gm/ Premix 50 mls @ 50 mls/hr IV ONETIME ONE Stop: 09/19/18 16:21 Last Admin: 09/19/18 15:48 Dose: 50 mls/hr Iopamidol (Isovue Multipack-370 (76%)) 100 ml IVPUSH ONETIME STA Stop: 09/19/18 12:56 Last Admin: 09/19/18 12:55 Dose: 100 ml Ketorolac Tromethamine (Toradol) 15 mg IVPUSH ONETIME ONE Stop: 09/19/18 13:16 Last Admin: 09/19/18 13:21 Dose: 15 mg Lorazepam (Ativan) 0.5 mg IVPUSH ONETIME ONE Stop: 09/19/18 13:16 Last Admin: 09/19/18 13:22 Dose: 0.5 mg Metoprolol Tartrate (Lopressor) 25 mg PO BID [facility] Last Admin: 09/19/18 19:59 Dose: 25 mg Morphine Sulfate (Morphine) 2 mg IVPUSH ONETIME ONE Stop: 09/19/18 09:11 Last Admin: 09/19/18 09:33 Dose: 2 mg Ondansetron HCl (Zofran) 4 mg IVPUSH ONETIME ONE Stop: 09/19/18 09:11 Last Admin: 09/19/18 09:33 Dose: 4 mg - Exam General: Alert, Oriented, Cooperative, No Acute Distress Neck: Supple Lungs: Clear to Auscultation, Normal Respiratory Effort Cardiovascular: Regular Rate, Regular Rhythm GI/Abdominal Exam: Normal Bowel Sounds, Soft, No Organomegaly, Tender Back Exam: Normal Inspection, Full Range of Motion Extremities: Normal Inspection, Normal Range of Motion, Non-Tender Neurological: No New Focal Deficit Psy/Mental Status: Alert, Normal Affect, Normal Mood - Problem List & Annotations (1) Cholelithiasis SNOMED Code(s): 506177474 Code(s): K80.20 - CALCULUS OF GALLBLADDER W/O CHOLECYSTITIS W/O OBSTRUCTION Status: Acute Priority: Medium Current Visit: No Qualifiers: Cholelithiasis location: gallbladder Cholecystitis presence: with cholecystitis Biliary obstruction: without biliary obstruction (2) Cholecystitis SNOMED Code(s): 98058154 Code(s): K81.9 - CHOLECYSTITIS, UNSPECIFIED Status: Acute Current Visit: Yes (3) Abdominal pain SNOMED Code(s): 51699047 Code(s): R10.9 - UNSPECIFIED ABDOMINAL PAIN Status: Acute Current Visit: No Qualifiers: Abdominal location: right upper quadrant Qualified Code(s): R10.11 - Right upper quadrant pain (4) Hypokalemia SNOMED Code(s): 07003393 Code(s): E87.6 - HYPOKALEMIA Status: Acute Priority: High Current Visit : No (5) Hypomagnesemia SNOMED Code(s): 347431560 Code(s): E83.42 - HYPOMAGNESEMIA Status: Acute Priority: High Current Visit: No (6) Protein malnutrition SNOMED Code(s): 078951564 Code(s): E46 - UNSPECIFIED PROTEIN-CALORIE MALNUTRITION Status: Chronic Current Visit: No (7) Alcohol abuse SNOMED Code(s): 95522633 Code(s): F10.10 - ALCOHOL ABUSE, UNCOMPLICATED Status: Chronic Current Visit: No (8) COPD (chronic obstructive pulmonary disease) SNOMED Code(s): 62792863 Code(s): J44.9 - CHRONIC OBSTRUCTIVE PULMONARY DISEASE, UNSPECIFIED Status : Chronic Priority: High Current Visit: No Qualifiers: COPD type: emphysema Emphysema type: unspecified Qualified Code(s): J43.9 - Emphysema, unspecified (9) HTN (hypertension) SNOMED Code(s): 18583369 Code(s): I10 - ESSENTIAL (PRIMARY) HYPERTENSION Status: Chronic Priority : Medium Current Visit: No Qualifiers: Hypertension type: essential hypertension Qualified Code(s): I10 - Essential (primary) hypertension (10) Chronic back pain SNOMED Code(s): 671971906 Code(s): M54.9 - DORSALGIA, UNSPECIFIED; G89.29 - OTHER CHRONIC PAIN Status : Chronic Priority: Low Current Visit: Yes (11) Smoker SNOMED Code(s): 28991844 Code(s): F17.200 - NICOTINE DEPENDENCE, UNSPECIFIED, UNCOMPLICATED Status: Chronic Priority: High Current Visit: Yes - Problem List Review Problem List Initiated/Reviewed/Updated: Yes - My Orders Last 24 Hours: My Active Orders 09/19/18 15:00 Intake and Output [RC] Q12H Oxygen Therapy [RC] PRN Up With Assistance [RC] ASDIRECTED Vital Signs [RC] Q4H Consult to Physician [CONS] Routine Albuterol/Ipratropium [DuoNeb 3.0-0.5 MG/3 ML] 3 ml NEB Q4HRRT PRN HYDROmorphone [Dilaudid] 0.5 mg IVPUSH Q2H PRN LORazepam [Ativan] See Protocol IV Q4H PRN Ondansetron [Zofran] 4 mg IVPUSH Q4H PRN Sequential Compression Device [OM.PC] Per Unit Routine Resuscitation Status Routine 09/19/18 15:01 Antiembolic Devices [RC] PER UNIT ROUTINE 09/19/18 15:02 RT Aerosol Therapy [RC] ASDIRECTED 09/19/18 15:03 Notify Provider Consults [RC] ASDIRECTED 09/19/18 16:30 Nicotine [Habitrol] 21 mg TRDERM DAILY 09/20/18 08:00 Morphine [MS Contin] 60 mg PO Q12H 09/20/18 09:00 Folic Acid 1 mg SUBCUT DAILY Gabapentin [Neurontin] 600 mg PO BID Memantine [Namenda] 10 mg PO BID Potassium Chloride [Klor-Con 10] 10 meq PO BID Thiamine [Vitamin B-1] 100 mg IV DAILY amLODIPine [Norvasc] 5 mg PO DAILY oxyCODONE ER [OxyCONTIN] 10 mg PO BID 09/20/18 17:00 Sucralfate [Carafate] 1 gm PO BIDAC 09/20/18 21:00 Metoprolol Succinate [Toprol XL] 25 mg PO BEDTIME Mirtazapine [Remeron] 15 mg PO BEDTIME 09/20/18 Breakfast Clear Liquid Diet [DIET] 09/21/18 05:11 CBC WITH AUTO DIFF [HEME] AM COMPREHENSIVE METABOLIC PN,CMP [CHEM] AM MAGNESIUM [CHEM] AM PHOSPHORUS [CHEM] AM 09/21/18 07:30 Omeprazole 40 mg PO ACBREAKFAST 09/22/18 05:11 CBC WITH AUTO DIFF [HEME] AM COMPREHENSIVE METABOLIC PN,CMP [CHEM] AM MAGNESIUM [CHEM] AM PHOSPHORUS [CHEM] AM 09/23/18 05:11 CBC WITH AUTO DIFF [HEME] AM COMPREHENSIVE METABOLIC PN,CMP [CHEM] AM MAGNESIUM [CHEM] AM PHOSPHORUS [CHEM] AM - Plan Plan:: THis 73 year old female admitted with cholecystitis with cholelithiasis 1. Cholecystitis: Continue Zosyn. Start CL. Dr Alex, consulted. Since bili elevated, will obtain MRCP to evaluate for a stone with in the CBD. Dilaudid for pain PRN. Anti emetics PRN. Lactic acid normalized with fluid resuscitation. 2. Alcohol abuse: Will place on CIWAA protocol with Ativan PRN. Thiamine and folic acid supplementation. Will monitor electrolytes and replace as needed. 3. Hypokalemia: Improved. Continue PO dosing. Monitor other electrolytes as well. 4. Chronic pain: Opioid dependent, restart Morphine and Oxycodone. Along with Gabapentin 5. HTN: Stable. will monitor. VTE prophylaxis: Will hold pharmacologic therapy due to noted varices on CT and history of alcohol abuse. SCDs only for now. Dispo: 2-4 days pending improvement.
[2018-09-20] MEDS: Gabapentin 300 MG Cap PO SCH ×2 (09:00→20:50)
[2018-09-20] MEDS: amLODIPine 5 MG Tab PO SCH (09:01)
[2018-09-20] MEDS: Thiamine 200 MG/2 ML MDV IV SCH (09:03)
[2018-09-20] MEDS: Folic Acid 50 MG/10 ML MDV SUBCUT SCH (09:04)
[2018-09-20] MEDS: LORazepam 2 MG/ML SDV IV PRN (17:02)
[2018-09-20] MEDS: Sucralfate Suspension 1 GM/10 ML Cup PO SCH (18:40)
--- NOTE | 2018-09-20 19:25 | MR ---
INDICATION: Gallstones. Dilated common bile duct. COMPARISON: CT scan of the abdomen and pelvis dated 19 September 2018. TECHNIQUE: MRCP with heavily T2 weighted 2D and 3D MRCP images. Axial T1 in- and out of phase and T2 weighted images also performed. No gadolinium administered. FINDINGS: Severe diffuse fatty infiltration of the liver. No focal abnormalities identified in the visualized portions of the liver, spleen, pancreas, and adrenal glands. A few small left renal cysts. The kidneys are otherwise unremarkable. No hydronephrosis. Gallstones in an otherwise normal-appearing gallbladder. Dilation of the common bile duct measuring 1.1 cm. No intrahepatic bile duct dilation. Normal size of the main pancreatic duct. No filling defects in the biliary system. Multilevel compression deformities of the spine. IMPRESSION: 1. Mild dilation of the common bile duct with no intrahepatic bile duct dilation. This could be secondary to a recently passed stone. No current choledocholithiasis. 2. Gallstones in an otherwise normal-appearing gallbladder. Dictated by Jj Sanabria MD @ Sep 23 2018 11:27AM Signed by Dr. Jj Sanabria @ Sep 23 2018 11:36AM
[2018-09-20] MEDS: Metoprolol Succinate 25 MG Tab.ER PO SCH (20:48)
[2018-09-20] MEDS: Mirtazapine 15 MG Tab PO SCH (20:50)
[2018-09-21] MEDS: Piperacillin/Tazobactam 3.375 GM in Sodium Chloride 0.9% 50 ML IV SCH ×4 (03:29→20:40)
[2018-09-21 06:23] LABS: CHLORIDE,CL 108 mmol/L (98-107); SODIUM,NA 145 mmol/L (136-145)
[2018-09-21] MEDS: Folic Acid 50 MG/10 ML MDV SUBCUT SCH (08:05)
[2018-09-21] MEDS: Nicotine 21 MG/24 Hr Patch TRDERM SCH (08:06)
[2018-09-21] MEDS: Thiamine 200 MG/2 ML MDV IV SCH (08:07)
[2018-09-21] MEDS: oxyCODONE ER 10 MG TAB.ER PO SCH ×2 (08:08→20:34)
[2018-09-21] MEDS: Omeprazole 20 MG Cap.CR PO SCH (08:08)
[2018-09-21] MEDS: Memantine 10 MG Tab PO SCH ×2 (08:08→20:39)
[2018-09-21] MEDS: Potassium Chloride 10 MEQ Tab.ER PO SCH ×2 (08:08→20:34)
[2018-09-21] MEDS: amLODIPine 5 MG Tab PO SCH (08:10)
[2018-09-21] MEDS: Gabapentin 300 MG Cap PO SCH ×2 (08:11→20:32)
[2018-09-21] MEDS: Sucralfate Suspension 1 GM/10 ML Cup PO SCH ×2 (08:11→17:19)
[2018-09-21] MEDS: Morphine 30 MG Tab.ER PO SCH ×2 (08:11→20:32)
[2018-09-21] MEDS ORDERED: Potassium Chloride 10% 20 MEQ/15 ML Soln 30 ML UD Cup PO ONE (09:15)
--- NOTE | 2018-09-21 12:44 | PCM.PN ---
- General Info Date of Service: 09/21/18 - Review of Systems Systems Review Comment:: abdominal pain is improving. - Patient Data Vitals - Most Recent: Last Vital Signs Temp 36.6 C 09/21/18 07:28 Pulse 84 09/21/18 07:28 Resp 20 09/21/18 03:55 BP 130/81 09/21/18 08:10 Pulse Ox 92 L 09/21/18 07:28 Weight - Most Recent: 54.431 kg I&O - Last 24 Hours: Intake & Output 09/20/18 09/21/18 09/21/18 22:59 06:59 14:59 Intake Total 695 900 50 Output Total 950 600 Balance -255 300 50 Lab Results Last 24 Hours: Laboratory Results - last 24 hr 09/21/18 09/21/18 Range/Units 05:44 05:44 WBC 5.14 (4.0-11.0) K/uL RBC 4.30 (4.30-5.90) M/uL Hgb 12.8 (12.0-16.0) g/dL Hct 38.8 (36.0-46.0) % MCV 90.2 (80.0-98.0) fL MCH 29.8 (27.0-32.0) pg MCHC 33.0 (31.0-37.0) g/dL RDW Std Deviation 58.9 (28.0-62.0) fl RDW Coeff of Katerina 18 H (11.0-15.0) % Plt Count 169 (150-400) K/uL MPV 9.00 (7.40-12.00) fL Neut % (Auto) 34.0 L (48.0-80.0) % Lymph % (Auto) 49.0 H (16.0-40.0) % Gregory % (Auto) 11.9 (0.0-15.0) % Eos % (Auto) 4.5 (0.0-7.0) % Baso % (Auto) 0.6 (0.0-1.5) % Neut # (Auto) 1.8 (1.4-5.7) K/uL Lymph # (Auto) 2.5 H (0.6-2.4) K/uL Gregory # (Auto) 0.6 (0.0-0.8) K/uL Eos # (Auto) 0.2 (0.0-0.7) K/uL Baso # (Auto) 0.0 (0.0-0.1) K/uL Nucleated RBC % 0.0 /100WBC Nucleated RBCs # 0 K/uL Sodium 145 (136-145) mmol/L Potassium 3.2 L (3.5-5.1) mmol/L Chloride 108 H (98-107) mmol/L Carbon Dioxide 27.8 (21.0-32.0) mmol/L BUN 3 L (7.0-18.0) mg/dL Creatinine 0.5 L (0.6-1.0) mg/dL Est Cr Clr Drug Dosing 81.62 mL/min Estimated GFR (MDRD) > 60.0 ml/min Glucose 97 (74-106) mg/dL Calcium 8.3 L (8.5-10.1) mg/dL Phosphorus 3.0 (2.6-4.7) mg/dL Magnesium 1.7 L (1.8-2.4) mg/dL Total Bilirubin 1.7 H (0.2-1.0) mg/dL AST 67 H (15-37) IU/L ALT 44 (14-63) IU/L Alkaline Phosphatase 163 H (46-116) U/L Total Protein 5.6 L (6.4-8.2) g/dL Albumin 2.6 L (3.4-5.0) g/dL Globulin 3.0 (2.6-4.0) g/dL Albumin/Globulin Ratio 0.9 (0.9-1.6) Med Orders - Current: Current Medications Albuterol/Ipratropium (Duoneb 3.0-0.5 Mg/3 Ml) 3 ml NEB Q4HRRT PRN PRN Reason: Shortness Of Breath/wheezing Amlodipine Besylate (Norvasc) 5 mg PO DAILY [facility] Last Admin: 09/21/18 08:10 Dose: 5 mg Folic Acid (Folic Acid) 1 mg SUBCUT DAILY [facility] Last Admin: 09/21/18 08:05 Dose: 1 mg Gabapentin (Neurontin) 600 mg PO BID [facility] Last Admin: 09/21/18 08:11 Dose: 600 mg Hydromorphone HCl (Dilaudid) 0.5 mg IVPUSH Q2H PRN PRN Reason: Pain (severe 7-10) Last Admin: 09/20/18 12:27 Dose: 0.5 mg Piperacillin Sod/Tazobactam (Sod 3.375 gm/ Sodium Chloride) 50 mls @ 100 mls/ hr IV Q6H [facility] Last Admin: 09/21/18 08:04 Dose: 100 mls/hr Lorazepam (Ativan) 0 mg IV Q4H PRN; Protocol PRN Reason: CIWAA Last Admin: 09/20/18 17:02 Dose: 2 mg Memantine (Namenda) 10 mg PO BID [facility] Last Admin: 09/21/18 08:08 Dose: 10 mg Metoprolol Succinate (Toprol Xl) 25 mg PO BEDTIME [facility] Last Admin: 09/20/18 20:48 Dose: 25 mg Mirtazapine (Remeron) 15 mg PO BEDTIME [facility] Last Admin: 09/20/18 20:50 Dose: 15 mg Morphine Sulfate (Ms Contin) 60 mg PO Q12H [facility] Last Admin: 09/21/18 08:11 Dose: 60 mg Nicotine (Habitrol) 21 mg TRDERM DAILY [facility] Last Admin: 09/21/18 08:06 Dose: 21 mg Omeprazole (Omeprazole) 40 mg PO ACBREAKFAST [facility] Last Admin: 09/21/18 08:08 Dose: 40 mg Ondansetron HCl (Zofran) 4 mg IVPUSH Q4H PRN PRN Reason: Nausea Oxycodone HCl (Oxycontin) 10 mg PO BID [facility] Last Admin: 09/21/18 08:08 Dose: 10 mg Potassium Chloride (Klor-Con 10) 10 meq PO BID [facility] Last Admin: 09/21/18 08:08 Dose: 10 meq Sodium Chloride (Saline Flush) 10 ml FLUSH ASDIRECTED PRN PRN Reason: Keep Vein Open Last Admin: 09/19/18 09:33 Dose: 10 ml Sodium Chloride (Saline Flush) 2.5 ml FLUSH ASDIRECTED PRN PRN Reason: Keep Vein Open Last Admin: 09/19/18 09:33 Dose: 2.5 ml Sucralfate (Carafate) 1 gm PO BIDAC [facility] Last Admin: 09/21/18 08:11 Dose: 1 gm Thiamine HCl (Vitamin B-1) 100 mg IV DAILY [facility] Last Admin: 09/21/18 08:07 Dose: 100 mg Discontinued Medications Hydromorphone HCl (Dilaudid) 0.5 mg IVPUSH ONETIME ONE Stop: 09/19/18 10:26 Last Admin: 09/19/18 10:35 Dose: 0.5 mg Hydromorphone HCl (Dilaudid) 0.5 mg IVPUSH ONETIME ONE Stop: 09/19/18 12:28 Last Admin: 09/19/18 12:34 Dose: 0.5 mg Sodium Chloride (Normal Saline) 1,000 mls @ 999 mls/hr IV .Bolus ONE Stop: 09/19/18 10:10 Last Admin: 09/19/18 09:33 Dose: 999 mls/hr Sodium Chloride (Normal Saline) 1,000 mls @ 999 mls/hr IV .Bolus ONE Stop: 09/19/18 14:46 Last Infusion: 09/19/18 14:38 Dose: 999 mls/hr Piperacillin Sod/Tazobactam (Sod 3.375 gm/ Sodium Chloride) 50 mls @ 100 mls/ hr IV ONETIME ONE Stop: 09/19/18 14:19 Last Admin: 09/19/18 13:58 Dose: 100 mls/hr Potassium Chloride 40 meq/ (Sodium Chloride) 520 mls @ 130 mls/hr IV ONETIME ONE Stop: 09/19/18 19:44 Last Admin: 09/19/18 15:48 Dose: 130 mls/hr Potassium Chloride/Sodium Chloride (Normal Saline With 20 Meq Kcl) 1,000 mls @ 125 mls/hr IV ASDIRECTED [facility] Last Admin: 09/19/18 21:13 Dose: 125 mls/hr Magnesium Sulfate 2 gm/ Premix 50 mls @ 50 mls/hr IV ONETIME ONE Stop: 09/19/18 16:21 Last Admin: 09/19/18 15:48 Dose: 50 mls/hr Iopamidol (Isovue Multipack-370 (76%)) 100 ml IVPUSH ONETIME STA Stop: 09/19/18 12:56 Last Admin: 09/19/18 12:55 Dose: 100 ml Ketorolac Tromethamine (Toradol) 15 mg IVPUSH ONETIME ONE Stop: 09/19/18 13:16 Last Admin: 09/19/18 13:21 Dose: 15 mg Lorazepam (Ativan) 0.5 mg IVPUSH ONETIME ONE Stop: 09/19/18 13:16 Last Admin: 09/19/18 13:22 Dose: 0.5 mg Metoprolol Tartrate (Lopressor) 25 mg PO BID [facility] Last Admin: 09/19/18 19:59 Dose: 25 mg Morphine Sulfate (Morphine) 2 mg IVPUSH ONETIME ONE Stop: 09/19/18 09:11 Last Admin: 09/19/18 09:33 Dose: 2 mg Ondansetron HCl (Zofran) 4 mg IVPUSH ONETIME ONE Stop: 09/19/18 09:11 Last Admin: 09/19/18 09:33 Dose: 4 mg Potassium Chloride (Potassium Chloride) 40 meq PO ONETIME ONE Stop: 09/21/18 09:16 Last Admin: 09/21/18 09:30 Dose: 40 meq - Exam General: Alert, Moderate Distress Lungs: Clear to Auscultation, Normal Respiratory Effort Cardiovascular: Regular Rate, Regular Rhythm GI/Abdominal Exam: Soft, Non-Tender Extremities: Normal Range of Motion, Non-Tender - Problem List Review Problem List Initiated/Reviewed/Updated: Yes - Plan Plan:: 73 year old female wiht h of alcohol abuse admitted with cholecystitis with cholelithiasis 1. Cholecystitis: Continue Zosyn. MRCP shows several punctate gallstones and CBD measuring 13mm. Patient is wanting a referral for surgery. General surgery has been consulted earlier and we will reconsult. 2. ETOH abuse: continue detox with CIWAA protocol and ativan prn. continue thiamin and folic acid.
[2018-09-21] MEDS: HYDROmorphone 1 MG/ML Syringe IVPUSH PRN (14:52)
[2018-09-21] MEDS: LORazepam 2 MG/ML SDV IV PRN (17:58)
[2018-09-21] MEDS: Mirtazapine 15 MG Tab PO SCH (20:39)
[2018-09-21] MEDS: Metoprolol Succinate 25 MG Tab.ER PO SCH (20:39)
[2018-09-22] MEDS: HYDROmorphone 1 MG/ML Syringe IVPUSH PRN ×3 (00:09→23:30)
[2018-09-22] MEDS: Piperacillin/Tazobactam 3.375 GM in Sodium Chloride 0.9% 50 ML IV SCH ×4 (03:32→20:20)
[2018-09-22 06:04] LABS: CHLORIDE,CL 109 mmol/L (98-107); SODIUM,NA 144 mmol/L (136-145)
[2018-09-22] MEDS: Sucralfate Suspension 1 GM/10 ML Cup PO SCH ×2 (06:41→17:14)
[2018-09-22] MEDS: Omeprazole 20 MG Cap.CR PO SCH (06:41)
[2018-09-22] MEDS: Nicotine 21 MG/24 Hr Patch TRDERM SCH (08:00)
[2018-09-22] MEDS: oxyCODONE ER 10 MG TAB.ER PO SCH ×2 (08:00→20:16)
[2018-09-22] MEDS: Morphine 30 MG Tab.ER PO SCH ×2 (08:28→20:17)
[2018-09-22] MEDS: Potassium Chloride 10 MEQ Tab.ER PO SCH ×2 (08:29→20:14)
[2018-09-22] MEDS: Gabapentin 300 MG Cap PO SCH ×2 (08:29→20:14)
[2018-09-22] MEDS: amLODIPine 5 MG Tab PO SCH (08:30)
[2018-09-22] MEDS: Memantine 10 MG Tab PO SCH ×2 (08:31→20:13)
[2018-09-22] MEDS: Folic Acid 50 MG/10 ML MDV SUBCUT SCH (08:32)
[2018-09-22] MEDS: LORazepam 2 MG/ML SDV IV PRN (08:42)
[2018-09-22] MEDS: Thiamine 200 MG/2 ML MDV IV SCH (08:52)
[2018-09-22] MEDS ORDERED: Potassium Chloride 20 MEQ Tab.ER PO ONE (12:01)
--- NOTE | 2018-09-22 12:03 | PCM.PN ---
- General Info Date of Service: 09/22/18 - Review of Systems Systems Review Comment:: patient feeling better, abdominal pain improved - Patient Data Vitals - Most Recent: Last Vital Signs Temp 36.4 C 09/22/18 08:00 Pulse 91 09/22/18 08:00 Resp 14 09/22/18 04:00 BP 129/85 09/22/18 08:30 Pulse Ox 91 L 09/22/18 04:00 Weight - Most Recent: 54.431 kg I&O - Last 24 Hours: Intake & Output 09/21/18 09/22/18 09/22/18 21:59 06:59 14:59 Intake Total Output Total Balance Lab Results Last 24 Hours: Laboratory Results - last 24 hr 09/22/18 09/22/18 Range/Units 05:31 05:31 WBC 4.97 (4.0-11.0) K/uL RBC 4.27 L (4.30-5.90) M/uL Hgb 12.6 (12.0-16.0) g/dL Hct 38.7 (36.0-46.0) % MCV 90.6 (80.0-98.0) fL MCH 29.5 (27.0-32.0) pg MCHC 32.6 (31.0-37.0) g/dL RDW Std Deviation 59.7 (28.0-62.0) fl RDW Coeff of Katerina 18 H (11.0-15.0) % Plt Count 161 (150-400) K/uL MPV 9.20 (7.40-12.00) fL Neut % (Auto) 33.4 L (48.0-80.0) % Lymph % (Auto) 47.1 H (16.0-40.0) % Jackson % (Auto) 13.3 (0.0-15.0) % Eos % (Auto) 5.4 (0.0-7.0) % Baso % (Auto) 0.8 (0.0-1.5) % Neut # (Auto) 1.7 (1.4-5.7) K/uL Lymph # (Auto) 2.3 (0.6-2.4) K/uL Jackson # (Auto) 0.7 (0.0-0.8) K/uL Eos # (Auto) 0.3 (0.0-0.7) K/uL Baso # (Auto) 0.0 (0.0-0.1) K/uL Nucleated RBC % 0.0 /100WBC Nucleated RBCs # 0 K/uL Sodium 144 (136-145) mmol/L Potassium 3.3 L (3.5-5.1) mmol/L Chloride 109 H (98-107) mmol/L Carbon Dioxide 26.7 (21.0-32.0) mmol/L BUN 2 L (7.0-18.0) mg/dL Creatinine 0.5 L (0.6-1.0) mg/dL Est Cr Clr Drug Dosing 81.62 mL/min Estimated GFR (MDRD) > 60.0 ml/min Glucose 89 (74-106) mg/dL Calcium 8.3 L (8.5-10.1) mg/dL Phosphorus 3.0 (2.6-4.7) mg/dL Magnesium 1.5 L (1.8-2.4) mg/dL Total Bilirubin 1.0 (0.2-1.0) mg/dL AST 77 H (15-37) IU/L ALT 49 (14-63) IU/L Alkaline Phosphatase 156 H (46-116) U/L Total Protein 5.6 L (6.4-8.2) g/dL Albumin 2.6 L (3.4-5.0) g/dL Globulin 3.0 (2.6-4.0) g/dL Albumin/Globulin Ratio 0.9 (0.9-1.6) Med Orders - Current: Current Medications Albuterol/Ipratropium (Duoneb 3.0-0.5 Mg/3 Ml) 3 ml NEB Q4HRRT PRN PRN Reason: Shortness Of Breath/wheezing Amlodipine Besylate (Norvasc) 5 mg PO DAILY [facility] Last Admin: 09/22/18 08:30 Dose: 5 mg Folic Acid (Folic Acid) 1 mg SUBCUT DAILY [facility] Last Admin: 09/22/18 08:32 Dose: 1 mg Gabapentin (Neurontin) 600 mg PO BID [facility] Last Admin: 09/22/18 08:29 Dose: 600 mg Hydromorphone HCl (Dilaudid) 0.5 mg IVPUSH Q2H PRN PRN Reason: Pain (severe 7-10) Last Admin: 09/22/18 00:09 Dose: 0.5 mg Piperacillin Sod/Tazobactam (Sod 3.375 gm/ Sodium Chloride) 50 mls @ 100 mls/ hr IV Q6H [facility] Last Admin: 09/22/18 09:18 Dose: 100 mls/hr Lorazepam (Ativan) 0 mg IV Q4H PRN; Protocol PRN Reason: CIWAA Last Admin: 09/22/18 08:42 Dose: 1 mg Memantine (Namenda) 10 mg PO BID [facility] Last Admin: 09/22/18 08:31 Dose: 10 mg Metoprolol Succinate (Toprol Xl) 25 mg PO BEDTIME [facility] Last Admin: 09/21/18 20:39 Dose: 25 mg Mirtazapine (Remeron) 15 mg PO BEDTIME [facility] Last Admin: 09/21/18 20:39 Dose: 15 mg Morphine Sulfate (Ms Contin) 60 mg PO Q12H [facility] Last Admin: 09/22/18 08:28 Dose: 60 mg Nicotine (Habitrol) 21 mg TRDERM DAILY [facility] Last Admin: 09/21/18 08:06 Dose: 21 mg Omeprazole (Omeprazole) 40 mg PO ACBREAKFAST [facility] Last Admin: 09/22/18 06:41 Dose: 40 mg Ondansetron HCl (Zofran) 4 mg IVPUSH Q4H PRN PRN Reason: Nausea Oxycodone HCl (Oxycontin) 10 mg PO BID [facility] Last Admin: 09/21/18 20:34 Dose: 10 mg Potassium Chloride (Klor-Con 10) 10 meq PO BID [facility] Last Admin: 09/22/18 08:29 Dose: 10 meq Potassium Chloride (Klor-Con M20) 40 meq PO ONETIME ONE Stop: 09/22/18 12:02 Sodium Chloride (Saline Flush) 10 ml FLUSH ASDIRECTED PRN PRN Reason: Keep Vein Open Last Admin: 09/19/18 09:33 Dose: 10 ml Sodium Chloride (Saline Flush) 2.5 ml FLUSH ASDIRECTED PRN PRN Reason: Keep Vein Open Last Admin: 09/19/18 09:33 Dose: 2.5 ml Sucralfate (Carafate) 1 gm PO BIDAC [facility] Last Admin: 09/22/18 06:41 Dose: 1 gm Thiamine HCl (Vitamin B-1) 100 mg IV DAILY [facility] Last Admin: 09/22/18 08:52 Dose: 100 mg Discontinued Medications Hydromorphone HCl (Dilaudid) 0.5 mg IVPUSH ONETIME ONE Stop: 09/19/18 10:26 Last Admin: 09/19/18 10:35 Dose: 0.5 mg Hydromorphone HCl (Dilaudid) 0.5 mg IVPUSH ONETIME ONE Stop: 09/19/18 12:28 Last Admin: 09/19/18 12:34 Dose: 0.5 mg Sodium Chloride (Normal Saline) 1,000 mls @ 999 mls/hr IV .Bolus ONE Stop: 09/19/18 10:10 Last Admin: 09/19/18 09:33 Dose: 999 mls/hr Sodium Chloride (Normal Saline) 1,000 mls @ 999 mls/hr IV .Bolus ONE Stop: 09/19/18 14:46 Last Infusion: 09/19/18 14:38 Dose: 999 mls/hr Piperacillin Sod/Tazobactam (Sod 3.375 gm/ Sodium Chloride) 50 mls @ 100 mls/ hr IV ONETIME ONE Stop: 09/19/18 14:19 Last Admin: 09/19/18 13:58 Dose: 100 mls/hr Potassium Chloride 40 meq/ (Sodium Chloride) 520 mls @ 130 mls/hr IV ONETIME ONE Stop: 09/19/18 19:44 Last Admin: 09/19/18 15:48 Dose: 130 mls/hr Potassium Chloride/Sodium Chloride (Normal Saline With 20 Meq Kcl) 1,000 mls @ 125 mls/hr IV ASDIRECTED [facility] Last Admin: 09/19/18 21:13 Dose: 125 mls/hr Magnesium Sulfate 2 gm/ Premix 50 mls @ 50 mls/hr IV ONETIME ONE Stop: 09/19/18 16:21 Last Admin: 09/19/18 15:48 Dose: 50 mls/hr Iopamidol (Isovue Multipack-370 (76%)) 100 ml IVPUSH ONETIME STA Stop: 09/19/18 12:56 Last Admin: 09/19/18 12:55 Dose: 100 ml Ketorolac Tromethamine (Toradol) 15 mg IVPUSH ONETIME ONE Stop: 09/19/18 13:16 Last Admin: 09/19/18 13:21 Dose: 15 mg Lorazepam (Ativan) 0.5 mg IVPUSH ONETIME ONE Stop: 09/19/18 13:16 Last Admin: 09/19/18 13:22 Dose: 0.5 mg Metoprolol Tartrate (Lopressor) 25 mg PO BID ELISA Last Admin: 09/19/18 19:59 Dose: 25 mg Morphine Sulfate (Morphine) 2 mg IVPUSH ONETIME ONE Stop: 09/19/18 09:11 Last Admin: 09/19/18 09:33 Dose: 2 mg Ondansetron HCl (Zofran) 4 mg IVPUSH ONETIME ONE Stop: 09/19/18 09:11 Last Admin: 09/19/18 09:33 Dose: 4 mg Potassium Chloride (Potassium Chloride) 40 meq PO ONETIME ONE Stop: 09/21/18 09:16 Last Admin: 09/21/18 09:30 Dose: 40 meq - Exam General: Alert, Oriented Lungs: Clear to Auscultation, Normal Respiratory Effort Cardiovascular: Regular Rate, Regular Rhythm GI/Abdominal Exam: Normal Bowel Sounds, Soft, Non-Tender Extremities: Non-Tender, No Pedal Edema - Problem List Review Problem List Initiated/Reviewed/Updated: Yes - My Orders Last 24 Hours: My Active Orders 09/22/18 12:01 Potassium Chloride [Klor-Con M20] 40 meq PO ONETIME ONE - Plan Plan:: 73 year old female wiht pmh of alcohol abuse admitted with cholecystitis with cholelithiasis 1. Cholecystitis: Continue Zosyn. MRCP shows several punctate gallstones and CBD measuring 13mm. General surgery has been consulted. 2. ETOH abuse: continue detox with CIWAA protocol and ativan prn. continue thiamin and folic acid. dispo: likely discharge home tomorrow.
[2018-09-22] MEDS: Mirtazapine 15 MG Tab PO SCH (20:13)
[2018-09-22] MEDS: Metoprolol Succinate 25 MG Tab.ER PO SCH (20:15)
[2018-09-23] MEDS: LORazepam 2 MG/ML SDV IV PRN (01:20)
[2018-09-23] MEDS: Piperacillin/Tazobactam 3.375 GM in Sodium Chloride 0.9% 50 ML IV SCH ×4 (02:03→20:06)
[2018-09-23 06:06] LABS: CHLORIDE,CL 110 mmol/L (98-107); SODIUM,NA 144 mmol/L (136-145)
[2018-09-23] MEDS: Sucralfate Suspension 1 GM/10 ML Cup PO SCH ×2 (06:42→17:44)
[2018-09-23] MEDS: Omeprazole 20 MG Cap.CR PO SCH (06:42)
[2018-09-23] MEDS: amLODIPine 5 MG Tab PO SCH (07:35)
[2018-09-23] MEDS: Potassium Chloride 10 MEQ Tab.ER PO SCH ×2 (08:30→20:11)
[2018-09-23] MEDS: Gabapentin 300 MG Cap PO SCH ×2 (08:30→20:11)
[2018-09-23] MEDS: oxyCODONE ER 10 MG TAB.ER PO SCH (08:31)
[2018-09-23] MEDS: Memantine 10 MG Tab PO SCH ×2 (08:31→20:12)
[2018-09-23] MEDS: Morphine 30 MG Tab.ER PO SCH ×2 (08:33→19:11)
[2018-09-23] MEDS: Folic Acid 50 MG/10 ML MDV SUBCUT SCH (08:34)
[2018-09-23] MEDS: Thiamine 200 MG/2 ML MDV IV SCH (08:35)
[2018-09-23] MEDS: Nicotine 21 MG/24 Hr Patch TRDERM SCH (08:38)
--- NOTE | 2018-09-23 09:11 | PCM.DCSUM1 ---
Discharge Summary - Hospital Course Brief History: This 73 year old female with pmh of alcohol abuse, hx of pancreatitis and gallstones, chronic back pain on opioids and mild dementia presented to the ED today with 3 days of worsening abdominal pain. Her and daughter are at bedside to help with history since Pilar has mild dementia and is unclear of her medical history. They report she started complaining of abdominal pain that was worsening from her normal pain 3 days ago with associated nausea and the inability to keep fluids or food down. They report she has had gallstones and abdominal pain for "years". They deny fevers or chills. No diarrhea, but is passing gas and had a BM yesterday. No chest pain. Reports some shortness of breath because of the pain. No urinary symptoms. She continues to drink alcohol, 4-6 drinks daily and does withdrawl when alcohol is withheld. Her last drink was last evening. Per family she tends to drink more alcohol when pain is not controlled with Morphine and Oxycodone at home. She continues to smoke 1 ppd as well. In the ED no leukocytosis noted. Hgb 16.2, HCt 46.5. Lactate 3.3. K+ 3.0 BUN 5 Cr 0.6. AST 110, ALT 67. Alk phose 221. Bilirubin 1.0. CT of abdomen pelvis reveals increased gallbladder distention up to 11 cm and increased common bile duct up to 12 mm, multiple layering gallstones within the gallbladder lumen, may represent cholecystitis, diffuse hepatic steatosis. Dr Alex, consult in the ED, recommended admission to Hospitalist team for IV antibiotics and he will see patient. Diagnosis: Stroke: No - Discharge Data Discharge Date: 09/23/18 Discharge Disposition: Home, W Home Health Agency 06 Condition: Good - Discharge Diagnosis/Problem(s) (1) Cholelithiasis SNOMED Code(s): 912564470 ICD Code: K80.20 - CALCULUS OF GALLBLADDER W/O CHOLECYSTITIS W/O OBSTRUCTION Status: Acute Priority: Medium Current Visit: No Qualifiers: Cholelithiasis location: gallbladder Cholecystitis presence: with cholecystitis Biliary obstruction: without biliary obstruction (2) Cholecystitis SNOMED Code(s): 32028270 ICD Code: K81.9 - CHOLECYSTITIS, UNSPECIFIED Status: Acute Current Visit : Yes (3) Abdominal pain SNOMED Code(s): 90319986 ICD Code: R10.9 - UNSPECIFIED ABDOMINAL PAIN Status: Acute Current Visit : No Qualifiers: Abdominal location: right upper quadrant Qualified Code(s): R10.11 - Right upper quadrant pain (4) Hypokalemia SNOMED Code(s): 09798234 ICD Code: E87.6 - HYPOKALEMIA Status: Acute Priority: High Current Visit: No (5) Hypomagnesemia SNOMED Code(s): 015797013 ICD Code: E83.42 - HYPOMAGNESEMIA Status: Acute Priority: High Current Visit: No (6) Protein malnutrition SNOMED Code(s): 607099730 ICD Code: E46 - UNSPECIFIED PROTEIN-CALORIE MALNUTRITION Status: Chronic Current Visit: No (7) Alcohol abuse SNOMED Code(s): 19607863 ICD Code: F10.10 - ALCOHOL ABUSE, UNCOMPLICATED Status: Chronic Current Visit: No (8) COPD (chronic obstructive pulmonary disease) SNOMED Code(s): 63920174 ICD Code: J44.9 - CHRONIC OBSTRUCTIVE PULMONARY DISEASE, UNSPECIFIED Status : Chronic Priority: High Current Visit: No Qualifiers: COPD type: emphysema Emphysema type: unspecified Qualified Code(s): J43.9 - Emphysema, unspecified (9) HTN (hypertension) SNOMED Code(s): 91561956 ICD Code: I10 - ESSENTIAL (PRIMARY) HYPERTENSION Status: Chronic Priority : Medium Current Visit: No Qualifiers: Hypertension type: essential hypertension Qualified Code(s): I10 - Essential (primary) hypertension (10) Chronic back pain SNOMED Code(s): 143252556 ICD Code: M54.9 - DORSALGIA, UNSPECIFIED; G89.29 - OTHER CHRONIC PAIN Status: Chronic Priority: Low Current Visit: Yes (11) Smoker SNOMED Code(s): 57304259 ICD Code: F17.200 - NICOTINE DEPENDENCE, UNSPECIFIED, UNCOMPLICATED Status : Chronic Priority: High Current Visit: Yes - Patient Summary/Data Consults: Consultations 09/19/18 15:00 Consult to Physician [CONS] Routine - Patient Instructions Diet: GI Soft/Low Residue/Low Fiber Activity: As Tolerated Driving: Do Not Drive Showering/Bathing: May Shower Notify Provider of: Fever, Increased Pain, Swelling and Redness, Drainage, Nausea and/or Vomiting - Discharge Plan *PRESCRIPTION DRUG MONITORING PROGRAM REVIEWED*: No *COPY OF PRESCRIPTION DRUG MONITORING REPORT IN PATIENT GLEN: No Prescriptions/Med Rec: oxyCODONE 5 mg PO Q6HR PRN #10 tab PRN Reason: Pain Amoxicillin/Potassium Clav [Augmentin 875-125 Tablet] 1 each PO BID #20 tablet metroNIDAZOLE [Flagyl] 500 mg PO Q8H #30 tab Home Medications: Home Meds oxyCODONE 10 mg PO BID 08/15/16 [History] Gabapentin [Gralise] 600 mg PO BID 09/14/17 [History] Morphine [MS Contin] 60 mg PO Q12H 09/14/17 [History] Albuterol Sulfate [Proair Hfa] 2 puff INH QID PRN 09/19/18 [History] Furosemide 20 mg PO DAILY 09/19/18 [History] Lansoprazole [Prevacid] 30 mg PO ACBREAKFAST 09/19/18 [History] Memantine [Namenda] 10 mg PO BID 09/19/18 [History] Metoprolol Succinate [Toprol XL] 25 mg PO BEDTIME 09/19/18 [History] Mirtazapine 15 mg PO BEDTIME 09/19/18 [History] Potassium Chloride 10 meq PO BID 09/19/18 [History] Sucralfate [Carafate] 10 ml PO BIDAC 09/19/18 [History] amLODIPine [Norvasc] 5 mg PO DAILY 09/19/18 [History] Amoxicillin/Potassium Clav [Augmentin 875-125 Tablet] 1 each PO BID #20 tablet 09/23/18 [Rx] metroNIDAZOLE [Flagyl] 500 mg PO Q8H #30 tab 09/23/18 [Rx] oxyCODONE 5 mg PO Q6HR PRN #10 tab 09/24/18 [Rx] Oxygen Therapy Mode: Room Air Patient Handouts: Amoxicillin; Clavulanic Acid tablets, Oxycodone tablets or capsules, Cholecystitis, [id number], Metronidazole tablets or capsules Referrals: [facility] [Outside] Alivia Dove MD [Ordering Only Provider] - 09/26/18 12:30 pm Milton Gonzalez MD [Primary Care Provider] - 09/30/18 3:00 pm - Discharge Summary/Plan Comment DC Time >30 min.: No Discharge Summary/Plan Comment: Discharge Diagnoses: Cholecystitis Cholelithiasis Abd pain Hypokalemia-resolved Hypomagnesemia- resolved Alcohol abuse protein malnutrition Chronic back pain, dependence on narcotic COPD Smoker Pilar was admitted secondary to her abdominal pain, cholecystitis suspected, she was noted to have enlarged gallbladder with several gallstones and dilated CBD. She was treated with Zosyn. lactic acid elevated, treated with IVFs and this returned to normal. No Leukocytosis noted and afebrile. Dr Alex, general surgery consulted, recommended MRCP. If stone noted in CBD she would need to be transferred to higher level of care for surgical intervention. Otherwise should could be evaluated as outpatient for cholecystectomy or cholecystostomy tube placement. MRCP obtained and revealed mild dilation of the CBD with no intrahepatic bile duct dilation, no current choledocholithiasis. Her is unsure if he wants her to go through a big procedure but he is willing to see general surgeon as outpatient to be evaluated for this. We will set up appointment with Olga Lidia, since Dr Alex recommended her to be seen at a higher level of care due to her COPD and alcohol abuse. She will be discharged home today. Bilirubin is 1.1, AST ALT continue to improve. No leukocytosis. She is tolerating soft low fat diet. She will be discharged home today with PCP follow up as well as follow up with Dr Dove, general surgeon who visits [facility] Lidia in [place] for consult. I will send her home with Augmentin and Flagyl for another 10 days. I will give her a scipr to for Oxycodone 5 mg PO every 4 hours PRN pain #10 tabs for break through pain. She is to STOP all alcohol use. Her was told to not buy it for her anymore and to get rid of all the alcohol in the house. Since she is not able to go to the store, there should not be any alcohol in the house for her to have or bought for her. He verbalized understanding and he report he moved all alcohol out of the house. She is to return to ED or clinic if concerns should arise - General Info Date of Service: 09/24/18 Admission Dx/Problem (Free Text: Admission Diagnosis/Problem Admission Diagnosis/Problem Acute cholecystitis Subjective Update: Reports mild abdominal pain, but at her baseline. No chest pain or SOB. Requesting to go home. would like to take her home as well. Functional Status: Reports: Pain Controlled, Tolerating Diet, Ambulating, Urinating - Review of Systems General: Reports: No Symptoms HEENT: Reports: No Symptoms Pulmonary: Reports: No Symptoms. Denies: Shortness of Breath Cardiovascular: Reports: No Symptoms. Denies: Chest Pain Gastrointestinal: Reports: Abdominal Pain. Denies: Nausea, Vomiting Genitourinary: Reports: No Symptoms. Denies: Dysuria, Frequency, Burning Musculoskeletal: Reports: No Symptoms Skin: Reports: No Symptoms Neurological: Reports: No Symptoms Psychiatric: Reports: No Symptoms - Patient Data Vitals - Most Recent: Last Vital Signs Temp 97 F 09/23/18 07:35 Pulse 78 09/23/18 07:35 Resp 14 09/23/18 07:35 BP 138/69 09/23/18 07:35 Pulse Ox 91 L 09/23/18 07:35 Weight - Most Recent: 54.431 kg I&O - Last 24 hours: Intake & Output 09/22/18 09/23/18 09/23/18 22:59 06:59 14:59 Intake Total 420 500 Output Total 400 800 Balance 20 -300 Lab Results - Last 24 hrs: Laboratory Results - last 24 hr 09/23/18 09/23/18 Range/Units 05:33 05:33 WBC 6.43 (4.0-11.0) K/uL RBC 4.09 L (4.30-5.90) M/uL Hgb 12.5 (12.0-16.0) g/dL Hct 37.2 (36.0-46.0) % MCV 91.0 (80.0-98.0) fL MCH 30.6 (27.0-32.0) pg MCHC 33.6 (31.0-37.0) g/dL RDW Std Deviation 60.9 (28.0-62.0) fl RDW Coeff of Katerina 18 H (11.0-15.0) % Plt Count 152 (150-400) K/uL MPV 9.40 (7.40-12.00) fL Neut % (Auto) 50.4 (48.0-80.0) % Lymph % (Auto) 34.4 (16.0-40.0) % [place] % (Auto) 10.1 (0.0-15.0) % Eos % (Auto) 4.5 (0.0-7.0) % Baso % (Auto) 0.6 (0.0-1.5) % Neut # (Auto) 3.2 (1.4-5.7) K/uL Lymph # (Auto) 2.2 (0.6-2.4) K/uL [place] # (Auto) 0.7 (0.0-0.8) K/uL Eos # (Auto) 0.3 (0.0-0.7) K/uL Baso # (Auto) 0.0 (0.0-0.1) K/uL Nucleated RBC % 0.0 /100WBC Nucleated RBCs # 0 K/uL Sodium 144 (136-145) mmol/L Potassium 3.9 (3.5-5.1) mmol/L Chloride 110 H (98-107) mmol/L Carbon Dioxide 27.5 (21.0-32.0) mmol/L BUN 3 L (7.0-18.0) mg/dL Creatinine 0.5 L (0.6-1.0) mg/dL Est Cr Clr Drug Dosing 81.62 mL/min Estimated GFR (MDRD) > 60.0 ml/min Glucose 84 (74-106) mg/dL Calcium 8.3 L (8.5-10.1) mg/dL Phosphorus 3.2 (2.6-4.7) mg/dL Magnesium 1.5 L (1.8-2.4) mg/dL Total Bilirubin 1.1 H (0.2-1.0) mg/dL AST 87 H (15-37) IU/L ALT 54 (14-63) IU/L Alkaline Phosphatase 149 H (46-116) U/L Total Protein 5.3 L (6.4-8.2) g/dL Albumin 2.3 L (3.4-5.0) g/dL Globulin 3.0 (2.6-4.0) g/dL Albumin/Globulin Ratio 0.8 L (0.9-1.6) Med Orders - Current: Current Medications Albuterol/Ipratropium (Duoneb 3.0-0.5 Mg/3 Ml) 3 ml NEB Q4HRRT PRN PRN Reason: Shortness Of Breath/wheezing Amlodipine Besylate (Norvasc) 5 mg PO DAILY ELISA Last Admin: 09/23/18 07:35 Dose: 5 mg Folic Acid (Folic Acid) 1 mg SUBCUT DAILY [facility] Last Admin: 09/23/18 08:34 Dose: 1 mg Gabapentin (Neurontin) 600 mg PO BID [facility] Last Admin: 09/23/18 08:30 Dose: 600 mg Hydromorphone HCl (Dilaudid) 0.5 mg IVPUSH Q2H PRN PRN Reason: Pain (severe 7-10) Last Admin: 09/22/18 23:30 Dose: 0.5 mg Piperacillin Sod/Tazobactam (Sod 3.375 gm/ Sodium Chloride) 50 mls @ 100 mls/ hr IV Q6H [facility] Last Admin: 09/23/18 08:37 Dose: 100 mls/hr Lorazepam (Ativan) 0 mg IV Q4H PRN; Protocol PRN Reason: CIWAA Last Admin: 09/23/18 01:20 Dose: 2 mg Memantine (Namenda) 10 mg PO BID [facility] Last Admin: 09/23/18 08:31 Dose: 10 mg Metoprolol Succinate (Toprol Xl) 25 mg PO BEDTIME [facility] Last Admin: 09/22/18 20:15 Dose: 25 mg Mirtazapine (Remeron) 15 mg PO BEDTIME [facility] Last Admin: 09/22/18 20:13 Dose: 15 mg Morphine Sulfate (Ms Contin) 60 mg PO Q12H [facility] Last Admin: 09/23/18 08:33 Dose: 60 mg Nicotine (Habitrol) 21 mg TRDERM DAILY [facility] Last Admin: 09/23/18 08:38 Dose: 21 mg Omeprazole (Omeprazole) 40 mg PO ACBREAKFAST [facility] Last Admin: 09/23/18 06:42 Dose: 40 mg Ondansetron HCl (Zofran) 4 mg IVPUSH Q4H PRN PRN Reason: Nausea Oxycodone HCl (Oxycontin) 10 mg PO BID [facility] Last Admin: 09/23/18 08:31 Dose: 10 mg Potassium Chloride (Klor-Con 10) 10 meq PO BID [facility] Last Admin: 09/23/18 08:30 Dose: 10 meq Sodium Chloride (Saline Flush) 10 ml FLUSH ASDIRECTED PRN PRN Reason: Keep Vein Open Last Admin: 09/19/18 09:33 Dose: 10 ml Sodium Chloride (Saline Flush) 2.5 ml FLUSH ASDIRECTED PRN PRN Reason: Keep Vein Open Last Admin: 09/19/18 09:33 Dose: 2.5 ml Sucralfate (Carafate) 1 gm PO BIDAC [facility] Last Admin: 09/23/18 06:42 Dose: 1 gm Thiamine HCl (Vitamin B-1) 100 mg IV DAILY [facility] Last Admin: 09/23/18 08:35 Dose: 100 mg Discontinued Medications Hydromorphone HCl (Dilaudid) 0.5 mg IVPUSH ONETIME ONE Stop: 09/19/18 10:26 Last Admin: 09/19/18 10:35 Dose: 0.5 mg Hydromorphone HCl (Dilaudid) 0.5 mg IVPUSH ONETIME ONE Stop: 09/19/18 12:28 Last Admin: 09/19/18 12:34 Dose: 0.5 mg Sodium Chloride (Normal Saline) 1,000 mls @ 999 mls/hr IV .Bolus ONE Stop: 09/19/18 10:10 Last Admin: 09/19/18 09:33 Dose: 999 mls/hr Sodium Chloride (Normal Saline) 1,000 mls @ 999 mls/hr IV .Bolus ONE Stop: 09/19/18 14:46 Last Infusion: 09/19/18 14:38 Dose: 999 mls/hr Piperacillin Sod/Tazobactam (Sod 3.375 gm/ Sodium Chloride) 50 mls @ 100 mls/ hr IV ONETIME ONE Stop: 09/19/18 14:19 Last Admin: 09/19/18 13:58 Dose: 100 mls/hr Potassium Chloride 40 meq/ (Sodium Chloride) 520 mls @ 130 mls/hr IV ONETIME ONE Stop: 09/19/18 19:44 Last Admin: 09/19/18 15:48 Dose: 130 mls/hr Potassium Chloride/Sodium Chloride (Normal Saline With 20 Meq Kcl) 1,000 mls @ 125 mls/hr IV ASDIRECTED [facility] Last Admin: 09/19/18 21:13 Dose: 125 mls/hr Magnesium Sulfate 2 gm/ Premix 50 mls @ 50 mls/hr IV ONETIME ONE Stop: 09/19/18 16:21 Last Admin: 09/19/18 15:48 Dose: 50 mls/hr Iopamidol (Isovue Multipack-370 (76%)) 100 ml IVPUSH ONETIME STA Stop: 09/19/18 12:56 Last Admin: 09/19/18 12:55 Dose: 100 ml Ketorolac Tromethamine (Toradol) 15 mg IVPUSH ONETIME ONE Stop: 09/19/18 13:16 Last Admin: 09/19/18 13:21 Dose: 15 mg Lorazepam (Ativan) 0.5 mg IVPUSH ONETIME ONE Stop: 09/19/18 13:16 Last Admin: 09/19/18 13:22 Dose: 0.5 mg Metoprolol Tartrate (Lopressor) 25 mg PO BID ELISA Last Admin: 09/19/18 19:59 Dose: 25 mg Morphine Sulfate (Morphine) 2 mg IVPUSH ONETIME ONE Stop: 09/19/18 09:11 Last Admin: 09/19/18 09:33 Dose: 2 mg Ondansetron HCl (Zofran) 4 mg IVPUSH ONETIME ONE Stop: 09/19/18 09:11 Last Admin: 09/19/18 09:33 Dose: 4 mg Potassium Chloride (Potassium Chloride) 40 meq PO ONETIME ONE Stop: 09/21/18 09:16 Last Admin: 09/21/18 09:30 Dose: 40 meq Potassium Chloride (Klor-Con M20) 40 meq PO ONETIME ONE Stop: 09/22/18 12:02 Last Admin: 09/22/18 17:14 Dose: 40 meq - Exam General: Reports: Alert, Oriented, Cooperative Lungs: Reports: Clear to Auscultation, Normal Respiratory Effort Cardiovascular: Reports: Regular Rate, Regular Rhythm GI/Abdominal Exam: Normal Bowel Sounds, Soft, Non-Tender (palpated abdomen reports no pain with palpation. But continues to state she has some pain.) Back Exam: Reports: Normal Inspection, Full Range of Motion Extremities: Normal Inspection, Normal Range of Motion, Non-Tender Neurological: Reports: No New Focal Deficit Psy/Mental Status: Reports: Alert, Anxious. Denies: Withdrawal Symptoms
[2018-09-23] MEDS ORDERED: LORazepam 0.5 MG Tab PO PRN (09:21)
--- NOTE | 2018-09-23 11:01 | PCM.PN ---
- General Info Date of Service: 09/23/18 Admission Dx/Problem (Free Text): Admission Diagnosis/Problem Admission Diagnosis/Problem Acute cholecystitis Subjective Update: Sitting on edge of bed, confused. Denies pain. reports wanting to go home feels she is not ready to go home today and would like her to stay one more night. Functional Status: Reports: Pain Controlled, Tolerating Diet, Ambulating, Urinating - Review of Systems General: Reports: No Symptoms. Denies: Fever, Weakness, Fatigue HEENT: Reports: No Symptoms. Denies: Sore Throat Pulmonary: Reports: No Symptoms. Denies: Shortness of Breath Cardiovascular: Reports: No Symptoms. Denies: Chest Pain Gastrointestinal: Reports: No Symptoms. Denies: Abdominal Pain, Nausea, Vomiting Genitourinary: Reports: No Symptoms Musculoskeletal: Reports: No Symptoms Neurological: Reports: Confusion (per ) Psychiatric: Reports: No Symptoms - Patient Data Vitals - Most Recent: Last Vital Signs Temp 97 F 09/23/18 07:35 Pulse 78 09/23/18 07:35 Resp 14 09/23/18 07:35 BP 138/69 09/23/18 07:35 Pulse Ox 91 L 09/23/18 07:35 Weight - Most Recent: 54.431 kg I&O - Last 24 Hours: Intake & Output 09/22/18 09/23/18 09/23/18 22:59 06:59 14:59 Intake Total 420 500 Output Total 400 800 Balance 20 -300 Lab Results Last 24 Hours: Laboratory Results - last 24 hr 09/23/18 09/23/18 Range/Units 05:33 05:33 WBC 6.43 (4.0-11.0) K/uL RBC 4.09 L (4.30-5.90) M/uL Hgb 12.5 (12.0-16.0) g/dL Hct 37.2 (36.0-46.0) % MCV 91.0 (80.0-98.0) fL MCH 30.6 (27.0-32.0) pg MCHC 33.6 (31.0-37.0) g/dL RDW Std Deviation 60.9 (28.0-62.0) fl RDW Coeff of Katerina 18 H (11.0-15.0) % Plt Count 152 (150-400) K/uL MPV 9.40 (7.40-12.00) fL Neut % (Auto) 50.4 (48.0-80.0) % Lymph % (Auto) 34.4 (16.0-40.0) % Barton % (Auto) 10.1 (0.0-15.0) % Eos % (Auto) 4.5 (0.0-7.0) % Baso % (Auto) 0.6 (0.0-1.5) % Neut # (Auto) 3.2 (1.4-5.7) K/uL Lymph # (Auto) 2.2 (0.6-2.4) K/uL Barton # (Auto) 0.7 (0.0-0.8) K/uL Eos # (Auto) 0.3 (0.0-0.7) K/uL Baso # (Auto) 0.0 (0.0-0.1) K/uL Nucleated RBC % 0.0 /100WBC Nucleated RBCs # 0 K/uL Sodium 144 (136-145) mmol/L Potassium 3.9 (3.5-5.1) mmol/L Chloride 110 H (98-107) mmol/L Carbon Dioxide 27.5 (21.0-32.0) mmol/L BUN 3 L (7.0-18.0) mg/dL Creatinine 0.5 L (0.6-1.0) mg/dL Est Cr Clr Drug Dosing 81.62 mL/min Estimated GFR (MDRD) > 60.0 ml/min Glucose 84 (74-106) mg/dL Calcium 8.3 L (8.5-10.1) mg/dL Phosphorus 3.2 (2.6-4.7) mg/dL Magnesium 1.5 L (1.8-2.4) mg/dL Total Bilirubin 1.1 H (0.2-1.0) mg/dL AST 87 H (15-37) IU/L ALT 54 (14-63) IU/L Alkaline Phosphatase 149 H (46-116) U/L Total Protein 5.3 L (6.4-8.2) g/dL Albumin 2.3 L (3.4-5.0) g/dL Globulin 3.0 (2.6-4.0) g/dL Albumin/Globulin Ratio 0.8 L (0.9-1.6) Med Orders - Current: Current Medications Albuterol/Ipratropium (Duoneb 3.0-0.5 Mg/3 Ml) 3 ml NEB Q4HRRT PRN PRN Reason: Shortness Of Breath/wheezing Amlodipine Besylate (Norvasc) 5 mg PO DAILY [facility] Last Admin: 09/23/18 07:35 Dose: 5 mg Folic Acid (Folic Acid) 1 mg SUBCUT DAILY [facility] Last Admin: 09/23/18 08:34 Dose: 1 mg Gabapentin (Neurontin) 600 mg PO BID [facility] Last Admin: 09/23/18 08:30 Dose: 600 mg Hydromorphone HCl (Dilaudid) 0.5 mg IVPUSH Q2H PRN PRN Reason: Pain (severe 7-10) Last Admin: 09/22/18 23:30 Dose: 0.5 mg Piperacillin Sod/Tazobactam (Sod 3.375 gm/ Sodium Chloride) 50 mls @ 100 mls/ hr IV Q6H [facility] Last Admin: 09/23/18 08:37 Dose: 100 mls/hr Lorazepam (Ativan) 0.5 mg PO Q6H PRN PRN Reason: anxiety/restlessness Memantine (Namenda) 10 mg PO BID [facility] Last Admin: 09/23/18 08:31 Dose: 10 mg Metoprolol Succinate (Toprol Xl) 25 mg PO BEDTIME [facility] Last Admin: 09/22/18 20:15 Dose: 25 mg Mirtazapine (Remeron) 15 mg PO BEDTIME [facility] Last Admin: 09/22/18 20:13 Dose: 15 mg Morphine Sulfate (Ms Contin) 60 mg PO Q12H [facility] Last Admin: 09/23/18 08:33 Dose: 60 mg Nicotine (Habitrol) 21 mg TRDERM DAILY [facility] Last Admin: 09/23/18 08:38 Dose: 21 mg Omeprazole (Omeprazole) 40 mg PO ACBREAKFAST [facility] Last Admin: 09/23/18 06:42 Dose: 40 mg Ondansetron HCl (Zofran) 4 mg IVPUSH Q4H PRN PRN Reason: Nausea Oxycodone HCl (Oxycontin) 10 mg PO BID [facility] Last Admin: 09/23/18 08:31 Dose: 10 mg Potassium Chloride (Klor-Con 10) 10 meq PO BID [facility] Last Admin: 09/23/18 08:30 Dose: 10 meq Sodium Chloride (Saline Flush) 10 ml FLUSH ASDIRECTED PRN PRN Reason: Keep Vein Open Last Admin: 09/19/18 09:33 Dose: 10 ml Sodium Chloride (Saline Flush) 2.5 ml FLUSH ASDIRECTED PRN PRN Reason: Keep Vein Open Last Admin: 09/19/18 09:33 Dose: 2.5 ml Sucralfate (Carafate) 1 gm PO BIDAC [facility] Last Admin: 09/23/18 06:42 Dose: 1 gm Thiamine HCl (Vitamin B-1) 100 mg IV DAILY [facility] Last Admin: 09/23/18 08:35 Dose: 100 mg Discontinued Medications Hydromorphone HCl (Dilaudid) 0.5 mg IVPUSH ONETIME ONE Stop: 09/19/18 10:26 Last Admin: 09/19/18 10:35 Dose: 0.5 mg Hydromorphone HCl (Dilaudid) 0.5 mg IVPUSH ONETIME ONE Stop: 09/19/18 12:28 Last Admin: 09/19/18 12:34 Dose: 0.5 mg Sodium Chloride (Normal Saline) 1,000 mls @ 999 mls/hr IV .Bolus ONE Stop: 09/19/18 10:10 Last Admin: 09/19/18 09:33 Dose: 999 mls/hr Sodium Chloride (Normal Saline) 1,000 mls @ 999 mls/hr IV .Bolus ONE Stop: 09/19/18 14:46 Last Infusion: 09/19/18 14:38 Dose: 999 mls/hr Piperacillin Sod/Tazobactam (Sod 3.375 gm/ Sodium Chloride) 50 mls @ 100 mls/ hr IV ONETIME ONE Stop: 09/19/18 14:19 Last Admin: 09/19/18 13:58 Dose: 100 mls/hr Potassium Chloride 40 meq/ (Sodium Chloride) 520 mls @ 130 mls/hr IV ONETIME ONE Stop: 09/19/18 19:44 Last Admin: 09/19/18 15:48 Dose: 130 mls/hr Potassium Chloride/Sodium Chloride (Normal Saline With 20 Meq Kcl) 1,000 mls @ 125 mls/hr IV ASDIRECTED [facility] Last Admin: 09/19/18 21:13 Dose: 125 mls/hr Magnesium Sulfate 2 gm/ Premix 50 mls @ 50 mls/hr IV ONETIME ONE Stop: 09/19/18 16:21 Last Admin: 09/19/18 15:48 Dose: 50 mls/hr Iopamidol (Isovue Multipack-370 (76%)) 100 ml IVPUSH ONETIME STA Stop: 09/19/18 12:56 Last Admin: 09/19/18 12:55 Dose: 100 ml Ketorolac Tromethamine (Toradol) 15 mg IVPUSH ONETIME ONE Stop: 09/19/18 13:16 Last Admin: 09/19/18 13:21 Dose: 15 mg Lorazepam (Ativan) 0.5 mg IVPUSH ONETIME ONE Stop: 09/19/18 13:16 Last Admin: 09/19/18 13:22 Dose: 0.5 mg Lorazepam (Ativan) 0 mg IV Q4H PRN; Protocol PRN Reason: CIWAA Last Admin: 09/23/18 01:20 Dose: 2 mg Metoprolol Tartrate (Lopressor) 25 mg PO BID ELISA Last Admin: 09/19/18 19:59 Dose: 25 mg Morphine Sulfate (Morphine) 2 mg IVPUSH ONETIME ONE Stop: 09/19/18 09:11 Last Admin: 09/19/18 09:33 Dose: 2 mg Ondansetron HCl (Zofran) 4 mg IVPUSH ONETIME ONE Stop: 09/19/18 09:11 Last Admin: 09/19/18 09:33 Dose: 4 mg Potassium Chloride (Potassium Chloride) 40 meq PO ONETIME ONE Stop: 09/21/18 09:16 Last Admin: 09/21/18 09:30 Dose: 40 meq Potassium Chloride (Klor-Con M20) 40 meq PO ONETIME ONE Stop: 09/22/18 12:02 Last Admin: 09/22/18 17:14 Dose: 40 meq - Exam General: Alert, Cooperative, No Acute Distress. No: Oriented Neck: Supple Lungs: Clear to Auscultation, Normal Respiratory Effort Cardiovascular: Regular Rate, Regular Rhythm GI/Abdominal Exam: Normal Bowel Sounds, Soft, Non-Tender Extremities: Normal Inspection, Normal Range of Motion, Non-Tender, No Pedal Edema Neurological: No New Focal Deficit Psy/Mental Status: Alert, Normal Affect, Normal Mood - Problem List & Annotations (1) Cholelithiasis SNOMED Code(s): 244635201 Code(s): K80.20 - CALCULUS OF GALLBLADDER W/O CHOLECYSTITIS W/O OBSTRUCTION Status: Acute Priority: Medium Current Visit: No Qualifiers: Cholelithiasis location: gallbladder Cholecystitis presence: with cholecystitis Biliary obstruction: without biliary obstruction (2) Cholecystitis SNOMED Code(s): 88763136 Code(s): K81.9 - CHOLECYSTITIS, UNSPECIFIED Status: Acute Current Visit: Yes (3) Abdominal pain SNOMED Code(s): 30022845 Code(s): R10.9 - UNSPECIFIED ABDOMINAL PAIN Status: Acute Current Visit: No Qualifiers: Abdominal location: right upper quadrant Qualified Code(s): R10.11 - Right upper quadrant pain (4) Hypokalemia SNOMED Code(s): 54554613 Code(s): E87.6 - HYPOKALEMIA Status: Acute Priority: High Current Visit : No (5) Hypomagnesemia SNOMED Code(s): 941532347 Code(s): E83.42 - HYPOMAGNESEMIA Status: Acute Priority: High Current Visit: No (6) Protein malnutrition SNOMED Code(s): 242183358 Code(s): E46 - UNSPECIFIED PROTEIN-CALORIE MALNUTRITION Status: Chronic Current Visit: No (7) Alcohol abuse SNOMED Code(s): 74241488 Code(s): F10.10 - ALCOHOL ABUSE, UNCOMPLICATED Status: Chronic Current Visit: No (8) COPD (chronic obstructive pulmonary disease) SNOMED Code(s): 19296101 Code(s): J44.9 - CHRONIC OBSTRUCTIVE PULMONARY DISEASE, UNSPECIFIED Status : Chronic Priority: High Current Visit: No Qualifiers: COPD type: emphysema Emphysema type: unspecified Qualified Code(s): J43.9 - Emphysema, unspecified (9) HTN (hypertension) SNOMED Code(s): 48848320 Code(s): I10 - ESSENTIAL (PRIMARY) HYPERTENSION Status: Chronic Priority : Medium Current Visit: No Qualifiers: Hypertension type: essential hypertension Qualified Code(s): I10 - Essential (primary) hypertension (10) Chronic back pain SNOMED Code(s): 353009312 Code(s): M54.9 - DORSALGIA, UNSPECIFIED; G89.29 - OTHER CHRONIC PAIN Status : Chronic Priority: Low Current Visit: Yes (11) Smoker SNOMED Code(s): 55085252 Code(s): F17.200 - NICOTINE DEPENDENCE, UNSPECIFIED, UNCOMPLICATED Status: Chronic Priority: High Current Visit: Yes - Problem List Review Problem List Initiated/Reviewed/Updated: Yes - My Orders Last 24 Hours: My Active Orders 09/23/18 09:11 Ready for Discharge [RC] PER UNIT ROUTINE 09/23/18 09:21 LORazepam [Ativan] 0.5 mg PO Q6H PRN - Plan Plan:: 73 year old female with pmh of alcohol abuse admitted with cholecystitis with cholelithiasis 1. Cholecystitis: Improved, no leukocytosis. Continue Zosyn. MRCP shows several punctate gallstones and CBD measuring 13mm. General surgery has been consulted. Will make referral to General surgery in [place] for further evaluation for cholecystectomy 2. ETOH abuse: Continue thiamine and folic acid. Was given Ativan 2mg this morning and appears to sedated and confused. Will stop Ativan CIWAA protocol. She is not actively withdrawing. She does have anxiety, will order low dose Ativan for anxiety. VTe prophylaxis: SCDs Dispo: likely discharge home tomorrow.
[2018-09-23] MEDS: Metoprolol Succinate 25 MG Tab.ER PO SCH (20:11)
[2018-09-23] MEDS: Mirtazapine 15 MG Tab PO SCH (20:12)
[2018-09-23] MEDS: oxyCODONE 5 MG Tab PO SCH (20:12)
[2018-09-24] MEDS: Piperacillin/Tazobactam 3.375 GM in Sodium Chloride 0.9% 50 ML IV SCH ×2 (02:32→08:44)
[2018-09-24 06:51] LABS: CHLORIDE,CL 107 mmol/L (98-107); SODIUM,NA 142 mmol/L (136-145)
[2018-09-24] MEDS: Morphine 30 MG Tab.ER PO SCH (07:08)
[2018-09-24] MEDS: Omeprazole 20 MG Cap.CR PO SCH (07:08)
[2018-09-24] MEDS: Sucralfate Suspension 1 GM/10 ML Cup PO SCH (07:09)
[2018-09-24] MEDS ORDERED: HYDROmorphone 1 MG/ML Syringe IVPUSH ONE (08:15)
[2018-09-24] MEDS: Potassium Chloride 10 MEQ Tab.ER PO SCH (08:29)
[2018-09-24] MEDS: oxyCODONE 5 MG Tab PO SCH (08:29)
[2018-09-24] MEDS: amLODIPine 5 MG Tab PO SCH (08:30)
[2018-09-24] MEDS: Memantine 10 MG Tab PO SCH (08:31)
[2018-09-24] MEDS: Nicotine 21 MG/24 Hr Patch TRDERM SCH (08:31)
[2018-09-24] MEDS: Gabapentin 300 MG Cap PO SCH (08:31)
[2018-09-24] MEDS: Thiamine 200 MG/2 ML MDV IV SCH (08:32)
[2018-09-24 08:34] VITALS: BP 104/57
[2018-09-24] MEDS: Folic Acid 50 MG/10 ML MDV SUBCUT SCH (08:39)
== END 2018-09-24 11:15 | disposition home health service (06) | DRG 445 ==
LOC: MW.ED 08:52 → MW.MS 14:28
PROVIDERS: ADMIT Internal Medicine; ATTEND Internal Medicine
DX: K81.0 Acute cholecystitis (principal); K80.00 Calculus of gallbladder with acute cholecystitis without obstruction; J44.9 Chronic obstructive pulmonary disease, unspecified; K86.0 Alcohol-induced chronic pancreatitis; R10.9 Unspecified abdominal pain; E46 Unspecified protein-calorie malnutrition; K70.30 Alcoholic cirrhosis of liver without ascites; I10 Essential (primary) hypertension; F41.9 Anxiety disorder, unspecified; F32.9 Major depressive disorder, single episode, unspecified; F17.210 Nicotine dependence, cigarettes, uncomplicated; F03.90 Unspecified dementia, unspecified severity, without behavioral disturbance, psychotic disturbance, mood disturbance, and anxiety; E11.9 Type 2 diabetes mellitus without complications; F10.10 Alcohol abuse, uncomplicated; J43.9 Emphysema, unspecified; I86.8 Varicose veins of other specified sites; E87.6 Hypokalemia; E83.42 Hypomagnesemia; G89.29 Other chronic pain; M54.9 Dorsalgia, unspecified; M81.0 Age-related osteoporosis without current pathological fracture; Z79.891 Long term (current) use of opiate analgesic; Z68.21 Body mass index [BMI] 21.0-21.9, adult; Z79.899 Other long term (current) drug therapy
CPT/HCPCS: 36415; 74177; 76705; 80053; 81001; 83605; 83690; 83735; 84100; 85025; 96361; 96365; 96375; 96376; 99285; J1170 ×2; J1885; J2060; J2270; J2405; J2543; J7040 ×2; J7050; Q9967; 74181; 74181-26; 85610; 99284; A9270-GY; J3411; J3475; J3480

== ENCOUNTER 2018-09-28 15:15 | Emergency (ER) | payer MEDICARE ==
[2018-09-28 15:37] VITALS: BP 146/91
[2018-09-28] MEDS ORDERED: LORazepam 2 MG/ML SDV IVPUSH ONE (15:37)
[2018-09-28] MEDS ORDERED: Ketorolac 30 MG/ML SDV IVPUSH ONE (15:37)
--- NOTE | 2018-09-28 15:40 | EDM.PDOC ---
ED HPI GENERAL MEDICAL PROBLEM - General Chief Complaint: Abdominal Pain Stated Complaint: STOMACH PAIN Time Seen by Provider: 09/28/18 15:29 - History of Present Illness INITIAL COMMENTS - FREE TEXT/NARRATIVE: HISTORY AND PHYSICAL: History of present illness: Patient is 73-year-old white female with extensive past medical history including recently diagnosed cholelithiasis with biliary colic was scheduled for follow-up on Sunday and possible surgery late next week. Who presents with a recurrent episode of biliary colic. She's had nausea but no vomiting she denies diarrhea denies fever chills chest pain or shortness of breath patient qualifies this is the exact same pain that she presented with prior that was ultimately responsive to Toradol and Ativan Review of systems: As per history of present illness and below otherwise all systems reviewed and negative. Past medical history: As per history of present illness and as reviewed below otherwise noncontributory. Surgical history: As per history of present illness and as reviewed below otherwise noncontributory. Social history: No reported history of drug or alcohol abuse. Family history: As per history of present illness and as reviewed below otherwise noncontributory. Physical exam: HEENT: Atraumatic, normocephalic, pupils reactive, negative for conjunctival pallor or scleral icterus, mucous membranes moist, throat clear, neck supple, nontender, trachea midline. Lungs: Clear to auscultation, breath sounds equal bilaterally, chest nontender. Heart: S1S2, regular, negative for clicks, rubs, or JVD. Abdomen: Soft, nondistended, tenderness in the upper abdomen no rebound no guarding. Negative for masses or hepatosplenomegaly. Negative for costovertebral tenderness. Pelvis: Stable nontender. Genitourinary: Deferred. Rectal: Deferred. Extremities: Atraumatic, negative for cords or calf pain. Neurovascular unremarkable. Neuro: Awake, alert, oriented. Cranial nerves II through XII unremarkable. Cerebellum unremarkable. Motor and sensory unremarkable throughout. Exam nonfocal. Diagnostics: CBC CMP and lipase EKG ultrasound right upper quadrant Therapeutics: Saline 500 mL bolus Toradol 30 mg IV Ativan 1 mg IV Impression: #1 cholelithiasis with biliary colic Definitive disposition and diagnosis as appropriate pending reevaluation and review of above. Middle Abdomen Pain Score (Numeric/FACES): 10 - Related Data Allergies Allergy/AdvReac Type Severity Reaction Status Date / Time No Known Allergies Allergy Verified 09/28/18 15:34 Home Meds: Home Meds oxyCODONE 10 mg PO BID 08/15/16 [History] Gabapentin [Gralise] 600 mg PO BID 09/14/17 [History] Morphine [MS Contin] 60 mg PO Q12H 09/14/17 [History] Albuterol Sulfate [Proair Hfa] 2 puff INH QID PRN 09/19/18 [History] Furosemide 20 mg PO DAILY 09/19/18 [History] Lansoprazole [Prevacid] 30 mg PO ACBREAKFAST 09/19/18 [History] Memantine [Namenda] 10 mg PO BID 09/19/18 [History] Metoprolol Succinate [Toprol XL] 25 mg PO BEDTIME 09/19/18 [History] Mirtazapine 15 mg PO BEDTIME 09/19/18 [History] Potassium Chloride 10 meq PO BID 09/19/18 [History] Sucralfate [Carafate] 10 ml PO BIDAC 09/19/18 [History] amLODIPine [Norvasc] 5 mg PO DAILY 09/19/18 [History] Amoxicillin/Potassium Clav [Augmentin 875-125 Tablet] 1 each PO BID #20 tablet 09/23/18 [Rx] metroNIDAZOLE [Flagyl] 500 mg PO Q8H #30 tab 09/23/18 [Rx] oxyCODONE 5 mg PO Q6HR PRN #10 tab 09/24/18 [Rx] Past Medical History HEENT History: Reports: None Cardiovascular History: Reports: Angina, Hypertension Respiratory History: Reports: COPD Gastrointestinal History: Reports: Cholelithiasis, Pancreatitis, Other (See Below) Other Gastrointestinal History: chronic abdominal pain Genitourinary History: Reports: None 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 Denies: Diabetes, Type II Hematologic History: Reports: None Immunologic History: Reports: None Oncologic (Cancer) History: Reports: None Dermatologic History: Reports: None - Infectious Disease History Infectious Disease History: Reports: None - Past Surgical History HEENT Surgical History: Reports: None Cardiovascular Surgical History: Reports: None Respiratory Surgical History: Reports: None GI Surgical History: Reports: Appendectomy Neurological Surgical History: Reports: Lumbar Spine, Thoracic Spine Musculoskeletal Surgical History: Reports: None Social & Family History - Family History Family Medical History: Noncontributory - Caffeine Use Caffeine Use: Reports: None Caffeine Use Comment: 2drinks/day - Living Situation & Occupation Living situation: Reports: Occupation: Unemployed ED ROS GENERAL - Review of Systems Review Of Systems: ROS reveals no pertinent complaints other than HPI. ED EXAM, GENERAL - Physical Exam Exam: See Below (See dictation) Course - Vital Signs Last Recorded V/S: Last Vital Signs Temp 36.4 C 09/28/18 15:34 Pulse 115 H 09/28/18 15:34 Resp 16 09/28/18 15:34 BP 146/91 H 09/28/18 15:34 Pulse Ox 95 09/28/18 15:34 - Orders/Labs/Meds Orders: Active Orders 24 hr Category Date Time Status EKG Documentation Completion [RC] STAT Care 09/28/18 15:36 Active Abdomen Ltd [US] Stat Exams 09/28/18 15:37 Taken Sodium Chloride 0.9% [Normal Saline] 500 ml Med 09/28/18 15:45 Active IV STAT Medication Orders Sodium Chloride (Normal Saline) 500 mls @ 999 mls/hr IV STAT ELISA Last Admin: 09/28/18 16:09 Dose: 999 mls/hr Labs: Laboratory Tests 09/28/18 09/28/18 Range/Units 16:06 16:06 WBC 8.13 (4.0-11.0) K/uL RBC 4.72 (4.30-5.90) M/uL Hgb 14.4 (12.0-16.0) g/dL Hct 42.0 (36.0-46.0) % MCV 89.0 (80.0-98.0) fL MCH 30.5 (27.0-32.0) pg MCHC 34.3 (31.0-37.0) g/dL RDW Std Deviation 60.8 (28.0-62.0) fl RDW Coeff of Katerina 19 H (11.0-15.0) % Plt Count 241 (150-400) K/uL MPV 9.20 (7.40-12.00) fL Neut % (Auto) 57.9 (48.0-80.0) % Lymph % (Auto) 25.1 (16.0-40.0) % Arch[place]ta % (Auto) 12.7 (0.0-15.0) % Eos % (Auto) 3.8 (0.0-7.0) % Baso % (Auto) 0.5 (0.0-1.5) % Neut # (Auto) 4.7 (1.4-5.7) K/uL Lymph # (Auto) 2.0 (0.6-2.4) K/uL Arch[place]ta # (Auto) 1.0 H (0.0-0.8) K/uL Eos # (Auto) 0.3 (0.0-0.7) K/uL Baso # (Auto) 0.0 (0.0-0.1) K/uL Nucleated RBC % 0.0 /100WBC Nucleated RBCs # 0 K/uL Sodium 139 (136-145) mmol/L Potassium 3.1 L (3.5-5.1) mmol/L Chloride 104 (98-107) mmol/L Carbon Dioxide 23.9 (21.0-32.0) mmol/L BUN 2 L (7.0-18.0) mg/dL Creatinine 0.6 (0.6-1.0) mg/dL Est Cr Clr Drug Dosing 68.02 mL/min Estimated GFR (MDRD) > 60.0 ml/min Glucose 154 H (74-106) mg/dL Calcium 8.7 (8.5-10.1) mg/dL Total Bilirubin 1.0 (0.2-1.0) mg/dL AST 29 (15-37) IU/L ALT 32 (14-63) IU/L Alkaline Phosphatase 190 H (46-116) U/L Total Protein 6.7 (6.4-8.2) g/dL Albumin 3.1 L (3.4-5.0) g/dL Globulin 3.6 (2.6-4.0) g/dL Albumin/Globulin Ratio 0.9 (0.9-1.6) Lipase 88 (73-393) U/L Meds: Medications Generic Name Dose Route Start Last Admin Trade Name Freq PRN Reason Stop Dose Admin Sodium Chloride 500 mls @ 999 mls/hr 09/28/18 15:45 09/28/18 16:09 Normal Saline IV 999 mls/hr STAT ELISA Administration Discontinued Medications Generic Name Dose Route Start Last Admin Trade Name Juan F PRN Reason Stop Dose Admin Ketorolac Tromethamine 30 mg 09/28/18 15:37 09/28/18 16:09 Toradol IVPUSH 09/28/18 15:38 30 mg ONETIME ONE Administration Lorazepam 1 mg 09/28/18 15:37 09/28/18 16:09 Ativan IVPUSH 09/28/18 15:38 1 mg ONETIME ONE Administration Departure - Departure Time of Disposition: 18:00 Disposition: Home, Self-Care 01 Condition: Good Clinical Impression: Biliary colic Cholelithiasis Qualifiers: Cholelithiasis location: gallbladder Cholecystitis presence: with cholecystitis Biliary obstruction: without biliary obstruction - Discharge Information Referrals: PCP,Unknown [Primary Care Provider] - Forms: ED Department Discharge Additional Instructions: The following information is given to patients seen in the emergency department who are being discharged to home. This information is to outline your options for follow-up care. We provide all patients seen in our emergency department with a follow-up referral. The need for follow-up, as well as the timing and circumstances, are variable depending upon the specifics of your emergency department visit. If you don't have a primary care physician on staff, we will provide you with a referral. We always advise you to contact your personal physician following an emergency department visit to inform them of the circumstance of the visit and for follow-up with them and/or the need for any referrals to a consulting specialist. The emergency department will also refer you to a specialist when appropriate. This referral assures that you have the opportunity for followup care with a specialist. All of these measure are taken in an effort to provide you with optimal care, which includes your followup. Under all circumstances we always encourage you to contact your private physician who remains a resource for coordinating your care. When calling for followup care, please make the office aware that this follow-up is from your recent emergency room visit. If for any reason you are refused follow-up, please contact the [facility] emergency department at and asked to speak to the emergency department charge nurse. Continue current meds keep scheduled appointment on Sunday and follow-up next week return as needed as discussed diet as discussed - My Orders Last 24 Hours: My Active Orders 09/28/18 15:36 EKG Documentation Completion [RC] STAT 09/28/18 15:37 Abdomen Ltd [US] Stat 09/28/18 15:45 Sodium Chloride 0.9% [Normal Saline] 500 ml IV STAT - Assessment/Plan Last 24 Hours: My Active Orders 09/28/18 15:36 EKG Documentation Completion [RC] STAT 09/28/18 15:37 Abdomen Ltd [US] Stat 09/28/18 15:45 Sodium Chloride 0.9% [Normal Saline] 500 ml IV STAT
[2018-09-28] MEDS ORDERED: Sodium Chloride 0.9% 500 ML IV SCH (15:45)
[2018-09-28 16:40] LABS: CHLORIDE,CL 104 mmol/L (98-107); SODIUM,NA 139 mmol/L (136-145)
--- NOTE | 2018-09-28 18:12 | US ---
INDICATION: Abdominal pain. TECHNIQUE: Ultrasound abdomen limited. Sonographic images of the right upper quadrant were obtained using jurado-scale and color Doppler images. COMPARISON: September 19, 2018. FINDINGS: Liver: Normal in size. Diffusely echogenic.. No masses. No intrahepatic biliary dilatation. Gallbladder: Multiple stones are present in the gallbladder. Normal wall thickness. No pericholecystic fluid. Common bile duct: 12 mm. No stones visualized within the duct. Pancreas: Normal. Right kidney: Normal in size. Normal echotexture and cortex. No masses, stones, or hydronephrosis. Vasculature: Proximal abdominal aorta and IVC are normal. IMPRESSION: 1. No significant change from the prior exam. 2. Cholelithiasis without further signs of cholecystitis. 3. Persistent nonspecific common bile duct dilatation. Dictated by Wilbert Burton MD @ Sep 28 2018 6:08PM Signed by Dr. Wilbert Burton @ Sep 28 2018 6:11PM
== END 2018-09-28 18:21 | disposition home or self-care (01) ==
LOC: MW.ED 15:15
DX: K80.70 Calculus of gallbladder and bile duct without cholecystitis without obstruction (principal); I10 Essential (primary) hypertension; F41.9 Anxiety disorder, unspecified; J44.9 Chronic obstructive pulmonary disease, unspecified; Z79.899 Other long term (current) drug therapy
CPT/HCPCS: 36415; 76705; 80053; 83690; 85025; 93005; 96361; 96374; 96375; 99284; J1885; J2060; J7040

== ENCOUNTER 2018-11-28 17:50 | Observation (INO) | payer MEDICARE ==
[2018-11-28] MEDS ORDERED: Sodium Chloride 0.9% 10 ML Syringe FLUSH PRN (17:51)
[2018-11-28] MEDS ORDERED: Sodium Chloride 0.9% 2.5 ML Syringe FLUSH PRN (17:51)
[2018-11-28] MEDS ORDERED: Famotidine 20 MG/2 ML SDV IVPUSH ONE (17:56)
[2018-11-28] MEDS ORDERED: Sodium Chloride 0.9% 1,000 ML IV ONE (17:56)
--- NOTE | 2018-11-28 17:56 | EDM.PDOC ---
ED HPI GENERAL MEDICAL PROBLEM - General Chief Complaint: Chest Pain Stated Complaint: CHEST PAINS Time Seen by Provider: 11/28/18 17:51 Source of Information: Reports: Patient History Limitations: Reports: No Limitations - History of Present Illness INITIAL COMMENTS - FREE TEXT/NARRATIVE: HISTORY AND PHYSICAL: History of present illness: Patient is a 73-year-old female who presents to the emergency room today with complaints of chest and epigastric pain 3 days. Today she has had nausea and vomiting. Daughter mentions that she did have gallbladder removed approximately one month ago. She states nothing makes the pain better or worse. Pain is in the epigastrium and moves up to the mid sternum. Does not radiate into her neck, jaw, shoulder or back. Patient denies any fever, chills, headache , change in vision, syncope or near syncope. Denies any back pain, shortness of breath or cough. Denies any abdominal pain, diarrhea, constipation or dysuria. Has not noted any blood in urine or stool. Patient has been eating and drinking appropriately. Patient does drink alcohol daily, chronic alcohol use. Patient does have a history of pancreatitis, angina and hypertension. Review of systems: As per history of present illness and below otherwise all systems reviewed and negative. Past medical history: As per history of present illness and as reviewed below otherwise noncontributory. Surgical history: As per history of present illness and as reviewed below otherwise noncontributory. Social history: See social history for further information Family history: As per history of present illness and as reviewed below otherwise noncontributory. Physical exam: General: Well-developed and well-nourished 73-year-old female. Alert and oriented. Nontoxic appearing and in no acute distress. Patient is very loud and yelling at staff as they're performing cares area and vital signs have been reviewed by me HEENT: Atraumatic, normocephalic, pupils equal and reactive bilaterally, negative for conjunctival pallor or scleral icterus, mucous membranes moist, TMs normal bilaterally, throat clear, neck supple, nontender, trachea midline. No drooling or trismus noted. No meningeal signs. No hot potato voice noted. Lungs: Clear to auscultation, breath sounds equal bilaterally, chest nontender. Heart: S1S2, regular rate and rhythm without overt murmur Abdomen: Soft, nondistended, nontender. Negative for masses or hepatosplenomegaly. Negative for costovertebral tenderness. Pelvis: Stable nontender. Genitourinary: Deferred. Rectal: Deferred. Skin: Intact, warm, dry. No lesions or rashes noted. Extremities: Atraumatic, moves all extremities per self without difficulty or deficits, negative for cords or calf pain. Neurovascular unremarkable. Neuro: Awake, alert, oriented. Cranial nerves II through XII unremarkable. Cerebellum unremarkable. Motor and sensory unremarkable throughout. Exam nonfocal. Notes: X-ray shows no acute findings. Lab work shows no acute findings. EKG shows sinus tach with a rate of 131. Vital signs have improved since that was taken with a heart rate now of 80s to 110's. Denies any chest pain at this time; states she has epigastric pain. Patient will be admitted for observation on telemetry. Dr. Fitch was consulted and is agreeable for overnight stay. Diagnostics: CBC, CMP, UA, Troponin, EKG, Chest Xray, Lipase Therapeutics: IV fluids, Zofran, Pepcid, Nitro sublingual Prescription: None Impression: Chest Pain Epigastric Pain Gastritis Plan: Observation admission to med/surg with telemetry Definitive disposition and diagnosis as appropriate pending reevaluation and review of above. chest Pain Score (Numeric/FACES): 6 - Related Data Allergies Allergy/AdvReac Type Severity Reaction Status Date / Time No Known Allergies Allergy Verified 11/28/18 18:00 Home Meds: Home Meds oxyCODONE 10 mg PO BID 08/15/16 [History] Gabapentin [Gralise] 600 mg PO BID 09/14/17 [History] Morphine [MS Contin] 60 mg PO Q12H 09/14/17 [History] Albuterol Sulfate [Proair Hfa] 2 puff INH QID PRN 09/19/18 [History] Furosemide 20 mg PO DAILY 09/19/18 [History] Lansoprazole [Prevacid] 30 mg PO ACBREAKFAST 09/19/18 [History] Memantine [Namenda] 10 mg PO BID 09/19/18 [History] Metoprolol Succinate [Toprol XL] 25 mg PO BEDTIME 09/19/18 [History] Mirtazapine 15 mg PO BEDTIME 09/19/18 [History] Potassium Chloride 10 meq PO BID 09/19/18 [History] Sucralfate [Carafate] 10 ml PO BIDAC 09/19/18 [History] amLODIPine [Norvasc] 5 mg PO DAILY 09/19/18 [History] Amoxicillin/Potassium Clav [Augmentin 875-125 Tablet] 1 each PO BID #20 tablet 09/23/18 [Rx] metroNIDAZOLE [Flagyl] 500 mg PO Q8H #30 tab 09/23/18 [Rx] oxyCODONE 5 mg PO Q6HR PRN #10 tab 09/24/18 [Rx] Past Medical History HEENT History: Reports: None Cardiovascular History: Reports: Angina, Hypertension Respiratory History: Reports: COPD Gastrointestinal History: Reports: Cholelithiasis, Pancreatitis, Other (See Below) Other Gastrointestinal History: chronic abdominal pain Genitourinary History: Reports: None 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 Denies: Diabetes, Type II Hematologic History: Reports: None Immunologic History: Reports: None Oncologic (Cancer) History: Reports: None Dermatologic History: Reports: None - Infectious Disease History Infectious Disease History: Reports: None - Past Surgical History HEENT Surgical History: Reports: None Cardiovascular Surgical History: Reports: None Respiratory Surgical History: Reports: None GI Surgical History: Reports: Appendectomy Neurological Surgical History: Reports: Lumbar Spine, Thoracic Spine Musculoskeletal Surgical History: Reports: None Social & Family History - Family History Family Medical History: Noncontributory - Caffeine Use Caffeine Use: Reports: None Caffeine Use Comment: 2drinks/day - Living Situation & Occupation Living situation: Reports: Occupation: Unemployed ED ROS GENERAL - Review of Systems Review Of Systems: ROS reveals no pertinent complaints other than HPI. ED EXAM, GENERAL - Physical Exam Exam: See Below (See dictation) Course - Vital Signs Last Recorded V/S: Last Vital Signs Temp 98.1 F 11/28/18 18:01 Pulse 60 11/28/18 19:22 Resp 18 11/28/18 19:22 BP 157/101 H 11/28/18 19:22 Pulse Ox 97 11/28/18 19:22 - Orders/Labs/Meds Orders: Active Orders 24 hr Category Date Time Status EKG Documentation Completion [RC] STAT Care 11/28/18 17:51 Active UA RFX LU AND CULT IF INDIC [URIN] Stat Lab 11/28/18 17:51 Ordered MVI, Adult with Vitamin K [Infuvite Adult] 10 ml Med 11/28/18 19:26 Ordered Thiamine [Vitamin B-1] 100 mg Folic Acid 1 mg Sodium Chloride 0.9% [Normal Saline] 1,000 ml IV ONETIME Nitroglycerin [Nitrostat] Med 11/28/18 18:17 Active 0.4 mg SL Q5M PRN Sodium Chloride 0.9% [Saline Flush] Med 11/28/18 17:51 Active 10 ml FLUSH ASDIRECTED PRN Sodium Chloride 0.9% [Saline Flush] Med 11/28/18 17:51 Active 2.5 ml FLUSH ASDIRECTED PRN Saline Lock Insert [OM.PC] Stat Oth 11/28/18 17:51 Ordered Medication Orders Nitroglycerin (Nitrostat) 0.4 mg SL Q5M PRN PRN Reason: Chest Pain Last Admin: 11/28/18 18:24 Dose: 0.4 mg Sodium Chloride (Saline Flush) 10 ml FLUSH ASDIRECTED PRN PRN Reason: Keep Vein Open Last Admin: 11/28/18 18:03 Dose: 10 ml Sodium Chloride (Saline Flush) 2.5 ml FLUSH ASDIRECTED PRN PRN Reason: Keep Vein Open Last Admin: 11/28/18 18:03 Dose: 2.5 ml Labs: Laboratory Tests 11/28/18 11/28/18 11/28/18 Range/Units 18:02 18:42 18:42 WBC 11.72 H (4.0-11.0) K/uL RBC 5.11 (4.30-5.90) M/uL Hgb 17.1 H (12.0-16.0) g/dL Hct 48.4 H (36.0-46.0) % MCV 94.7 (80.0-98.0) fL MCH 33.5 H (27.0-32.0) pg MCHC 35.3 (31.0-37.0) g/dL RDW Std Deviation 57.9 (28.0-62.0) fl RDW Coeff of Katerina 17 H (11.0-15.0) % Plt Count 300 (150-400) K/uL MPV 8.90 (7.40-12.00) fL Neut % (Auto) 69.6 (48.0-80.0) % Lymph % (Auto) 23.2 (16.0-40.0) % Wilcox % (Auto) 6.4 (0.0-15.0) % Eos % (Auto) 0.5 (0.0-7.0) % Baso % (Auto) 0.3 (0.0-1.5) % Neut # (Auto) 8.2 H (1.4-5.7) K/uL Lymph # (Auto) 2.7 H (0.6-2.4) K/uL Wilcox # (Auto) 0.8 (0.0-0.8) K/uL Eos # (Auto) 0.1 (0.0-0.7) K/uL Baso # (Auto) 0.0 (0.0-0.1) K/uL Nucleated RBC % 0.0 /100WBC Nucleated RBCs # 0 K/uL Sodium 142 (136-145) mmol/L Potassium 3.5 (3.5-5.1) mmol/L Chloride 105 (98-107) mmol/L Carbon Dioxide 22.0 (21.0-32.0) mmol/L BUN 3 L (7.0-18.0) mg/dL Creatinine 0.5 L (0.6-1.0) mg/dL Est Cr Clr Drug Dosing 81.62 mL/min Estimated GFR (MDRD) > 60.0 ml/min Glucose 159 H (74-106) mg/dL Calcium 9.2 (8.5-10.1) mg/dL Total Bilirubin 0.8 (0.2-1.0) mg/dL AST 40 H (15-37) IU/L ALT 15 (14-63) IU/L Alkaline Phosphatase 211 H (46-116) U/L Troponin I < 0.050 (0.000-0.056) ng/mL Total Protein 7.8 (6.4-8.2) g/dL Albumin 3.4 (3.4-5.0) g/dL Globulin 4.4 H (2.6-4.0) g/dL Albumin/Globulin Ratio 0.8 L (0.9-1.6) Lipase 169 (73-393) U/L Meds: Medications Generic Name Dose Route Start Last Admin Trade Name Juan F PRN Reason Stop Dose Admin Nitroglycerin 0.4 mg 11/28/18 18:17 11/28/18 18:24 Nitrostat SL 0.4 mg Q5M PRN Administration Chest Pain Sodium Chloride 10 ml 11/28/18 17:51 11/28/18 18:03 Saline Flush FLUSH 10 ml ASDIRECTED PRN Administration Keep Vein Open Sodium Chloride 2.5 ml 11/28/18 17:51 11/28/18 18:03 Saline Flush FLUSH 2.5 ml ASDIRECTED PRN Administration Keep Vein Open Discontinued Medications Generic Name Dose Route Start Last Admin Trade Name Juan F PRN Reason Stop Dose Admin Famotidine 20 mg 11/28/18 17:56 11/28/18 18:07 Pepcid IVPUSH 11/28/18 17:57 20 mg ONETIME ONE Administration Sodium Chloride 1,000 mls @ 999 mls/hr 11/28/18 17:56 11/28/18 18:03 Normal Saline IV 11/28/18 18:56 999 mls/hr STAT ONE Administration Departure - Departure Time of Disposition: 19:32 Disposition: Refer to Observation Clinical Impression: Chest pain, rule out acute myocardial infarction, Epigastric pain Gastritis Qualifiers: Gastritis type: unspecified gastritis Chronicity: unspecified Gastritis bleeding: without bleeding Qualified Code(s): K29.70 - Gastritis, unspecified, without bleeding Referrals: PCP,Unknown [Primary Care Provider] - Forms: ED Department Discharge - My Orders Last 24 Hours: My Active Orders 11/28/18 17:51 EKG Documentation Completion [RC] STAT UA RFX LU AND CULT IF INDIC [URIN] Stat Sodium Chloride 0.9% [Saline Flush] 10 ml FLUSH ASDIRECTED PRN Sodium Chloride 0.9% [Saline Flush] 2.5 ml FLUSH ASDIRECTED PRN Saline Lock Insert [OM.PC] Stat 11/28/18 18:17 Nitroglycerin [Nitrostat] 0.4 mg SL Q5M PRN 11/28/18 19:26 MVI, Adult with Vitamin K [Infuvite Adult] 10 ml Thiamine [Vitamin B-1] 100 mg Folic Acid 1 mg Sodium Chloride 0.9% [Normal Saline] 1,000 ml IV ONETIME - Assessment/Plan Last 24 Hours: My Active Orders 11/28/18 17:51 EKG Documentation Completion [RC] STAT UA RFX LU AND CULT IF INDIC [URIN] Stat Sodium Chloride 0.9% [Saline Flush] 10 ml FLUSH ASDIRECTED PRN Sodium Chloride 0.9% [Saline Flush] 2.5 ml FLUSH ASDIRECTED PRN Saline Lock Insert [OM.PC] Stat 11/28/18 18:17 Nitroglycerin [Nitrostat] 0.4 mg SL Q5M PRN 11/28/18 19:26 MVI, Adult with Vitamin K [Infuvite Adult] 10 ml Thiamine [Vitamin B-1] 100 mg Folic Acid 1 mg Sodium Chloride 0.9% [Normal Saline] 1,000 ml IV ONETIME
[2018-11-28] MEDS ORDERED: Nitroglycerin 0.4 MG Tab.SL SL PRN (18:17)
--- NOTE | 2018-11-28 18:57 | CR ---
Indication: Chest pain Technique: Chest 1 view Comparison: 09/12/2018. Findings/Impression: Cardiovascular and mediastinum: Normal cardiac size. A tortuous, calcified aorta. Lungs and pleural space: Minimal left basilar subsegmental atelectasis or scarring. No consolidation or pleural effusions. Bones and soft tissues: No significant change. Dictated by Chris Vann MD @ 11/28/2018 6:55:22 PM Dictated by: Chris Vann MD @ 11/28/2018 18:55:45 (Electronically Signed)
[2018-11-28 19:10] LABS: CHLORIDE,CL 105 mmol/L (98-107); SODIUM,NA 142 mmol/L (136-145)
[2018-11-28] MEDS ORDERED: MVI, Adult with Vitamin K 10 ML, Thiamine 100 MG, Folic Acid 1 MG in Sodium Chloride 0.... IV ONE ×4 (19:26)
[2018-11-28] MEDS ORDERED: Ondansetron 4 MG/2 ML SDV IVPUSH ONE (19:27)
[2018-11-28] MEDS ORDERED: LORazepam 2 MG/ML SDV IVPUSH ONE (19:44)
[2018-11-28] MEDS: Morphine 30 MG Tab.ER PO SCH (20:56)
[2018-11-28] MEDS ORDERED: oxyCODONE 5 MG Tab PO SCH (21:00)
[2018-11-28] MEDS ORDERED: LORazepam 2 MG/ML SDV IVPUSH PRN (21:03)
[2018-11-28] MEDS: Memantine 10 MG Tab PO SCH (22:22)
[2018-11-28] MEDS: Gabapentin 300 MG Cap PO SCH (22:22)
[2018-11-28] MEDS: Potassium Chloride 10 MEQ Tab.ER PO SCH (22:22)
[2018-11-28] MEDS ORDERED: Metoprolol Succinate 25 MG Tab.ER PO ONE (23:30)
[2018-11-29] MEDS ORDERED: oxyCODONE 5 MG Tab PO SCH
[2018-11-29] MEDS ORDERED: Albuterol/Ipratropium 3.0-0.5 MG/3 ML Neb Soln NEB PRN (07:05)
[2018-11-29] MEDS ORDERED: Docusate Sodium 100 MG Cap PO PRN (07:05)
[2018-11-29] MEDS ORDERED: Enoxaparin 30 MG/0.3 ML Syringe SUBCUT SCH (07:15)
[2018-11-29] MEDS ORDERED: Sodium Chloride 0.9% 1,000 ML IV SCH (07:15)
[2018-11-29 07:22] LABS: CHLORIDE,CL 108 mmol/L (98-107); SODIUM,NA 143 mmol/L (136-145)
[2018-11-29] MEDS ORDERED: Lansoprazole 30 MG Orally Disintegrating Tab.CR PO SCH (07:30)
[2018-11-29] MEDS ORDERED: Sucralfate Suspension 1 GM/10 ML Cup PO SCH (07:30)
[2018-11-29 07:51] VITALS: BP 123/83
[2018-11-29] MEDS ORDERED: Potassium Chloride 20 MEQ Tab.ER PO ONE (07:58)
[2018-11-29] MEDS ORDERED: Metoprolol Succinate 25 MG Tab.ER PO ONE ×2 (08:03→23:30)
[2018-11-29] MEDS: Gabapentin 300 MG Cap PO SCH (08:15)
[2018-11-29] MEDS: Morphine 30 MG Tab.ER PO SCH (08:16)
[2018-11-29] MEDS: Memantine 10 MG Tab PO SCH (08:17)
[2018-11-29] MEDS: Potassium Chloride 10 MEQ Tab.ER PO SCH (08:17)
[2018-11-29] MEDS ORDERED: amLODIPine 2.5 MG Tab PO SCH (09:00)
[2018-11-29] MEDS ORDERED: Furosemide 20 MG Tab PO SCH (09:00)
--- NOTE | 2018-11-29 10:24 | PCM.HP ---
<Ej Fallon - Last Filed: 11/29/18 10:19> H&P History of Present Illness - General Date of Service: 11/29/18 Admit Problem/Dx: Admission Diagnosis/Problem Admission Diagnosis/Problem Chest pain, rule out acute myocardial infarction Source of Information: Patient History Limitations: Reports: No Limitations - History of Present Illness Initial Comments - Free Text/Narative: 73F with a history of chronic alcoholism, COPD, cirrhosis of the liver, HTN presented to the ER with a complaint of chest pain x3 days. This pain was intermittent, nonradiating. ER work up negative aside from sinus tachycardia. She was admitted for ACS rule out. Last drink was >48 hrs ago. chest Pain Score (Numeric/FACES): 6 abdominal Pain Score (Numeric/FACES): 2 - Related Data Allergies/Adverse Reactions: Allergies Allergy/AdvReac Type Severity Reaction Status Date / Time No Known Allergies Allergy Verified 11/28/18 18:00 Home Medications: Home Meds oxyCODONE 10 mg PO BID 08/15/16 [History] Gabapentin [Gralise] 600 mg PO BID 09/14/17 [History] Morphine [MS Contin] 60 mg PO Q12H 09/14/17 [History] Albuterol Sulfate [Proair Hfa] 2 puff INH QID PRN 09/19/18 [History] Furosemide 20 mg PO DAILY 09/19/18 [History] Lansoprazole [Prevacid] 30 mg PO ACBREAKFAST 09/19/18 [History] Memantine [Namenda] 10 mg PO BID 09/19/18 [History] Metoprolol Succinate [Toprol XL] 12.5 mg PO BEDTIME 09/19/18 [History] Mirtazapine 15 mg PO BEDTIME 09/19/18 [History] Potassium Chloride 10 meq PO BID 09/19/18 [History] Sucralfate [Carafate] 10 ml PO BIDAC 09/19/18 [History] amLODIPine [Norvasc] 5 mg PO DAILY 09/19/18 [History] Folic Acid 0.4 mg PO BEDTIME 30 Days #30 tab 11/29/18 [Rx] Metoprolol Succinate [Toprol XL] 25 mg PO BEDTIME 30 Days #30 tab.er 11/29/18 [ Rx] Thiamine [Vitamin B-1] 100 mg PO BEDTIME 30 Days #30 tab 11/29/18 [Rx] Past Medical History HEENT History: Reports: None Cardiovascular History: Reports: Angina, Hypertension Respiratory History: Reports: COPD Gastrointestinal History: Reports: Cholelithiasis, Pancreatitis, Other (See Below) Other Gastrointestinal History: chronic abdominal pain Genitourinary History: Reports: None [employer] History: Reports: Musculoskeletal History: Reports: Back Pain, Chronic, Osteoporosis Other Musculoskeletal History: back injury Neurological History: Reports: Other (See Below) Other Neuro History: mild cognitive impairment Psychiatric History: Reports: Addiction, Anxiety, Dementia, Depression Endocrine/Metabolic History: Reports: None Hematologic History: Reports: None Immunologic History: Reports: None Oncologic (Cancer) History: Reports: None Dermatologic History: Reports: None - Infectious Disease History Infectious Disease History: Reports: None - Past Surgical History Head Surgeries/Procedures: Reports: None HEENT Surgical History: Reports: None Cardiovascular Surgical History: Reports: None Respiratory Surgical History: Reports: None GI Surgical History: Reports: Appendectomy Neurological Surgical History: Reports: Lumbar Spine, Thoracic Spine Musculoskeletal Surgical History: Reports: None Social & Family History - Family History Family Medical History: Noncontributory - Tobacco Use Smoking Status *Q: Current Every Day Smoker Years of Tobacco use: 57 Packs/Tins Daily: 1 Used Tobacco, but Quit: No Second Hand Smoke Exposure: No - Caffeine Use Caffeine Use: Reports: Coffee Caffeine Use Comment: 2drinks/day - Alcohol Use Days Per Week of Alcohol Use: 7 Number of Drinks Per Day: 1 Total Drinks Per Week: 7 Date of Last Drink: 11/28/18 Time of Last Drink: 14:00 - Recreational Drug Use Recreational Drug Use: No - Living Situation & Occupation Living situation: Reports: Occupation: Unemployed H&P Review of Systems - Review of Systems: Review Of Systems: ROS reveals no pertinent complaints other than HPI. Exam - Exam Exam: See Below - Vital Signs Vital Signs: Last Vital Signs Temp 37.1 C 11/29/18 07:51 Pulse 105 H 11/29/18 08:17 Resp 16 11/29/18 07:51 BP 123/83 11/29/18 08:17 Pulse Ox 93 L 11/29/18 07:51 Weight: 60.01 kg - Exam General: Alert, Oriented, 4 HEENT: PERRLA, Hearing Intact, Mucosa Moist & [place], Nares Patent, Normal Nasal Septum, Posterior Pharynx Clear, Conjunctiva Clear, EOMI, EACs Clear, TMs Clear Neck: Supple, Trachea Midline, 2 Lungs: Clear to Auscultation, Normal Respiratory Effort Cardiovascular: Regular Rate, Regular Rhythm GI/Abdominal Exam: Normal Bowel Sounds, Soft, Non-Tender, No Organomegaly, No Distention, No Abnormal Bruit, No Mass, Pelvis Stable Back Exam: Normal Inspection Extremities: Normal Inspection, Normal Range of Motion, Non-Tender, No Pedal Edema, Normal Capillary Refill Peripheral Pulses: 2+: Dorsalis Pedis (L), Dorsalis Pedis (R) Neuro Extensive - Mental Status: Alert, Oriented x3, Normal Mood/Affect, Normal Cognition, Other (CIWA 0) - Patient Data Lab Results Last 24 hrs: Laboratory Results - last 24 hr 11/28/18 11/28/18 11/28/18 Range/Units 18:02 18:42 18:42 WBC 11.72 H (4.0-11.0) K/uL RBC 5.11 (4.30-5.90) M/uL Hgb 17.1 H (12.0-16.0) g/dL Hct 48.4 H (36.0-46.0) % MCV 94.7 (80.0-98.0) fL MCH 33.5 H (27.0-32.0) pg MCHC 35.3 (31.0-37.0) g/dL RDW Std Deviation 57.9 (28.0-62.0) fl RDW Coeff of Katerina 17 H (11.0-15.0) % Plt Count 300 (150-400) K/uL MPV 8.90 (7.40-12.00) fL Neut % (Auto) 69.6 (48.0-80.0) % Lymph % (Auto) 23.2 (16.0-40.0) % [place] % (Auto) 6.4 (0.0-15.0) % Eos % (Auto) 0.5 (0.0-7.0) % Baso % (Auto) 0.3 (0.0-1.5) % Neut # (Auto) 8.2 H (1.4-5.7) K/uL Lymph # (Auto) 2.7 H (0.6-2.4) K/uL [place] # (Auto) 0.8 (0.0-0.8) K/uL Eos # (Auto) 0.1 (0.0-0.7) K/uL Baso # (Auto) 0.0 (0.0-0.1) K/uL Nucleated RBC % 0.0 /100WBC Nucleated RBCs # 0 K/uL Sodium 142 (136-145) mmol/L Potassium 3.5 (3.5-5.1) mmol/L Chloride 105 (98-107) mmol/L Carbon Dioxide 22.0 (21.0-32.0) mmol/L BUN 3 L (7.0-18.0) mg/dL Creatinine 0.5 L (0.6-1.0) mg/dL Est Cr Clr Drug Dosing 81.62 mL/min Estimated GFR (MDRD) > 60.0 ml/min Glucose 159 H (74-106) mg/dL Calcium 9.2 (8.5-10.1) mg/dL Total Bilirubin 0.8 (0.2-1.0) mg/dL AST 40 H (15-37) IU/L ALT 15 (14-63) IU/L Alkaline Phosphatase 211 H (46-116) U/L Troponin I < 0.050 (0.000-0.056) ng/mL Total Protein 7.8 (6.4-8.2) g/dL Albumin 3.4 (3.4-5.0) g/dL Globulin 4.4 H (2.6-4.0) g/dL Albumin/Globulin Ratio 0.8 L (0.9-1.6) Lipase 169 (73-393) U/L Urine Color Urine Appearance Urine pH (5.0-8.0) Ur Specific [place] (1.001-1.035) Urine Protein (NEGATIVE) mg/dL Urine Glucose (UA) (NEGATIVE) mg/dL Urine Ketones (NEGATIVE) mg/dL Urine Occult Blood (NEGATIVE) Urine Nitrite (NEGATIVE) Urine Bilirubin (NEGATIVE) Urine Urobilinogen (<2.0) EU/dL Ur Leukocyte Esterase (NEGATIVE) 11/29/18 11/29/18 11/29/18 Range/Units 00:40 01:13 07:01 WBC 11.77 H (4.0-11.0) K/uL RBC 4.22 L (4.30-5.90) M/uL Hgb 14.0 (12.0-16.0) g/dL Hct 41.2 (36.0-46.0) % MCV 97.6 (80.0-98.0) fL MCH 33.2 H (27.0-32.0) pg MCHC 34.0 (31.0-37.0) g/dL RDW Std Deviation 59.0 (28.0-62.0) fl RDW Coeff of Katerina 17 H (11.0-15.0) % Plt Count 246 (150-400) K/uL MPV 8.90 (7.40-12.00) fL Neut % (Auto) 58.2 (48.0-80.0) % Lymph % (Auto) 32.0 (16.0-40.0) % [place] % (Auto) 8.5 (0.0-15.0) % Eos % (Auto) 0.9 (0.0-7.0) % Baso % (Auto) 0.4 (0.0-1.5) % Neut # (Auto) 6.8 H (1.4-5.7) K/uL Lymph # (Auto) 3.8 H (0.6-2.4) K/uL [place] # (Auto) 1.0 H (0.0-0.8) K/uL Eos # (Auto) 0.1 (0.0-0.7) K/uL Baso # (Auto) 0.1 (0.0-0.1) K/uL Nucleated RBC % 0.0 /100WBC Nucleated RBCs # 0 K/uL Sodium (136-145) mmol/L Potassium (3.5-5.1) mmol/L Chloride (98-107) mmol/L Carbon Dioxide (21.0-32.0) mmol/L BUN (7.0-18.0) mg/dL Creatinine (0.6-1.0) mg/dL Est Cr Clr Drug Dosing mL/min Estimated GFR (MDRD) ml/min Glucose (74-106) mg/dL Calcium (8.5-10.1) mg/dL Total Bilirubin (0.2-1.0) mg/dL AST (15-37) IU/L ALT (14-63) IU/L Alkaline Phosphatase (46-116) U/L Troponin I < 0.050 (0.000-0.056) ng/mL Total Protein (6.4-8.2) g/dL Albumin (3.4-5.0) g/dL Globulin (2.6-4.0) g/dL Albumin/Globulin Ratio (0.9-1.6) Lipase (73-393) U/L Urine Color DARK YELLOW Urine Appearance CLEAR Urine pH 6.5 (5.0-8.0) Ur Specific [place] 1.020 (1.001-1.035) Urine Protein NEGATIVE (NEGATIVE) mg/dL Urine Glucose (UA) NEGATIVE (NEGATIVE) mg/dL Urine Ketones NEGATIVE (NEGATIVE) mg/dL Urine Occult Blood NEGATIVE (NEGATIVE) Urine Nitrite NEGATIVE (NEGATIVE) Urine Bilirubin NEGATIVE (NEGATIVE) Urine Urobilinogen 0.2 (<2.0) EU/dL Ur Leukocyte Esterase NEGATIVE (NEGATIVE) 11/29/18 11/29/18 Range/Units 07:01 07:01 WBC (4.0-11.0) K/uL RBC (4.30-5.90) M/uL Hgb (12.0-16.0) g/dL Hct (36.0-46.0) % MCV (80.0-98.0) fL MCH (27.0-32.0) pg MCHC (31.0-37.0) g/dL RDW Std Deviation (28.0-62.0) fl RDW Coeff of Katerina (11.0-15.0) % Plt Count (150-400) K/uL MPV (7.40-12.00) fL Neut % (Auto) (48.0-80.0) % Lymph % (Auto) (16.0-40.0) % [place] % (Auto) (0.0-15.0) % Eos % (Auto) (0.0-7.0) % Baso % (Auto) (0.0-1.5) % Neut # (Auto) (1.4-5.7) K/uL Lymph # (Auto) (0.6-2.4) K/uL [place] # (Auto) (0.0-0.8) K/uL Eos # (Auto) (0.0-0.7) K/uL Baso # (Auto) (0.0-0.1) K/uL Nucleated RBC % /100WBC Nucleated RBCs # K/uL Sodium 143 (136-145) mmol/L Potassium 3.3 L (3.5-5.1) mmol/L Chloride 108 H (98-107) mmol/L Carbon Dioxide 23.8 (21.0-32.0) mmol/L BUN 4 L (7.0-18.0) mg/dL Creatinine 0.7 (0.6-1.0) mg/dL Est Cr Clr Drug Dosing 58.30 mL/min Estimated GFR (MDRD) > 60.0 ml/min Glucose 149 H (74-106) mg/dL Calcium 8.2 L (8.5-10.1) mg/dL Total Bilirubin (0.2-1.0) mg/dL AST (15-37) IU/L ALT (14-63) IU/L Alkaline Phosphatase (46-116) U/L Troponin I < 0.050 (0.000-0.056) ng/mL Total Protein (6.4-8.2) g/dL Albumin (3.4-5.0) g/dL Globulin (2.6-4.0) g/dL Albumin/Globulin Ratio (0.9-1.6) Lipase (73-393) U/L Urine Color Urine Appearance Urine pH (5.0-8.0) Ur Specific [place] (1.001-1.035) Urine Protein (NEGATIVE) mg/dL Urine Glucose (UA) (NEGATIVE) mg/dL Urine Ketones (NEGATIVE) mg/dL Urine Occult Blood (NEGATIVE) Urine Nitrite (NEGATIVE) Urine Bilirubin (NEGATIVE) Urine Urobilinogen (<2.0) EU/dL Ur Leukocyte Esterase (NEGATIVE) Result Diagrams: 11/29/18 07:01 11/29/18 07:01 Problem List Initiated/Reviewed/Updated: Yes Orders Last 24hrs: Active Orders 24 hr Category Date Time Status Patient Status [ADT] Stat ADT 11/28/18 19:28 Active EKG Documentation Completion [RC] STAT Care 11/28/18 17:51 Active RT Aerosol Therapy [RC] ASDIRECTED Care 11/29/18 07:07 Active Ready for Discharge [RC] PER UNIT ROUTINE Care 05/17/19 09:23 Active Event Designer Discontinue [Cardiac Monitoring Care 11/29/18 08:31 Active Discontinue] [RC] Click to Edit Up With Assistance [RC] ASDIRECTED Care 11/29/18 07:05 Active VTE/DVT Education [RC] PER UNIT ROUTINE Care 11/29/18 07:06 Active Vital Signs [RC] Q4H Care 11/29/18 07:06 Active Heart Healthy Diet [DIET] Diet 11/29/18 Breakfast Active Albuterol/Ipratropium [DuoNeb 3.0-0.5 MG/3 ML] Med 11/29/18 07:05 Active 3 ml NEB Q4HRRT PRN Docusate Sodium [Colace] Med 11/29/18 07:05 Active 100 mg PO BID PRN Enoxaparin [Lovenox] Med 11/29/18 07:15 Active 30 mg SUBCUT Q24H Furosemide [Lasix] Med 11/29/18 09:00 Active 20 mg PO DAILY Gabapentin [Neurontin] Med 11/28/18 22:00 Active 600 mg PO BID LORazepam [Ativan] Med 11/28/18 21:03 Active See Protocol IVPUSH Q4H PRN Lansoprazole [Prevacid Solutab] Med 11/29/18 07:30 Active 30 mg PO ACBREAKFAST Memantine [Namenda] Med 11/28/18 21:45 Active 10 mg PO BID Metoprolol Succinate [Toprol XL] Med 11/29/18 21:00 Active 12.5 mg PO BEDTIME Mirtazapine [Remeron] Med 11/29/18 21:00 Active 15 mg PO BEDTIME Morphine [MS Contin] Med 11/28/18 21:00 Active 60 mg PO Q12H Nitroglycerin [Nitrostat] Med 11/28/18 18:17 Active 0.4 mg SL Q5M PRN Potassium Chloride [Klor-Con 10] Med 11/28/18 22:00 Active 10 meq PO BID Sodium Chloride 0.9% [Normal Saline] 1,000 ml Med 11/29/18 07:15 Active IV ASDIRECTED Sodium Chloride 0.9% [Saline Flush] Med 11/28/18 17:51 Active 10 ml FLUSH ASDIRECTED PRN Sodium Chloride 0.9% [Saline Flush] Med 11/28/18 17:51 Active 2.5 ml FLUSH ASDIRECTED PRN Sucralfate [Carafate] Med 11/29/18 07:30 Active 1 gm PO BIDAC amLODIPine [Norvasc] Med 11/29/18 09:00 Active 5 mg PO DAILY oxyCODONE Med 11/29/18 00:00 Active 10 mg PO BID@0000,1200 Saline Lock Insert [OM.PC] Stat Oth 11/28/18 17:51 Ordered Resuscitation Status Routine Resus Stat 11/29/18 07:05 Ordered Medication Orders Albuterol/Ipratropium (Duoneb 3.0-0.5 Mg/3 Ml) 3 ml NEB Q4HRRT PRN PRN Reason: Shortness Of Breath/wheezing Amlodipine Besylate (Norvasc) 5 mg PO DAILY [facility] Last Admin: 11/29/18 08:15 Dose: 5 mg Docusate Sodium (Colace) 100 mg PO BID PRN PRN Reason: Constipation Last Admin: 11/29/18 08:17 Dose: 100 mg Enoxaparin Sodium (Lovenox) 30 mg SUBCUT Q24H [facility] Last Admin: 11/29/18 08:15 Dose: 30 mg Furosemide (Lasix) 20 mg PO DAILY [facility] Last Admin: 11/29/18 08:17 Dose: 20 mg Gabapentin (Neurontin) 600 mg PO BID [facility] Last Admin: 11/29/18 08:15 Dose: 600 mg Admin: 11/28/18 22:22 Dose: 600 mg Sodium Chloride (Normal Saline) 1,000 mls @ 75 mls/hr IV ASDIRECTED [facility] Last Admin: 11/29/18 08:18 Dose: 75 mls/hr Lansoprazole (Prevacid Solutab) 30 mg PO ACBREAKFAST [facility] Last Admin: 11/29/18 06:32 Dose: 30 mg Lorazepam (Ativan) 0 mg IVPUSH Q4H PRN; Protocol PRN Reason: Agitation Memantine (Namenda) 10 mg PO BID [facility] Last Admin: 11/29/18 08:17 Dose: 10 mg Admin: 11/28/18 22:22 Dose: 10 mg Metoprolol Succinate (Toprol Xl) 12.5 mg PO BEDTIME [facility] Mirtazapine (Remeron) 15 mg PO BEDTIME [facility] Morphine Sulfate (Ms Contin) 60 mg PO Q12H [facility] Last Admin: 11/29/18 08:16 Dose: 60 mg Admin: 11/28/18 20:56 Dose: 60 mg Nitroglycerin (Nitrostat) 0.4 mg SL Q5M PRN PRN Reason: Chest Pain Last Admin: 11/28/18 18:24 Dose: 0.4 mg Oxycodone HCl (Oxycodone) 10 mg PO BID@0000,1200 [facility] Last Admin: 11/28/18 23:18 Dose: 10 mg Potassium Chloride (Klor-Con 10) 10 meq PO BID [facility] Last Admin: 11/29/18 08:17 Dose: 10 meq Admin: 11/28/18 22:22 Dose: 10 meq Sodium Chloride (Saline Flush) 10 ml FLUSH ASDIRECTED PRN PRN Reason: Keep Vein Open Last Admin: 11/28/18 18:03 Dose: 10 ml Sodium Chloride (Saline Flush) 2.5 ml FLUSH ASDIRECTED PRN PRN Reason: Keep Vein Open Last Admin: 11/28/18 18:03 Dose: 2.5 ml Sucralfate (Carafate) 1 gm PO BIDAC [facility] Last Admin: 11/29/18 06:32 Dose: 1 gm Assessment/Plan Comment:: Assessment: #1. ACS rule out #2. HTN #3. Sinus tachycardia #4. History of chronic alcoholism Plan: #1. Admit for observation. Cardiac tele. Vitals per floor #2. Troponin q6h x3 #3. PRN Lorazepam as ordered Discharge summary: Patient was discharged on same day 11/29/2018 after ACS was ruled out and the patient felt much more comfortable. She was advised to abstain from further alcohol and return precautions were discussed. She was prescribed thiamine, folic acid, and increased her metoprolol. Will arrange for outpatient stress test. F/u with PCP. <Brian Fitch - Last Filed: 11/29/18 12:36> H&P History of Present Illness - General Admit Problem/Dx: Admission Diagnosis/Problem Admission Diagnosis/Problem Chest pain, rule out acute myocardial infarction I have seen and examined to patient independently of medical scientist, Ej Fallon MD. I have discussed the case for care of this patient with him. I have reviewed and approve of the plan of care as outlined by medical scientist. Exam - Vital Signs Vital Signs: Last Vital Signs Temp 37.1 C 11/29/18 07:51 Pulse 105 H 11/29/18 08:17 Resp 16 11/29/18 07:51 BP 123/83 11/29/18 08:17 Pulse Ox 93 L 11/29/18 07:51 - Patient Data Lab Results Last 24 hrs: Laboratory Results - last 24 hr 11/28/18 11/28/18 11/28/18 Range/Units 18:02 18:42 18:42 WBC 11.72 H (4.0-11.0) K/uL RBC 5.11 (4.30-5.90) M/uL Hgb 17.1 H (12.0-16.0) g/dL Hct 48.4 H (36.0-46.0) % MCV 94.7 (80.0-98.0) fL MCH 33.5 H (27.0-32.0) pg MCHC 35.3 (31.0-37.0) g/dL RDW Std Deviation 57.9 (28.0-62.0) fl RDW Coeff of Katerina 17 H (11.0-15.0) % Plt Count 300 (150-400) K/uL MPV 8.90 (7.40-12.00) fL Neut % (Auto) 69.6 (48.0-80.0) % Lymph % (Auto) 23.2 (16.0-40.0) % [place] % (Auto) 6.4 (0.0-15.0) % Eos % (Auto) 0.5 (0.0-7.0) % Baso % (Auto) 0.3 (0.0-1.5) % Neut # (Auto) 8.2 H (1.4-5.7) K/uL Lymph # (Auto) 2.7 H (0.6-2.4) K/uL [place] # (Auto) 0.8 (0.0-0.8) K/uL Eos # (Auto) 0.1 (0.0-0.7) K/uL Baso # (Auto) 0.0 (0.0-0.1) K/uL Nucleated RBC % 0.0 /100WBC Nucleated RBCs # 0 K/uL Sodium 142 (136-145) mmol/L Potassium 3.5 (3.5-5.1) mmol/L Chloride 105 (98-107) mmol/L Carbon Dioxide 22.0 (21.0-32.0) mmol/L BUN 3 L (7.0-18.0) mg/dL Creatinine 0.5 L (0.6-1.0) mg/dL Est Cr Clr Drug Dosing 81.62 mL/min Estimated GFR (MDRD) > 60.0 ml/min Glucose 159 H (74-106) mg/dL Calcium 9.2 (8.5-10.1) mg/dL Total Bilirubin 0.8 (0.2-1.0) mg/dL AST 40 H (15-37) IU/L ALT 15 (14-63) IU/L Alkaline Phosphatase 211 H (46-116) U/L Troponin I < 0.050 (0.000-0.056) ng/mL Total Protein 7.8 (6.4-8.2) g/dL Albumin 3.4 (3.4-5.0) g/dL Globulin 4.4 H (2.6-4.0) g/dL Albumin/Globulin Ratio 0.8 L (0.9-1.6) Lipase 169 (73-393) U/L Urine Color Urine Appearance Urine pH (5.0-8.0) Ur Specific [place] (1.001-1.035) Urine Protein (NEGATIVE) mg/dL Urine Glucose (UA) (NEGATIVE) mg/dL Urine Ketones (NEGATIVE) mg/dL Urine Occult Blood (NEGATIVE) Urine Nitrite (NEGATIVE) Urine Bilirubin (NEGATIVE) Urine Urobilinogen (<2.0) EU/dL Ur Leukocyte Esterase (NEGATIVE) 11/29/18 11/29/18 11/29/18 Range/Units 00:40 01:13 07:01 WBC 11.77 H (4.0-11.0) K/uL RBC 4.22 L (4.30-5.90) M/uL Hgb 14.0 (12.0-16.0) g/dL Hct 41.2 (36.0-46.0) % MCV 97.6 (80.0-98.0) fL MCH 33.2 H (27.0-32.0) pg MCHC 34.0 (31.0-37.0) g/dL RDW Std Deviation 59.0 (28.0-62.0) fl RDW Coeff of Katerina 17 H (11.0-15.0) % Plt Count 246 (150-400) K/uL MPV 8.90 (7.40-12.00) fL Neut % (Auto) 58.2 (48.0-80.0) % Lymph % (Auto) 32.0 (16.0-40.0) % [place] % (Auto) 8.5 (0.0-15.0) % Eos % (Auto) 0.9 (0.0-7.0) % Baso % (Auto) 0.4 (0.0-1.5) % Neut # (Auto) 6.8 H (1.4-5.7) K/uL Lymph # (Auto) 3.8 H (0.6-2.4) K/uL [place] # (Auto) 1.0 H (0.0-0.8) K/uL Eos # (Auto) 0.1 (0.0-0.7) K/uL Baso # (Auto) 0.1 (0.0-0.1) K/uL Nucleated RBC % 0.0 /100WBC Nucleated RBCs # 0 K/uL Sodium (136-145) mmol/L Potassium (3.5-5.1) mmol/L Chloride (98-107) mmol/L Carbon Dioxide (21.0-32.0) mmol/L BUN (7.0-18.0) mg/dL Creatinine (0.6-1.0) mg/dL Est Cr Clr Drug Dosing mL/min Estimated GFR (MDRD) ml/min Glucose (74-106) mg/dL Calcium (8.5-10.1) mg/dL Total Bilirubin (0.2-1.0) mg/dL AST (15-37) IU/L ALT (14-63) IU/L Alkaline Phosphatase (46-116) U/L Troponin I < 0.050 (0.000-0.056) ng/mL Total Protein (6.4-8.2) g/dL Albumin (3.4-5.0) g/dL Globulin (2.6-4.0) g/dL Albumin/Globulin Ratio (0.9-1.6) Lipase (73-393) U/L Urine Color DARK YELLOW Urine Appearance CLEAR Urine pH 6.5 (5.0-8.0) Ur Specific [place] 1.020 (1.001-1.035) Urine Protein NEGATIVE (NEGATIVE) mg/dL Urine Glucose (UA) NEGATIVE (NEGATIVE) mg/dL Urine Ketones NEGATIVE (NEGATIVE) mg/dL Urine Occult Blood NEGATIVE (NEGATIVE) Urine Nitrite NEGATIVE (NEGATIVE) Urine Bilirubin NEGATIVE (NEGATIVE) Urine Urobilinogen 0.2 (<2.0) EU/dL Ur Leukocyte Esterase NEGATIVE (NEGATIVE) 11/29/18 11/29/18 Range/Units 07:01 07:01 WBC (4.0-11.0) K/uL RBC (4.30-5.90) M/uL Hgb (12.0-16.0) g/dL Hct (36.0-46.0) % MCV (80.0-98.0) fL MCH (27.0-32.0) pg MCHC (31.0-37.0) g/dL RDW Std Deviation (28.0-62.0) fl RDW Coeff of Katerina (11.0-15.0) % Plt Count (150-400) K/uL MPV (7.40-12.00) fL Neut % (Auto) (48.0-80.0) % Lymph % (Auto) (16.0-40.0) % [place] % (Auto) (0.0-15.0) % Eos % (Auto) (0.0-7.0) % Baso % (Auto) (0.0-1.5) % Neut # (Auto) (1.4-5.7) K/uL Lymph # (Auto) (0.6-2.4) K/uL [place] # (Auto) (0.0-0.8) K/uL Eos # (Auto) (0.0-0.7) K/uL Baso # (Auto) (0.0-0.1) K/uL Nucleated RBC % /100WBC Nucleated RBCs # K/uL Sodium 143 (136-145) mmol/L Potassium 3.3 L (3.5-5.1) mmol/L Chloride 108 H (98-107) mmol/L Carbon Dioxide 23.8 (21.0-32.0) mmol/L BUN 4 L (7.0-18.0) mg/dL Creatinine 0.7 (0.6-1.0) mg/dL Est Cr Clr Drug Dosing 58.30 mL/min Estimated GFR (MDRD) > 60.0 ml/min Glucose 149 H (74-106) mg/dL Calcium 8.2 L (8.5-10.1) mg/dL Total Bilirubin (0.2-1.0) mg/dL AST (15-37) IU/L ALT (14-63) IU/L Alkaline Phosphatase (46-116) U/L Troponin I < 0.050 (0.000-0.056) ng/mL Total Protein (6.4-8.2) g/dL Albumin (3.4-5.0) g/dL Globulin (2.6-4.0) g/dL Albumin/Globulin Ratio (0.9-1.6) Lipase (73-393) U/L Urine Color Urine Appearance Urine pH (5.0-8.0) Ur Specific [place] (1.001-1.035) Urine Protein (NEGATIVE) mg/dL Urine Glucose (UA) (NEGATIVE) mg/dL Urine Ketones (NEGATIVE) mg/dL Urine Occult Blood (NEGATIVE) Urine Nitrite (NEGATIVE) Urine Bilirubin (NEGATIVE) Urine Urobilinogen (<2.0) EU/dL Ur Leukocyte Esterase (NEGATIVE) Result Diagrams: 11/29/18 07:01 11/29/18 07:01 Orders Last 24hrs: Active Orders 24 hr Category Date Time Status Patient Status [ADT] Stat ADT 11/28/18 19:28 Active EKG Documentation Completion [RC] STAT Care 11/28/18 17:51 Active RT Aerosol Therapy [RC] ASDIRECTED Care 11/29/18 07:07 Active Ready for Discharge [RC] PER UNIT ROUTINE Care 11/29/18 09:23 Active Event Designer Discontinue [Cardiac Monitoring Care 11/29/18 08:31 Active Discontinue] [RC] Click to Edit Up With Assistance [RC] ASDIRECTED Care 11/29/18 07:05 Active VTE/DVT Education [RC] PER UNIT ROUTINE Care 11/29/18 07:06 Active Vital Signs [RC] Q4H Care 11/29/18 07:06 Active Saline Lock Insert [OM.PC] Stat Oth 11/28/18 17:51 Ordered Resuscitation Status Routine Resus Stat 11/29/18 07:05 Ordered
[2018-11-29] MEDS ORDERED: Metoprolol Succinate 25 MG Tab.ER PO SCH (21:00)
[2018-11-29] MEDS ORDERED: Mirtazapine 15 MG Tab PO SCH (21:00)
== END 2018-11-29 10:40 | disposition home or self-care (01) ==
LOC: MW.ED 17:50 → MW.MS 19:44
PROVIDERS: ADMIT Internal Medicine; ATTEND Internal Medicine
DX: R07.9 Chest pain, unspecified (principal); K29.70 Gastritis, unspecified, without bleeding; I10 Essential (primary) hypertension; J44.9 Chronic obstructive pulmonary disease, unspecified; K74.60 Unspecified cirrhosis of liver; F03.90 Unspecified dementia, unspecified severity, without behavioral disturbance, psychotic disturbance, mood disturbance, and anxiety; F17.200 Nicotine dependence, unspecified, uncomplicated; Z79.891 Long term (current) use of opiate analgesic; Z79.899 Other long term (current) drug therapy
CPT/HCPCS: 36415; 71045; 80048; 80053; 81003; 83690; 84484; 85025; 93005; 96361; 96365; 96372; 96375; 99285; A9270; G0378; J1650; J2060; J2405; J3411; J3490; J7040; 99284

== ENCOUNTER 2018-12-16 13:06 | Emergency (ER) | payer MEDICARE ==
[2018-12-16] MEDS ORDERED: MVI, Adult with Vitamin K 10 ML, Thiamine 100 MG, Folic Acid 1 MG in Sodium Chloride 0.... IV ONE ×4 (13:20)
--- NOTE | 2018-12-16 13:41 | EDM.PDOC ---
ED HPI GENERAL MEDICAL PROBLEM - General Chief Complaint: Drug or Alcohol Abuse Stated Complaint: AMBULANCE Time Seen by Provider: 12/16/18 13:09 Source of Information: Reports: Patient, EMS, Family History Limitations: Reports: Altered Mental Status - History of Present Illness INITIAL COMMENTS - FREE TEXT/NARRATIVE: HISTORY AND PHYSICAL: History of present illness: Patient is a 73-year-old female who presents to the ED today for concern of excessive alcohol use causing altered mental status. Patient's is here in the ED who states that this morning she was drinking whiskey heavily. states that she drinks alcohol chronically and drinks large amounts of alcohol daily. states, however, today was different in that she drinks so heavily she had more shallow breathing and he was concerned and wanted her evaluated. states she has been to numerous alcohol treatments without success and that being intoxicated is her usual state. Upon arrival to the ED, patient does awake to physical stimulation but is not answering questions or stating any complaints. She does smell of alcohol. Review of systems: As per history of present illness and below otherwise all systems reviewed and negative. Past medical history: As per history of present illness and as reviewed below otherwise noncontributory. Surgical history: As per history of present illness and as reviewed below otherwise noncontributory. Social history: See social history for further information Family history: As per history of present illness and as reviewed below otherwise noncontributory. Physical exam: General: Patient is in no acute distress. Patient laying comfortably on exam table. Patient is awakable to physical stimulation but does not answer questions. HEENT: Atraumatic, normocephalic, pupils equal and reactive bilaterally, negative for conjunctival pallor or scleral icterus, mucous membranes moist, TMs normal bilaterally, throat clear, neck supple, nontender, trachea midline. No drooling or trismus noted. No meningeal signs. No hot potato voice noted. Lungs: Clear to auscultation, breath sounds equal bilaterally, chest nontender. Heart: S1S2, regular rate and rhythm without overt murmur Abdomen: Soft, nondistended, nontender. Negative for masses or hepatosplenomegaly. Negative for costovertebral tenderness. Pelvis: Stable nontender. Genitourinary: Deferred. Rectal: Deferred. Skin: Intact, warm, dry. No lesions or rashes noted. Extremities: Atraumatic, negative for cords or calf pain. Neurovascular unremarkable. Neuro: Awake, alert, oriented. Cranial nerves II through XII unremarkable. Cerebellum unremarkable. Motor and sensory unremarkable throughout. Exam nonfocal. Notes: Dr. Martines verbally involved in patient care. Throughout stating ED, patient no longer altered mental status and able to last answer questions appropriately. She is alert of person, place, and time. Patient denies any complaints and states that she did drink a large amount of alcohol earlier this morning. Patient is adamant about being discharged and desires to go home, refusing observation/detox admission. Voices understanding and is agreeable to plan of care. Denies any further questions or concerns at this time. Diagnostics: CBC, CMP, urine drug screen, UA, EKG, magnesium, troponin, TSH, acetaminophen, ethanol level, saline cyclic, chest x-ray, head CT, cardiac monitoring, bedside glucose Therapeutics: Banana bag Prescription: None Impression: Alcohol intoxication Chronic alcohol abuse Altered mental status, resolved Plan: 1. Alternate ibuprofen and Tylenol as directed for pain and discomfort. Follow up with her primary care provider as discussed. 2. Return to the ED as needed and as discussed. Definitive disposition and diagnosis as appropriate pending reevaluation and review of above. - Related Data Allergies Allergy/AdvReac Type Severity Reaction Status Date / Time No Known Allergies Allergy Verified 12/16/18 13:10 Home Meds: Home Meds oxyCODONE 10 mg PO BID 08/15/16 [History] Gabapentin [Gralise] 600 mg PO BID 09/14/17 [History] Morphine [MS Contin] 60 mg PO Q12H 09/14/17 [History] Albuterol Sulfate [Proair Hfa] 2 puff INH QID PRN 09/19/18 [History] Furosemide 20 mg PO DAILY 09/19/18 [History] Lansoprazole [Prevacid] 30 mg PO ACBREAKFAST 09/19/18 [History] Memantine [Namenda] 10 mg PO BID 09/19/18 [History] Metoprolol Succinate [Toprol XL] 12.5 mg PO BEDTIME 09/19/18 [History] Mirtazapine 15 mg PO BEDTIME 09/19/18 [History] Potassium Chloride 10 meq PO BID 09/19/18 [History] Sucralfate [Carafate] 10 ml PO BIDAC 09/19/18 [History] amLODIPine [Norvasc] 5 mg PO DAILY 09/19/18 [History] Folic Acid 0.4 mg PO BEDTIME 30 Days #30 tab 11/29/18 [Rx] Metoprolol Succinate [Toprol XL] 25 mg PO BEDTIME 30 Days #30 tab.er 11/29/18 [ Rx] Thiamine [Vitamin B-1] 100 mg PO BEDTIME 30 Days #30 tab 11/29/18 [Rx] Past Medical History HEENT History: Reports: None Cardiovascular History: Reports: Angina, Hypertension Respiratory History: Reports: COPD Gastrointestinal History: Reports: Cholelithiasis, Pancreatitis, Other (See Below) Other Gastrointestinal History: chronic abdominal pain Genitourinary History: Reports: None 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: Musculoskeletal History: Reports: Back Pain, Chronic, Osteoporosis Other Musculoskeletal History: back injury Neurological History: Reports: Other (See Below) Other Neuro History: mild cognitive impairment Psychiatric History: Reports: Addiction, Anxiety, Dementia, Depression Endocrine/Metabolic History: Reports: None Hematologic History: Reports: None Immunologic History: Reports: None Oncologic (Cancer) History: Reports: None Dermatologic History: Reports: None - Infectious Disease History Infectious Disease History: Reports: None - Past Surgical History Head Surgeries/Procedures: Reports: None HEENT Surgical History: Reports: None Cardiovascular Surgical History: Reports: None Respiratory Surgical History: Reports: None GI Surgical History: Reports: Appendectomy Neurological Surgical History: Reports: Lumbar Spine, Thoracic Spine Musculoskeletal Surgical History: Reports: None Social & Family History - Family History Family Medical History: Noncontributory - Tobacco Use Smoking Status *Q: Current Status Unknown - Caffeine Use Caffeine Use: Reports: Coffee Caffeine Use Comment: 2drinks/day - Alcohol Use Days Per Week of Alcohol Use: 7 Number of Drinks Per Day: 10 Total Drinks Per Week: 70 - Recreational Drug Use Recreational Drug Use: No - Living Situation & Occupation Living situation: Reports: Occupation: Unemployed ED ROS GENERAL - Review of Systems Review Of Systems: ROS reveals no pertinent complaints other than HPI. - Physical Exam Exam: See Below (See dictation) Course - Vital Signs Last Recorded V/S: Last Vital Signs Temp 36.3 C 12/16/18 13:10 Pulse 131 H 12/16/18 13:10 Resp 16 12/16/18 13:10 BP 153/93 H 12/16/18 13:10 Pulse Ox 91 L 12/16/18 13:10 - Orders/Labs/Meds Orders: Active Orders 24 hr Category Date Time Status Cardiac Monitoring [RC] . DIRECTED Care 12/16/18 13:34 Active EKG Documentation Completion [RC] STAT Care 12/16/18 13:19 Active Glucose [Blood Glucose Check, Bedside] [RC] ONETIME Care 12/16/18 13:16 Active Labs: Laboratory Tests 12/16/18 12/16/18 12/16/18 Range/Units 13:40 13:40 15:00 WBC 7.85 (4.0-11.0) K/uL RBC 4.98 (4.30-5.90) M/uL Hgb 16.8 H (12.0-16.0) g/dL Hct 48.4 H (36.0-46.0) % MCV 97.2 (80.0-98.0) fL MCH 33.7 H (27.0-32.0) pg MCHC 34.7 (31.0-37.0) g/dL RDW Std Deviation 51.6 (28.0-62.0) fl RDW Coeff of Katerina 15 (11.0-15.0) % Plt Count 300 (150-400) K/uL MPV 9.30 (7.40-12.00) fL Neut % (Auto) 80.8 H (48.0-80.0) % Lymph % (Auto) 15.3 L (16.0-40.0) % [place] % (Auto) 3.3 (0.0-15.0) % Eos % (Auto) 0.0 (0.0-7.0) % Baso % (Auto) 0.6 (0.0-1.5) % Neut # (Auto) 6.3 H (1.4-5.7) K/uL Lymph # (Auto) 1.2 (0.6-2.4) K/uL [place] # (Auto) 0.3 (0.0-0.8) K/uL Eos # (Auto) 0.0 (0.0-0.7) K/uL Baso # (Auto) 0.1 (0.0-0.1) K/uL Nucleated RBC % 0.0 /100WBC Nucleated RBCs # 0 K/uL Sodium 141 (136-145) mmol/L Potassium 3.3 L (3.5-5.1) mmol/L Chloride 102 (98-107) mmol/L Carbon Dioxide 15.9 L (21.0-32.0) mmol/L BUN 6 L (7.0-18.0) mg/dL Creatinine 0.5 L (0.6-1.0) mg/dL Est Cr Clr Drug Dosing 92.86 mL/min Estimated GFR (MDRD) > 60.0 ml/min Glucose 85 (74-106) mg/dL Calcium 9.0 (8.5-10.1) mg/dL Magnesium 1.8 (1.8-2.4) mg/dL Total Bilirubin 0.7 (0.2-1.0) mg/dL AST 67 H (15-37) IU/L ALT 22 (14-63) IU/L Alkaline Phosphatase 205 H (46-116) U/L Ammonia 28 (19-54) ug/dL Troponin I < 0.050 (0.000-0.056) ng/mL Total Protein 7.7 (6.4-8.2) g/dL Albumin 3.6 (3.4-5.0) g/dL Globulin 4.1 H (2.6-4.0) g/dL Albumin/Globulin Ratio 0.9 (0.9-1.6) TSH 3rd Generation 0.43 (0.36-3.74) uIU/mL Urine Color Urine Appearance Urine pH (5.0-8.0) Ur Specific [place] (1.001-1.035) Urine Protein (NEGATIVE) mg/dL Urine Glucose (UA) (NEGATIVE) mg/dL Urine Ketones (NEGATIVE) mg/dL Urine Occult Blood (NEGATIVE) Urine Nitrite (NEGATIVE) Urine Bilirubin (NEGATIVE) Urine Ictotest Urine Urobilinogen (<2.0) EU/dL Ur Leukocyte Esterase (NEGATIVE) Urine RBC (0-2/HPF) Urine WBC (0-5/HPF) Ur Epithelial Cells (NONE-FEW) Urine Bacteria (NEGATIVE) Urine Mucus (NONE-MOD) Salicylates 1.4 (0-20) mg/dL Urine Opiates Screen (NEGATIVE) Ur Oxycodone Screen (NEGATIVE) Urine Methadone Screen (NEGATIVE) Acetaminophen <2.0 ug/mL Ur Barbiturates Screen (NEGATIVE) Ur Phencyclidine Scrn (NEGATIVE) Ur Amphetamine Screen (NEGATIVE) U Methamphetamines Scrn (NEGATIVE) U Benzodiazepines Scrn (NEGATIVE) U Cocaine Metab Screen (NEGATIVE) U Marijuana (THC) Screen (NEGATIVE) Ethyl Alcohol 275 mg/dL 12/16/18 12/16/18 Range/Units 15:59 15:59 WBC (4.0-11.0) K/uL RBC (4.30-5.90) M/uL Hgb (12.0-16.0) g/dL Hct (36.0-46.0) % MCV (80.0-98.0) fL MCH (27.0-32.0) pg MCHC (31.0-37.0) g/dL RDW Std Deviation (28.0-62.0) fl RDW Coeff of Katerina (11.0-15.0) % Plt Count (150-400) K/uL MPV (7.40-12.00) fL Neut % (Auto) (48.0-80.0) % Lymph % (Auto) (16.0-40.0) % [place] % (Auto) (0.0-15.0) % Eos % (Auto) (0.0-7.0) % Baso % (Auto) (0.0-1.5) % Neut # (Auto) (1.4-5.7) K/uL Lymph # (Auto) (0.6-2.4) K/uL [place] # (Auto) (0.0-0.8) K/uL Eos # (Auto) (0.0-0.7) K/uL Baso # (Auto) (0.0-0.1) K/uL Nucleated RBC % /100WBC Nucleated RBCs # K/uL Sodium (136-145) mmol/L Potassium (3.5-5.1) mmol/L Chloride (98-107) mmol/L Carbon Dioxide (21.0-32.0) mmol/L BUN (7.0-18.0) mg/dL Creatinine (0.6-1.0) mg/dL Est Cr Clr Drug Dosing mL/min Estimated GFR (MDRD) ml/min Glucose (74-106) mg/dL Calcium (8.5-10.1) mg/dL Magnesium (1.8-2.4) mg/dL Total Bilirubin (0.2-1.0) mg/dL AST (15-37) IU/L ALT (14-63) IU/L Alkaline Phosphatase (46-116) U/L Ammonia (19-54) ug/dL Troponin I (0.000-0.056) ng/mL Total Protein (6.4-8.2) g/dL Albumin (3.4-5.0) g/dL Globulin (2.6-4.0) g/dL Albumin/Globulin Ratio (0.9-1.6) TSH 3rd Generation (0.36-3.74) uIU/mL Urine Color YELLOW Urine Appearance CLEAR Urine pH 5.5 (5.0-8.0) Ur Specific [place] >= 1.030 (1.001-1.035) Urine Protein TRACE H (NEGATIVE) mg/dL Urine Glucose (UA) NEGATIVE (NEGATIVE) mg/dL Urine Ketones 40 H (NEGATIVE) mg/dL Urine Occult Blood NEGATIVE (NEGATIVE) Urine Nitrite NEGATIVE (NEGATIVE) Urine Bilirubin SMALL H (NEGATIVE) Urine Ictotest NEGATIVE Urine Urobilinogen 0.2 (<2.0) EU/dL Ur Leukocyte Esterase NEGATIVE (NEGATIVE) Urine RBC 0-2 (0-2/HPF) Urine WBC 0-1 (0-5/HPF) Ur Epithelial Cells RARE (NONE-FEW) Urine Bacteria FEW (NEGATIVE) Urine Mucus LIGHT (NONE-MOD) Salicylates (0-20) mg/dL Urine Opiates Screen POSITIVE (NEGATIVE) Ur Oxycodone Screen POSITIVE (NEGATIVE) Urine Methadone Screen NEGATIVE (NEGATIVE) Acetaminophen ug/mL Ur Barbiturates Screen NEGATIVE (NEGATIVE) Ur Phencyclidine Scrn NEGATIVE (NEGATIVE) Ur Amphetamine Screen NEGATIVE (NEGATIVE) U Methamphetamines Scrn NEGATIVE (NEGATIVE) U Benzodiazepines Scrn NEGATIVE (NEGATIVE) U Cocaine Metab Screen NEGATIVE (NEGATIVE) U Marijuana (THC) Screen NEGATIVE (NEGATIVE) Ethyl Alcohol mg/dL Meds: Medications Discontinued Medications Generic Name Dose Route Start Last Admin Trade Name Freq PRN Reason Stop Dose Admin Multivitamins/Minerals 10 ml/ 1,011.2 mls @ 999 mls/hr 12/16/18 13:20 13:52 Thiamine HCl 100 mg/ Folic IV 06/03/19 14:20 999 mls/hr Acid 1 mg/ Sodium Chloride ONETIME ONE Administration Departure - Departure Time of Disposition: 16:46 Disposition: Home, Self-Care 01 Clinical Impression: Chronic alcohol abuse Altered mental status Qualifiers: Altered mental status type: unspecified Qualified Code(s): R41.82 - Altered mental status, unspecified Alcohol intoxication Qualifiers: Complication of substance-induced condition: with unspecified complication Qualified Code(s): F10.929 - Alcohol use, unspecified with intoxication, unspecified - Discharge Information Referrals: PCP,None [Primary Care Provider] - Forms: ED Department Discharge Additional Instructions: The following information is given to patients seen in the emergency department who are being discharged to home. This information is to outline your options for follow-up care. We provide all patients seen in our emergency department with a follow-up referral. The need for follow-up, as well as the timing and circumstances, are variable depending upon the specifics of your emergency department visit. If you don't have a primary care physician on staff, we will provide you with a referral. We always advise you to contact your personal physician following an emergency department visit to inform them of the circumstance of the visit and for follow-up with them and/or the need for any referrals to a consulting specialist. The emergency department will also refer you to a specialist when appropriate. This referral assures that you have the opportunity for follow-up care with a specialist. All of these measure are taken in an effort to provide you with optimal care, which includes your follow-up. Under all circumstances we always encourage you to contact your private physician who remains a resource for coordinating your care. When calling for follow-up care, please make the office aware that this follow-up is from your recent emergency room visit. If for any reason you are refused follow-up, please contact the Emergency Department at and asked to speak to the emergency department charge nurse. [facility] [address] [place] [id number] [address] [id number] 1. Alternate ibuprofen and Tylenol as directed for pain and discomfort. Follow up with her primary care provider as discussed. 2. Return to the ED as needed and as discussed. - My Orders Last 24 Hours: My Active Orders 12/16/18 13:16 Glucose [Blood Glucose Check, Bedside] [RC] ONETIME 12/16/18 13:19 EKG Documentation Completion [RC] STAT 12/16/18 13:34 Cardiac Monitoring [RC] . DIRECTED - Assessment/Plan Last 24 Hours: My Active Orders 12/16/18 13:16 Glucose [Blood Glucose Check, Bedside] [RC] ONETIME 12/16/18 13:19 EKG Documentation Completion [RC] STAT 12/16/18 13:34 Cardiac Monitoring [RC] . DIRECTED
[2018-12-16 14:19] LABS: ACETAMINOPHEN <2.0 ug/mL
--- NOTE | 2018-12-16 14:32 | CR ---
INDICATION: TECHNIQUE: Chest 1 view. COMPARISON: None FINDINGS: Cardiovascular and mediastinum: Heart size and vasculature are normal in caliber and appearance. Mediastinum is within normal limits. Lungs and pleural space: Lungs are clear. No sign of infiltrate or mass. No sign of pleural effusion. No pneumothorax. Bones and soft tissues: No significant findings. Lordotic view with soft tissues of the neck and face obscuring the upper chest. Query kyphosis. IMPRESSION: Unremarkable chest. Dictated by Nik Doan MD @ Dec 16 2018 2:29PM Signed by Dr. Nik Doan @ Dec 16 2018 2:30PM
--- NOTE | 2018-12-16 14:34 | CT ---
INDICATION: PAIN, ETOH COMPARISON: May, CT SCAN HEAD WITHOUT CONTRAST TECHNIQUE: Direct axial non-contrast images of the head from foramen magnum to vertex are provided. FINDINGS: Axial images of the brain demonstrate a normal appearance of the ventricles, sulci and basal cistern. There is no evidence of intracranial hemorrhage, infarct, mass or mass effect. Coles-white differentiation is normal throughout. Visualized mastoid air cells and middle ear cavities are clear. The visualized paranasal sinuses are clear. The orbits are symmetric. Calvarium intact. CONCLUSION: Unremarkable unenhanced head CT. Please note that all CT scans at this facility use dose modulation, iterative reconstruction, and/or weight-based dosing when appropriate to reduce radiation dose to as low as reasonably achievable. Dictated by: Nik Doan MD @ 12/16/2018 14:32:28 (Electronically Signed)
[2018-12-16 14:52] LABS: CHLORIDE,CL 102 mmol/L (98-107); SODIUM,NA 141 mmol/L (136-145)
[2018-12-16 18:45] VITALS: BP 136/98
== END 2018-12-16 18:07 | disposition home or self-care (01) ==
LOC: MW.ED 13:06
DX: F10.129 Alcohol abuse with intoxication, unspecified (principal); J44.9 Chronic obstructive pulmonary disease, unspecified; I10 Essential (primary) hypertension; F41.9 Anxiety disorder, unspecified; F32.9 Major depressive disorder, single episode, unspecified; Z79.899 Other long term (current) drug therapy
CPT/HCPCS: 36415; 70450; 71045; 80053; 80305; 81001; 82140; 83735; 84443; 84484; 85025; 93005; 96365; 99285; G0480; J3411; J7040

== ENCOUNTER 2018-12-26 10:48 | Emergency (ER) | payer MEDICARE ==
[2018-12-26] MEDS ORDERED: Ondansetron 4 MG/2 ML SDV IVPUSH ONE (11:18)
[2018-12-26] MEDS ORDERED: Sodium Chloride 0.9% 1,000 ML IV ONE (11:18)
[2018-12-26 12:41] LABS: CHLORIDE,CL 93 mmol/L (98-107); SODIUM,NA 131 mmol/L (136-145)
[2018-12-26] MEDS ORDERED: Potassium Chloride 20 MEQ Tab.ER PO ONE ×2 (12:44→14:23)
--- NOTE | 2018-12-26 12:54 | EDM.PDOC ---
ED HPI GENERAL MEDICAL PROBLEM - General Chief Complaint: General Stated Complaint: PAIN IN STOMACH, ALCOHOL ABUSE, SUICIDAL THOUGHTS Time Seen by Provider: 12/26/18 11:04 Source of Information: Reports: Patient, Family History Limitations: Reports: No Limitations - History of Present Illness INITIAL COMMENTS - FREE TEXT/NARRATIVE: HISTORY AND PHYSICAL: History of present illness: Patient is a 73-year-old female who presents to the ED today with concern of abdominal pain or the past 3 or so days. Patient states the pain is more in her upper abdomen. She states she's had a decrease in appetite since the onset of pain and has not eaten much food. Patient has a history of known chronic alcohol abuse and is well-known to the providers in the ED. Patient presents with her states that "I'm so tired of taking care of her ". Patient rates her abdominal pain a 6 out of 10 and denies any other concerns or symptoms today. Patient denies suicidal or homicidal ideation with no plan or intent. Patient denies fever, chills, chest pain, shortness of breath, or cough. Denies headache, neck stiff ness, change in vision, syncope, or near syncope. Denies vomiting, diarrhea, constipation, or dysuria. Has not noted any blood in urine or stool. Review of systems: As per history of present illness and below otherwise all systems reviewed and negative. Past medical history: As per history of present illness and as reviewed below otherwise noncontributory. Surgical history: As per history of present illness and as reviewed below otherwise noncontributory. Social history: See social history for further information Family history: As per history of present illness and as reviewed below otherwise noncontributory. Physical exam: General: Patient is alert, oriented, and in no acute distress. Patient sitting comfortably on exam table. HEENT: Atraumatic, normocephalic, pupils equal and reactive bilaterally, negative for conjunctival pallor or scleral icterus, mucous membranes moist, TMs normal bilaterally, throat clear, neck supple, nontender, trachea midline. No drooling or trismus noted. No meningeal signs. No hot potato voice noted. Lungs: Clear to auscultation, breath sounds equal bilaterally, chest nontender. Heart: S1S2, regular rate and rhythm without overt murmur Abdomen: Soft, nondistended. Generalized mild pain to palpation of the abdomen. Negative for masses or hepatosplenomegaly. Negative for costovertebral tenderness. Pelvis: Stable nontender. Genitourinary: Deferred. Rectal: Deferred. Skin: Intact, warm, dry. No lesions or rashes noted. Extremities: Atraumatic, negative for cords or calf pain. Neurovascular unremarkable. Neuro: Awake, alert, oriented. Cranial nerves II through XII unremarkable. Cerebellum unremarkable. Motor and sensory unremarkable throughout. Exam nonfocal. Notes: Dr. Pang directly involved in patient care. Discussed multiple CT findings with patient and and need for follow up with primary care. Voices understanding and is agreeable to plan of care. Denies any further questions or concerns at this time. Diagnostics: CBC, CMP, UA, troponin, EKG, lipase, abdominal pelvic CT Therapeutics: Saline, Zofran, potassium Prescription: None Impression: Abdominal pain, unspecified Hyponatremia Hypokalemia Transaminitis Chronic alcohol abuse Plan: 1. Alternate ibuprofen and Tylenol as directed for pain and discomfort. 2. Follow-up with your primary care provider as discussed. Return to the ED as needed and as discussed. Definitive disposition and diagnosis as appropriate pending reevaluation and review of above. abd Pain Score (Numeric/FACES): 5 - Related Data Allergies Allergy/AdvReac Type Severity Reaction Status Date / Time No Known Allergies Allergy Verified 12/16/18 13:10 Home Meds: Home Meds oxyCODONE 10 mg PO BID 08/15/16 [History] Gabapentin [Gralise] 600 mg PO BID 09/14/17 [History] Morphine [MS Contin] 60 mg PO Q12H 09/14/17 [History] Albuterol Sulfate [Proair Hfa] 2 puff INH QID PRN 09/19/18 [History] Furosemide 20 mg PO DAILY 09/19/18 [History] Lansoprazole [Prevacid] 30 mg PO ACBREAKFAST 09/19/18 [History] Memantine [Namenda] 15 mg PO BID 09/19/18 [History] Metoprolol Succinate [Toprol XL] 12.5 mg PO BEDTIME 09/19/18 [History] Mirtazapine 15 mg PO BEDTIME 09/19/18 [History] Potassium Chloride 10 meq PO BID 09/19/18 [History] Sucralfate [Carafate] 10 ml PO BIDAC 09/19/18 [History] amLODIPine [Norvasc] 5 mg PO DAILY 09/19/18 [History] Folic Acid 0.4 mg PO BEDTIME 30 Days #30 tab 11/29/18 [Rx] Metoprolol Succinate [Toprol XL] 25 mg PO BEDTIME 30 Days #30 tab.er 11/29/18 [ Rx] Thiamine [Vitamin B-1] 100 mg PO BEDTIME 30 Days #30 tab 11/29/18 [Rx] Pantoprazole [ProTONIX] 40 mg PO DAILY 12/26/18 [History] Past Medical History HEENT History: Reports: None Cardiovascular History: Reports: Angina, Hypertension Respiratory History: Reports: COPD Gastrointestinal History: Reports: Cholelithiasis, Pancreatitis, Other (See Below) Other Gastrointestinal History: chronic abdominal pain Genitourinary History: Reports: None 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: Musculoskeletal History: Reports: Back Pain, Chronic, Osteoporosis Other Musculoskeletal History: back injury Neurological History: Reports: Other (See Below) Other Neuro History: mild cognitive impairment Psychiatric History: Reports: Addiction, Anxiety, Dementia, Depression Endocrine/Metabolic History: Reports: None Hematologic History: Reports: None Immunologic History: Reports: None Oncologic (Cancer) History: Reports: None Dermatologic History: Reports: None - Infectious Disease History Infectious Disease History: Reports: None - Past Surgical History Head Surgeries/Procedures: Reports: None HEENT Surgical History: Reports: None Cardiovascular Surgical History: Reports: None Respiratory Surgical History: Reports: None GI Surgical History: Reports: Appendectomy Neurological Surgical History: Reports: Lumbar Spine, Thoracic Spine Musculoskeletal Surgical History: Reports: None Social & Family History - Family History Family Medical History: Noncontributory - Tobacco Use Smoking Status *Q: Current Every Day Smoker Years of Tobacco use: 50 Packs/Tins Daily: 1 - Caffeine Use Caffeine Use: Reports: Coffee Caffeine Use Comment: 2drinks/day - Recreational Drug Use Recreational Drug Use: No - Living Situation & Occupation Living situation: Reports: Occupation: Unemployed ED ROS GENERAL - Review of Systems Review Of Systems: ROS reveals no pertinent complaints other than HPI. ED EXAM, GENERAL - Physical Exam Exam: See Below (See dictation) Course - Vital Signs Last Recorded V/S: Last Vital Signs Temp 36.3 C 12/26/18 11:07 Pulse 121 H 12/26/18 13:26 Resp 18 12/26/18 13:26 BP 137/83 12/26/18 13:26 Pulse Ox 92 L 12/26/18 13:26 - Orders/Labs/Meds Orders: Active Orders 24 hr Category Date Time Status EKG Documentation Completion [RC] STAT Care 12/26/18 11:18 Active Potassium Chloride Riders [KCL 40 MEQ in Water 100 ML] Med 12/26/18 13:04 Stop Req 40 meq Premix Bag 1 bag IV ONETIME Potassium Chloride [Klor-Con M20] Med 12/26/18 14:23 Once 40 meq PO ONETIME ONE Medication Orders Potassium Chloride 40 meq/ (Premix) 100 mls @ 25 mls/hr IV ONETIME ONE Stop: 12/26/18 17:03 Last Infusion: 12/26/18 14:19 Dose: 20 mls/hr Admin: 12/26/18 13:58 Dose: 25 mls/hr Potassium Chloride (Klor-Con M20) 40 meq PO ONETIME ONE Stop: 12/26/18 14:24 Labs: Laboratory Tests 12/26/18 12/26/18 12/26/18 Range/Units 11:30 11:30 12:13 WBC 5.28 (4.0-11.0) K/uL RBC 4.31 (4.30-5.90) M/uL Hgb 14.6 (12.0-16.0) g/dL Hct 41.9 (36.0-46.0) % MCV 97.2 (80.0-98.0) fL MCH 33.9 H (27.0-32.0) pg MCHC 34.8 (31.0-37.0) g/dL RDW Std Deviation 50.2 (28.0-62.0) fl RDW Coeff of Katerina 14 (11.0-15.0) % Plt Count 114 L (150-400) K/uL MPV 9.60 (7.40-12.00) fL Neut % (Auto) 44.3 L (48.0-80.0) % Lymph % (Auto) 42.2 H (16.0-40.0) % Whitfield % (Auto) 11.2 (0.0-15.0) % Eos % (Auto) 1.7 (0.0-7.0) % Baso % (Auto) 0.6 (0.0-1.5) % Neut # (Auto) 2.3 (1.4-5.7) K/uL Lymph # (Auto) 2.2 (0.6-2.4) K/uL Whitfield # (Auto) 0.6 (0.0-0.8) K/uL Eos # (Auto) 0.1 (0.0-0.7) K/uL Baso # (Auto) 0.0 (0.0-0.1) K/uL Nucleated RBC % 0.0 /100WBC Nucleated RBCs # 0 K/uL Sodium 131 L (136-145) mmol/L Potassium 3.1 L (3.5-5.1) mmol/L Chloride 93 L (98-107) mmol/L Carbon Dioxide 28.1 (21.0-32.0) mmol/L BUN 3 L (7.0-18.0) mg/dL Creatinine 0.5 L (0.6-1.0) mg/dL Est Cr Clr Drug Dosing 81.62 mL/min Estimated GFR (MDRD) > 60.0 ml/min Glucose 92 (74-106) mg/dL Calcium 8.8 (8.5-10.1) mg/dL Total Bilirubin 1.8 H (0.2-1.0) mg/dL AST 246 H (15-37) IU/L ALT 99 H (14-63) IU/L Alkaline Phosphatase 218 H (46-116) U/L Troponin I < 0.050 (0.000-0.056) ng/mL Total Protein 7.1 (6.4-8.2) g/dL Albumin 3.8 (3.4-5.0) g/dL Globulin 3.3 (2.6-4.0) g/dL Albumin/Globulin Ratio 1.2 (0.9-1.6) Lipase 43 L (73-393) U/L Urine Color YELLOW Urine Appearance CLEAR Urine pH 6.0 (5.0-8.0) Ur Specific Matthews <= 1.005 (1.001-1.035) Urine Protein NEGATIVE (NEGATIVE) mg/dL Urine Glucose (UA) NEGATIVE (NEGATIVE) mg/dL Urine Ketones NEGATIVE (NEGATIVE) mg/dL Urine Occult Blood NEGATIVE (NEGATIVE) Urine Nitrite NEGATIVE (NEGATIVE) Urine Bilirubin NEGATIVE (NEGATIVE) Urine Urobilinogen 0.2 (<2.0) EU/dL Ur Leukocyte Esterase NEGATIVE (NEGATIVE) Meds: Medications Generic Name Dose Route Start Last Admin Trade Name Freq PRN Reason Stop Dose Admin Potassium Chloride 40 meq/ 100 mls @ 25 mls/hr 12/26/18 13:04 12/26/18 14:19 Premix IV 12/26/18 17:03 20 mls/hr ONETIME ONE Infusion Potassium Chloride 40 meq 12/26/18 14:23 Klor-Con M20 PO 12/26/18 14:24 ONETIME ONE Discontinued Medications Generic Name Dose Route Start Last Admin Trade Name Freq PRN Reason Stop Dose Admin Sodium Chloride 1,000 mls @ 999 mls/hr 12/26/18 11:18 12/26/18 11:35 Normal Saline IV 12/26/18 12:18 999 mls/hr BOLUS ONE Administration Iopamidol 75 ml 12/26/18 13:33 12/26/18 13:33 Isovue Multipack-370 (76%) IVPUSH 12/26/18 13:34 75 ml ONETIME ONE Administration Ondansetron HCl 4 mg 12/26/18 11:18 12/26/18 11:36 Zofran IVPUSH 12/26/18 11:19 4 mg ONETIME ONE Administration Potassium Chloride 40 meq 12/26/18 12:44 12/26/18 13:58 Klor-Con M20 PO 12/26/18 12:45 Not Given ONETIME ONE Departure - Departure Time of Disposition: 14:17 Disposition: Home, Self-Care 01 Clinical Impression: Hyponatremia, Hypokalemia, Transaminitis, Chronic alcohol abuse Abdominal pain Qualifiers: Abdominal location: right upper quadrant Qualified Code(s): R10.11 - Right upper quadrant pain - Discharge Information Referrals: PCP,Unknown [Primary Care Provider] - Forms: ED Department Discharge Additional Instructions: The following information is given to patients seen in the emergency department who are being discharged to home. This information is to outline your options for follow-up care. We provide all patients seen in our emergency department with a follow-up referral. The need for follow-up, as well as the timing and circumstances, are variable depending upon the specifics of your emergency department visit. If you don't have a primary care physician on staff, we will provide you with a referral. We always advise you to contact your personal physician following an emergency department visit to inform them of the circumstance of the visit and for follow-up with them and/or the need for any referrals to a consulting specialist. The emergency department will also refer you to a specialist when appropriate. This referral assures that you have the opportunity for follow-up care with a specialist. All of these measure are taken in an effort to provide you with optimal care, which includes your follow-up. Under all circumstances we always encourage you to contact your private physician who remains a resource for coordinating your care. When calling for follow-up care, please make the office aware that this follow-up is from your recent emergency room visit. If for any reason you are refused follow-up, please contact the [facility] at and asked to speak to the emergency department charge nurse. [facility] [address] [place] [id number] [facility] [address] [place] [id number] 1. Alternate ibuprofen and Tylenol as directed for pain and discomfort. 2. Follow-up with your primary care provider as discussed. Return to the ED as needed and as discussed. - My Orders Last 24 Hours: My Active Orders 12/26/18 11:18 EKG Documentation Completion [RC] STAT 12/26/18 13:04 Potassium Chloride Riders [KCL 40 MEQ in Water 100 ML] 40 meq Premix Bag 1 bag IV ONETIME 12/26/18 14:23 Potassium Chloride [Klor-Con M20] 40 meq PO ONETIME ONE - Assessment/Plan Last 24 Hours: My Active Orders 12/26/18 11:18 EKG Documentation Completion [RC] STAT 12/26/18 13:04 Potassium Chloride Riders [KCL 40 MEQ in Water 100 ML] 40 meq Premix Bag 1 bag IV ONETIME 12/26/18 14:23 Potassium Chloride [Klor-Con M20] 40 meq PO ONETIME ONE
[2018-12-26] MEDS ORDERED: Potassium Chloride Riders 40 MEQ in Premix Bag 1 BAG IV ONE (13:04)
[2018-12-26] MEDS ORDERED: Iopamidol 755 MG/ML 200 ML Multipack Bottle IVPUSH ONE (13:33)
--- NOTE | 2018-12-26 14:07 | CT ---
CT of the abdomen and pelvis with contrast. HISTORY: Pain TECHNIQUE: Axial CT images were obtained of the abdomen and pelvis following administration of 75 mL of Isovue-370 in the left antecubital fossa without complication. Coronal and sagittal reconstructions obtained. Comparison: 09/12/2018 FINDINGS: The lung bases are clear, no pleural effusion. Mild dependent atelectasis. Likely severe fatty infiltration of the liver and mildly nodular contour. Cholecystectomy with a prominence of the common bile duct. The spleen and adrenal glands appear normal. The pancreas is atrophic. No bulky retroperitoneal lymphadenopathy or abdominal ascites. Multiple abdominal varices noted The kidneys enhance and function symmetrically without evidence of obstructive uropathy. Tiny renal cortical cysts. Small nonobstructing stone within the lower pole of the left kidney. The large and small bowel are normal in caliber without evidence of obstruction. No focal pericolonic inflammation or stranding. The urinary bladder is not well characterized due to bilateral total hip hardware. No definite free pelvic fluid. No pelvic lymphadenopathy. Multiple compression deformities within the visualized thoracolumbar spine with generalized osteopenia. There is a increase compression deformity at L4 with a small underlying 1.5 cm lucent area, significantly changed. IMPRESSION: 1. Severe fatty infiltration with possible early cirrhotic changes. 2. Cholecystectomy with a prominence of the common bile duct. 3. Multiple compression deformities in the visualized thoracolumbar spine, not significantly changed. 4. Multiple gastric varices.
[2018-12-26 14:33] VITALS: BP 110/75
== END 2018-12-26 15:00 | disposition home or self-care (01) ==
LOC: MW.ED 10:48
DX: R10.11 Right upper quadrant pain (principal); E87.1 Hypo-osmolality and hyponatremia; E87.6 Hypokalemia; F10.10 Alcohol abuse, uncomplicated; R74.0 Nonspecific elevation of levels of transaminase and lactic acid dehydrogenase [LDH]; F17.210 Nicotine dependence, cigarettes, uncomplicated; I10 Essential (primary) hypertension; F41.9 Anxiety disorder, unspecified; F32.9 Major depressive disorder, single episode, unspecified; Z79.899 Other long term (current) drug therapy
CPT/HCPCS: 36415; 74177; 80053; 81003; 83690; 84484; 85025; 93005; 96361; 96365; 96375; 99284; A4217; A9270; J2405; J3480; J7040; Q9967

== ENCOUNTER 2019-01-23 02:54 | Emergency (ER) | payer MEDICARE ==
[2019-01-23] MEDS ORDERED: Albuterol/Ipratropium 3.0-0.5 MG/3 ML Neb Soln NEB ONE (03:08)
[2019-01-23] MEDS ORDERED: Sodium Chloride 0.9% 1,000 ML IV ONE (03:08)
[2019-01-23] MEDS ORDERED: Sodium Chloride 0.9% 10 ML Syringe FLUSH PRN (03:09)
[2019-01-23] MEDS ORDERED: Sodium Chloride 0.9% 2.5 ML Syringe FLUSH PRN (03:09)
[2019-01-23] MEDS ORDERED: Morphine 2 MG/ML Syringe IVPUSH ONE (03:09)
[2019-01-23] MEDS ORDERED: Ondansetron 4 MG/2 ML SDV IVPUSH ONE (03:09)
[2019-01-23 03:10] VITALS: BP 153/95
[2019-01-23] MEDS ORDERED: Pantoprazole 40 MG Vial IVPUSH ONE (03:10)
--- NOTE | 2019-01-23 03:15 | EDM.PDOC ---
ED HPI GENERAL MEDICAL PROBLEM - General Chief Complaint: Respiratory Problem Stated Complaint: SOB Time Seen by Provider: 01/23/19 02:59 - History of Present Illness INITIAL COMMENTS - FREE TEXT/NARRATIVE: HISTORY AND PHYSICAL: History of present illness: The patient is a 73-year-old female with a history of hypertension COPD alcohol and tobacco abuse chronic back pain, for which she follows with pain management in [place] and does not have a pain contract, pancreatitis and is on multiple pain medications including oxycodone MS Contin gabapentin and presents this morning with complaints of shortness of breath for the last one hour. She is also complaining of her chronic back pain, which is caused by multiple old compression fractures of her thoracic or lumbar spine, and she has not been able to take her pain meds because of nausea and vomiting. The patient has been seen here multiple times in the recent past for abdominal issues of abdominal pain as well as vomiting and alcohol use and abuse. According to the daughter at bedside she has not been able to tolerate anything by mouth as far as foods or liquids but she is able to tolerate alcohol and not vomited up. She was unable to take her pain medication today and so she is complaining of her chronic pain that is not new or different. She is not complaining of upper abdominal pain on my evaluation and is spitting up but not vomiting. She has no chest pain and her shortness of breath is mild and when I try to ask questions she becomes annoyed at my questioning and my evaluation. She does have an inhaler at home that the daughter says she never uses. The patient was seen here twice last month on December 16 and December 26, the first visit for alcohol use and abuse and the second visit for abdominal pain for which she had labs and a CT scan which I reviewed. The patient has cirrhosis and has had a cholecystectomy as well as having gastric varices and the compression fractures in her back. The patient says she is not having chest pain and when the tech try to do an EKG she said she doesn't want that and refuses. During my questioning and evaluation she seems very annoyed that we are bothering her and keeps pulling the blanket up and rolling on her side and does not want to answer questions. Her last alcohol ingestion was right before leaving the house in route here. Review of systems: As per history of present illness and below otherwise all systems reviewed and negative. Past medical history: As per history of present illness and as reviewed below otherwise noncontributory. Surgical history: As per history of present illness and as reviewed below otherwise noncontributory. Social history: No reported history of drug or alcohol abuse. Family history: As per history of present illness and as reviewed below otherwise noncontributory. Physical exam: General: Well-developed well-nourished petite female who has severe kyphosis of her spine and is nontoxic appearing and moaning intermittently. Vital signs are noted by me. The patient smells heavily of cigarette smoke HEENT: Atraumatic, normocephalic, pupils reactive, negative for conjunctival pallor or scleral icterus, mucous membranes moist, throat clear, neck supple, nontender, trachea midline. Lungs: Clear to auscultation with some occasional scattered rhonchi and rales and some fine wheezes in the right base but good air exchange and no work of breathing, breath sounds equal bilaterally, chest nontender. Heart: S1S2, regular rhythm and slightly tachycardic rate of my evaluation no overt murmurs Abdomen: Soft, nondistended, nontender. Negative for masses or hepatosplenomegaly. Negative for costovertebral tenderness. On my exam I cannot elicit any tenderness with palpation and there is no rebound or guarding and bowel sounds are slightly hyperactive Pelvis: Stable nontender. Genitourinary: Deferred. Rectal: Deferred. Extremities: Atraumatic, negative for cords or calf pain. Neurovascular unremarkable. No pedal edema Neuro: Awake, alert, oriented. Cranial nerves II through XII unremarkable. Cerebellum unremarkable. Motor and sensory unremarkable throughout. Exam nonfocal. Diagnostics: The patient refused EKG, CBC CMP alcohol level amylase lipase and lactate chest x-ray Therapeutics: IV O2 monitor IV fluids Zofran and Protonix morphine The daughter has told me as well as nursing on several occasions that the patient has not had her regular pain medication due to the nausea and vomiting. All labs been reviewed and the patient has been told that she needs to hydrate more and reduce and/or quit alcohol and reduce and/or quit tobacco use. She has inhaler at home that have advised her to use when she's feeling short of breath. I've offered her further care and a by mouth challenge and she is refusing that at this time and would like to just go home. I will give her Zofran for home from [place] Impression: Dyspnea subjective with history of COPD stable, chronic tobacco user, chronic alcohol use/abuse; nausea and vomiting improved Definitive disposition and diagnosis as appropriate pending reevaluation and review of above. - Related Data Allergies Allergy/AdvReac Type Severity Reaction Status Date / Time No Known Allergies Allergy Verified 12/16/18 13:10 Home Meds: Home Meds oxyCODONE 10 mg PO BID 08/15/16 [History] Gabapentin [Gralise] 600 mg PO BID 09/14/17 [History] Morphine [MS Contin] 60 mg PO Q12H 09/14/17 [History] Albuterol Sulfate [Proair Hfa] 2 puff INH QID PRN 09/19/18 [History] Furosemide 20 mg PO DAILY 09/19/18 [History] Lansoprazole [Prevacid] 30 mg PO ACBREAKFAST 09/19/18 [History] Memantine [Namenda] 15 mg PO BID 09/19/18 [History] Metoprolol Succinate [Toprol XL] 12.5 mg PO BEDTIME 09/19/18 [History] Mirtazapine 15 mg PO BEDTIME 09/19/18 [History] Potassium Chloride 10 meq PO BID 09/19/18 [History] Sucralfate [Carafate] 10 ml PO BIDAC 09/19/18 [History] amLODIPine [Norvasc] 5 mg PO DAILY 09/19/18 [History] Folic Acid 0.4 mg PO BEDTIME 30 Days #30 tab 11/29/18 [Rx] Metoprolol Succinate [Toprol XL] 25 mg PO BEDTIME 30 Days #30 tab.er 11/29/18 [ Rx] Thiamine [Vitamin B-1] 100 mg PO BEDTIME 30 Days #30 tab 11/29/18 [Rx] Pantoprazole [ProTONIX] 40 mg PO DAILY 12/26/18 [History] Past Medical History HEENT History: Reports: None Cardiovascular History: Reports: Angina, Hypertension Respiratory History: Reports: COPD Gastrointestinal History: Reports: Cholelithiasis, Pancreatitis, Other (See Below) Other Gastrointestinal History: chronic abdominal pain Genitourinary History: Reports: None [employer]TER History: Reports: Musculoskeletal History: Reports: Back Pain, Chronic, Osteoporosis Other Musculoskeletal History: back injury Neurological History: Reports: Other (See Below) Other Neuro History: mild cognitive impairment Psychiatric History: Reports: Addiction, Anxiety, Dementia, Depression Endocrine/Metabolic History: Reports: None Hematologic History: Reports: None Immunologic History: Reports: None Oncologic (Cancer) History: Reports: None Dermatologic History: Reports: None - Infectious Disease History Infectious Disease History: Reports: None - Past Surgical History Head Surgeries/Procedures: Reports: None HEENT Surgical History: Reports: None Cardiovascular Surgical History: Reports: None Respiratory Surgical History: Reports: None GI Surgical History: Reports: Appendectomy Neurological Surgical History: Reports: Lumbar Spine, Thoracic Spine Musculoskeletal Surgical History: Reports: None Social & Family History - Family History Family Medical History: Noncontributory - Caffeine Use Caffeine Use: Reports: Coffee Caffeine Use Comment: 2drinks/day - Living Situation & Occupation Living situation: Reports: Occupation: Unemployed ED ROS GENERAL - Review of Systems Review Of Systems: ROS reveals no pertinent complaints other than HPI. ED EXAM, GENERAL - Physical Exam Exam: See Below (See dictation) Course - Vital Signs Last Recorded V/S: Last Vital Signs Temp 36.3 C 01/23/19 03:07 Pulse 129 H 01/23/19 03:07 Resp 18 01/23/19 03:07 BP 153/95 H 01/23/19 03:07 Pulse Ox 91 L 01/23/19 03:07 - Orders/Labs/Meds Orders: Active Orders 24 hr Category Date Time Status Blood Glucose Check, Bedside [RC] ONETIME Care 01/23/19 03:07 Active EKG Documentation Completion [RC] STAT Care 01/23/19 03:07 Inactive RT Aerosol Therapy [RC] ASDIRECTED Care 01/23/19 03:09 Active UA RFX LU AND CULT IF INDIC [URIN] Stat Lab 01/23/19 03:08 Ordered Sodium Chloride 0.9% [Normal Saline] 1,000 ml Med 01/23/19 03:08 Active IV STAT Sodium Chloride 0.9% [Saline Flush] Med 01/23/19 03:09 Active 10 ml FLUSH ASDIRECTED PRN Sodium Chloride 0.9% [Saline Flush] Med 01/23/19 03:09 Active 2.5 ml FLUSH ASDIRECTED PRN Saline Lock Insert [OM.PC] Stat Oth 01/23/19 03:07 Ordered Medication Orders Sodium Chloride (Normal Saline) 1,000 mls @ 999 mls/hr IV STAT ONE Stop: 01/23/19 04:08 Last Admin: 01/23/19 03:35 Dose: 999 mls/hr Sodium Chloride (Saline Flush) 10 ml FLUSH ASDIRECTED PRN PRN Reason: Keep Vein Open Sodium Chloride (Saline Flush) 2.5 ml FLUSH ASDIRECTED PRN PRN Reason: Keep Vein Open Labs: Laboratory Tests 01/23/19 01/23/19 01/23/19 Range/Units 03:10 03:10 03:10 WBC 4.90 (4.0-11.0) K/uL RBC 4.82 (4.30-5.90) M/uL Hgb 16.1 H (12.0-16.0) g/dL Hct 45.9 (36.0-46.0) % MCV 95.2 (80.0-98.0) fL MCH 33.4 H (27.0-32.0) pg MCHC 35.1 (31.0-37.0) g/dL RDW Std Deviation 53.0 (28.0-62.0) fl RDW Coeff of Katerina 15 (11.0-15.0) % Plt Count 216 (150-400) K/uL MPV 9.70 (7.40-12.00) fL Neut % (Auto) 40.2 L (48.0-80.0) % Lymph % (Auto) 44.5 H (16.0-40.0) % [place] % (Auto) 11.4 (0.0-15.0) % Eos % (Auto) 3.3 (0.0-7.0) % Baso % (Auto) 0.6 (0.0-1.5) % Neut # (Auto) 2.0 (1.4-5.7) K/uL Lymph # (Auto) 2.2 (0.6-2.4) K/uL [place] # (Auto) 0.6 (0.0-0.8) K/uL Eos # (Auto) 0.2 (0.0-0.7) K/uL Baso # (Auto) 0.0 (0.0-0.1) K/uL Nucleated RBC % 0.0 /100WBC Nucleated RBCs # 0 K/uL INR 1.10 Lactate (0.20-2.00) mmol/L Sodium 143 (136-145) mmol/L Potassium 3.3 L (3.5-5.1) mmol/L Chloride 104 (98-107) mmol/L Carbon Dioxide 21.7 (21.0-32.0) mmol/L BUN 6 L (7.0-18.0) mg/dL Creatinine 0.4 L (0.6-1.0) mg/dL Est Cr Clr Drug Dosing 92.66 mL/min Estimated GFR (MDRD) > 60.0 ml/min Glucose 138 H (74-106) mg/dL Calcium 8.9 (8.5-10.1) mg/dL Total Bilirubin 0.7 (0.2-1.0) mg/dL AST 88 H (15-37) IU/L ALT 38 (14-63) IU/L Alkaline Phosphatase 211 H (46-116) U/L Total Protein 7.2 (6.4-8.2) g/dL Albumin 3.4 (3.4-5.0) g/dL Globulin 3.8 (2.6-4.0) g/dL Albumin/Globulin Ratio 0.9 (0.9-1.6) Amylase 35 (25-115) U/L Lipase 272 (73-393) U/L Ethyl Alcohol 88 mg/dL 01/23/19 Range/Units 03:10 WBC (4.0-11.0) K/uL RBC (4.30-5.90) M/uL Hgb (12.0-16.0) g/dL Hct (36.0-46.0) % MCV (80.0-98.0) fL MCH (27.0-32.0) pg MCHC (31.0-37.0) g/dL RDW Std Deviation (28.0-62.0) fl RDW Coeff of Katerina (11.0-15.0) % Plt Count (150-400) K/uL MPV (7.40-12.00) fL Neut % (Auto) (48.0-80.0) % Lymph % (Auto) (16.0-40.0) % [place] % (Auto) (0.0-15.0) % Eos % (Auto) (0.0-7.0) % Baso % (Auto) (0.0-1.5) % Neut # (Auto) (1.4-5.7) K/uL Lymph # (Auto) (0.6-2.4) K/uL [place] # (Auto) (0.0-0.8) K/uL Eos # (Auto) (0.0-0.7) K/uL Baso # (Auto) (0.0-0.1) K/uL Nucleated RBC % /100WBC Nucleated RBCs # K/uL INR Lactate 2.6 H (0.20-2.00) mmol/L Sodium (136-145) mmol/L Potassium (3.5-5.1) mmol/L Chloride (98-107) mmol/L Carbon Dioxide (21.0-32.0) mmol/L BUN (7.0-18.0) mg/dL Creatinine (0.6-1.0) mg/dL Est Cr Clr Drug Dosing mL/min Estimated GFR (MDRD) ml/min Glucose (74-106) mg/dL Calcium (8.5-10.1) mg/dL Total Bilirubin (0.2-1.0) mg/dL AST (15-37) IU/L ALT (14-63) IU/L Alkaline Phosphatase (46-116) U/L Total Protein (6.4-8.2) g/dL Albumin (3.4-5.0) g/dL Globulin (2.6-4.0) g/dL Albumin/Globulin Ratio (0.9-1.6) Amylase (25-115) U/L Lipase (73-393) U/L Ethyl Alcohol mg/dL Meds: Medications Generic Name Dose Route Start Last Admin Trade Name Freq PRN Reason Stop Dose Admin Sodium Chloride 1,000 mls @ 999 mls/hr 01/23/19 03:08 01/23/19 03:35 Normal Saline IV 01/23/19 04:08 999 mls/hr STAT ONE Administration Sodium Chloride 10 ml 01/23/19 03:09 Saline Flush FLUSH ASDIRECTED PRN Keep Vein Open Sodium Chloride 2.5 ml 01/23/19 03:09 Saline Flush FLUSH ASDIRECTED PRN Keep Vein Open Discontinued Medications Generic Name Dose Route Start Last Admin Trade Name Freq PRN Reason Stop Dose Admin Albuterol/Ipratropium 3 ml 01/23/19 03:08 01/23/19 03:35 Duoneb 3.0-0.5 Mg/3 Ml NEB 01/23/19 03:09 3 ml ONETIME ONE Administration Sodium Chloride Confirm 01/23/19 03:24 01/23/19 03:50 Normal Saline Administered 01/23/19 03:25 20 mls/hr Dose Administration 20 mls @ as directed .ROUTE .STK-MED ONE Morphine Sulfate 4 mg 01/23/19 03:09 01/23/19 03:34 Morphine IVPUSH 01/23/19 03:10 4 mg ONETIME ONE Administration Ondansetron HCl 4 mg 01/23/19 03:09 01/23/19 03:34 Zofran IVPUSH 01/23/19 03:10 4 mg ONETIME ONE Administration Pantoprazole Sodium 80 mg 01/23/19 03:10 01/23/19 03:34 Protonix Iv IVPUSH 01/23/19 03:11 80 mg .BOLUS ONE Administration Tamsulosin HCl Confirm 01/23/19 03:22 01/23/19 03:35 Flomax Administered 01/23/19 03:23 Not Given Dose 0.4 mg .ROUTE .STK-MED ONE Departure - Departure Time of Disposition: 04:05 Disposition: Home, Self-Care 01 Condition: Good Clinical Impression: Chronic alcohol abuse Dyspnea Qualifiers: Dyspnea type: unspecified Qualified Code(s): R06.00 - Dyspnea, unspecified Nausea and vomiting Qualifiers: Vomiting type: unspecified Vomiting Intractability: non-intractable Qualified Code(s): R11.2 - Nausea with vomiting, unspecified COPD (chronic obstructive pulmonary disease) Qualifiers: COPD type: emphysema Emphysema type: unspecified Qualified Code(s): J43.9 - Emphysema, unspecified - Discharge Information Referrals: Milton Gonzalez MD [Primary Care Provider] - Forms: ED Department Discharge Additional Instructions: The following information is given to patients seen in the emergency department who are being discharged to home. This information is to outline your options for follow-up care. We provide all patients seen in our emergency department with a follow-up referral. The need for follow-up, as well as the timing and circumstances, are variable depending upon the specifics of your emergency department visit. If you don't have a primary care physician on staff, we will provide you with a referral. We always advise you to contact your personal physician following an emergency department visit to inform them of the circumstance of the visit and for follow-up with them and/or the need for any referrals to a consulting specialist. The emergency department will also refer you to a specialist when appropriate. This referral assures that you have the opportunity for followup care with a specialist. All of these measure are taken in an effort to provide you with optimal care, which includes your followup. Under all circumstances we always encourage you to contact your private physician who remains a resource for coordinating your care. When calling for followup care, please make the office aware that this follow-up is from your recent emergency room visit. If for any reason you are refused follow-up, please contact the [facility] emergency department at and ask to speak to the emergency department charge nurse. [facility] Primary care- [place] [address] Please connect with your provider in the clinic or one of ours for further care and evaluation of today's symptoms and problems as well as your chronic medical issues. You have been given Zofran from [facility] to help with nausea and vomiting since that you can continue to take your medications from home as well as keep hydrated. Try to reduce and/or eliminate smoking and reduce and/or eliminate alcohol use as we discussed. Return to ER as needed and as discussed - My Orders Last 24 Hours: My Active Orders 01/23/19 03:07 Blood Glucose Check, Bedside [RC] ONETIME EKG Documentation Completion [RC] STAT Saline Lock Insert [OM.PC] Stat 01/23/19 03:08 UA RFX LU AND CULT IF INDIC [URIN] Stat Sodium Chloride 0.9% [Normal Saline] 1,000 ml IV STAT 01/23/19 03:09 RT Aerosol Therapy [RC] ASDIRECTED Sodium Chloride 0.9% [Saline Flush] 10 ml FLUSH ASDIRECTED PRN Sodium Chloride 0.9% [Saline Flush] 2.5 ml FLUSH ASDIRECTED PRN - Assessment/Plan Last 24 Hours: My Active Orders 01/23/19 03:07 Blood Glucose Check, Bedside [RC] ONETIME EKG Documentation Completion [RC] STAT Saline Lock Insert [OM.PC] Stat 01/23/19 03:08 UA RFX LU AND CULT IF INDIC [URIN] Stat Sodium Chloride 0.9% [Normal Saline] 1,000 ml IV STAT 01/23/19 03:09 RT Aerosol Therapy [RC] ASDIRECTED Sodium Chloride 0.9% [Saline Flush] 10 ml FLUSH ASDIRECTED PRN Sodium Chloride 0.9% [Saline Flush] 2.5 ml FLUSH ASDIRECTED PRN
[2019-01-23] MEDS ORDERED: Tamsulosin 0.4 MG Cap.ER ONE (03:22)
[2019-01-23] MEDS ORDERED: Sodium Chloride 0.9% 20 ML ONE (03:24)
--- NOTE | 2019-01-23 03:43 | CR ---
INDICATION: Chest pain, shortness of breath TECHNIQUE: Chest radiograph 1 view COMPARISON: None FINDINGS: Mediastinum: The mediastinum is normal in appearance. The heart silhouette is normal in size and morphology. Lung: Both lungs are unremarkable in appearance. Both apices are obscure by the patient`s chin. No sign of pleural effusion seen. No pneumothorax is identified. noted. IMPRESSION: 1. No acute cardiopulmonary disease is seen. Dictated by: Magdaleno Griffin MD @ 01/23/2019 03:40:48 (Electronically Signed)
[2019-01-23 03:45] LABS: CHLORIDE,CL 104 mmol/L (98-107); SODIUM,NA 143 mmol/L (136-145)
== END 2019-01-23 04:22 | disposition home or self-care (01) ==
LOC: MW.ED 02:54
DX: J43.9 Emphysema, unspecified (principal); R11.2 Nausea with vomiting, unspecified; F10.10 Alcohol abuse, uncomplicated; Y90.4 Blood alcohol level of 80-99 mg/100 ml; I10 Essential (primary) hypertension; F41.9 Anxiety disorder, unspecified; F32.9 Major depressive disorder, single episode, unspecified; F17.200 Nicotine dependence, unspecified, uncomplicated; Z79.899 Other long term (current) drug therapy
CPT/HCPCS: 36415; 71045; 80053; 82150; 83605; 83690; 85025; 85610; 96374; 96375; 99285; C9113; G0480; J2270; J2405; J7040; 99284; J7620-GY